=== PATIENT | female | born 1950 | race Caucasian/White ===

== ENCOUNTER 2022-02-12 10:11 | Emergency (ER) | payer MEDICARE, SELFPAY ==
--- NOTE | ~2022-02-12 | XR_ITS ---
EXAMINATION: XR chest 2V DATE: 02/12/2022 13:22 INDICATION: Shortness of breath. Fever. TECHNIQUE: Frontal and lateral views of the chest were obtained. COMPARISON: None. FINDINGS: There are airspace opacities in right lower lobe, consistent with pneumonia. No pleural eff usion or pneumothorax. The heart size is normal. There are breast implants. IMPRESSION: 1. Airspace opacities in right lower lobe, consistent with pneumonia. Reviewed, dictated and finalized at location A. ICAL ENGINEERING TEACHER
[2022-02-12 10:55] VITALS: BP 127/65; PULSE 100; RESP 20; TEMP 37.2; O2SAT 99
--- NOTE | 2022-02-12 12:54 | ED.GENADULT ---
HPI - General Adult General Chief complaint: Upper Respiratory Infection Stated complaint: cough/sob Time Seen by Provider: 02/12/22 12:54 Source: patient Mode of arrival: ambulatory Limitations: no limitations History of Present Illness HPI narrative: 71-year-old female patient presents to the [facility] with complaints of cough and shortness of breath with fevers for the last 2 days. Patient states she has been feeling very drained and tired. Patient states she does have history of asthma and is active smoker. Patient denies using her rescue inhaler states that she might have used it once the last 2 or 3 days. Patient states she does not have and nebulizer at home. Patient states she has been vaccinated against COVID and influenza. Patient states she has been running fevers last 2 days yesterday was 99 fever and the day before that was up to 103. Patient states she has had a little bit of nausea at that has been able to keep down some florentino karin. Denies any abdominal pain. Denies any chest pain. Related Data Home Medications Medication Instructions Recorded Confirmed albuterol sulfate 90 mcg/actuation inhalation 02/12/22 aerosol inhaler amlodipine 10 mg tablet mg 02/12/22 azelastine 0.05 % eye drops drp 02/12/22 bupropion HCl 300 mg 24 hr tablet, mg PO 02/12/22 extended release gabapentin 300 mg capsule mg 02/12/22 ibuprofen 800 mg tablet mg 02/12/22 irbesartan 300 mg tablet mg 02/12/22 montelukast 10 mg tablet mg 02/12/22 pravastatin 10 mg tablet mg 02/12/22 Allergies Allergy/AdvReac Type Severity Reaction Status Date / Time Tetracyclines Allergy Intermediate Rash Verified 02/12/22 11:55 Review of Systems Review of Systems: CONSTITUTIONAL: Positive fever, denies chills, or sweats. EYES: Denies visual changes, redness, or discharge. ENT: Denies rhinorrhea, positive congestion, sore throat, denies otalgia. CARDIOVASCULAR: Denies chest pain, palpitations, or edema. RESPIRATORY: Positive cough with dyspnea. GASTROINTESTINAL: Denies abdominal pain, positive nausea, vomiting, denies diarrhea. GENITOURINARY: Denies dysuria or hematuria. SKIN: Denies rash or itching. MUSCULOSKELETAL: Denies back pain, joint pain, or myalgia. NEUROLOGIC: Denies headache, numbness, or weakness. PSYCHIATRIC: Denies anxiety or depression. [facility] Past Medical History Medical History (Updated 02/12/22 @ 14:07 by CARMEL Corrales) Asthma Social History Social History (Updated 02/12/22 @ 13:05 by CARMEL Corrales) Smoking status: Current every day smoker Comments At the time of my signature I agree with nursing past medical history, surgical, social, and family history. There is no relevant family history pertinent to the presenting complaint. Exam Narrative: GENERAL: Well-appearing, well-nourished, and in no acute distress. HEAD: Normocephalic, atraumatic. EYES: PERRLA and EOMI. ENT: Nares with erythema and edema noted bilaterally, no rhinorrhea or epistaxis. Mucous membranes moist. Posterior pharynx with no erythema, tonsillar enlargement, exudates or lesions present. Bilateral TMs are clear with no erythema or foreign bodies the canal. NECK: Supple. No lymphadenopathy CHEST: Clear to auscultation. No respiratory distress. Patient able talk in clear complete sentences. No tripoding noted. HEART: Regular rate and rhythm. No murmur heard. Normal peripheral pulses. ABDOMEN: Soft, nontender, nondistended, normal active bowel sounds. EXTREMITIES: Normal range of motion. No edema. SKIN: Warm, dry, no rash. NEURO: No focal deficits. Alert and oriented x3. Course Course Level of Care: Express Care Visit Reevaluation(s) Reevaluation #1: Discussed with patient that her x-ray was consistent with pneumonia. Discussed with patient she is negative today for influenza. Discussed with patient that I highly encouraged her to quit smoking. Discussed with patient will discharge home with a course of steroids
[2022-02-12] MEDS: ONDANSETRON HCL ODT 4 MG TABLET PO (13:24)
[2022-02-12] MEDS: ALBUTEROL SULFATE NEB 2.5 MG/3 ML INH INHALATION (13:25)
[2022-02-12] MEDS: IPRATROPIUM BR 0.02% INH SOLN 0.5 MG/2.5 ML VIAL INHALATION (13:25)
--- NOTE | 2022-02-12 15:20 | ECG_ITS ---
Measurements Intervals [place] Rate: 95 P: 69 MN: 149 QRS: 23 QRSD: 92 T: 27 QT: 311 QTc: 392 Interpretive Statements SINUS RHYTHM BORDERLINE T WAVE ABNORMALITY- INFERIOR LEADS BASELINE ARTIFACT- I, II, III, AVR, AVL, AVF BORDERLINE ECG NO PREVIOUS ECG AVAILABLE FOR COMPARISON Electronically Signed On 02-13-2022 7:35:43 [employer]ER SORTER by Neville Mcknight D.O.
== END 2022-02-12 14:31 | disposition home or self-care (01) ==
PROVIDERS: Emergency Provider Nurse Practitioner Family; PCP Internal Medicine
DX: J18.9 Pneumonia, unspecified organism (principal); J45.901 Unspecified asthma with (acute) exacerbation; F17.200 Nicotine dependence, unspecified, uncomplicated
CPT/HCPCS: 71046; 87804; 93005; 94640; 99213; A9270; G0463

== ENCOUNTER 2022-02-20 09:01 | Inpatient (IN) | payer MEDICARE, SELFPAY ==
[2022-02-20] VITALS (16 sets, daily range): BP systolic 151–192; BP diastolic 74–98; PULSE 68–93; RESP 14–24; TEMP 36.2–36.9; O2SAT 95–100; BMI 20.9
--- NOTE | ~2022-02-20 | XR_ITS ---
EXAMINATION: XR chest 1V portable DATE: 02/22/2022 05:40 INDICATION: Right lower lobe pneumonia. TECHNIQUE: A single frontal view of the chest was obtained. COMPARISON: Chest 2 views 02/12/2022, CT abdomen and pelvis 02/20/2022 FINDINGS: There are airspace opacities in right mid and lower lung zones. There is a small right pleu ral effusion. No pneumothorax. The heart size is normal. IMPRESSION: 1. Airspace opacities in right mid and lower lung zones, consistent with atelectasis versus pneumonia . 2. Small right pleural effusion. Reviewed, dictated and finalized at location A. OF MAINTENANCE IMPRESSION: 1. Airspace opacities in right mid and lower lung zones, consistent with atelec tasis versus pneumonia. 2. Small right pleural effusion.
--- NOTE | ~2022-02-20 | XR_ITS ---
EXAMINATION: XR chest 1V portable DATE: 02/23/2022 06:01 INDICATION: Right lower lobe pneumonia. TECHNIQUE: A single frontal view of the chest was obtained. COMPARISON: Chest single view 02/22/2022 FINDINGS: There are airspace opacities in right mid and lower lung zones. There is a small right pleu ral effusion. No pneumothorax. The heart size is normal. IMPRESSION: 1. Stable airspace opacities in right mid and lower lung zones, consistent with atelectasis versus pn eumonia. 2. Stable small right pleural effusion. Reviewed, dictated and finalized at location A. STRAIGHTENER IMPRESSION: 1. Stable airspace opacities in right mid and lower lung zones, consistent with atelectasis versus pneumonia. 2. Stable small right pleural effusion.
--- NOTE | ~2022-02-20 | CT_ITS ---
EXAMINATION: CT abdomen pelvis w con DATE: 02/20/2022 10:12 INDICATION: Right lower quadrant pain. Nausea. TECHNIQUE: Computed tomography (CT) of the abdomen and pelvis was performed with 100 cc Omnipaque 350 intravenous contrast. The dose-length product was 339.92 mGy-cm. Automated exposure control and iter ative reconstruction technique were employed. COMPARISON: No prior studies for comparison. . FINDINGS: There is right lower lobe airspace disease, suspicious for pneumonia and/or atelectasis. Sm all right pleural effusion. There are partially calcified breast implants. Heart size normal. Small subcentimeter hypodensities of the liver, most likely benign. The spleen, pancreas, adrenal gla nds and left kidney are unremarkable. There is a 3 cm right renal cyst medially. Gallbladder is prese nt. There is mild atherosclerosis of the aorta without evidence for aneurysm. No significant lymphade nopathy. Moderate colonic fecal loading. No free air. Bladder is not well distended. There is a chron ic compression fracture of L5 with severe degenerative disc disease at L4-5 and L5-S1. There is grade 1 spondylolisthesis at L4-5. There is mild superior endplate compression fracture of L3, likely rn transport adiel. IMPRESSION: 1. Right lower lobe airspace disease, compatible with pneumonia. 2: Small right pleural effusion. 3: Chronic L5 compression fracture with severe degenerative disc disease at L4-5 and L5-S1. Reviewed, dictated and finalized at location A. R COORDINATOR IMPRESSION: 1. Right lower lobe airspace disease, compatible with pneumonia. 2: Small right pleural effusion. 3: Chronic L5 compression fracture with severe degenerative disc disease at L4- 5 and L5-S1.
--- NOTE | 2022-02-20 09:20 | ED.ABDPAIN ---
HPI - Abdominal Pain General Chief Complaint: Abdominal Pain Stated Complaint: abd pain Time Seen by Provider: 02/20/22 09:08 History of Present Illness HPI narrative: 71-year-old female here with a history of asthma here for evaluation of right-sided abdominal pain for the past 3 days. Patient states the pain is severe in nature, worse with certain positions and movement. Sharp and stabbing in nature. She also notes nausea, vomiting, low-grade fevers, and constipation for the past several days. She gave herself an enema yesterday to attempt to relieve the pain without success, had only small, pebble-like bowel movements. She has a history of an abdominal surgery when she was 18 to remove an ovarian tumor that was reportedly benign. Denies history of malignancy. Patient was also seen at an urgent care on 02/12 for cough and shortness of breath, was found to have a pneumonia and discharged with azithromycin and prednisone. Patient states that her cough has improved. Related Data Home Medications Medication Instructions Recorded Confirmed albuterol sulfate 90 mcg/actuation 90 mcg inhalation Q4H 02/12/22 02/20/22 aerosol inhaler amlodipine 10 mg tablet 10 mg PO DAILY 02/12/22 02/20/22 azelastine 0.05 % eye drops 0.05 drp EACH EYE PRN PRN Allergy 02/12/22 02/20/22 Symptoms bupropion HCl 300 mg 24 hr tablet, 300 mg PO DAILY 02/12/22 02/20/22 extended release gabapentin 300 mg capsule 300 mg PO QID 02/12/22 02/20/22 ibuprofen 800 mg tablet 800 mg PO TID 02/12/22 02/20/22 irbesartan 300 mg tablet 300 mg PO DAILY 02/12/22 02/20/22 montelukast 10 mg tablet 10 mg PO DAILY 02/12/22 02/20/22 pravastatin 10 mg tablet 10 mg PO DAILY 02/12/22 02/20/22 Allergies Allergy/AdvReac Type Severity Reaction Status Date / Time Tetracyclines Allergy Intermediate Rash Verified 02/20/22 09:50 Review of Systems Review of Systems: Gen.: Denies fevers or chills Eyes: Denies eye pain or visual change ENT: Denies congestion Respiratory: Denies shortness of breath or cough CV: Denies chest pain or palpitations GI: Denies abdominal pain nausea, emesis or diarrhea denies burning, urgency, frequency or hematuria Musculoskeletal: Denies back pain or muscle pain Neuro: Denies numbness, tingling, weakness or focal weakness Skin: Denies rash Except as documented, all other systems reviewed and negative [facility] Past Medical History Medical History (Updated 02/20/22 @ 16:42 by Evita Valles NP) Asthma Chronic back pain Depression Hyperlipidemia Hypertension Surgical History Surgical History (Updated 02/20/22 @ 16:23 by Evita Valles NP) H/O bilateral oophorectomy Family History Family History (Updated 02/20/22 @ 16:25 by Evita Valles NP) Father Emphysema lung Hypertension Mother Hypertension Breast cancer Sibling Lymphoma Social History Social History (Updated 02/20/22 @ 16:26 by Evita Valles NP) Social History: The patient tells me that she quit smoking this past January. She does not use any alcohol marijuana or illicit drugs. She stated that when her was alive they would have 2 cocktails a night but since he has passed she has not had any night caps. She is . She does not have any biological children but has 2 step children that she considers her children. 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 She does not have a durable power deputy commonwealth's attorney for healthcare. Code status Full code Years smoked: 16 Smoking status: Former smoker Tobacco type: cigarettes Smoking end date: 02/06/22 Alcohol intake: never Substance use: never Lack of Transportation: No Lack of Food: Never True Current Housing: I Have Housing Concerned About Future Housing: No Difficulty Paying Gas/Electric Bills: No Difficulty Paying for Meds: No Currently Unemployed: No Education: Master's Degree or Higher Difficulty w/ Childcare or Family Care: No Spiritual c
[2022-02-20 09:31] LABS: Basophils Absolute Auto 0.1 K/mm3 (0.0-0.1); Basophils Percent Auto 0.4 % (0.2-1.2); Eosinophils Absolute Auto 0.1 K/mm3 (0-0.3); Eosinophils Percent Auto 0.7 % (0-4.4); Hematocrit 41.4 % (37.0-47.0); Hemoglobin 13.7 g/dL (12.0-15.0); Immature Granulocyte Absolute 0.42 K/mm3 (0.00-0.031); Immature Granulocyte Percent A 2.7 % (0-0.5); Lymphocytes Absolute Auto 2.23 K/mm3 (0.9-3.2); Lymphocytes Percent Auto 14.2 % (18.3-44.2); Mean Corpuscular HGB Conc 33.1 g/dl (32-36); Mean Corpuscular Hemoglobin 29.4 pg (26-34); Mean Corpuscular Volume 88.8 fl (80-100); Mean Platelet Volume 8.4 fl (7.4-10.4); Monocytes Absolute Auto 0.7 K/mm3 (0.1-0.6); Monocytes Percent Auto 4.6 % (2.6-8.5); Neutrophils Absolute Auto 12.2 K/mm3 (1.3-6.7); Neutrophils Percent Auto 77.4 % (45.5-73.1); Platelet Count Result 772 k/mm3 (150-375); Red Blood Count 4.66 M/mm3 (4.2-5.4); Red Cell Distribution Width 13.6 % (11.5-14.5); White Blood Count 15.7 K/mm3 (4.5-10.0)
[2022-02-20 09:31] LABS: Add Urine Microscopic? YES; Appearance Urine Slightly Cloudy (Clear); Bilirubin Urine 1+ (Negative); Blood Urine 2+ (Negative); Color Urine Yellow (Yellow); Glucose Urine UA Negative (Negative); Ketones Urine Trace mg/dL (Negative); Leukocyte Esterase Ur Negative LEU/UL (Negative); Nitrate Urine Negative (Negative); Protein Urine Trace mg/dL (Negative); Urobilinogen Urine 0.2 mg/dL (<2.0)
[2022-02-20 09:36] LABS: Bacteria Urine Trace /hpf; Mucus Urine Heavy /lpf; Renal Epithelial Cells Urine Rare /hpf (None Seen); Squamous Epithelial Cell Urine Occasional /hpf (Few)
[2022-02-20 09:44] LABS: Lactic Acid Reflex 1.2 mmol/L (0.7-2.0)
[2022-02-20 09:46] LABS: Alanine Aminotransferase 26 U/L (6-35); Albumin Level 4.5 g/dL (3.5-5.1); Alkaline Phosphatase 82 U/L (38-126); Anion Gap 10 mmol/L (8-16); Aspartate Amino Transferase 22 U/L (14-36); Bilirubin,Total 0.8 mg/dL (0.2-1.3); Blood Urea Nitrogen 14 mg/dL (7-17); Calcium 9.3 mg/dL (8.4-10.2); Carbon Dioxide 32 mmol/L (22-30); Chloride 95 mmol/L (98-107); Estimated CRCL calculation 52 ml/min; Estimated Glomerular Filt Rate > 60; Glucose 139 mg/dL (65-110); Magnesium 2.1 mg/dL (1.6-2.3); Potassium 3.4 mmol/L (3.4-5.0); Sodium 137 mmol/L (137-145)
[2022-02-20] MEDS: SODIUM CHLORIDE 0.9% IV 1,000 ML 999 ML IV CONT ×2 (09:51→11:25)
[2022-02-20] MEDS: ONDANSETRON INJ 4 MG/2 ML VIAL IV PUSH (09:51)
[2022-02-20] MEDS: MORPHINE SULFATE (*CRX) 4 MG/ML INJ IV PUSH (09:51)
[2022-02-20 11:50] LABS: Influenza A QL RT-PCR Negative (Negative); Influenza B QL RT-PCR Negative (Negative); SARS-CoV-2 RNA PCR Negative
[2022-02-20] MEDS: KETOROLAC 15 MG/ML VIAL (*BKC) IV PUSH (13:13)
--- NOTE | 2022-02-20 13:26 | ADMGEN ---
This patient, Terri Briseno, was admitted to 3 Med Surg Room 331-01 @ 1320. Patient/family oriented to hospital policies and general routines including ID bracelet, bed and alarms, visiting hours, pain management, procedures, bathroom and other care routines, personal items, smoking policy, room service/diet, and visiting hours. Information on how to activate the Rapid Response Team has been discussed. Patient/Family are encouraged to report perceived risks to care and to ask questions if they do not understand what they are told or what they should do.
--- NOTE | 2022-02-20 16:03 | PM.IMHP ---
H&P: HPI History of Present Illness Date/Time: 02/20/22 16:03 Chief Complaint: Abdominal pain Narrative: This is a 71-year-old female patient who was complaining of right lower mid back pain. The patient stated that her pain was worse when she took deep breaths. She stated she is having difficulty taking deep breaths. The patient stated that she recently went to an urgent care on 02/12/2022 and was treated for pneumonia. The patient was taking z pack and prednisone at the time. The patient stated that she has completed all of the antibiotics as prescribed. The patient stated that she has not been eating very well because she thought maybe she had a small-bowel obstruction. The patient attempted to give herself an enema and only had a pebble like bowel movements. Her white count is 15.7 with neutrophils 77.4. The patient was negative for influenza A/B and COVID. Patient had abdominal pelvis CT which was read as right lower lobe airspace disease compatible with pneumonia. Small right pleural effusion. Chronic L5 compression fracture with severe degenerative disc disease at L4 through 5 and L5-S1. The patient was given morphine, Zofran, IV fluid, Levaquin and Toradol. The patient was admitted to observation status on the date of service of 02/20/2022. Review of Systems Review of Systems: see hpi All systems reviewed & are unremarkable except as noted in HPI and below Constitutional: Constitutional: Reports as per HPI and Reports no additional constitutional complaints Eyes: Eyes: Reports as per HPI and Reports no additional eye complaints ENT: Reports system reviewed and no additional complaints, except as documented and Reports Normal hearing present Cardiovascular: Cardiovascular: Reports no additional cardiovascular complaints Respiratory: Respiratory: Reports no additional respiratory complaints and Reports no additional respiratory complaints Gastrointestinal: Gastrointestinal: Reports as per HPI and Reports no additional gastrointestinal complaints Musculoskeletal: Musculoskeletal: Reports no additional musculoskeletal complaints Integumentary/Breasts: Skin/Breast: Reports system reviewed and no additional complaints, except as docu and Reports as per HPI Neurologic: Reports system reviewed and no additional complaints, except as documented, Reports as per HPI and Reports Normal hearing present Psychiatric: Psychiatric: Reports no additional psychiatric complaints and Reports as per HPI Endocrine: Endocrine: Reports no additional endocrine complaints Hematologic/Lymphatic: Hematologic/Lymphatic: Reports no additional hematologic/lymphatic complaints Allergic/Immunologic: Allergic/Immunologic: Reports no additional allergic/immunologic complaints [facility] [place] Past Medical History Medical History (Updated 02/20/22 @ 16:42 by Evita Valles NP) Asthma Chronic back pain Depression Hyperlipidemia Hypertension Surgical History Surgical History (Updated 02/20/22 @ 16:23 by Evita Valles NP) H/O bilateral oophorectomy Family History Family History (Updated 02/20/22 @ 16:25 by Evita Valles NP) Father Emphysema lung Hypertension Mother Hypertension Breast cancer Sibling Lymphoma Social History Social History (Updated 02/20/22 @ 16:26 by Evita Valles NP) Social History: The patient tells me that she quit smoking this past January. She does not use any alcohol marijuana or illicit drugs. She stated that when her was alive they would have 2 cocktails a night but since he has passed she has not had any night caps. She is . She does not have any biological children but has 2 step children that she considers her children. 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 She does not have a durable power health care attorney for healthcare. Code status Full code Years smoked: 16 Smoking status: Former smoker Tobacco type: cigarettes Smoking end date: 02/06/22 A
[2022-02-20] MEDS: DOCUSATE SODIUM 100 MG CAPSULE PO (17:56)
[2022-02-20] MEDS: GABAPENTIN 300 MG CAPSULE PO ×2 (17:56→22:20)
[2022-02-20] MEDS: ALBUTEROL SULFATE (*SP) AEROSOL 1 PUFF INHALATION (19:35)
--- NOTE | 2022-02-20 19:41 | PCRCNOTE ---
Pt will refuse midnight tx. RN informed.
[2022-02-21 06:00] VITALS: BP 137/77; PULSE 74; RESP 14; TEMP 36.3; O2SAT 93
[2022-02-21 06:38] LABS: Basophils Absolute Auto 0.1 K/mm3 (0.0-0.1); Basophils Percent Auto 0.5 % (0.2-1.2); Eosinophils Absolute Auto 0.2 K/mm3 (0-0.3); Eosinophils Percent Auto 1.7 % (0-4.4); Hematocrit 32.2 % (37.0-47.0); Hemoglobin 10.6 g/dL (12.0-15.0); Immature Granulocyte Absolute 0.21 K/mm3 (0.00-0.031); Lymphocytes Absolute Auto 2.05 K/mm3 (0.9-3.2); Lymphocytes Percent Auto 19.8 % (18.3-44.2); Mean Corpuscular HGB Conc 32.9 g/dl (32-36); Mean Corpuscular Hemoglobin 28.7 pg (26-34); Mean Corpuscular Volume 87.3 fl (80-100); Mean Platelet Volume 8.7 fl (7.4-10.4); Monocytes Absolute Auto 0.9 K/mm3 (0.1-0.6); Monocytes Percent Auto 9.1 % (2.6-8.5); Neutrophils Absolute Auto 6.9 K/mm3 (1.3-6.7); Neutrophils Percent Auto 66.9 % (45.5-73.1); Platelet Count Result 590 k/mm3 (150-375); Red Blood Count 3.69 M/mm3 (4.2-5.4); Red Cell Distribution Width 13.4 % (11.5-14.5); White Blood Count 10.3 K/mm3 (4.5-10.0)
[2022-02-21 06:42] LABS: Alanine Aminotransferase 17 U/L (6-35); Albumin Level 3.1 g/dL (3.5-5.1); Alkaline Phosphatase 53 U/L (38-126); Anion Gap 7 mmol/L (8-16); Aspartate Amino Transferase 17 U/L (14-36); Bilirubin,Total 0.5 mg/dL (0.2-1.3); Blood Urea Nitrogen 7 mg/dL (7-17); Calcium 7.8 mg/dL (8.4-10.2); Carbon Dioxide 29 mmol/L (22-30); Chloride 99 mmol/L (98-107); Estimated CRCL calculation 59 ml/min; Estimated Glomerular Filt Rate > 60; Glucose 101 mg/dL (65-110); Potassium 3.3 mmol/L (3.4-5.0); Sodium 135 mmol/L (137-145)
[2022-02-21 06:43] LABS: Lactic Acid Reflex 0.7 mmol/L (0.7-2.0)
[2022-02-21] MEDS: ALBUTEROL SULFATE (*SP) AEROSOL 1 PUFF INHALATION ×2 (08:40→12:49)
[2022-02-21 08:45] VITALS: PULSE 72; RESP 18
[2022-02-21] MEDS: ENOXAPARIN 40 MG/0.4 ML SYRINGE SUB-Q (08:53)
[2022-02-21] MEDS: POTASSIUM CHLORIDE 20 MEQ TABLET 40 MEQ PO (08:53)
[2022-02-21] MEDS: GABAPENTIN 300 MG CAPSULE PO ×4 (08:54→21:25)
[2022-02-21] MEDS: buPROPion HCL XL (24 HR) 150 MG TABCR 300 MG PO (08:54)
[2022-02-21] MEDS: MONTELUKAST SODIUM 10 MG TABLET PO (08:54)
[2022-02-21] MEDS: IRBESARTAN 150 MG TABLET 300 MG PO (08:54)
[2022-02-21] MEDS: amLODIPine BESYLATE 5 MG TABLET 10 MG PO (08:54)
[2022-02-21] MEDS: PRAVASTATIN SODIUM 10 MG TABLET PO (08:54)
--- NOTE | 2022-02-21 13:02 | PM.IMPN ---
Progress Note: A&P Assessment and Plan (1) Community acquired pneumonia of right lower lobe of lung: Code(s): J18.9 - Pneumonia, unspecified organism Status: Acute Assessment and Plan: Patient was diagnosed with right lower lobe pneumonia on 02/11/2022. She was treated with steroid pack and azithromycin. She had clinical improvement. Her condition worsened about 3 days prior to admission. She is having right-sided pleuritic pain. Imaging shows right lower lobe airspace disease with small right pleural effusion. She could have parapneumonic effusion causing her pain. Consider also early empyema. WBC better. Will check serial chest x-rays. She may need thoracentesis if her condition does not improve as expected. Add senna spirometry. Continue albuterol. Increase activity level as she tolerates. Continue broad-spectrum IV antibiotics. (2) Hypertension: Code(s): I10 - Essential (primary) hypertension Status: Acute Assessment and Plan: Patient's blood pressure was reviewed on 02/21 Blood pressure better controlled. Will continue current medications. (3) Asthma: Code(s): J45.909 - Unspecified asthma, uncomplicated Status: Acute Assessment and Plan: stable. No wheezing on exam. Continue scheduled albuterol. She is also on Singulair which has been continued. (4) Chronic back pain: Code(s): M54.9 - Dorsalgia, unspecified; G89.29 - Other chronic pain Status: Acute Assessment and Plan: Stable. Continue gabapentin. (5) Depression: Code(s): F32.A - Depression, unspecified Status: Acute Assessment and Plan: Mood stable. Continue current medications. Subjective Date/time seen: 02/21/22 13:02 Interval history: 71yo female with asthma and HTN here for abdominal pain and found to have a RLL PNA. patient feels better today. She still has the right sided pleuritic chest pain. She is able lie flat. Shortness of breath is better overall. She did finish 5 days of azithromycin about 5 days ago. Exam Narrative: AF 97.3 137/77 72 18 93% ra Gen - NARD Chest - right base inspiratory crackles CV - RRR S1/S2 Abd - Soft, NT/ND, Positive BS Ext - No pedal edema Neuro - Alert and oriented. Nonfocal exam. Psych - Nml mood and affect Skin - Warm and dry Objective Data Vital Signs Vital Signs: Vital Signs - 24 hr 02/20/22 13:07 02/20/22 14:00 02/20/22 13:25 Temperature 98.4 F Pulse Rate 73 75 Respiratory Rate 20 18 Blood Pressure 169/87 H 151/74 H Pulse Oximetry 98 96 Oxygen Delivery Room Air 02/20/22 19:38 02/20/22 20:00 02/20/22 22:00 Temperature 97.6 F Pulse Rate 70 78 Respiratory Rate 14 16 Blood Pressure 173/76 H Pulse Oximetry 98 Oxygen Delivery Room Air 02/21/22 06:00 02/21/22 08:45 Temperature 97.3 F L Pulse Rate 74 72 Respiratory Rate 14 18 Blood Pressure 137/77 Pulse Oximetry 93 Oxygen Delivery Intake/Output Intake/Output: Intake & Output 02/18/22 02/19/22 02/20/22 02/21/22 23:59 23:59 23:59 23:59 Intake Total 2580 1190 Output Total 1240 Balance 2580 -50 Meds/Results Medications: Active Medications Generic Name Dose Route Start Last Admin Trade Name Freq PRN Reason Stop Dose Admin Albuterol 1 puff 02/20/22 16:35 02/21/22 12:49 Albuterol Sulfate (*Sp) Aerosol 1 Puff INHALATION 1 puff Q4HRT BRIANNA Administration Amlodipine Besylate 10 mg 02/21/22 09:00 02/21/22 08:54 Amlodipine Besylate 5 Mg Tablet PO 10 mg DAILY BRIANNA Administration Bisacodyl 10 mg 02/20/22 16:05 Bisacodyl 10 Mg Suppository RECTAL QAM PRN Constipation Bupropion HCl 300 mg 02/21/22 09:00 02/21/22 08:54 Bupropion Hcl Xl (24 Hr) 150 Mg Tabcr PO 300 mg DAILY BRIANNA Administration Docusate Sodium 100 mg 02/20/22 16:04 02/20/22 17:56 Docusate Sodium 100 Mg Capsule PO 100 mg Q12H PRN Administr
[2022-02-21 13:10] VITALS: PULSE 68; RESP 18
[2022-02-21 14:00] VITALS: BP 128/73; PULSE 83; RESP 18; TEMP 36.9; O2SAT 96
[2022-02-21] MEDS: DOCUSATE SODIUM 100 MG CAPSULE PO (17:41)
[2022-02-21 22:00] VITALS: BP 144/80; PULSE 74; RESP 14; TEMP 36.4; O2SAT 97
--- NOTE | 2022-02-21 23:22 | PCRCNOTE ---
Window of time for administration has passed. See next scheduled administration.
[2022-02-22] VITALS (8 sets, daily range): BP systolic 109–151; BP diastolic 56–83; PULSE 64–82; RESP 15–16; TEMP 36–37; O2SAT 95–97
[2022-02-22 06:19] LABS: Basophils Absolute Auto 0.1 K/mm3 (0.0-0.1); Basophils Percent Auto 0.6 % (0.2-1.2); Eosinophils Absolute Auto 0.2 K/mm3 (0-0.3); Eosinophils Percent Auto 1.8 % (0-4.4); Hematocrit 30.1 % (37.0-47.0); Hemoglobin 9.9 g/dL (12.0-15.0); Immature Granulocyte Absolute 0.09 K/mm3 (0.00-0.031); Immature Granulocyte Percent A 1.1 % (0-0.5); Lymphocytes Absolute Auto 2.28 K/mm3 (0.9-3.2); Lymphocytes Percent Auto 27.8 % (18.3-44.2); Mean Corpuscular HGB Conc 32.9 g/dl (32-36); Mean Corpuscular Hemoglobin 29.5 pg (26-34); Mean Corpuscular Volume 89.6 fl (80-100); Mean Platelet Volume 8.6 fl (7.4-10.4); Monocytes Absolute Auto 0.9 K/mm3 (0.1-0.6); Monocytes Percent Auto 10.9 % (2.6-8.5); Neutrophils Absolute Auto 4.7 K/mm3 (1.3-6.7); Neutrophils Percent Auto 57.8 % (45.5-73.1); Platelet Count Result 580 k/mm3 (150-375); Red Blood Count 3.36 M/mm3 (4.2-5.4); Red Cell Distribution Width 13.4 % (11.5-14.5); White Blood Count 8.2 K/mm3 (4.5-10.0)
[2022-02-22 06:28] LABS: Albumin Level 3.1 g/dL (3.5-5.1); Anion Gap 5 mmol/L (8-16); Blood Urea Nitrogen 8 mg/dL (7-17); Calcium 7.9 mg/dL (8.4-10.2); Carbon Dioxide 27 mmol/L (22-30); Chloride 102 mmol/L (98-107); Estimated CRCL calculation 59 ml/min; Estimated Glomerular Filt Rate > 60; Glucose 131 mg/dL (65-110); Potassium 3.7 mmol/L (3.4-5.0); Sodium 134 mmol/L (137-145)
[2022-02-22] MEDS: ALBUTEROL SULFATE NEB 2.5 MG/3 ML INH INHALATION ×2 (08:25→15:02)
[2022-02-22] MEDS: amLODIPine BESYLATE 5 MG TABLET 10 MG PO (08:32)
[2022-02-22] MEDS: IRBESARTAN 150 MG TABLET 300 MG PO (08:32)
[2022-02-22] MEDS: GABAPENTIN 300 MG CAPSULE PO ×4 (08:32→20:17)
[2022-02-22] MEDS: MONTELUKAST SODIUM 10 MG TABLET PO (08:32)
[2022-02-22] MEDS: ENOXAPARIN 40 MG/0.4 ML SYRINGE SUB-Q (08:33)
[2022-02-22] MEDS: buPROPion HCL XL (24 HR) 150 MG TABCR 300 MG PO (08:33)
[2022-02-22] MEDS: PRAVASTATIN SODIUM 10 MG TABLET PO (08:33)
--- NOTE | 2022-02-22 18:05 | PM.IMPN ---
Progress Note: A&P Assessment and Plan (1) Community acquired pneumonia of right lower lobe of lung: Code(s): J18.9 - Pneumonia, unspecified organism Status: Acute Assessment and Plan: Patient was diagnosed with right lower lobe pneumonia on 02/11/2022. She was treated with steroid pack and azithromycin. She had clinical improvement. Her condition worsened about 3 days prior to admission. She is having right-sided pleuritic pain. Imaging shows right lower lobe airspace disease with small right pleural effusion. She could have parapneumonic effusion vs early empyema causing her pain. WBC normal now. Repeat chest x-ray showing no change in the size of the effusion. Continue albuterol. Continue broad-spectrum IV antibiotics. If pain improves and/or CXR does not change, plan for discharge in 1-2 days. (2) Hypertension: Code(s): I10 - Essential (primary) hypertension Status: Acute Assessment and Plan: Patient's blood pressure was reviewed on 02/22 Blood pressure better controlled. Will continue current medications. (3) Asthma: Code(s): J45.909 - Unspecified asthma, uncomplicated Status: Acute Assessment and Plan: Stable. No wheezing on exam. Continue scheduled albuterol. (4) Chronic back pain: Code(s): M54.9 - Dorsalgia, unspecified; G89.29 - Other chronic pain Status: Acute Assessment and Plan: Stable. Continue gabapentin. (5) Depression: Code(s): F32.A - Depression, unspecified Status: Acute Assessment and Plan: Mood stable. Continue current medications. Subjective Date/time seen: 02/22/22 18:05 Interval history: 71yo female with asthma and HTN here for abdominal pain and found to have a RLL PNA. No change in the right flank pleuritic pain. She has been up walking the halls. She has been using the incentive spirometer. Cough is mildly productive. No central chest pain or shortness of breath. Exam Narrative: AF 98.0 109/56 75 16 96% ra Gen - NARD Chest - Decreased breath sounds in the right base otherwise clear. normal respiratory rate CV - RRR S1/S2 Abd - Soft, NT/ND, Positive BS Ext - No pedal edema Neuro - Alert and oriented. Nonfocal exam. Psych - Nml mood and affect Skin - Warm and dry Objective Data Vital Signs Vital Signs: Vital Signs - 24 hr 02/21/22 22:00 02/21/22 20:00 02/22/22 06:00 Temperature 97.6 F 98.6 F Pulse Rate 74 64 Respiratory Rate 14 16 Blood Pressure 144/80 H 139/83 Pulse Oximetry 97 95 Oxygen Delivery Room Air 02/22/22 08:25 02/22/22 08:00 02/22/22 08:40 Temperature Pulse Rate 72 80 Respiratory Rate 15 16 Blood Pressure Pulse Oximetry 95 Oxygen Delivery Room Air 02/22/22 14:00 02/22/22 14:56 02/22/22 15:05 Temperature 98 F Pulse Rate 78 77 75 Respiratory Rate 16 16 16 Blood Pressure 109/56 L Pulse Oximetry 96 Oxygen Delivery Intake/Output Intake/Output: Intake & Output 02/19/22 02/20/22 02/21/22 02/22/22 23:59 23:59 23:59 23:59 Intake Total 2580 2330 1550 Output Total 2240 2150 Balance 2580 90 -600 Meds/Results Medications: Active Medications Generic Name Dose Route Start Last Admin Trade Name Freq PRN Reason Stop Dose Admin Acetaminophen 650 mg 02/21/22 13:14 Acetaminophen 325 Mg Tablet PO Q6H PRN Mild Pain (1-3) or Fever Albuterol 2.5 mg 02/21/22 14:00 02/22/22 15:02 Albuterol Sulfate Neb 2.5 Mg/3 Ml Inh INHALATION 2.5 mg [id number] BRIANNA Administration Albuterol 1 puff 02/21/22 13:07 Albuterol Sulfate (*Sp) Aerosol 1 Puff INHALATION Q4HRT PRN Shortness Of Breath Amlodipine Besylate 10 mg 02/21/22 09:00 02/22/22 08:32 Amlodipine Besylate 5 Mg Tablet PO 10 mg DAILY BRIANNA Administration Bisacodyl 10 mg 02/20/22 16:05 Bisacodyl 10 Mg Suppository RECTAL QAM PRN Constipation Bupropion HCl 300 mg
[2022-02-22] MEDS: DOCUSATE SODIUM 100 MG CAPSULE PO (20:16)
[2022-02-22 22:48] LABS: Vancomycin Trough 5.9 ug/mL (10.0-20.0)
[2022-02-23 06:00] VITALS: BP 146/73; PULSE 71; RESP 16; TEMP 36.9; O2SAT 97
[2022-02-23] MEDS: GABAPENTIN 300 MG CAPSULE PO ×3 (08:16→16:59)
[2022-02-23] MEDS: IRBESARTAN 150 MG TABLET 300 MG PO (08:16)
[2022-02-23] MEDS: amLODIPine BESYLATE 5 MG TABLET 10 MG PO (08:16)
[2022-02-23] MEDS: PRAVASTATIN SODIUM 10 MG TABLET PO (08:16)
[2022-02-23] MEDS: MONTELUKAST SODIUM 10 MG TABLET PO (08:17)
[2022-02-23] MEDS: buPROPion HCL XL (24 HR) 150 MG TABCR 300 MG PO (08:17)
[2022-02-23] MEDS: ALBUTEROL SULFATE NEB 2.5 MG/3 ML INH INHALATION ×2 (10:19→15:18)
[2022-02-23 10:20] VITALS: PULSE 70; RESP 16
[2022-02-23 10:21] VITALS: O2SAT 96
--- NOTE | 2022-02-23 10:21 | PM.DS ---
DS: Admitting Diagnosis Discharge Date 02/23/2022 DS: Summary Time Spent with Patient Time attestation: Total time spent providing and/or coordinating discharge services: DS: Data Data Completed and Pending Labs on day of discharge: Labs from last 24 hours 02/22/22 21:55 Vancomycin Trough 5.9 L Preliminary micro results at discharge 02/20/22 11:25 Blood Culture - Preliminary Blood 02/20/22 11:25 Blood Culture - Preliminary Blood Discharge Plan Discharge Consulting providers: Vashti Hoang Patient Instructions: How to Stop Smoking (DC) Discharge Medications: No Action azelastine 0.05 % drops 0.05 drp EACH EYE PRN PRN (Reason: Allergy Symptoms) ibuprofen 800 mg tablet 800 mg PO TID pravastatin 10 mg tablet 10 mg PO DAILY amlodipine 10 mg tablet 10 mg PO DAILY gabapentin 300 mg capsule 300 mg PO QID montelukast 10 mg tablet 10 mg PO DAILY albuterol sulfate 90 mcg/actuation HFA aerosol inhaler 90 mcg INHALATION Q4H irbesartan 300 mg tablet 300 mg PO DAILY bupropion HCl 300 mg tablet extended release 24 hr 300 mg PO DAILY Date of admission: 02/21/22 14:25 Primary Care Provider: Savanna,Jose Fox Admitting Provider: Jessica Santana Attending physician on admission: Jessica Santana Condition: Stable
--- NOTE | 2022-02-23 10:23 | PM.IMPN ---
Progress Note: A&P Assessment and Plan (1) Community acquired pneumonia of right lower lobe of lung: Code(s): J18.9 - Pneumonia, unspecified organism Status: Acute Assessment and Plan: Patient was diagnosed with right lower lobe pneumonia on 02/11/2022. She was treated with steroid pack and azithromycin. She had clinical improvement. Her condition worsened about 3 days prior to admission. She is having right-sided pleuritic pain. Imaging shows right lower lobe airspace disease with small right pleural effusion. She could have parapneumonic effusion vs early empyema causing her pain. WBC normal now. Repeat chest x-ray showing no change in the size of the effusion. Continue albuterol. Continue broad-spectrum IV antibiotics. If pain improves and/or CXR does not change, plan for discharge in 1-2 days. (2) Hypertension: Code(s): I10 - Essential (primary) hypertension Status: Acute Assessment and Plan: Patient's blood pressure was reviewed on 02/22 Blood pressure better controlled. Will continue current medications. (3) Asthma: Code(s): J45.909 - Unspecified asthma, uncomplicated Status: Acute Assessment and Plan: Stable. No wheezing on exam. Continue scheduled albuterol. (4) Chronic back pain: Code(s): M54.9 - Dorsalgia, unspecified; G89.29 - Other chronic pain Status: Acute Assessment and Plan: Stable. Continue gabapentin. (5) Depression: Code(s): F32.A - Depression, unspecified Status: Acute Assessment and Plan: Mood stable. Continue current medications. Plan DVT prophylaxis with Lovenox GI prophylaxis not indicated Code status full code Subjective Date/time seen: 02/23/22 10:23 Interval history: No overnight events noted. No chest pain or shortness of breath. No nausea, vomiting or diarrhea. No fevers or chills. Review of Systems Review of Systems: 12 point review of systems was assessed and was negative except as noted in the HPI Exam Narrative: General: No acute distress, alert and oriented per baseline HEENT: Atraumatic, normocephalic, mucous membranes moist CV: Regular rate and rhythm, S1, S2 Lungs: Clear to auscultation bilaterally, no rales or crackles noted, no wheezes, good air entry Abdomen: Soft, nontender, nondistended Extremities: Normal to inspection Skin: No rashes noted, no lesions or wounds seen Psych: Euthymic, normal affect Objective Data Vital Signs Vital Signs: Vital Signs - 24 hr 02/22/22 14:00 02/22/22 14:56 02/22/22 15:05 Temperature 98 F Pulse Rate 78 77 75 Respiratory Rate 16 16 16 Blood Pressure 109/56 L Pulse Oximetry 96 Oxygen Delivery 02/22/22 22:00 02/23/22 06:00 02/23/22 10:20 Temperature 96.8 F L 98.4 F Pulse Rate 82 71 70 Respiratory Rate 16 16 16 Blood Pressure 151/82 H 146/73 H Pulse Oximetry 97 97 Oxygen Delivery 02/23/22 10:21 Temperature Pulse Rate Respiratory Rate Blood Pressure Pulse Oximetry 96 Oxygen Delivery Room Air Intake/Output Intake/Output: Intake & Output 02/20/22 02/21/22 02/22/22 02/23/22 23:59 23:59 23:59 23:59 Intake Total 2580 2330 2050 1030 Output Total 2240 3950 2580 Balance 2580 90 -1900 -1550 Meds/Results Medications: Active Medications Generic Name Dose Route Start Last Admin Trade Name Freq PRN Reason Stop Dose Admin Acetaminophen 650 mg 02/21/22 13:14 Acetaminophen 325 Mg Tablet PO Q6H PRN Mild Pain (1-3) or Fever Albuterol 2.5 mg 02/21/22 14:00 02/23/22 10:19 Albuterol Sulfate Neb 2.5 Mg/3 Ml Inh INHALATION 2.5 mg [id number] BRIANNA Administration Albuterol 1 puff 02/21/22 13:07 Albuterol Sulfate (*Sp) Aerosol 1 Puff INHALATION Q4HRT PRN Shortness Of Breath Amlodipine Besylate 10 mg 02/21/22 09:00 02/23/22 08:16 Amlodipine Besylate 5 Mg Tablet PO 10 mg DAILY BRIANNA Administration Bisacodyl
[2022-02-23 10:28] VITALS: PULSE 78; RESP 16
[2022-02-23 11:59] LABS: Iron 44 ug/dL (37-170)
[2022-02-23 12:08] LABS: Percent Iron Saturation 15 % (20-50)
[2022-02-23 14:00] VITALS: BP 131/76; PULSE 84; RESP 16; TEMP 36.7; O2SAT 98
[2022-02-23 17:36] LABS: Basophils Percent Auto 0.4 % (0.2-1.2); Eosinophils Absolute Auto 0.1 K/mm3 (0-0.3); Eosinophils Percent Auto 1.3 % (0-4.4); Hematocrit 30.4 % (37.0-47.0); Hemoglobin 9.8 g/dL (12.0-15.0); Immature Granulocyte Absolute 0.06 K/mm3 (0.00-0.031); Immature Granulocyte Percent A 0.8 % (0-0.5); Lymphocytes Absolute Auto 1.79 K/mm3 (0.9-3.2); Lymphocytes Percent Auto 23.7 % (18.3-44.2); Mean Corpuscular HGB Conc 32.2 g/dl (32-36); Mean Corpuscular Hemoglobin 29.2 pg (26-34); Mean Corpuscular Volume 90.5 fl (80-100); Mean Platelet Volume 8.6 fl (7.4-10.4); Monocytes Absolute Auto 0.9 K/mm3 (0.1-0.6); Neutrophils Absolute Auto 4.7 K/mm3 (1.3-6.7); Neutrophils Percent Auto 61.8 % (45.5-73.1); Platelet Count Result 604 k/mm3 (150-375); Red Blood Count 3.36 M/mm3 (4.2-5.4); Red Cell Distribution Width 13.6 % (11.5-14.5); White Blood Count 7.6 K/mm3 (4.5-10.0)
--- NOTE | 2022-02-23 17:41 | PM.DS ---
DS: Admitting Diagnosis Discharge Date 02/23/22 Admitting Diagnosis sob DS: Discharge Diagnosis Discharge Diagnosis (1) Community acquired pneumonia of right lower lobe of lung: Code(s): J18.9 - Pneumonia, unspecified organism Status: Acute Assessment and Plan: Patient was diagnosed with right lower lobe pneumonia on 02/11/2022. She was treated with steroid pack and azithromycin. She had clinical improvement. Her condition worsened about 3 days prior to admission. She is having right-sided pleuritic pain. Imaging shows right lower lobe airspace disease with small right pleural effusion. She could have parapneumonic effusion vs early empyema causing her pain. WBC normal now. Repeat chest x-ray showing no change in the size of the effusion. Continue albuterol. Continue broad-spectrum IV antibiotics. If pain improves and/or CXR does not change, plan for discharge in 1-2 days. (2) Hypertension: Code(s): I10 - Essential (primary) hypertension Status: Acute Assessment and Plan: Patient's blood pressure was reviewed on 02/22 Blood pressure better controlled. Will continue current medications. (3) Asthma: Code(s): J45.909 - Unspecified asthma, uncomplicated Status: Acute Assessment and Plan: Stable. No wheezing on exam. Continue scheduled albuterol. (4) Chronic back pain: Code(s): M54.9 - Dorsalgia, unspecified; G89.29 - Other chronic pain Status: Acute Assessment and Plan: Stable. Continue gabapentin. (5) Depression: Code(s): F32.A - Depression, unspecified Status: Acute Assessment and Plan: Mood stable. Continue current medications. Plan DVT prophylaxis with Lovenox GI prophylaxis not indicated Code status full code DS: Summary Hospital Course Hospital Course: 71-year-old female patient who was complaining of right lower mid back pain.? The patient stated that her pain was worse when she took deep breaths.? She stated she is having difficulty taking deep breaths.? The patient stated that she recently went to an urgent care on 02/12/2022 and was treated for pneumonia.? The patient was taking z pack and prednisone at the time.? The patient stated that she has completed all of the antibiotics as prescribed.?The patient was negative for influenza A/B and COVID.? Patient had abdominal pelvis CT which was read as right lower lobe airspace disease compatible with pneumonia.? Small right pleural effusion.? Chronic L5 compression fracture with severe degenerative disc disease at L4 through 5 and L5-S1.? The patient was given morphine, Zofran, IV fluid, Levaquin and Toradol. Chest x-ray is abnormal but stable on repeat. Patient did have a slight drop in hemoglobin that stabilized. Fecal occult blood test was negative. She was discharged in good condition to complete a course of Levaquin, all symptoms resolved. Repeat CBC and chest x-ray in 1 week. Time Spent with Patient Time attestation: Total time spent providing and/or coordinating discharge services: Exam Narrative: General: No acute distress, alert and oriented per baseline HEENT: Atraumatic, normocephalic, mucous membranes moist CV: Regular rate and rhythm, S1, S2 Lungs: Clear to auscultation bilaterally, no rales or crackles noted, no wheezes, good air entry Abdomen: Soft, nontender, nondistended Extremities: Normal to inspection Skin: No rashes noted, no lesions or wounds seen Psych: Euthymic, normal affect DS: Data Data Completed and Pending Labs on day of discharge: Labs from last 24 hours 02/23/22 02/23/22 02/23/22 17:19 16:56 11:02 WBC 7.6 RBC 3.36 L Hgb 9.8 L Hct 30.4 L MCV 90.5 MCH 29.2 MCHC 32.2 RDW 13.6 Plt Count 604 H MPV 8.6 Immature Gran % (Auto) 0.8 H Neut % (Auto) 61.8 Lymph % (Auto) 23.7 [place] % (Auto) 12.0 H Eos % (Auto) 1.3 Baso % (Auto) 0.4 Lymph # (Aut
[2022-02-23 17:47] LABS: IFOB Positive Control Positive; Immunochemical Fecal Occult Bl Negative (N)
== END 2022-02-23 18:15 | disposition home or self-care (01) | DRG 195 ==
LOC: ANHED 10:55 → ANH3MEDSUR 12:56
PROVIDERS: Internal Medicine; Nurse Practitioner; Physician Assistant; Admitting Provider Family Medicine; Emergency Provider General Practice; PCP Internal Medicine; Visit Provider Student in an Organized Health Care Education/Training Program
DX: J18.9 Pneumonia, unspecified organism (principal); E78.5 Hyperlipidemia, unspecified; F32.A Depression, unspecified; G89.29 Other chronic pain; I10 Essential (primary) hypertension; J45.909 Unspecified asthma, uncomplicated; M51.37 Other intervertebral disc degeneration, lumbosacral region; Z87.891 Personal history of nicotine dependence; Z20.822 Contact with and (suspected) exposure to COVID-19
CPT/HCPCS: 36415; 71045; 74177; 80053; 80069; 80202; 81001; 82274; 82728; 83540; 83550; 83605; 83735; 85025; 87040; 87070; 87205; 87636; 94640; 96361; 96365; 96366; 96367; 96372; 96375; 99285; A9270; G0378; J1650; J1885; J1956; J2270; J2405; J3370; J7030; Q9967

== ENCOUNTER 2022-02-26 11:16 | Outpatient (CLI) | payer MEDICARE, SELFPAY ==
--- NOTE | ~2022-02-26 | XR_ITS ---
XR chest 2V DATE: 02/26/2022 11:42 INDICATION: Pneumonia TECHNIQUE: PA and lateral views COMPARISON: 02/23/2022 portable AP chest 02/22/2022 portable AP chest 02/12/2022 2 view chest FINDINGS: Stable or mildly improved right mid and lower lung infiltrate and/or atelectasis since 02/23. The remaining lung meza are clear. Mild blunting of the right costophrenic angle; cannot exclude small right pleural effusion. Normal heart size. No hilar or mediastinal enlargement. No pneumothorax is detected. IMPRESSION: Stable or mildly improved right mid and lower lung infiltrate and/or atelectasis since 12/2022 Reviewed, dictated and finalized at location A. ORT DRIVER IMPRESSION: Stable or mildly improved right mid and lower lung infiltrate and/o r atelectasis since 02/23/2022
[2022-02-26 11:37] LABS: Hematocrit 31.7 % (37.0-47.0); Hemoglobin 10.3 g/dL (12.0-15.0); Mean Corpuscular HGB Conc 32.5 g/dl (32-36); Mean Corpuscular Volume 89.3 fl (80-100); Mean Platelet Volume 8.6 fl (7.4-10.4); Platelet Count Result 604 k/mm3 (150-375); Red Blood Count 3.55 M/mm3 (4.2-5.4); Red Cell Distribution Width 13.7 % (11.5-14.5); White Blood Count 6.4 K/mm3 (4.5-10.0)
== END 2022-02-26 11:17 | disposition home or self-care (01) ==
PROVIDERS: PCP Internal Medicine; Visit Provider Student in an Organized Health Care Education/Training Program
DX: J18.9 Pneumonia, unspecified organism (principal); D64.9 Anemia, unspecified
CPT/HCPCS: 36415; 71046; 85027

== ENCOUNTER 2022-03-18 13:35 | Outpatient (CLI) | payer MEDICARE, SELFPAY ==
--- NOTE | ~2022-03-18 | XR_ITS ---
Clinical Indication: Pneumonia PA and lateral views of the chest: Comparison: 02/26/2022 Findings: There is been interval improvement in right basilar airspace disease. Left lung remains donna ar. Cardiomediastinal silhouette is within normal limits. Bones and soft tissues are unremarkable. Impression: Interval improvement in right basilar airspace disease since prior exam. Reviewed, dictated and finalized at location . [place] PROFESSOR Impression: Interval improvement in right basilar airspace disease since prior exam.
== END 2022-03-18 13:36 | disposition home or self-care (01) ==
PROVIDERS: PCP Internal Medicine; Visit Provider Internal Medicine
DX: J18.9 Pneumonia, unspecified organism (principal)
CPT/HCPCS: 71046

== ENCOUNTER 2022-05-19 08:41 | Outpatient (CLI) | payer MEDICARE, SELFPAY ==
--- NOTE | ~2022-05-19 | DEXA_ITS ---
Bone Density Report Name: AMAURY STRANGE Age: 72 Sex: Female Ethnicity: White Date of : 1950 Indication: postmenopausal; screening for osteoporosis; parental hip fracture; height loss; history of glucocorticoids; asthma or emphysema; Referring Provider: MARY, ANNALEE Study: Bone densitometry was performed. Exam Date: May 19, 2022 Accession number: [id number] Bone Density: Region BMD T-score Z-score Classification AP Spine(L1-L4) 1.030 -0.2 2.0 Normal Femoral Neck (Left) 0.590 -2.3 -0.5 Osteopenia Total Hip (Left) 0.766 -1.4 0.1 Osteopenia Femoral Neck (Right) 0.576 -2.5 -0.7 Osteoporosis Total Hip (Right) 0.764 -1.5 0.1 Osteopenia Total Hip Mean 0.765 -1.5 0.1 Osteopenia World Health Organization criteria for BMD impression classify patients as: Normal (T-score at or above -1.0), Osteopenia (T-score between -1.0 and -2.5), or Osteoporosis (T-score at or below -2.5). 10-year Fracture Risk: FRAX not reported because: Some T-score for Spine Total or Hip Total or Femoral Neck at or below -2.5 Clinical Information Provided by Patient: Parent has had a hip fracture Has taken Glucocorticoids Has used the following medications: Vitamin D Has the following medical conditions: Asthma or Emphysema Patient maximum height was 64 Menopause Age: 52 Onset of menses at age 15 Number of children 0 Impression: The patient has osteoporosis, based on the Right Femoral Neck T-score. The patient has risk factors, including: parental hip fracture, history of glucocorticoid therapy. Discussion: INCREASED RISK OF FRACTURE. BONE DENSITY IS UNDESIRABLY LOW AT ONE OR MORE SKELETAL SITES, CONSISTENT WITH POSTMENOPAUSAL OSTEOPOROSIS. This patient's lowest T-score meets the World Health Organization's (WHO) criteria for osteoporosis at one or more sites (T-score -2.5 or below). In untreated patients, the risk of osteoporotic fracture increases approximately two-fold for each 1.0 SD decrease in T-score. Low bone density is not the only risk factor for fracture; also consider factors such as patient's age, frailty or poor health, risk of falling, risk of injury, previous osteoporotic fracture, family history of osteoporosis, cigarette smoking, low body weight, etc. Not everyone with low bone mineral density has osteoporosis; osteomalacia and other metabolic bone disorders should also be considered. Patients who have osteoporosis should be evaluated for specific diseases and conditions (secondary causes) that may cause or contribute to bone loss. The [place] [employer]ocrinologists (AACE) and National Osteoporosis Foundation (NOF) recommend pharmacologic intervention for all postmenopausal women whose T-score is in this range. The patient should follow a healthful lifestyle (good nutrition with flory
--- NOTE | ~2022-05-19 | MM_ITS ---
EXAMINATION: MM scrn gale implant BI w krista HISTORY: Screening mammogram TECHNIQUE: Craniocaudal and mediolateral oblique 3-D tomosynthesis images with implant displacement a nd synthetic 2-D images were generated. Craniocaudal and mediolateral oblique views of the breasts wi thout implant displacement were obtained using full field digital mammography. CAD analysis was submi tted and interpreted. COMPARISON: No prior mammogram is available for comparison at this institution. BREAST PARENCHYMAL COMPOSITION: Breast composed of scattered areas of fibroglandular density FINDINGS: There are bilateral subpectoral silicone implants. There is no evidence of suspicious mass, calcification, or architectural distortion to suggest malignancy in either breast. There has been no suspicious interval change. IMPRESSION: 1. No mammographic evidence of malignancy. 2. Recommend routine screening mammography in one year. BI-RADS Category 1: Negative Reviewed, dictated and finalized at location A.
== END 2022-05-19 08:42 | disposition home or self-care (01) ==
PROVIDERS: PCP Internal Medicine; Visit Provider Nurse Practitioner Family
DX: Z12.31 Encounter for screening mammogram for malignant neoplasm of breast (principal); M81.0 Age-related osteoporosis without current pathological fracture; M85.852 Other specified disorders of bone density and structure, left thigh; M85.851 Other specified disorders of bone density and structure, right thigh
CPT/HCPCS: 77063; 77067; 77080

== ENCOUNTER 2022-07-29 10:19 | Emergency (ER) | payer MEDICARE, SELFPAY ==
[2022-07-29 10:34] VITALS: BP 184/94; PULSE 73; RESP 16; TEMP 37.2; O2SAT 98
--- NOTE | 2022-07-29 11:10 | ED.GENADULT ---
HPI - General Adult General Chief complaint: Eye Problems Stated complaint: Left Side Facial Injury Time Seen by Provider: 07/29/22 10:51 Source: patient and RN notes reviewed Mode of arrival: ambulatory Limitations: no limitations History of Present Illness HPI narrative: Patient presents today after being struck in the left forehead by a fell baseball at a grandchild baseball game last night around 6:30 p.m.. She did not lose consciousness. Denies any vision changes, nausea vomiting, dizziness, headache. She took some Tylenol last night, but has taken none today. She does not take blood thinners or aspirin Related Data Home Medications Medication Instructions Recorded Confirmed albuterol sulfate 90 mcg/actuation 90 mcg inhalation Q4H 02/12/22 07/29/22 aerosol inhaler amlodipine 10 mg tablet 10 mg PO DAILY 02/12/22 07/29/22 azelastine 0.05 % eye drops 0.05 drp EACH EYE PRN PRN Allergy 02/12/22 07/29/22 Symptoms bupropion HCl 300 mg 24 hr tablet, 300 mg PO DAILY 02/12/22 07/29/22 extended release gabapentin 300 mg capsule 300 mg PO QID 02/12/22 07/29/22 irbesartan 300 mg tablet 300 mg PO DAILY 02/12/22 07/29/22 montelukast 10 mg tablet 10 mg PO DAILY 02/12/22 07/29/22 pravastatin 10 mg tablet 10 mg PO DAILY 02/12/22 07/29/22 Allergies Allergy/AdvReac Type Severity Reaction Status Date / Time Tetracyclines Allergy Intermediate Rash Verified 07/29/22 10:33 Review of Systems Review of Systems: CONSTITUTIONAL: Denies body aches, fever, chills, or sweats. EYES: Denies visual changes, redness, or discharge. ENT: Denies rhinorrhea, congestion, sore throat, or otalgia. CARDIOVASCULAR: Denies chest pain, palpitations, or edema. RESPIRATORY: Denies cough or dyspnea. GASTROINTESTINAL: Denies abdominal pain, nausea, vomiting, or diarrhea. GENITOURINARY: Denies dysuria or hematuria. SKIN: + bruising to left forehead MUSCULOSKELETAL: Denies back pain, joint pain, or myalgia. NEUROLOGIC: Denies headache, numbness, tingling, or weakness. PSYCH: Denies depression or anxiety. [facility] Past Medical History Medical History Asthma Chronic back pain Depression Hyperlipidemia Hypertension Surgical History Surgical History H/O bilateral oophorectomy Family History Family History Father Emphysema lung Hypertension Mother Hypertension Breast cancer Sibling Lymphoma Social History Social History Social History: The patient tells me that she quit smoking this past January. She does not use any alcohol marijuana or illicit drugs. She stated that when her was alive they would have 2 cocktails a night but since he has passed she has not had any night caps. She is . She does not have any biological children but has 2 step children that she considers her children. 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 She does not have a durable power family law attorney for healthcare. Code status Full code Years smoked: 16 Smoking status: Former smoker Tobacco type: cigarettes Smoking end date: 02/06/22 Alcohol intake: never Substance use: never Lack of Transportation: No Lack of Food: Never True Current Housing: I Have Housing Concerned About Future Housing: No Difficulty Paying Gas/Electric Bills: No Difficulty Paying for Meds: No Currently Unemployed: No Education: Master's Degree or Higher Difficulty w/ Childcare or Family Care: No Spiritual care concerns: No Comments At time of signature, I have reviewed and agree with nursing past medical, surgical, social and family history unless otherwise noted. Please see nursing chart for further information. There is no relevant family history pertinent to the presenting co
== END 2022-07-29 11:27 | disposition home or self-care (01) ==
PROVIDERS: Emergency Provider Nurse Practitioner; PCP Nurse Practitioner Family
DX: S00.83XA Contusion of other part of head, initial encounter (principal); W21.03XA Struck by baseball, initial encounter; Z87.891 Personal history of nicotine dependence; J45.909 Unspecified asthma, uncomplicated; E78.5 Hyperlipidemia, unspecified; I10 Essential (primary) hypertension; F32.A Depression, unspecified
CPT/HCPCS: 99212; G0463

== ENCOUNTER 2022-08-25 11:22 | Outpatient (CLI) | payer MEDICARE, SELFPAY ==
[2022-08-25 12:18] LABS: Hematocrit 32.8 % (37.0-47.0); Hemoglobin 10.5 g/dL (12.0-15.0); Mean Corpuscular Hemoglobin 29.3 pg (26-34); Mean Corpuscular Volume 91.6 fl (80-100); Mean Platelet Volume 9.4 fl (7.4-10.4); Platelet Count Result 288 k/mm3 (150-375); Red Blood Count 3.58 M/mm3 (4.2-5.4); Red Cell Distribution Width 13.7 % (11.5-14.5); White Blood Count 5.4 K/mm3 (4.5-10.0)
[2022-08-25 12:31] LABS: Alanine Aminotransferase 19 U/L (6-35); Albumin Level 3.8 g/dL (3.5-5.1); Alkaline Phosphatase 44 U/L (38-126); Anion Gap 4 mmol/L (8-16); Aspartate Amino Transferase 25 U/L (14-36); Bilirubin,Total 0.2 mg/dL (0.2-1.3); Blood Urea Nitrogen 14 mg/dL (7-17); CRP < 0.5 mg/dL (<1.0); Calcium 8.1 mg/dL (8.4-10.2); Carbon Dioxide 28 mmol/L (22-30); Chloride 103 mmol/L (98-107); Estimated Glomerular Filt Rate > 60; Glucose 95 mg/dL (65-110); Sodium 135 mmol/L (137-145)
[2022-08-25 12:48] LABS: Iron 65 ug/dL (37-170)
[2022-08-25 12:52] LABS: Erythrocyte Sedimentation Rate 14 mm/hr (0-20)
[2022-08-25 13:01] LABS: Percent Iron Saturation 20 % (20-50)
[2022-08-25 13:36] LABS: Folic Acid 11.5 ng/mL (2.76->20); Vitamin B12 > 1000.0 pg/mL (239-931)
== END 2022-08-25 11:23 | disposition home or self-care (01) ==
PROVIDERS: PCP Nurse Practitioner Family; Visit Provider Nurse Practitioner
DX: D64.9 Anemia, unspecified (principal); R53.83 Other fatigue; R19.7 Diarrhea, unspecified
CPT/HCPCS: 36415; 80053; 82607; 82728; 82746; 83540; 83550; 84443; 85027; 85652; 86140

== ENCOUNTER 2022-09-19 08:00 | Outpatient (NON) | payer MEDICARE, SELFPAY | END 2022-09-19 08:01 | disposition home or self-care (01) | PROVIDERS: PCP Family Medicine; Visit Provider Internal Medicine Gastroenterology | DX: R19.4 Change in bowel habit (principal) | CPT/HCPCS: 88305 ==

== ENCOUNTER 2022-09-19 10:12 | Day surgery (SDC) | payer MEDICARE, SELFPAY ==
--- NOTE | 2022-09-17 11:14 | WPDANESEPPF ---
Anes - Initial Pre Proc Eval Procedure: Operation Date: 09/19/22 11:30 Proposed Procedures p Esophagogastroduodenoscopy - Bijan Baca MD s Diagnostic Colonoscopy - Bijan Baca MD Date/Time: 09/17/22 11:14 Surgeon: Bijan Baca MD Pre Op Diagnosis: Diarrhea,Change in Bowel,Gerd Anemia-Unspecified Patient Data Age: 72 Gender: F Height: 1.57 m Weight: 55.5 kg Allergies Allergy/AdvReac Type Severity Reaction Status Date / Time Tetracyclines Allergy Intermediate Rash Verified 09/19/22 10:26 fluoride Allergy Rash Verified 09/19/22 10:26 Home Medications Medication Instructions Recorded Confirmed Type albuterol sulfate 90 mcg/actuation 90 mcg inhalation Q4H 02/12/22 09/19/22 History aerosol inhaler amlodipine 10 mg tablet 10 mg PO DAILY 02/12/22 09/19/22 History azelastine 0.05 % eye drops 0.05 drp EACH EYE PRN PRN Allergy 02/12/22 09/19/22 History Symptoms bupropion HCl 300 mg 24 hr tablet, 300 mg PO DAILY 02/12/22 09/19/22 History extended release gabapentin 300 mg capsule 300 mg PO QID 02/12/22 09/19/22 History irbesartan 300 mg tablet 300 mg PO DAILY 02/12/22 09/19/22 History montelukast 10 mg tablet 10 mg PO DAILY 02/12/22 09/19/22 History pravastatin 10 mg tablet 10 mg PO DAILY 02/12/22 09/19/22 History sodium,potassium,mag sulfates 17.5 See Rx Instructions PO .COMPLEX 08/29/22 09/19/22 Rx gram-3.13 gram-1.6 gram oral soln #354 mL (Suprep Bowel Prep Kit) alendronate 70 mg tablet 70 mg PO WEEKLY 09/02/22 09/19/22 History fluticasone fur. 100 mcg-umeclid 1 inh inhalation DAILY 09/02/22 09/19/22 History 62.5 mcg-vilant 25 mcg inhalat.powder (Trelegy Ellipta) omeprazole 20 mg capsule,delayed 20 mg PO DAILY 09/02/22 09/19/22 History release Patient hx anesthesia problems: none Family hx anesthesia problems: none Results Review: All pre-operative results and documents have been reviewed as part of the pre-operative evaluation. [facility] Past Medical History Medical History (Updated 09/17/22 @ 11:15 by Hernandez Valdez DO) ADHD Asthma B12 deficiency Change in bowel habits Chronic back pain Depression Diarrhea Epigastric abdominal tenderness Fatigue GERD (gastroesophageal reflux disease) Hyperlipidemia Hypertension Surgical History Surgical History H/O bilateral oophorectomy Family History Family History Father Emphysema lung Hypertension Mother Hypertension Breast cancer Sibling Lymphoma Social History Social History Social History: The patient tells me that she quit smoking this past January. She does not use any alcohol marijuana or illicit drugs. She stated that when her was alive they would have 2 cocktails a night but since he has passed she has not had any night caps. She is . She does not have any biological children but has 2 step children that she considers her children. 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 She does not have a durable power civil rights attorney for healthcare. Code status Full code Years smoked: 16 Smoking status: Former smoker Tobacco type: cigarettes Smoking end date: 02/06/22 Additional smoking assessment comments: quit in 2021 Alcohol intake: never Substance use: never Substance use type: does not use Lack of Transportation: No Lack of Food: Never True Current Housing: I Have Housing Concerned About Future Housing: No Difficulty Paying Gas/Electric Bills: No Difficulty Paying for Meds: No Currently Unemployed: No Education: Master's Degree or Higher Difficulty w/ Childcare or Family Care: No Spiritual care concerns: No Anes - Eval Final PreProcedure Day of Procedure 09/17/22 11:14 Patient weight: normal Heart: regular rate and rhythm Lungs: clear to auscult
[2022-09-19 10:27] VITALS: BP 144/85; PULSE 74; RESP 16; TEMP 36.8; O2SAT 100
[2022-09-19] MEDS: LACTATED RINGERS 1,000 ML 150 ML IV CONT (10:34)
--- NOTE | 2022-09-19 11:04 | PM.HPGS ---
History of Present Illness History of Present Illness Consent: Risks, benefits, and alternatives have been discussed and questions answered. Patient agrees to proceed with procedure. Chief complaint: Diarrhea,Change in Bowel,Gerd Anemia-Unspecified Narrative: Terri Briseno is a 72 year old female Presents for both colonoscopy an EGD. Patient is heartburn that began in june never having been some prior to this. She states is currently well controlled on Prilosec. She takes this medication on a p.r.n. basis. It does seem to recur when she stops this medicine she denies any dysphagia or bleeding. She has had no weight loss. Additionally patient reports diarrhea that began after a diarrhea lasted for 1 month and has now gone away. She has felt good over the last 1 month. She denies any lingering diarrhea. She never had bleeding. This is not affected her weight. Family history is noncontributory. Patient presents today for colonoscopy and EGD. Review of Systems Review of Systems: Systems noncontributory. [facility] Past Medical History Medical History (Updated 09/17/22 @ 11:15 by Hernandez Valdez DO) ADHD Asthma B12 deficiency Change in bowel habits Chronic back pain Depression Diarrhea Epigastric abdominal tenderness Fatigue GERD (gastroesophageal reflux disease) Hyperlipidemia Hypertension Surgical History Surgical History H/O bilateral oophorectomy Family History Family History Father Emphysema lung Hypertension Mother Hypertension Breast cancer Sibling Lymphoma Social History Social History Social History: The patient tells me that she quit smoking this past January. She does not use any alcohol marijuana or illicit drugs. She stated that when her was alive they would have 2 cocktails a night but since he has passed she has not had any night caps. She is . She does not have any biological children but has 2 step children that she considers her children. 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 She does not have a durable power food safety officer for healthcare. Code status Full code Years smoked: 16 Smoking status: Former smoker Tobacco type: cigarettes Smoking end date: 02/06/22 Additional smoking assessment comments: quit in 2021 Alcohol intake: never Substance use: never Substance use type: does not use Lack of Transportation: No Lack of Food: Never True Current Housing: I Have Housing Concerned About Future Housing: No Difficulty Paying Gas/Electric Bills: No Difficulty Paying for Meds: No Currently Unemployed: No Education: Master's Degree or Higher Difficulty w/ Childcare or Family Care: No Spiritual care concerns: No Meds Home Medications and Allergies Home Medications Medication Instructions Recorded Confirmed Type albuterol sulfate 90 mcg/actuation 90 mcg inhalation Q4H 02/12/22 09/19/22 History aerosol inhaler amlodipine 10 mg tablet 10 mg PO DAILY 02/12/22 09/19/22 History azelastine 0.05 % eye drops 0.05 drp EACH EYE PRN PRN Allergy 02/12/22 09/19/22 History Symptoms bupropion HCl 300 mg 24 hr tablet, 300 mg PO DAILY 02/12/22 09/19/22 History extended release gabapentin 300 mg capsule 300 mg PO QID 02/12/22 09/19/22 History irbesartan 300 mg tablet 300 mg PO DAILY 02/12/22 09/19/22 History montelukast 10 mg tablet 10 mg PO DAILY 02/12/22 09/19/22 History pravastatin 10 mg tablet 10 mg PO DAILY 02/12/22 09/19/22 History sodium,potassium,mag sulfates 17.5 See Rx Instructions PO .COMPLEX 08/29/22 09/19/22 Rx gram-3.13 gram-1.6 gram oral soln #354 mL (Suprep Bowel Prep Kit) alendronate 70 mg tablet 70 mg PO WEEKLY 09/02/22 09/19/22 History fluticasone fur. 100 mcg-umeclid 1 inh inhalation DAILY 09/02/22 09/19/22 Hist
[2022-09-19 11:48] VITALS: BP 145/79; PULSE 69; RESP 18; O2SAT 99
[2022-09-19 11:58] VITALS: BP 123/98; PULSE 74; RESP 16; O2SAT 99
[2022-09-19 12:08] VITALS: BP 156/88; PULSE 60; RESP 16; O2SAT 100
--- NOTE | 2022-09-19 12:34 | WPDANESPN ---
Anes - Prog Note Post-Op Date/Time: 09/19/22 12:34 Cardiovascular status: normal Respiratory status: normal Airway patency: baseline Mental status: baseline Post-Op hydration status: normal Vital Signs: Last Vital Signs Temp 36.8 C 09/19/22 10:27 Pulse 60 09/19/22 12:08 Resp 16 09/19/22 12:08 BP 156/88 H 09/19/22 12:08 Pulse Ox 100 09/19/22 12:08 O2 Del Method Room Air 09/19/22 12:08 Pain Score (VAS): 0 I/O: Intake & Output 09/18/22 09/19/22 09/19/22 23:59 07:59 15:59 Intake Total 800 Balance 800 Post-procedural complaints: none Patient Feedback: Patient satisfied with anesthetic care. Other Findings: Patient vital signs back to baseline. Patient denies nausea and vomiting. Patient's pain under control. Patient OK for discharge.
== END 2022-09-19 12:35 | disposition home or self-care (01) ==
PROVIDERS: PCP Family Medicine; Visit Provider Internal Medicine Gastroenterology
PROC: 0DJ08ZZ Inspection of Upper Intestinal Tract, Via Natural or Artificial Opening Endoscopic (ICD-10-PCS; CPT 43235; principal; 2022-09-19 11:30)
PROC: 0DJD8ZZ Inspection of Lower Intestinal Tract, Via Natural or Artificial Opening Endoscopic (ICD-10-PCS; CPT 45378; 2022-09-19 11:30)
DX: R19.4 Change in bowel habit (principal); K64.8 Other hemorrhoids; R12 Heartburn
CPT/HCPCS: 45380; 43239

== ENCOUNTER 2024-01-26 17:31 | Emergency (ER) | payer OTHER, MEDICARE, SELFPAY ==
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
[2024-01-26 17:31] VITALS: BP 213/89; PULSE 67; RESP 16; TEMP 36.4; O2SAT 100
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
[2024-01-26 18:46] VITALS: BP 175/89; PULSE 67; RESP 20; TEMP 36.6; O2SAT 100
[2024-01-26] MEDS: KETOROLAC (*BKC) 60 MG/2 ML VIAL IM (18:58)
--- OUTSIDE RECORDS SUMMARY | 2024-01-30 10:40 | XMS_ITS | Encounter Summary ---
Author Organization [facility] Healthcare Address [address] [place] [address] Care Team Providers Care Tool Keeper Name Role Phone Claudia Haas NP Primary Care Provider [phone] Reason for Referral * Consultation (Routine) - Pending Review Specialty Diagnoses / Procedures Referred By Contac t Referred To Contact Otolaryngology Diagnoses Obstructive sleep apnea Gena Lee NP [address] [place] [address] [address] [place] [address] Phone: tel: fax: Larry Parrish MD [facility] [address] [address] Phone: tel: fax: Referral ID Status Reason Start Date Expiration Date Visits Requested Visits Authorized [id number] Pending Review Specialty Services Required 4 02/22/2025 1 1 Question Answer Please select the performing region: [facility] (All Locations) [[id number]] To provider: LARRY PARRISH [[id number]] # of visits: 1 KFAST MANAGER Reason for Visit * Reason Comments Follow-up Encounter Details Date Type Department Care Team (Late st Contact Info) Description 01/24/2024 10:30 AM BREAKFAST MANAGER Office Visit [facility] Pulmonology [address] [facility] [address] [place] [address] Gena Lee NP [address] [place] [address] [address] [place] [address] Centrilobular emphysema (HCC) (Primary Dx); Personal history of tobacco use; Obstructive sleep apnea Social History Tobacco Use Types Packs/Day Years Used Date Smoking Tobacco: Former Cigarettes Q uit: 01/2022 Smokeless Tobacco: Never AUDIT-C Answer Date Recorded Q1: How often do you have a drink containing alcohol? Never 03/25/2022 Q2: How many drinks containi ng alcohol do you have on a typical day when you are drinking? Patient does not drink Q3: How often do you have si x or more drinks on one occasion? 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, [employer]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 file Not on file documented as of this encounter Last Filed Vital Signs Vital Sign Reading Time Taken Comments Blood Pressure 154/88 01/24/2024 10:33 AM BREAKFAST MANAGER Pulse 68 01/24/2024 10:33 AM BREAKFAST MANAGER Temperature 36.9 ??C (98.4 ??F) 01/24/2024 10:[address] Respiratory Rate 18 01/24/2024 10:33 AM BREAKFAST MANAGER Oxygen Saturation 98% 01/24/2024 10:33 AM BREAKFAST MANAGER Inhaled Oxygen Concentration - - Weight 65.3 kg (144 lb) 01/24/2024 10:33 AM BREAKFAST MANAGER Height 154.9 cm (5' 0.98 ) 01/24/2024 10:[address] Body Mass Index 27.22 01/24/2024 10:33 AM BREAKFAST MANAGER documented in this encounter Progress Notes * Gena Lee NP - 01/24/2024 10:30 AM CST Images from the original note were not included. Patient ID: Terri Briseno is a 73 y.o. female. HPI. Patient is a 73 y.o. female returns for a follow-up of Chronic obstructive pulmonary disease, tobacco use, and BRITNEY. The patient did complete a nocturnal polysomnogram on October 30, 2023. The patient was found have an overall apnea-hypopnea index 17.9 times per hour sleep. The lowest oxygen saturation recorded was 87%. The patient spent 0.6 minutes with an overall oxygen saturation below 90%. These results shared with the patient. The patient was sent out an auto titrating CPAP set at a range of 5-20 cm water pressure. The patient states she did try wearing CPAP however she was unsuccessful. The patient states that after getting the CPAP she did develop an upper respiratory infectionand had difficulty wearing it the patient states she tried wearing it again however she was unable to keep it on. The patient continues to use Trelegy one inhalation once a day. The patient's tipple oiler did increase the Trelegy to 200 mcg from 100 mcg. The patient states she feels like she is needing to use her albuterol inhaler more. The patient states that prior to having an upper respiratory infection she was working out at the gym once a day. The patient states she has not been at the gym for approximately one month. The patient states she will feel short of breath with walking upstairs. She denies cough or wheezing. Chief Complaint Patient presents with Follow-up Current Medications: Outpatient Encounter Medications as of 01/24/2024 Medication Sig Dispense Refill amLODIPine (NORVASC) 10 mg tablet TAKE 1 TABLET(10 MG) BY MOUTH DAILY 90 tablet 1 azelastine (OPTIVAR) 0.05 % ophthalmic solution Administer 1 drop into both eyes 2 (two) times a day 6 mL 3 biotin 10,000 mcg capsule Take 1 tablet by mouth daily buPROPion XL (WELLBUTRIN XL) 300 mg 24 hr tablet Take 1 tablet (300 mg total) by mouth every morning 90 tablet 1 cetirizine (ZyrTEC) 10 mg tablet Take 1 tablet (10 mg total) by mouth daily as needed for tablet 0 EPINEPHrine 0.3 mg/0.3 mL auto-injection syringe INJECT 1 PEN IN THE MUSCLE ONE TIME DIRECTED gabapentin (NEURONTIN) 300 mg capsule Take 1 capsule (300 mg total) by mouth 4 (four) times a day 360 capsule 1 ibuprofen (ADVIL,MOTRIN) 800 mg tablet Take 1 tablet (800 mg total) by mouth 3 (three) times a day as needed for pain (pain) 90 tablet 1 irbesartan (AVAPRO) 300 mg tablet Take 1 tablet (300 mg total) by mouth daily 90 tablet 3 montelukast (SINGULAIR) 10 mg tablet Take 1 tablet (10 mg total) by mouth nightly 90 tablet 1 olopatadine (PATANOL) 0.1 % ophthalmic solution every 12 hours omeprazole (PriLOSEC) 40 mg capsule Take 1 capsule (40 mg total) by mouth daily 90 capsule 1 pravastatin (PRAVACHOL) 10 mg tablet Take 1 tablet (10 mg total) by mouth daily 90 tablet 0 sertraline (ZOLOFT) 25 mg tablet TAKE 1 TABLET(25 MG) BY MOUTH DAILY 90 tablet 0 Trelegy Ellipta 200-62.5-25 mcg inhaler 1 puff daily vit C,F-Ak-nwuwn-lutein-zeaxan (PreserVision AREDS-2) 250-90-40-1 mg capsule [DISCONTINUED] cobamisknog-zbmgsivhc-ieaskcfc (TRELEGY ELLIPTA) 100-62.5-25 mcg inhaler Inhale 1 puff daily 3 each 1 albuterol HFA (PROVENTIL HFA,VENTOLIN HFA,PROAIR HFA) 90 mcg/actuation inhaler Inhale 2 puffs every6 (six) hours as needed for wheezing 3 each 4 No facility-administered encounter medications on file as of 01/24/2024. Review of Systems Constitutional: Negative for fever. HENT: Negative for tinnitus. Eyes: Negative for visual disturbance. Respiratory: Negative for cough, shortness of breath and wheezing. Cardiovascular: Negative for chest pain. Gastrointestinal: Negative for diarrhea, nausea and vomiting. Skin: Negative for rash. Neurological: Negative for dizziness. BP 154/88 (BP Location: Right arm, Patient Position: Sitting) Pulse 68 Temp 36.9 ??C (98.4 ??F)(Tympanic) Resp 18 Ht 154.9 cm (5' 0.98 ) Wt 65.3 kg (144 lb) SpO2 98% BMI 27.22 kg/m?? Physical Exam Constitutional: General: She is not in acute distress. HENT: Mouth/Throat: Pharynx: No oropharyngeal exudate. Eyes: Pupils: Pupils are equal, round, and reactive to light. Cardiovascular: Rate and Rhythm: Normal rate and regular rhythm. Pulmonary: Effort: Pulmonary effort is normal. Breath sounds: Normal breath sounds. No wheezing. Abdominal: Palpations: Abdomen is soft. Musculoskeletal: Cervical back: Normal range of motion. Imaging: No results found. Assessment & Plan: Diagnoses and all orders for this visit: Centrilobular emphysema (HCC) (Primary) Assessment & Plan: The patient continues to use her Trelegy one inhalation once a day. The patient will continue with albuterol as needed up to 4 times a day for shortness of breath. The patient states she has receivedher RSV, COVID, and flu shot. Personal history of tobacco use Assessment & Plan: The patient continues not smoke. She does have a CT scan ordered for February of 2024. Obstructive sleep apnea Assessment & Plan: The patient was unable to tolerate CPAP. The patient is interested in the inspire device. I have referred the patient over to Dr. Parrish. Orders: - Ambulatory referral to ENT; Future Return in about 6 months (around 07/24/2024). Gena Lee NP Cosigned by Luis Hernandez MD at 01/24/2024 11:12 AM BREAKFAST MANAGER KFAST MANAGER KFAST MANAGER documented in this encounter Miscellaneous Notes * Assessment & Plan Note - Gena Lee NP - 01/24/2024 11:07 AM BREAKFAST MANAGER Associated Problem(s): Obstructive sleep apnea The patient was unable to tolerate CPAP. The patient is interested in the inspire device. I have referred the patient over to Dr. Parrish. KFAST MANAGER * Assessment & Plan Note - Gena Lee NP - 01/24/2024 11:01 AM BREAKFAST MANAGER Associated Problem(s): Personal history of tobacco use The patient continues not smoke. She does have a CT scan ordered for February of 2024. KFAST MANAGER * Assessment & Plan Note - Gena Lee NP - 01/24/2024 11:01 AM BREAKFAST MANAGER Associated Problem(s): Centrilobular emphysema (HCC) The patient continues to use her Trelegy one inhalation once a day. The patient will continue with albuterol as needed up to 4 times a day for shortness of breath. The patient states she has receivedher RSV, COVID, and flu shot. KFAST MANAGER documented in this encounter Plan of Treatment Scheduled Referrals Name Type Priority Associated Diagnoses Order Schedule Ambulatory referral to ENT Outpatient Referral Routine Obstructive sleep apnea Expected: 01/24/2024 (Approximate), Expires: 01/23/2025 documented as of this encounter Visit Diagnoses Diagnosis Centrilobular emphysema (HCC)- Primary Personal history of tobacco use Personal history of tobacco use, presenting hazards to health Obstructive sleep apnea Obstructive sleep apnea (adult) (pediatric) documented in this encounter Discontinued Medications Medication Sig Discontinue Reason Start Date End Da te fuejnxosjpv-tivibuhyl-lu lanter (TRELEGY ELLIPTA) 100-62.5-25 mcg inhaler Inhale 1 puff daily Therapy completed 10/10/2023 01/24/2024 documented as of this encounter Historical Medications * This list may reflect changes made after this encounter. Trelegy Ellipta 200-62.5-25 mcg inhaler 1 puff daily 12/22/2023 added in this encounter Care Teams Tool Keeper Relationship Specialty Start Date End Date Claudia Haas NP [address] [facility] [address] [place] [address] PCP - General Internal Medicine 07/27/22 documented as of this encounter
--- OUTSIDE RECORDS SUMMARY | 2024-01-30 10:40 | XMS_ITS | Clinical Summary ---
Author Organization [facility] [address] [facility] Address [address] [place] [address] Care Team Providers Care Supervisor Fish Processing Name Role Phone Claudia Haas NP Primary Care Provider [phone] Allergies Active Allergy Reactions Criticality Noted Date Comments Tetracycline Rash,Photosensitivity,Swelling Medium 10/2021 Medications biotin 10,000 mcg capsule Take 1 tablet by mouth daily Active vit C,G-Pl-xuocz-lutei n-zeaxan (PreserVision AREDS-2) 250-90-40-1 mg capsule 01/14/20 20 Active azelastine (OPTIVAR) 0.05 % ophthalmic solutionIndication s:Allergic Conjunctivitis Administer 1 drop into both eyes 2 (two) times a day 6 mL 3 12/28/19 22 Active albuterol HFA (PROVENTIL HFA,VENTOLIN HFA,PROAIR HFA) 90 mcg/actuation inhaler Inhale 2 puffs every 6 (six) hours as needed for wheezing 3 each 4 04/08/19 23 Active olopatadine (PATANOL) 0.1 % ophthalmic solution every 12 hours 05/27/19 23 Active EPINEPHrine 0.3 mg/0.3 mL auto-injection syringe INJECT 1 PEN IN THE MUSCLE ONE TIME DIRECTED 07/05/19 23 Active cetirizine (ZyrTEC) 10 mg tabletIndications: Seasonal allergies Take 1 tablet (10 mg total) by mouth daily as needed for allergies 90 tablet 05/08/19 24 025 Active buPROPion XL (WELLBUTRIN XL) 300 mg 24 hr tabletIndications: Episode of recurrent major depressive disorder, unspecified depression episode severity (HCC) Take 1 tablet (300 mg total) by mouth every morning 90 tablet 1 07/21/19 24 Active amLODIPine (NORVASC) 10 mg tablet TAKE 1 TABLET(10 MG) BY MOUTH DAILY 90 tablet 1 09/14/19 24 Active ibuprofen (ADVIL,MOTRIN) 800 mg tabletIndications: Chronic pain syndrome Take 1 tablet (800 mg total) by mouth 3 (three) times a day as needed for pain (pain) 90 tablet 1 09/29/19 24 Active omeprazole (PriLOSEC) 40 mg capsuleIndications :Gastroesophageal reflux disease, unspecified whether esophagitis present Take 1 capsule (40 mg total) by mouth daily 90 capsule 1 09/29/19 24 Active pravastatin (PRAVACHOL) 10 mg tabletIndications: Mixed hyperlipidemia Take 1 tablet (10 mg total) by mouth daily 90 tablet 11/13/19 24 Active sertraline (ZOLOFT) 25 mg tabletIndications: Mild episode of recurrent major depressive disorder (HCC) TAKE 1 TABLET(25 MG) BY MOUTH DAILY 90 tablet 11/14/19 24 Active montelukast (SINGULAIR) 10 mg tabletIndications: Seasonal allergies Take 1 tablet (10 mg total) by mouth nightly 90 tablet 1 11/23/19 24 025 Active irbesartan (AVAPRO) 300 mg tabletIndications: Essential hypertension Take 1 tablet (300 mg total) by mouth daily 90 tablet 3 12/06/19 24 Active gabapentin (NEURONTIN) 300 mg capsuleIndications :Chronic pain syndrome Take 1 capsule (300 mg total) by mouth 4 (four) times a day 360 capsule 1 12/18/19 24 025 Active Trelegy Ellipta 200-62.5-25 mcg inhaler 1 puff daily 12/22/19 24 Active fluticasone-umecli din-vilanter (TRELEGY ELLIPTA) 100-62.5-25 mcg inhaler Inhale 1 puff daily 3 each 1 10/10/19 24 024 Discontin ued(Thera py completed ) Active Problems Problem Noted Date Diagnosed Date Obstructive sleep apnea 01/24/2024 Assessment & Plan (01/24/2024 11:07 AM DIGITAL SOLUTION ARCHITECT): The patient was unable to tolerate CPAP. The patient is interested in the inspire device. I have referred the patient over to Dr. Parrish. Gastroesophageal reflux disease 09/29/2023 Assessment & Plan (09/29/2023 8:56 AM CDT): This is a significant, separately identifiable problem that was evaluated and managed on the same day as the wellness exam Lung nodules 09/27/2023 Pre-op examination 05/08/2023 Overview (05/08/2023): Preoperative clearance for right eye cataract removal completed today. Clearance form will be faxed BMI 25.0-25.9,adult 03/31/2023 Chronic pain syndrome 12/27/2022 Overview (12/27/2022): Continue ibuprofen as needed with food Centrilobular emphysema 08/03/2022 Assessment & Plan (01/24/2024 11:01 AM DIGITAL SOLUTION ARCHITECT): The patient continues to use her Trelegy one inhalation once a day. The patient will continue with albuterol as needed up to 4 times a day for shortness of breath. The patient states she has received her RSV, COVID, and flu shot. Assessment & Plan (09/27/2023 11:10 AM CDT): The patient has stage I COPD and her breathing has been doing fairly well with Trelegy 1 puff daily and albuterol 1 puff prior to exercise. She does exercise at the gym frequently. Assessment & Plan (12/21/2022 12:02 PM DIGITAL SOLUTION ARCHITECT): The patient has stage I COPD and will continue with Trelegy 1 puff daily. Assessment & Plan (08/03/2022 11:16 AM CDT): The patient has stage I COPD and is using Trelegy 1 puff daily and her breathing is doing well. Personal history of tobacco use 08/03/2022 Assessment & Plan (01/24/2024 11:01 AM DIGITAL SOLUTION ARCHITECT): The patient continues not smoke. She does have a CT scan ordered for February of 2024. Assessment & Plan (09/27/2023 11:10 AM CDT): The screening chest CT from late August as listed above. I will repeat another chest CT in 6 months to follow up a new cluster of nodules in the right upper lobe. Assessment & Plan (12/21/2022 12:02 PM DIGITAL SOLUTION ARCHITECT): I will order another screening chest CT to be performed in late August 2023 and she will follow-up with me after that has been performed. Assessment & Plan (08/03/2022 11:15 AM CDT): The patient has a 30 pack-year history and I will order a screening chest CT Fatigue 07/28/2022 Assessment & Plan (07/28/2022 9:54 AM CDT): This is a significant, separately identifiable problem that was evaluated and managed on the same day as the wellness exam Hypersomnia 05/18/2022 Assessment & Plan (09/27/2023 11:09 AM CDT): The patient is willing to proceed with a home sleep test at this time and will follow up here in 4 months. Assessment & Plan (12/21/2022 12:01 PM DIGITAL SOLUTION ARCHITECT): The patient states that the hypersomnia has improved with changing her antidepressant and she decided not to proceed with a sleep study. Assessment & Plan (08/03/2022 11:15 AM CDT): She will re-contact the sleep lab to reschedule the nocturnal polysomnogram. Assessment & Plan (06/29/2022 10:24 AM CDT): The patient is scheduled for sleeps study on July 14. Assessment & Plan (05/18/2022 10:42 AM CDT): The patient presents with hypersomnia. She sleeps alone and is unaware that she snores. I have recommended proceeding with a nocturnal polysomnogram with a split night protocol if necessary and no MSLT. SOB (shortness of breath) 05/18/2022 Assessment & Plan (06/29/2022 10:24 AM CDT): The patient is scheduled for pulmonary function test in July. Assessment & Plan (05/18/2022 10:43 AM CDT): The patient did have a pneumonia in February 2022 and was hospitalized. She has had persistent cough and wheezing since that time. I have recommended a chest x-ray in full PFTs and she will follow-up with me in 1 month. I did give her a sample of Anoro to use 1 puff daily. Seasonal allergies 03/25/2022 Assessment & Plan (03/25/2022 11:40 AM DIGITAL SOLUTION ARCHITECT): This is a significant, separately identifiable problem that was evaluated and managed on the same day as the wellness exam History of pneumonia 03/25/2022 Pneumonia of right lower lobe due to infectious organism 03/04/2022 Assessment & Plan (06/29/2022 10:23 AM CDT): The patient chest x-ray was clear. Yeast infection 03/04/2022 Age-related osteoporosis wit hout current pathological fracture 11/30/2021 Seasonal allergic rhinitis due to pollen 022 Assessment & Plan (06/23/2021 11:51 AM CDT): Add claritin every day. We discussed adding flonase pending response. Encounter for Medicare annual wellness exam 10/2021 Assessment & Plan (03/24/2021 12:15 PM DIGITAL SOLUTION ARCHITECT): Retrieve records from previous pcp Hyperlipidemia 03/24/2021 Assessment & Plan (03/24/2021 12:15 PM DIGITAL SOLUTION ARCHITECT): Retrieve records from previous pcp Continue with medication the same at this time Essential hypertension 03/24/2021 Assessment & Plan (09/22/2021 10:43 AM CDT): Patient advised to continue medications the same at this time. They will monitor home bp with goal 120-130/80s. Assessment & Plan (06/23/2021 11:50 AM CDT): Patient advised to continue medications the same at this time. They will monitor home bp with goal 120-130/80s. Assessment & Plan (03/24/2021 12:15 PM DIGITAL SOLUTION ARCHITECT): Retrieve records from previous pcp Continue with medication the same at this time Spinal stenosis 03/24/2021 Assessment & Plan (03/24/2021 12:13 PM DIGITAL SOLUTION ARCHITECT): Continue with neurontin same dosing at this time Encouraged continued attempts at smoking cessation Intermittent asthma without complication 022 Assessment & Plan (03/24/2021 12:14 PM DIGITAL SOLUTION ARCHITECT): Retrieve records from previous pcp Continue with medications the same at this time Mild episode of recurrent major depressive disor dheeraj 03/24/2021 Assessment & Plan (09/22/2021 10:43 AM CDT): Will increase wellbutrin to 300mg xl qd Assessment & Plan (07/22/2021 9:58 AM CDT): She will taper cymbalta 30mg every other day x 7 days then discontinue She will start wellbutrin xl 150mg daily We discussed adjusting/increasing dose at week 4 pending response Assessment & Plan (06/23/2021 11:51 AM CDT): Will taper trintellix over the coming weeks - 10mg every day x 7 days, then 5mg every day x 7 days, then 5mg every other day x 7 days, then discontinue. Will initiate cymbalta 30mg every day when taper is finished. Advised to let a family member know that she is adjusting/changing meds and to monitor for worsening depression. Encouraged her to continue with exercise. Assessment & Plan (03/24/2021 12:14 PM DIGITAL SOLUTION ARCHITECT): Retrieve records from previous pcp Continue with trintellix same dosing at this time. She was reminded to not stop it abruptly. We discussed weaning her off in the coming year if settling into new community is going well and she is ready. Osteopenia 03/24/2021 Assessment & Plan (03/24/2021 12:14 PM DIGITAL SOLUTION ARCHITECT): Retrieve records from previous pcp Continue with calcium/vit d combo three times/weekly Resolved Problems Problem Noted Date Diagnosed Date Resolved Date Obesity (BMI 30-39.9) 03/31/20232023 BMI 24.0-24.9, adult 03/25/2022 024 Assessment & Plan (12/27/2022 8:14 AM DIGITAL SOLUTION ARCHITECT): Weight/BMI is in healthy range. Continue healthy lifestyle to maintain. Assessment & Plan (03/25/2022 11:23 AM DIGITAL SOLUTION ARCHITECT): Weight/BMI is in healthy range. Continue healthy lifestyle. BMI 22.0-22.9, adult 03/04/2022 023 Assessment & Plan (03/04/2022 8:40 AM DIGITAL SOLUTION ARCHITECT): Weight/BMI is in healthy range. Continue healthy lifestyle to maintain. BMI 22.0-22.9, adult 11/30/2021 023 Assessment & Plan (11/30/2021 1:41 PM CDT): Obesity is unchanged. Discussed the patient's BMI. The BMI is above average. BMI management plan is completed. BMI Follow-up includes: nutrition counseling, exercise counseling and education provided. BMI 21.0-21.9, adult 03/24/2021 022 Encounters Date Type Department Care Team Description 01/24/2024 10:30 AM DIGITAL SOLUTION ARCHITECT Office Visit [facility] [address] [place] [phone] Gena Lee NP Centrilobular emphysema (HCC) (Primary Dx); Personal history of tobacco use; Obstructive sleep apnea 11/06/2023 Telephone [facility] [address] [place] [address] Geneva Quinonez, [facility] Sleep Study Results from Last 3 Months Immunizations Name Administration Dates Next Due COVID-19 mRNA (Fluidinova - Engenharia de Fluidos) 0.3 m L (30 mcg) vaccine (12 years and up) 11/30/2022 Influenza, Quadrivalent, Hig h Dose, Preservative Free, Intrr 11/22/2022 Influenza, Unspecified 11/23/2021,11/16/2020,05/2020 Pfizer SARS-CoV-2 Monovalent Vaccination (12+ Yrs) PURPLE 06/10/2021,06/10/2021,12/04/2020,2020,05/27/2020,05/27/2020,05/07/2020,0 05/07/2020 Pneumococcal Conjugate Pcv20 07/28/2022 RSV Vaccine, Pref, Recombina nt, Subunit, Adjuvanted, PF, IM (Arexvy) 04/13/2023 Sars-CoV-2, Unspecified 11/30/2022 Surgical History Surgery Date Site/Laterality Comments BILATERAL OOPHORECTOMY 02/13/1969 - 02/12/1970 COMBINED AUGMENTATION MAMMAPLASTY AND ABDOMINOPLASTY 02/13/1981 - 02/12/1982 AUGMENTATION MAMMAPLASTY 02/13/1981 - 02/12/1982 Bilateral subpectoral silicone Medical History Medical History Date Comments Hypertension Hyperlipidemia Depression Asthma Spondylosis Spinal stenosis Rotator cuff tear 12/24/2019 Osteopenia Osteoarthritis Spondylolisthesis GERD (gastroesophageal reflux disease) Atrophic vaginitis Pneumonia Family History Medical History Relation Name Comments Alcohol abuse Brother Emphysema Father Hypertension Father Breast cancer Mother Diabetes Mother Hypertension Mother Kidney cancer Mother Breast cancer Mother's Sister X3 maternal aunts Lymphoma Sister Relation Name Status Comments Brother Father Mother Mother's Sister Sister Social History Tobacco Use Types Packs/Day Years Used Date Smoking Tobacco: Former Cigarettes Q uit: 01/2022 Smokeless Tobacco: Never Tobacco Cessation:Counseling Given: Not Answered AUDIT-C Answer Date Recorded Q1: How often [...] on file Legal Sex Female 10:40 AM DIGITAL SOLUTION ARCHITECT Gender Identity Female 03/03/2021 12:47 PM DIGITAL SOLUTION ARCHITECT Sexual Orientation Not on file 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, 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, 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, 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 file Not on file Obstetrics History Para Term AB IAB SAB Ectopic Multiple Livin g Live Births 1 0 0 Date Outcome GA Total Labor Labor/2nd/3rd Weight Sex Type Anes PTL Celeste A1 A5 Name Clin Last Filed Vital Signs Vital Sign Reading Time Taken Comments Blood Pressure 154/88 01/24/2024 10:33 AM DIGITAL SOLUTION ARCHITECT Pulse 68 01/24/2024 10:33 AM DIGITAL SOLUTION ARCHITECT Temperature 36.9 ??C (98.4 ??F) 01/24/2024 10:[address] Respiratory Rate 18 01/24/2024 10:33 AM DIGITAL SOLUTION ARCHITECT Oxygen Saturation 98% 01/24/2024 10:33 AM DIGITAL SOLUTION ARCHITECT Inhaled Oxygen Concentration - - Weight 65.3 kg (144 lb) 01/24/2024 10:33 AM DIGITAL SOLUTION ARCHITECT Height 154.9 cm (5' 0.98 ) 01/24/2024 10:[address] Body Mass Index 27.22 01/24/2024 10:33 AM DIGITAL SOLUTION ARCHITECT Plan of Treatment Health Maintenance Due Date Last Done Comments Hepatitis C Screening 1950 DTaP/Tdap/Td Vaccine (1 - Tdap) 1963 Hepatitis B Screening 1970 Zoster Vaccine (1 of 2) 2002 Covid-19 Vaccine ( season) 2023 11/30/2022, 11/30/2022, 06/10/2021, Additional history exists Influenza Vaccine (#1) 2023 3, 11/23/2021, 11/16/2020, Additional history exists Colon Cancer Screening-DNA Stool 01/08/2024 01/07/2021, 01/07/2021, 01/07/2021 Breast Cancer Screening-Mammogram 05/17/2024 05/18/2023, 05/19/2022, 01/06/2021, Additional history exists Osteoporosis Screening-Bone Density Scan 05/19/2024 05/19/2022 Depression Screening 09/28/2024 09/29/2023, 05/08/2023, 03/31/2023, Additional history exists Fall Risk Assessment 09/28/2024 09/29/2023, 05/08/2023, 03/31/2023, Additional history exists Well Visit 65+ 09/28/2024 09/29/2023, 03/16, 07/28/2022, Additional history exists Pneumococcal vaccine 65+ Completed 07/28/2022 Procedures Procedure Name Priority Date/Time Associated Diagnosis Comments SCREENING MAMMOGRAM BILATERAL W LIBAN W IMPLANTS Schedule Routine, Read Routine (OP Routine) 05/18/2023 12:47 PM CDT Screening mammogram, encounter for DEXA AXIAL SKELETON BONE DENSITY 1 OR MORE SITES Schedule Routine, Read Routine (OP Routine) 05/19/2022 Age-related osteoporosis without current pathological fracture STOOL DNA ? COLOGUARD Routine 01/07/2021 from Last 3 Months or Most Recently Relevant to Health Maintenance Results * Screening Mammogram Bilateral W Liban W Implants (05/18/2023 12:47 PM CDT) Anatomical Region Laterality Modality Breast Bilateral Mammography Addenda Addendum by Homero Armstrong MD on 06/01/2023 12:39 PM CDT Addendum by Homero rAmstrong MD on 06/01/2023 12:38 PM CDT The addendum is to made to update the BI-RADS assessment. The correct BI-RADS categorization is BI-RADS 2 - Benign. Impressions 05/31/2023 1:00 PM CDT BI-RADS?? ATLAS category (overall): 0 - Incomplete: Needs Additional Imaging Evaluation There is no mammographic evidence of malignancy. Bilateral silicone breast implants with unchanged findings suggestive of bilateral implant rupture. A 1 year screening mammogram is recommended. Non-emergent breast MRI could be performed to better assess implant integrity. The patient has been or will be contacted. We recommend annual screening mammography for women at average risk of breast cancer beginning at age 40, based on guidelines of the [place] [employer] (ACR Practice Parameter for the Performance of Screening and Diagnostic Mammography) and [employer]. For women with and elevated risk of breast cancer, please refer to the ACR Practice Parameter for specific screening recommendations. The patient will be entered into a reminder system with a target due date of 1 year for her next screening exam. Narrative 05/31/2023 1:00 PM CDT Screening Mammogram Bilateral W Liban W Implants: 05/18/23 The study was acquired using full field digital technology and interpreted from soft copy. 2D digital mammographic views, as well as 3D digital tomosynthesis were performed in the CC and MLO projections. CLINICAL: ??Screening mammogram, encounter for. ??No relevant medical history has been documented for this patient. ??History of breast cancer in Mother, Mother's Sister. COMPARISONS: 05/19/2022 Breast Imaging Screening Outside Reference BREAST TISSUE: The breasts are heterogeneously dense, which may obscure small masses. FINDINGS: There are bilateral subpectoral silicone breast implants. The presence of implants limits the sensitivity of mammography. There is unchanged prominent undulating contour of the bilateral breast implants, suggesting implant rupture. There is no new suspicious finding in either breast on mammogram. Claudia Haas NP [facility] [place] MAMMO PROCEDURES Edited R esult - Final * Dexa Axial Skeleton Bone Density 1 or 2 Site (05/19/2022) SCRIBED DXA T-SCORE 2.5 1.0 - 2.5 Anatomical Region Laterality Modality Body N/A Radiographic Susanna ging 05/19/2022 Claudia Haas NP [facility] [place] DXA PROCEDURES Edited Res ult - Final * Stool DNA - Cologuard (01/07/2021) Stool us Historical Provider MD LAB BODY FLUIDS AND STOOL S ORDERABLES Final Result from Last 3 Months or Most Recently Relevant to Health Maintenance [place] [address] [place] [address] [facility] Address[address] [place] [id number] [place] [address] [facility] [facility] [facility] Address: [place] [id number] [employer]ARE [employer] Advance Directives For more information, please contact: [phone] Documents on File Type Date Recorded Patient Supervisor Of Way Expl anation ADVANCE DIRECTIVE 03/04/2022 3:17 PM Care Teams Supervisor Fish Processing Relationship Specialty Start Date End Date Claudia Haas NP [address] [facility] [address] [place] [address] PCP - General Internal Medicine 07/27/22
--- OUTSIDE RECORDS SUMMARY | 2024-01-30 10:40 | XMS_ITS | Encounter Summary ---
Author Organization [facility] Address [address] [place] [address] Care Team Providers Care Cmm Operator Name Role Phone Claudia Haas NP Primary Care Provider [phone] Reason for Visit * Reason Onset Date Comments Sleep Study Results 11/06/2023 Encounter Details Date Type Department Care Team (Late st Contact Info) Description 11/06/2023 Telephone [facility] Sleep Lab [address] [place] [address] Geneva Quinonez, [facility] Sleep Study Results Social History Tobacco Use Types Packs/Day Years [...] on file Legal Sex Female 10:40 AM BLOW DOWN OPERATOR Gender Identity Female 03/03/2021 12:47 PM BLOW DOWN OPERATOR Sexual Orientation Not on file 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 AHI- 17.9, Lowest O2 sat- 87%, .06 min overall with O2 sat less than 90%. Auto CPAP [id number] was sent to [facility]. documented in this encounter Plan of Treatment Not on file documented as of this encounter Visit Diagnoses Not on filedocumented in this encounter Care Teams Cmm Operator Relationship Specialty Start Date End Date Claudia Haas NP [address] [facility] [address] [place] [address] PCP - General Internal Medicine 07/27/22 documented as of this encounter
--- OUTSIDE RECORDS SUMMARY | 2024-01-30 10:40 | XMS_ITS ---
Author Organization [facility] Address [address] [place] [address] Care Team Providers Care Doctor Of Nurse Anesthesia Practice Name Role Phone Denny Lopez MD Primary Care Provider Unavailab Syndee Levy Unavailable [phone] Claudia Haas Unavailable Unavailable Yaniv Quintanilla Unavailable [phone] REASON FOR VISIT SCIT - Traditional Schedule Allergy immunotherapy Medications Medication SIG (Take, Route, Frequency, Duration) Notes Start Date End Date Status OLOPATADINE OPHTHALMIC 0.1% 1 gtt in each affected eye 2 times a day Active EpiPen 2-Mejia 0.3 mg as directed intramuscularly once for 30 days Active SIT (TRADITIONAL) variable per schedule SC per schedule for 1 days Active Cetirizine HCl 10 MG 1 tab(s) orally once a day for 30 days Active Montelukast Sodium 10 MG 1 tab(s) orally once a day Active BIOTIN 1000 mcg 1 tab(s) orally once a day Active AZELASTINE NASAL 137 mcg/inh 2 spray(s) intranasally 2 times a day Active GABAPENTIN 300 mg 1 cap(s) orally 3 times a day Active BUPROPION 150 mg/24 hours 1 tab(s) orally every 24 hours Active PRESERVISION AREDS 2 Antioxidant Multiple Vitamins and Minerals 1 tab(s) chewed 2 times a day Active ALBUTEROL (EQV-PROAIR HFA) 90 mcg/inh 2 puff(s) inhaled every 6 hours Active PRAVASTATIN 10 mg 1 tab(s) orally once a day Active AMLODIPINE 10 mg 1 tab(s) orally once a day Active IRBESARTAN 300 mg 1 tab(s) orally once a day Active FOSAMAX 70 mg 1 tab(s) orally once a week Active CETIRIZINE 10 mg 1 tab(s) orally once a day for 30 days Active NASAL WASHES N/A as directed intranasally as needed for 30 day(s) Active MONTELUKAST 10 mg 1 tab(s) orally once a day Active LAY OUT DRAFTER Thyroid 60 MG 0.5 tab x 1 week, th en 1 tablet daily thereafter, as tolerated orally once a day for 30 day(s) 07/27/2023 Active Trelegy Ellipta 200-62.5-25 MCG/ACT 1 puff Inhalation Once a day for 90 days 08/14/2023 Active Trelegy Ellipta 100/62.5/25 MCG 1 INHALATION PO QDAY for 30 DAY(S) *Please review and pick correct strength-formulat ion from Flowdock options. If intended option is not shown, discontinue and re-order from Quick Search* Active SIT (CLUSTER) VARIABLE PER SCHEDULE SC PER SCHEDULE for TO BE DETERMINED *Please review for potential replacement for e-prescription and drug interaction check* 10/03/2022 Active Olopatadine HCl 0.1 % 1 gtt in each affected eye 2 times a day Active Trelegy Ellipta 200 MCG-62.5 MCG-25 MCG/INH 1 PUFF(S) INHALED ONCE A DAY for 90 DAYS *Please review and pick correct strength-formulat ion from Flowdock options. If intended option is not shown, discontinue and re-order from Quick Search* Active predniSONE 5 MG/5ML 5 mL orally once a day Active Biotin 1000 MCG 1 tab(s) orally once a day Active buPROPion HCl ER (XL) 150 MG 1 tab(s) orally every 24 hours Active PreserVision AREDS 2 ANTIOXIDANT MULTIPLE VITAMINS AND MINERALS 1 TAB(S) CHEWED 2 TIMES A DAY *Please review and pick correct strength-formulat ion from Flowdock options. If intended option is not shown, discontinue and re-order from Quick Search* Active Gabapentin 300 MG 1 cap(s) orally 3 times a day Active Azelastine HCl 137 MCG/SPRAY 2 spray(s) intranasally 2 times a day Active amLODIPine Besylate 10 MG 1 tab(s) orally once a day Active Irbesartan 300 MG 1 tab(s) orally once a day Active Pravastatin Sodium 10 MG 1 tab(s) orally once a day Active Encounters Encounter Location Date Provider Diagnosis [facility] [address] [place] [address] 11/13/2023 Yaniv Quintanilla Allergic rhinitis du e to pollen J30.1 ; Allergic rhinitis due to animal (cat) (dog) hair and dander J30.81 ; Other allergic rhinitis J30.89 and Other chronic allergic conjunctivitis H10.45 Assessments Encounter Date Diagnosis (ICD Code) Assessment Notes Treatment Notes Treatment Clinical Notes Section Notes 11/13/2023 Allergic rhinitis due to pollen (ICD-10 - J30.1) 11/13/2023 Allergic rhinitis due to animal (cat) (dog) hair and dander (ICD-10 - J30.81) 11/13/2023 Other allergic rhinitis (ICD-10 - J30.89) 11/13/2023 Other chronic allergic conjunctivitis (ICD-10 - H10.45) Plan Of Treatment Next Appt Details Follow Up: 1 Week, Reason: Progress Notes * Terri STRANGEDOB: 3 (73 yo F)Acc No.[id number]:11/13/2023 SCIT-Aeroallergen Patient:?Terri STRANGE Provider:?Yaniv Quintanilla MD :1950???Age:73 Y???Sex:Female D ate:11/13/2023 Address:[address] [place], [place] [id number] Pcp:Denny Lopez MD Subjective: * Chief Complaints: * ???SCIT - Traditional [place] Allergy immunotherapy * HPI: ???*Introduction:? The patient is here for scheduled immunotherapy. Please see the attached specialty form regarding the specifics of the administration of these vaccines. As per our protocol, they must undergo a screening health questionnaire (medication changes, reaction(s) to last immunotherapy dose(s), current health status, ACT (if appropriate), self-injectable epinephrine on patient(?) and peak flow (if appropriate)). Also, the patient must wait in our office for 30 minutes after receiving the vaccine(s). Furthermore, every patient must have an epinephrine pen (self-injectable) with them at the time of administration--and carry if for the following 1.5 hours after they leave our office. The patient must also have taken their antihistamine the day of the injection, preferably 2 hours prior. The consent form for SCIT (subcutaneous immunotherapy) is on file. * Medical History:? * Surgical History:? * Hospitalization/Major Diagno stic Procedure:? * Medications:?TakingCETIRIZIN E 10 mg tablet 1 tab(s) orally once a day NASAL WASHES N/A 1 quart of sterilized tap water or distilled water, 1 tsp NaCl, 1 pinch of baking soda as directed intranasally as needed MONTELUKAST 10 mg tablet 1 tab(s) orally once a day ALBUTEROL (EQV-PROAIR HFA) 90 mcg/inh aerosol 2 puff(s) inhaled every 6 hours AMLODIPINE 10 mg tablet 1 tab(s) orally once a day IRBESARTAN 300 mg tablet 1 tab(s) orally once a day FOSAMAX 70 mg tablet 1 tab(s) orally once a week PRAVASTATIN 10 mg tablet 1 tab(s) orally once a day GABAPENTIN 300 mg capsule 1 cap(s) orally 3 times a day BUPROPION 150 mg/24 hours tablet, extended release 1 tab(s) orally every 24 hours PRESERVISION AREDS 2 Antioxidant Multiple Vitamins and Minerals tablet, chewable 1 tab(s) chewed 2 times a day BIOTIN 1000 mcg tablet 1 tab(s) orally once a day AZELASTINE NASAL 137 mcg/inh spray 2 spray(s) intranasally 2 times a day OLOPATADINE OPHTHALMIC 0.1% solution 1 gtt in each affected eye 2 times a day EpiPen 2-Mejia 0.3 mg kit as directed intramuscularly once SIT (TRADITIONAL) variable see record per schedule SC per schedule Cetirizine HCl 10 MG Tablet 1 tab(s) orally once a day Montelukast Sodium 10 MG Tablet 1 tab(s) orally once a day amLODIPine Besylate 10 MG Tablet 1 tab(s) orally once a day Irbesartan 300 MG Tablet 1 tab(s) orally once a day Pravastatin Sodium 10 MG Tablet 1 tab(s) orally once a day Gabapentin 300 MG Capsule 1 cap(s) orally 3 times a day buPROPion HCl ER (XL) 150 MG Tablet Extended Release 24 Hour 1 tab(s) orally every 24 hours PreserVision AREDS 2 ANTIOXIDANT MULTIPLE VITAMINS AND MINERALS TABLET, CHEWABLE 1 TAB(S) CHEWED 2 TIMES A DAY , Notes to Pharmacist: *Please review and pick correct strength-formulation from Flowdock options. If intended option is not shown, discontinue and re-order from Quick Search*Biotin 1000 MCG Tablet 1 tab(s) orally once a day Azelastine HCl 137 MCG/SPRAY Solution 2 spray(s) intranasally 2 times a day Olopatadine HCl 0.1 % Solution 1 gtt in each affected eye 2 times a day Trelegy Ellipta 200 MCG-62.5 MCG-25 MCG/INH POWDER 1 PUFF(S) INHALED ONCE A DAY , Notes to Pharmacist: *Please review and pick correct strength-formulation from [employer] options. If intended option is not shown, discontinue and re-order from Quick Search*predniSONE 5 MG/5ML Solution 5 mL orally once a day Trelegy Ellipta 100/62.5/25 MCG DPI 1 INHALATION PO QDAY , Notes to Pharmacist: *Please review and pick correct strength-formulation from Flowdock options. If intended option is not shown, discontinue and re-order from Quick Search*SIT (CLUSTER) VARIABLE SEE RECORD PER SCHEDULE SC PER SCHEDULE , Notes to Pharmacist: *Please review for potential replacement for e-prescription and drug interaction check*LAY OUT DRAFTER Thyroid 60 MG Tablet 0.5 tab x 1 week, then 1 tablet daily thereafter, as tolerated orally once a day Trelegy Ellipta 200-62.5-25 MCG/ACT Aerosol Powder Breath Activated 1 puff Inhalation Once a day Taking CETIRIZINE 10 mg tablet 1 tab(s) orally once a day Taking NASAL WASHES N/A 1 quart of sterilized tap water or distilled water, 1 tsp NaCl, 1 pinch of baking soda as directed intranasally as needed Taking MONTELUKAST 10 mg tablet 1 tab(s) orally once a day Taking ALBUTEROL (EQV-PROAIR HFA) 90 mcg/inh aerosol 2 puff(s) inhaled every 6 hours Taking AMLODIPINE 10 mg tablet 1 tab(s) orally once a day Taking IRBESARTAN 300 mg tablet 1 tab(s) orally once a day Taking FOSAMAX 70 mg tablet 1 tab(s) orally once a week Taking PRAVASTATIN 10 mg tablet 1 tab(s) orally once a day Taking GABAPENTIN 300 mg capsule 1 cap(s) orally 3 times a day Taking BUPROPION 150 mg/24 hours tablet, extended release 1 tab(s) orally every 24 hours Taking PRESERVISION AREDS 2 Antioxidant Multiple Vitamins and Minerals tablet, chewable 1 tab(s) chewed 2 times a day Taking BIOTIN 1000 mcg tablet 1 tab(s) orally once a day Taking AZELASTINE NASAL 137 mcg/inh spray 2 spray(s) intranasally 2 times a day Taking OLOPATADINE OPHTHALMIC 0.1% solution 1 gtt in each affected eye 2 times a day Taking EpiPen 2-Mejia 0.3 mg kit as directed intramuscularly once Taking SIT (TRADITIONAL) variable see record per schedule SC per schedule Taking Cetirizine HCl 10 MG Tablet 1 tab(s) orally once a day Taking Montelukast Sodium 10 MG Tablet 1 tab(s) orally once a day Taking amLODIPine Besylate 10 MG Tablet 1 tab(s) orally once a day Taking Irbesartan 300 MG Tablet 1 tab(s) orally once a day Taking Pravastatin Sodium 10 MG Tablet 1 tab(s) orally once a day Taking Gabapentin 300 MG Capsule 1 cap(s) orally 3 times a day Taking buPROPion HCl ER (XL) 150 MG Tablet Extended Release 24 Hour 1 tab(s) orally every 24 hours Taking PreserVision AREDS 2 ANTIOXIDANT MULTIPLE VITAMINS AND MINERALS TABLET, CHEWABLE 1 TAB(S) CHEWED 2 TIMES A DAY , Notes to Pharmacist: *Please review and pick correct strength-formulation from [employer] options. If intended option is not shown, discontinue and re-order from Quick Search*Taking Biotin 1000 MCG Tablet 1 tab(s) orally once a day Taking Azelastine HCl 137 MCG/SPRAY Solution 2 spray(s) intranasally 2 times a day Taking Olopatadine HCl 0.1 % Solution 1 gtt in each affected eye 2 times a day Taking Trelegy Ellipta 200 MCG-62.5 MCG-25 MCG/INH POWDER 1 PUFF(S) INHALED ONCE A DAY , Notes to Pharmacist: *Please review and pick correct strength-formulation from Medispan options. If intended option is not shown, discontinue and re-order from Quick Search*Taking predniSONE 5 MG/5ML Solution 5 mL orally once a day Taking Trelegy Ellipta 100/62.5/25 MCG DPI 1 INHALATION PO QDAY , Notes to Pharmacist: *Please review and pick correct strength-formulation from [employer]zan options. If intended option is not shown, discontinue and re-order from Quick Search*Taking SIT (CLUSTER) VARIABLE SEE RECORD PER SCHEDULE SC PER SCHEDULE , Notes to Pharmacist: *Please review for potential replacement for e-prescription and drug interaction check*Taking LAY OUT DRAFTER Thyroid 60 MG Tablet 0.5 tab x 1 week, then 1 tablet daily thereafter, as tolerated orally once a day Taking Trelegy Ellipta 200-62.5-25 MCG/ACT Aerosol Powder Breath Activated 1 puff Inhalation Once a day Objective: * Vitals:? Assessment: * Assessment: 1.?Allergic rhinitis due to pollen - J30.1 (Primary)???2.?Allergic rhinitis due to animal (cat) (dog) hair and dander - J30.81???3.?Other allergic rhinitis - J30.89???4.?Other chronic allergic conjunctivitis - H10.45??? Plan: * Treatment: * Procedure Codes:?71633 IMMUN OTHERAPY INJECTIONS * Preventive Medicine:? ??Counseling:?Exercise?Avoid heavy lifting on days of allergy immunotherapy.?Medication instruction:?Injectable epinephrine education and instruction w/ discussion of signs and symptoms of anaphylaxis and reasons to seek urgent or emergent care, Watch for side effects of prescribed medications.?Education:?Able to return demonstration of self-injectable epinephrine.? * Follow Up:?1 Week * Billing Information: * Visit Code:? * Procedure Codes:? 66406 IMMUNOTHERAPY INJECTIONS. * Sign off status: Completed true * Provider:?Yaniv Quintanilla MD Date:?11/12 Generated for Pedro teran/Marilyn/Josef on:?01/30/2024 10:39 AM PHARMACY OPERATIONS SPECIALIST History and Physical Notes * HPI (History of Present Illness) Category Sub-Category Detail Notes Category Not es *Introduction The patient is here for scheduled immunotherapy. Please see the attached specialty form regarding the specifics of the administration of these vaccines. As per our protocol, they must undergo a screening health questionnaire (medication changes, reaction(s) to last immunotherapy dose(s), current health status, ACT (if appropriate), self-injectable epinephrine on patient(?) and peak flow (if appropriate)). Also, the patient must wait in our office for 30 minutes after receiving the vaccine(s). Furthermore, every patient must have an epinephrine pen (self-injectable) with them at the time of administration--and carry if for the following 1.5 hours after they leave our office. The patient must also have taken their antihistamine the day of the injection, preferably 2 hours prior. The consent form for SCIT (subcutaneous immunotherapy) is on file.
--- OUTSIDE RECORDS SUMMARY | 2024-01-30 10:40 | XMS_ITS ---
Author Organization [facility] Address [address] [place] [address] Care Team Providers Care Public Relations Senior Associate Name Role Phone Denny Lopez MD Primary Care Provider Unavailab Sydnee Levy Unavailable [phone] Claudia Haas Unavailable Unavailable Yaniv Quintanilla Unavailable [phone] REASON FOR VISIT SCIT - Traditional Schedule Allergy immunotherapy Medications Medication SIG (Take, Route, Frequency, Duration) Notes Start Date End Date Status Trelegy Ellipta 200-62.5-25 MCG/ACT 1 puff Inhalation Once a day for 90 days 08/14/2023 Active ALTERATIONS SEWER Thyroid 60 MG 0.5 tab x 1 week, th en 1 tablet daily thereafter, as tolerated orally once a day for 30 day(s) 07/27/2023 Active SIT (CLUSTER) VARIABLE PER SCHEDULE SC PER SCHEDULE for TO BE DETERMINED *Please review for potential replacement for e-prescription and drug interaction check* 10/03/2022 Active Trelegy Ellipta 100/62.5/25 MCG 1 INHALATION PO QDAY for 30 DAY(S) *Please review and pick correct strength-formulat ion from [employer] options. If intended option is not shown, discontinue and re-order from Quick Search* Active predniSONE 5 MG/5ML 5 mL orally once a day Active Olopatadine HCl 0.1 % 1 gtt in each affected eye 2 times a day Active Azelastine HCl 137 MCG/SPRAY 2 spray(s) intranasally 2 times a day Active Biotin 1000 MCG 1 tab(s) orally once a day Active PreserVision AREDS 2 ANTIOXIDANT MULTIPLE VITAMINS AND MINERALS 1 TAB(S) CHEWED 2 TIMES A DAY *Please review and pick correct strength-formulat ion from [email or web address] options. If intended option is not shown, discontinue and re-order from Quick Search* Active Trelegy Ellipta 200 MCG-62.5 MCG-25 MCG/INH 1 PUFF(S) INHALED ONCE A DAY for 90 DAYS *Please review and pick correct strength-formulat ion from [email or web address] options. If intended option is not shown, discontinue and re-order from Quick Search* Active buPROPion HCl ER (XL) 150 MG 1 tab(s) orally every 24 hours Active Gabapentin 300 MG 1 cap(s) orally 3 times a day Active Pravastatin Sodium 10 MG 1 tab(s) orally once a day Active Irbesartan 300 MG 1 tab(s) orally once a day Active amLODIPine Besylate 10 MG 1 tab(s) orally once a day Active Cetirizine HCl 10 MG 1 tab(s) orally once a day for 30 days Active SIT (TRADITIONAL) variable per schedule SC per schedule for 1 days Active EpiPen 2-Mejia 0.3 mg as directed intramuscularly once for 30 days Active OLOPATADINE OPHTHALMIC 0.1% 1 gtt in each affected eye 2 times a day Active Montelukast Sodium 10 MG 1 tab(s) orally once a day Active AZELASTINE NASAL 137 mcg/inh 2 spray(s) intranasally 2 times a day Active BIOTIN 1000 mcg 1 tab(s) orally once a day Active PRESERVISION AREDS 2 Antioxidant Multiple Vitamins and Minerals 1 tab(s) chewed 2 times a day Active BUPROPION 150 mg/24 hours 1 tab(s) orally every 24 hours Active GABAPENTIN 300 mg 1 cap(s) orally 3 times a day Active IRBESARTAN 300 mg 1 tab(s) orally once a day Active AMLODIPINE 10 mg 1 tab(s) orally once a day Active ALBUTEROL (EQV-PROAIR HFA) 90 mcg/inh 2 puff(s) inhaled every 6 hours Active PRAVASTATIN 10 mg 1 tab(s) orally once a day Active FOSAMAX 70 mg 1 tab(s) orally once a week Active MONTELUKAST 10 mg 1 tab(s) orally once a day Active NASAL WASHES N/A as directed intranasally as needed for 30 day(s) Active CETIRIZINE 10 mg 1 tab(s) orally once a day for 30 days Active Encounters Encounter Location Date Provider Diagnosis [facility] [address] [place] [address] 10/09/2023 Yaniv Quintanilla Allergic rhinitis du e to pollen J30.1 ; Allergic rhinitis due to animal (cat) (dog) hair and dander J30.81 ; Other allergic rhinitis J30.89 and Other chronic allergic conjunctivitis H10.45 Assessments Encounter Date Diagnosis (ICD Code) Assessment Notes Treatment Notes Treatment Clinical Notes Section Notes 10/09/2023 Allergic rhinitis due to pollen (ICD-10 - J30.1) 10/09/2023 Allergic rhinitis due to animal (cat) (dog) hair and dander (ICD-10 - J30.81) 10/09/2023 Other allergic rhinitis (ICD-10 - J30.89) 10/09/2023 Other chronic allergic conjunctivitis (ICD-10 - H10.45) Plan Of Treatment Next Appt Details Follow Up: 1 Week, Reason: Progress Notes * Terri STRANGEDOB: 3 (73 yo F)Acc No.[id number]:10/09/2023 SCIT-Aeroallergen Patient:?Terri STRANGE Provider:?Yaniv Quintanilla MD :1950???Age:73 Y???Sex:Female D ate:10/09/2023 Address:[address] [place], [place] [id number] Pcp:Denny Lopez MD Subjective: * Chief Complaints: [...] *Please review and pick correct strength-formulation from [email or web address] options. If intended option is not shown, [...] *Please review and pick correct strength-formulation from [employer] options. If intended option is not shown, discontinue and re-order from Quick Search*predniSONE 5 MG/5ML Solution 5 mL orally once a day Trelegy Ellipta 100/62.5/25 MCG DPI 1 INHALATION PO QDAY , Notes to Pharmacist: *Please review and pick correct strength-formulation from [email or web address] options. If intended option is not shown, discontinue and re-order from Quick Search*SIT (CLUSTER) VARIABLE SEE RECORD PER SCHEDULE SC PER SCHEDULE , Notes to Pharmacist: *Please review for potential replacement for e-prescription and drug interaction check*ALTERATIONS SEWER Thyroid 60 MG Tablet 0.5 tab x [...] *Please review and pick correct strength-formulation from [employer] options. If intended option is not shown, [...] *Please review and pick correct strength-formulation from [employer] options. If intended option is not shown, discontinue and re-order from Quick Search*Taking SIT (CLUSTER) VARIABLE SEE RECORD PER SCHEDULE SC PER SCHEDULE , Notes to Pharmacist: *Please review for potential replacement for e-prescription and drug interaction check*Taking ALTERATIONS SEWER Thyroid 60 MG Tablet 0.5 tab x [...] - H10.45??? Plan: * Treatment: * Procedure Codes:?36312 IMMUN OTHERAPY INJECTIONS * Preventive Medicine:? ??Counseling:?Exercise?Avoid heavy lifting on days of allergy immunotherapy.?Medication instruction:?Injectable epinephrine education and instruction w/ discussion of signs and symptoms of anaphylaxis and reasons to seek urgent or emergent care, Watch for side effects of prescribed medications.?Education:?Able to return demonstration of self-injectable epinephrine.? * Follow Up:?1 Week * Billing Information: * Visit Code:? * Procedure Codes:? 42625 IMMUNOTHERAPY INJECTIONS. * Sign off status: Completed true * Provider:?Yaniv Quintanilla MD Date:?10/08 Generated for Pedro teran/Marilyn/Josef on:?01/30/2024 10:39 AM ADJUNCT PSYCHOLOGY PROFESSOR History and Physical Notes * HPI (History [...]
--- OUTSIDE RECORDS SUMMARY | 2024-01-30 10:40 | XMS_ITS | Patient Health Record ---
Author Organization [facility] Address [address] [place] [address] Care Team Providers Care Bell Tier Name Role Phone Denny Lopez MD Primary Care Provider Unavailab Sydnee Levy Unavailable [phone] Claudia Haas Unavailable Unavailable Yaniv Quintanilla Unavailable [phone] [employer], Provider Unavailable Unavailab le Allergies Allergen (clinical drug ingredient) Drug/Non Drug Allergy documented on EMR Reaction Allergy Type Onset Date Status tetracycline Tetracycline rash Drug Allergy A ctive Results Component Value Reference Range Notes HRT Female Pre Pellet Reviewed date:07/27/2023 10:30:30 AM Interpretation:Abnormal Performing Lab:[facility], [address] [place] [address] [id number], Phone - [phone], Director - PhDRicchizafari Notes/Report: Glucose 96 70-99 mg/dL BUN 17 8-27 mg/dL Creatinine 0.78 0.57-1.00 mg/dL eGFR 81 >59 mL/min/1.73 BUN/Creatinine Ratio 22 12-28 Sodium 131 134-144 mmol/L Potassium 5.1 3.5-5.2 mmol/L Chloride 96 96-106 mmol/L Carbon Dioxide, Total 21 20-29 mmol/L Calcium 9.5 8.7-10.3 mg/dL Protein, Total 6.4 6.0-8.5 g/dL Albumin 4.3 3.8-4.8 g/dL Globulin, Total 2.1 1.5-4.5 g/dL A/G Ratio 2.0 1.2-2.2 Bilirubin, Total 0.3 0.0-1.2 mg/dL Alkaline Phosphatase 41 44-121 IU/L AST (SGOT) 17 0-40 IU/L ALT (SGPT) 14 0-32 IU/L Vitamin B12 3599 973-2500 pg/mL Vitamin D, 25-Hydroxy 42.5 30.0-100.0 ng/mL Vitamin D deficiency has been defined by the [place] of Medicine and an Endocrine Society practice guideline as a level of serum 25-OH vitamin D less than 20 ng/mL (1,2). The Endocrine Society went on to further define vitamin D insufficiency as a level between 21 and 29 ng/mL (2). 1. IOM ([place] of Medicine). 2010. Dietary reference intakes for calcium and D. [place]: The National Academies Press. 2. John MF, Antony BROOKS, Abimael RICHARDS, et al. Evaluation, treatment, and prevention of vitamin D deficiency: an Endocrine Society clinical practice guideline. JCEM. 2010; 96(7):1911-30. TSH 0.727 0.450-4.500 uIU/mL Triiodothyronine (T3), Free 2.3 2.0-4.4 pg/mL T4,Free(Direct) 1.30 0.82-1.77 ng/dL Thyroid Peroxidase (TPO) Ab <9 0-34 IU/mL Testosterone <3 3-67 ng/dL FSH 71.7 25.8-134.8 mIU/mL Adult Female Range Follicular phase 3.5 - 12.5 Ovulation phase 4.7 - 21.5 Luteal phase 1.7 - 7.7 Postmenopausal 25.8 - 134.8 Estradiol <5.0 0.0-54.7 pg/mL Adult Female Range Follicular phase 12.5 - 166.0 Ovulation phase 85.8 - 498.0 Luteal phase 43.8 - 211.0 Postmenopausal <6.0 - 54.7 1st trimester 215.0 - >4300.0 Chase ECLIA methodology WBC 7.4 3.4-10.8 x10E3/uL RBC 4.22 3.77-5.28 x10E6/uL Hemoglobin 12.2 11.1-15.9 g/dL Hematocrit 37.1 34.0-46.6 % MCV 88 79-97 fL MCH 28.9 26.6-33.0 pg MCHC 32.9 31.5-35.7 g/dL RDW 13.5 11.7-15.4 % Platelets 349 150-450 x10E3/uL Neutrophils 57 Not Estab. % Lymphs 30 Not Estab. % Monocytes 10 Not Estab. % Eos 2 Not Estab. % Basos 1 Not Estab. % Neutrophils (Absolute) 4.2 1.4-7.0 x10E3/uL Lymphs (Absolute) 2.2 0.7-3.1 x10E3/uL Monocytes(Absolute) 0.7 0.1-0.9 x10E3/uL Eos (Absolute) 0.1 0.0-0.4 x10E3/uL Baso (Absolute) 0.1 0.0-0.2 x10E3/uL Immature Granulocytes 0 Not Estab. % Immature Grans (Abs) 0.0 0.0-0.1 x10E3/uL -IGF-1 Reviewed date:08/17/2023 02:49:57 PM Interpretation:Normal Performing Lab:[facility], [address] [place] [address] [id number], Phone - [phone], Director - Leilani Notes/Report: Insulin-Like Growth Factor I 123 48-191 ng/mL Spirometry Reviewed date:05/16/2023 05:14:06 PM Interpretation:Abnormal Performing Lab: Notes/Report: Abnormal SpiroPreBronchodilator_FVC 3.16 SpiroPostBronchodilator_FEF2 5 _75 0 SpiroPreBronchodilator_FEF25 _ 75 1.26 SpiroPreBronchodilator_FEV1 2.14 SpiroPrecentPredictionPost_F E F25_75 0 SpiroPrecentPredictionPost_F E V1 0 SpiroPrecentPredictionPost_F E V1_OVER_FVC 0 SpiroPrecentPredictionPost_F V C 0 SpiroPrecentPredictionPre_FE F 25_75 70 SpiroPrecentPredictionPre_FE V 1 112 SpiroPrecentPredictionPre_FE V 1_OVER_FVC 87.6 SpiroPrecentPredictionPre_FVC 127.4 SpiroPredicted_FEF25_75 1.8 SpiroPreBronchodilator_FEV1_ O VER_FVC 67.8 SpiroPreBronchodilator_PEF 5.41 SpiroPostBronchodilator_FVC 0 SpiroPostBronchodilator_FEV1 0 SpiroPostBronchodilator_FEV1 _ OVER_FVC 0 SpiroPostBronchodilator_PEF 0 SpiroPredicted_FVC 2.48 SpiroPredicted_FEV1 1.91 SpiroPredicted_FEV1_OVER_FVC 77.39 SpiroPredicted_PEF 5.08 URINALYSIS REFLEX Reviewed date:05/09/2023 05:52:24 PM Interpretation:Normal Performing Lab:[facility], [id number] [place], [address] [facility] Notes/Report: COLOR YELLOW YELLOW APPEARANCE CLEAR CLEAR SPECIFIC GRAVITY 1.012 1.001-1.035 PH 7.5 5.0-8.0 GLUCOSE NEGATIVE NEGATIVE BILIRUBIN NEGATIVE NEGATIVE KETONES NEGATIVE NEGATIVE OCCULT BLOOD NEGATIVE NEGATIVE PROTEIN NEGATIVE NEGATIVE NITRITE NEGATIVE NEGATIVE LEUKOCYTE ESTERASE NEGATIVE NEGATIVE CBC (INCLUDES DIFF/PLT) Reviewed date:05/09/2023 05:53:08 PM Interpretation:Normal Performing Lab:[facility] [employer] [facility], [address] [place], [address] [facility] Notes/Report: WHITE BLOOD CELL COUNT 6.9 3.8-10.8 Thousand/ uL RED BLOOD CELL COUNT 4.07 3.80-5.10 Million/uL HEMOGLOBIN 12.0 11.7-15.5 g/dL HEMATOCRIT 36.4 35.0-45.0 % MCV 89.4 80.0-100.0 fL MCH 29.5 27.0-33.0 pg MCHC 33.0 32.0-36.0 g/dL RDW 12.8 11.0-15.0 % PLATELET COUNT 294 140-400 Thousand/uL MPV 10.0 7.5-12.5 fL ABSOLUTE NEUTROPHILS 3905 1856-3740 cells/uL ABSOLUTE LYMPHOCYTES 2111 850-3900 cells/uL ABSOLUTE MONOCYTES 607 200-950 cells/uL ABSOLUTE EOSINOPHILS 193 15-500 cells/uL ABSOLUTE BASOPHILS 83 0-200 cells/uL NEUTROPHILS 56.6 LYMPHOCYTES 30.6 MONOCYTES 8.8 EOSINOPHILS 2.8 BASOPHILS 1.2 HEMOGLOBIN A1c Reviewed date:05/09/2023 05:52:34 PM Interpretation:Normal Performing Lab:[facility], [facility] [place], [address] [facility] Notes/Report: HEMOGLOBIN A1c 5.3 <5.7 % of total Hgb For the purpose of screening for the presence of diabetes: <5.7% Consistent with the absence of diabetes 5.7-6.4% Consistent with increased risk for diabetes (prediabetes) > or =6.5% Consistent with diabetes This assay result is consistent with a decreased risk of diabetes. Currently, no consensus exists regarding use of hemoglobin A1c for diagnosis of diabetes in children. According to [place] Diabetes Association (ADA) guidelines, hemoglobin A1c <7.0% represents optimal control in non- diabetic patients. Different metrics may apply to specific patient populations. Standards of Medical Care in Diabetes(ADA). This test was performed on the [employer] c8000 platform. Please be advised that [email or web address] will move hemoglobin A1c testing to the Chase platform soon. In general, direct comparison of the results from different platforms is not recommended. Spirometry Reviewed date:04/17/2023 12:26:30 PM Interpretation:Abnormal Performing Lab: Notes/Report: Abnormal SpiroPreBronchodilator_FVC 3.19 SpiroPostBronchodilator_FEF2 5 _75 0 SpiroPreBronchodilator_FEF25 _ 75 1 SpiroPreBronchodilator_FEV1 2.03 SpiroPrecentPredictionPost_F E F25_75 0 SpiroPrecentPredictionPost_F E V1 0 SpiroPrecentPredictionPost_F E V1_OVER_FVC 0 SpiroPrecentPredictionPost_F V C 0 SpiroPrecentPredictionPre_FE F 25_75 54.3 SpiroPrecentPredictionPre_FE V 1 101.5 SpiroPrecentPredictionPre_FE V 1_OVER_FVC 82.7 SpiroPrecentPredictionPre_FVC 122.2 SpiroPredicted_FEF25_75 1.84 SpiroPreBronchodilator_FEV1_ O VER_FVC 63.55 SpiroPreBronchodilator_PEF 5.5 SpiroPostBronchodilator_FVC 0 SpiroPostBronchodilator_FEV1 0 SpiroPostBronchodilator_FEV1 _ OVER_FVC 0 SpiroPostBronchodilator_PEF 0 SpiroPredicted_FVC 2.61 SpiroPredicted_FEV1 2 SpiroPredicted_FEV1_OVER_FVC 76.88 SpiroPredicted_PEF 5.21 Reason For Referral No Information Medications Medication SIG (Take, Route, Frequency, Duration) Notes Start Date End Date Status Biotin 1000 MCG 1 tab(s) orally once a day Active CETIRIZINE 10 mg 1 tab(s) orally once a day for 30 days Active buPROPion HCl ER (XL) 150 MG 1 tab(s) orally every 24 hours Active NASAL WASHES N/A as directed intranasally as needed for 30 day(s) Active PreserVision AREDS 2 ANTIOXIDANT MULTIPLE VITAMINS AND MINERALS 1 TAB(S) CHEWED 2 TIMES A DAY *Please review and pick correct strength-formulat ion from [employer] options. If intended option is not shown, discontinue and re-order from Quick Search* Active MONTELUKAST 10 mg 1 tab(s) orally once a day Active ALBUTEROL (EQV-PROAIR HFA) 90 mcg/inh 2 puff(s) inhaled every 6 hours Active amLODIPine Besylate 10 MG 1 tab(s) orally once a day Active Irbesartan 300 MG 1 tab(s) orally once a day Active Pravastatin Sodium 10 MG 1 tab(s) orally once a day Active Gabapentin 300 MG 1 cap(s) orally 3 times a day Active EpiPen 2-Mejia 0.3 mg as directed intramuscularly once for 30 days Active SIT (TRADITIONAL) variable per schedule SC per schedule for 1 days Active Cetirizine HCl 10 MG 1 tab(s) orally once a day for 30 days Active Montelukast Sodium 10 MG 1 tab(s) orally once a day Active Trelegy Ellipta 200-62.5-25 MCG/ACT 1 puff Inhalation Once a day for 90 days Active BIOTIN 1000 mcg 1 tab(s) orally once a day Active AZELASTINE NASAL 137 mcg/inh 2 spray(s) intranasally 2 times a day Active OLOPATADINE OPHTHALMIC 0.1% 1 gtt in each affected eye 2 times a day Active PRAVASTATIN 10 mg 1 tab(s) orally once a day Active Trelegy Ellipta 100/62.5/25 MCG 1 INHALATION PO QDAY for 30 DAY(S) *Please review and pick correct strength-formulat ion from [employer] options. If intended option is not shown, discontinue and re-order from Quick Search* Active GABAPENTIN 300 mg 1 cap(s) orally 3 times a day Active SIT (CLUSTER) VARIABLE PER SCHEDULE SC PER SCHEDULE for TO BE DETERMINED *Please review for potential replacement for e-prescription and drug interaction check* 10/03/2022 Active BUPROPION 150 mg/24 hours 1 tab(s) orally every 24 hours Active CARE TRANSITION MGR Thyroid 60 MG 0.5 tab x 1 week, th en 1 tablet daily thereafter, as tolerated orally once a day for 30 day(s) 07/27/2023 Active PRESERVISION AREDS 2 Antioxidant Multiple Vitamins and Minerals 1 tab(s) chewed 2 times a day Active Azelastine HCl 137 MCG/SPRAY 2 spray(s) intranasally 2 times a day Active AMLODIPINE 10 mg 1 tab(s) orally once a day Active Olopatadine HCl 0.1 % 1 gtt in each affected eye 2 times a day Active IRBESARTAN 300 mg 1 tab(s) orally once a day Active Trelegy Ellipta 200 MCG-62.5 MCG-25 MCG/INH 1 PUFF(S) INHALED ONCE A DAY for 90 DAYS *Please review and pick correct strength-formulat ion from [employer] options. If intended option is not shown, discontinue and re-order from Quick Search* Active FOSAMAX 70 mg 1 tab(s) orally once a week Active predniSONE 5 MG/5ML 5 mL orally once a day Active Social History Tobacco Use: Social History Observation Description Date Details (start date - stop date) Former Smoker NA - NA Smoking Smart Form: Question Answer Notes Are you a: former smoker How long it has been since you last smoked? 6-12 months Tobacco Control (Standard) Question Answer Notes Tobacco use: Former smoker How long has it been since you last smoked? 1-5 years Problems Problem Type SNOMED Code ICD Code Onset Dates Problem Status W/U Status Risk Notes Problem Eruption of skin (856548527) Rash and other nonspecific skin eruption (R21) Active confirmed Problem Hypothyroidism (93479033) Hypothyroidism, unspecified (E03.9) Active confirmed Problem Morbid obesity (disorder) (187260979) Morbid (severe) obesity due to excess calories (E66.01) Active confirmed Problem Hyperlipidemia (73110256) Hyperlipidemia, unspecified (E78.5) Active confirmed Problem Affective psychosis (789771680) Unspecified mood [affective] disorder (F39) Active confirmed Problem Adjustment disorder with anxiety (44854493) Adjustment disorder with anxiety (F43.22) Active confirmed Problem Chronic allergic conjunctivitis (30127846) Other chronic allergic conjunctivitis (H10.45) Active confirmed Problem Allergic rhinitis caused by pollen (disorder) (88269771) Allergic rhinitis due to pollen (J30.1) Active confirmed Problem Allergic rhinitis (46302432) Other allergic rhinitis (J30.89) Active confirmed Problem Chronic obstructive pulmonary disease (63993726) Chronic obstructive pulmonary disease, unspecified (J44.9) Active confirmed Problem Uncomplicated severe persistent asthma (548618325) Severe persistent asthma, uncomplicated (J45.50) Active confirmed Problem Joint pain (31908412) Pain in unspecified joint (M25.50) Active confirmed Problem Age-related osteoporosis (916491822) Age-related osteoporosis without current pathological fracture (M81.0) Active confirmed Problem Amnesia (92618174) Other amnesia (R41.3) Active confirmed Problem Malaise (946363123) Other malaise (R53.81) Active confirmed Problem Chronic fatigue syndrome (disorder) (84801735) Chronic fatigue, unspecified (R53.82) Active confirmed Problem Fatigue (21646056) Other fatigue (R53.83) Active confirmed Problem Abnormal weight gain (580883905) Abnormal weight gain (R63.5) Active confirmed Problem Reduced libido (8089457) Decreased libido (R68.82) Active confirmed Problem Allergic rhinitis caused by animal hair and dander (411798092509350) Allergic rhinitis due to animal (cat) (dog) hair and dander (J30.81) Active confirmed Problem Essential hypertension (67241412) Essential (primary) hypertension (I10) Active confirmed Problem Sarcopenia (409513456) Sarcopenia (M62.84) Active confirmed Problem Allergy status t o other antibiotic agents (Z88.1) Active confirmed Problem Irritability and anger (871032570) Irritability and anger (R45.4) Active confirmed Vital Signs Respiratory Rate 18 /min 05/15/2023 Oximetry 98 % 08/14/2023 Blood pressure diastolic 81 mm Hg 08/14/2023 Height 61 in 08/24/2023 Blood pressure systolic 136 mm Hg 08/14/2023 Weight 132.2 lbs 08/24/2023 BMI 24.98 kg/m2 08/24/2023 Encounters Encounter Location Date Provider Diagnosis [facility] ([address]) [address] [place] [address] 06/15/2023 Yaniv Quintanilla Morbid (severe) obesity due to excess calories E66.01 ; Chronic fatigue, unspecified R53.82 ; Other fatigue R53.83 and Other malaise R53.81 [facility] ([address]) [address] [place] [address] 06/22/2023 Yaniv Quintanilla Morbid (severe) obesity due to excess calories E66.01 ; Chronic fatigue, unspecified R53.82 ; Other fatigue R53.83 and Other malaise R53.81 [facility] ([address]) [address] [place] [address] 07/06/2023 Yaniv Quintanilla Chronic fatigue, unspecified R53.82 ; Abnormal weight gain R63.5 ; Other fatigue R53.83 and Other malaise R53.81 [facility] ([address]) [address] [place] [address] 07/20/2023 Yaniv Quintanilla Chronic fatigue, unspecified R53.82 ; Abnormal weight gain R63.5 ; Other fatigue R53.83 and Other malaise R53.81 [facility] ([address]) [address] [place] [address] 07/27/2023 Yaniv Quintanilla Chronic fatigue, unspecified R53.82 ; Abnormal weight gain R63.5 ; Other fatigue R53.83 and Other malaise R53.[address] [address] 07/29/2023 Provider [employer] Hypothyroidism, unspecified E03.9 [facility] ([address]) [address] [place] [address] 08/03/2023 Yaniv Quintanilla Abnormal weight gain R63.5 ; Sarcopenia M62.84 ; Chronic fatigue, unspecified R53.82 ; Other fatigue R53.83 and Other malaise R53.81 [facility] [address] [place] [address] 08/03/2023 Yaniv Quintanilla [facility] ([address]) [address] [place] [address] 08/16/2023 Yaniv Quintanilla Abnormal weight gain R63.5 ; Sarcopenia M62.84 ; Chronic fatigue, unspecified R53.82 ; Other fatigue R53.83 and Other malaise R53.81 [facility] ([address]) [address] [place] [address] 08/24/2023 Yaniv Quintanilla Abnormal weight gain R63.5 ; Sarcopenia M62.84 ; Chronic fatigue, unspecified R53.82 ; Other fatigue R53.83 and Other malaise R53.81 [facility] [address] [place] [address] 01/30/2023 Yaniv Quintanilla Allergic rhinitis du e to pollen J30.1 ; Allergic rhinitis due to animal (cat) (dog) hair and dander J30.81 ; Other allergic rhinitis J30.89 and Other chronic allergic conjunctivitis H10.45 [facility] [address] [place] [address] 03/08/2023 Yaniv Quintanilla Allergic rhinitis du e to pollen J30.1 ; Allergic rhinitis due to animal (cat) (dog) hair and dander J30.81 ; Other allergic rhinitis J30.89 and Other chronic allergic conjunctivitis H10.[address] [address] 03/13/2023 Yaniv Quintanilla Allergic rhinitis du e to pollen J30.1 ; Allergic rhinitis due to animal (cat) (dog) hair and dander J30.81 ; Other allergic rhinitis J30.89 and Other chronic allergic conjunctivitis H10.[address] [address] 04/10/2023 Yaniv Quintanilla Allergic rhinitis du e to pollen J30.1 ; Allergic rhinitis due to animal (cat) (dog) hair and dander J30.81 ; Other allergic rhinitis J30.89 and Other chronic allergic conjunctivitis H10.45 [facility] [address] [place] [address] [employer] [address] [place] [address] 04/17/2023 Sydnee Griggs Allergic rhinitis du e to pollen J30.1 ; Severe persistent asthma, uncomplicated J45.50 ; Allergic rhinitis due to animal (cat) (dog) hair and dander J30.81 ; Other allergic rhinitis J30.89 ; Other chronic allergic conjunctivitis H10.45 ; Chronic obstructive pulmonary disease, unspecified J44.9 ; Rash and other nonspecific skin eruption R21 ; Essential (primary) hypertension I10 and Allergy status to other antibiotic agents Z88.1 [facility] [address] [place] [address] [employer] [address] [place] [address] 04/24/2023 Yaniv Quintanilla Allergic rhinitis du e to pollen J30.1 ; Allergic rhinitis due to animal (cat) (dog) hair and dander J30.81 ; Other allergic rhinitis J30.89 and Other chronic allergic conjunctivitis H10.45 [facility] [address] [place], [place] [address] [address] [place] [address] 05/01/2023 Yaniv Quintanilla Allergic rhinitis du e to pollen J30.1 ; Allergic rhinitis due to animal (cat) (dog) hair and dander J30.81 ; Other allergic rhinitis J30.89 and Other chronic allergic conjunctivitis H10.45 [facility] ([address]) [address] [place] [address] 05/04/2023 Yaniv Quintanilla Morbid (severe) obesity due to excess calories E66.01 ; Chronic fatigue, unspecified R53.82 ; Other fatigue R53.83 and Other malaise R53.81 [facility] ([address]) [address] [place] [address] 05/11/2023 Yaniv Quintanilla Morbid (severe) obesity due to excess calories E66.01 ; Chronic fatigue, unspecified R53.82 ; Other fatigue R53.83 and Other malaise R53.81 [facility] [address] [place], [place] [address] [address] [place] [address] 05/15/2023 Sydnee Griggs Allergic rhinitis du e to pollen J30.1 ; Severe persistent asthma, uncomplicated J45.50 ; Allergic rhinitis due to animal (cat) (dog) hair and dander J30.81 ; Other allergic rhinitis J30.89 ; Other chronic allergic conjunctivitis H10.45 ; Chronic obstructive pulmonary disease, unspecified J44.9 ; Rash and other nonspecific skin eruption R21 ; Essential (primary) hypertension I10 and Allergy status to other antibiotic agents Z88.1 [facility] ([address]) [address] [place] [address] 05/17/2023 Yaniv Quintanilla Morbid (severe) obesity due to excess calories E66.01 ; Chronic fatigue, unspecified R53.82 ; Other fatigue R53.83 and Other malaise R53.81 [facility] ([facility] [address]) [address] [place] [address] 05/25/2023 Yaniv Quintanilla Morbid (severe) obesity due to excess calories E66.01 ; Chronic fatigue, unspecified R53.82 ; Other fatigue R53.83 and Other malaise R53.81 [facility] ([address]) [address] [place] [address] 06/01/2023 Yaniv Quintanilla Morbid (severe) obesity due to excess calories E66.01 ; Chronic fatigue, unspecified R53.82 ; Other fatigue R53.83 and Other malaise R53.81 [facility] ([facility] [address]) [address] [place] [address] 06/08/2023 Yaniv Quintanilla Morbid (severe) obesity due to excess calories E66.01 ; Chronic fatigue, unspecified R53.82 ; Other fatigue R53.83 and Other malaise R53.81 [facility] [address] [facility] [address] [place] [address] 06/14/2023 Yaniv Quintanilla Allergic rhinitis du e to pollen J30.1 ; Allergic rhinitis due to animal (cat) (dog) hair and dander J30.81 ; Other allergic rhinitis J30.89 and Other chronic allergic conjunctivitis H10.45 [facility] [address] [place] [address] 06/29/2023 Yaniv Quintanilla Morbid (severe) obesity due to excess calories E66.01 ; Chronic fatigue, unspecified R53.82 ; Other fatigue R53.83 and Other malaise R53.81 [facility] [address]) [address] [place] [address] 07/13/2023 Yaniv Quintanilla Chronic fatigue, unspecified R53.82 ; Abnormal weight gain R63.5 ; Other fatigue R53.83 and Other malaise R53.81 [facility] [address] [place], [place] [address] [employer] [address] [place] [address] 07/17/2023 Yaniv Quintanilla Allergic rhinitis du e to pollen J30.1 ; Allergic rhinitis due to animal (cat) (dog) hair and dander J30.81 ; Other allergic rhinitis J30.89 and Other chronic allergic conjunctivitis H10.45 [facility] ([place] [address]) [address] [place] [address] 07/27/2023 Yaniv Quintanilla Decreased libido R68.82 ; Hypothyroidism, unspecified E03.9 ; Irritability and anger R45.4 ; Unspecified mood [affective] disorder F39 ; Adjustment disorder with anxiety F43.22 ; Other fatigue R53.83 ; Other malaise R53.81 ; Abnormal weight gain R63.5 ; Other amnesia R41.3 and Pain in unspecified joint M25.50 [facility] [address] [place], [place] [address] [address] [place] [address] 07/31/2023 Yaniv Quintanilla Allergic rhinitis du e to pollen J30.1 ; Allergic rhinitis due to animal (cat) (dog) hair and dander J30.81 ; Other allergic rhinitis J30.89 and Other chronic allergic conjunctivitis H10.45 [facility] ([address]) [address] [place] [address] 08/10/2023 Yaniv Quintanilla Abnormal weight gain R63.5 ; Sarcopenia M62.84 ; Chronic fatigue, unspecified R53.82 ; Other fatigue R53.83 and Other malaise R53.81 [facility] [address] [place] [address] 08/14/2023 Sydneemanda Alfarokalpana Allergic rhinitis du e to pollen J30.1 ; Severe persistent asthma, uncomplicated J45.50 ; Allergic rhinitis due to animal (cat) (dog) hair and dander J30.81 ; Other allergic rhinitis J30.89 ; Other chronic allergic conjunctivitis H10.45 ; Chronic obstructive pulmonary disease, unspecified J44.9 ; Rash and other nonspecific skin eruption R21 ; Essential (primary) hypertension I10 and Allergy status to other antibiotic agents Z88.[address] [address] 10/02/2023 Yaniv Quintanilla Allergic rhinitis du e to pollen J30.1 ; Allergic rhinitis due to animal (cat) (dog) hair and dander J30.81 ; Other allergic rhinitis J30.89 and Other chronic allergic conjunctivitis H10.[address] [address] 10/09/2023 Yaniv Quintanilla Allergic rhinitis du e to pollen J30.1 ; Allergic rhinitis due to animal (cat) (dog) hair and dander J30.81 ; Other allergic rhinitis J30.89 and Other chronic allergic conjunctivitis H10.[address] [address] 11/13/2023 Yaniv Quintanilla Allergic rhinitis du e to pollen J30.1 ; Allergic rhinitis due to animal (cat) (dog) hair and dander J30.81 ; Other allergic rhinitis J30.89 and Other chronic allergic conjunctivitis H10.[address] [address] 04/25/2023 Yaniv Quintanilla Morbid (severe) obesity due to excess calories E66.01 ; Chronic fatigue, unspecified R53.82 and Other malaise R53.[address] [address] 04/22/2023 Yaniv Quintanilla Assessments Encounter Date Diagnosis (ICD Code) Assessment Notes Treatment Notes Treatment Clinical Notes Section Notes 01/30/2023 Allergic rhinitis due to pollen (ICD-10 - J30.1) 03/08/2023 Allergic rhinitis due to pollen (ICD-10 - J30.1) 03/13/2023 Allergic rhinitis due to pollen (ICD-10 - J30.1) 04/10/2023 Allergic rhinitis due to pollen (ICD-10 - J30.1) 04/17/2023 Allergic rhinitis due to pollen (ICD-10 - J30.1) Terri clearly suffers from atopic disease based upon our skin testing and clinical history. Continue aggressive medication regimen, nasal washes and allergy-specific avoidance measures. - Terri is now on SCIT, completed rapid desensitization without issue. She denies large local or systemic reactions. - Held SCIT dosing today due to low ACT, return next week for SCIT. - Continue medication regimen as above. - Continue to follow Terri's asthma closely, see plan above. - Follow-up in one week for SCIT dosing and 4 weeks for further evaluation and management 04/17/2023 Severe persistent asthma, uncomplicated (ICD-10 - J45.50) Terri returns today reporting improvement in her lower airway symptoms since starting Trelegy, however has noticed increased shortness of breath with activity. She denies chest tightness or pain. She is using her albuterol inhaler approximately once per week, typically after climbing stairs. ACT=17. Terri has a 18-zxss-xicr smoking history, quit February 2022, was also hospitalized with pneumonia in February and was admitted for 4 days, treated with IV antibiotics. She is followed by Dr. Hernandez with Pulmonology. - Spirometry was obtained last visit that showed normal FEV1, FVC and FEV1% with significant improvement compared to spirometry obtained last visit. Positive bronchodilator challenge at her initial visit significant for ATS-defined asthma. - Repeat spirometry today showed reduced FEV1%, normal FEV1 and FVC. - Plan to step-up to high-dose Trelegy. Samples provided today. Terri is aware to rinse her mouth after use. Continue Singulair as above. - Continue LUIS as needed with spacer. - Laboratory work ordered last visit with low H & H on CBC, IgE = 46, AAT phenotype MM. - Terri is to follow-up in 4 weeks for repeat spirometry and further evaluation and management 04/25/2023 Morbid (severe) obesity due to excess calories (ICD-10 - E66.01) 04/25/2023 Chronic fatigue, unspecified (ICD-10 - R53.82) 04/24/2023 Allergic rhinitis due to pollen (ICD-10 - J30.1) 05/01/2023 Allergic rhinitis due to pollen (ICD-10 - J30.1) 05/04/2023 Morbid (severe) obesity due to excess calories (ICD-10 - E66.01) 05/04/2023 Chronic fatigue, unspecified (ICD-10 - R53.82) 05/11/2023 Morbid (severe) obesity due to excess calories (ICD-10 - E66.01) 05/11/2023 Chronic fatigue, unspecified (ICD-10 - R53.82) 05/15/2023 Allergic rhinitis due to pollen (ICD-10 - J30.1) Terri clearly suffers from atopic disease based upon our skin testing and clinical history. Continue aggressive medication regimen, nasal washes and allergy-specific avoidance measures. - Terri is now on SCIT, completed rapid desensitization without issue. She denies large local or systemic reactions. - She tolerated dosing today without large local or systemic reaction. - Continue medication regimen as above. - Continue to follow Terri's asthma closely, see plan above. - Follow-up as scheduled for SCIT dosing and in 3-4 months for further evaluation and management 05/15/2023 Severe persistent asthma, uncomplicated (ICD-10 - J45.50) Terri presented last visit reporting improvement in her lower airway symptoms since starting Trelegy, however had noticed increased shortness of breath with activity. Due to this, stepped-up to high dose Trelegy, which Terri has noted benefit from. ACT is 20, up from 17. Has noticed increased chest tightness, which she denied last visit. Feels it is related to peak pollen season. Terri has a 63-fqwx-uokc smoking history, quit February 2022, was also hospitalized with pneumonia in February and was admitted for 4 days, treated with IV antibiotics. She is followed by Dr. Hernandez with Pulmonology. - Spirometry was obtained last visit that showed normal FEV1, FVC and FEV1% with significant improvement compared to spirometry obtained last visit. Positive bronchodilator challenge at her initial visit significant for ATS-defined asthma. - Repeat spirometry today again showed reduced FEV1%, normal FEV1 and FVC. 10% or 110 cc increase in FEV1 compared to last visit. - Continue high-dose Trelegy at this time. Refills sent. Terri is aware to rinse her mouth after use. Continue Singulair as above. - Continue LUIS as needed with spacer. - Laboratory work ordered last visit with low H & H on CBC, IgE 46, AAT phenotype MM. - Terri denies cardiac history, feels recent chest tightness is related to peak pollen season. She denies chest pain or pressure. Discussed evaluation by her PCP to rule out underlying cardiac cause as a precaution. Terri voiced understanding. - Terri is to follow-up in 3 months for further evaluation and management 05/17/2023 Morbid (severe) obesity due to excess calories (ICD-10 - E66.01) 05/17/2023 Chronic fatigue, unspecified (ICD-10 - R53.82) 05/25/2023 Morbid (severe) obesity due to excess calories (ICD-10 - E66.01) 05/25/2023 Chronic fatigue, unspecified (ICD-10 - R53.82) 06/01/2023 Morbid (severe) obesity due to excess calories (ICD-10 - E66.01) 06/01/2023 Chronic fatigue, unspecified (ICD-10 - R53.82) 06/08/2023 Morbid (severe) obesity due to excess calories (ICD-10 - E66.01) 06/08/2023 Chronic fatigue, unspecified (ICD-10 - R53.82) 06/14/2023 Allergic rhinitis due to pollen (ICD-10 - J30.1) 06/15/2023 Morbid (severe) obesity due to excess calories (ICD-10 - E66.01) 06/15/2023 Chronic fatigue, unspecified (ICD-10 - R53.82) 06/22/2023 Morbid (severe) obesity due to excess calories (ICD-10 - E66.01) 06/22/2023 Chronic fatigue, unspecified (ICD-10 - R53.82) 06/29/2023 Morbid (severe) obesity due to excess calories (ICD-10 - E66.01) 06/29/2023 Chronic fatigue, unspecified (ICD-10 - R53.82) 07/06/2023 Chronic fatigue, unspecified (ICD-10 - R53.82) 07/06/2023 Abnormal weight gain (ICD-10 - R63.5) 07/13/2023 Chronic fatigue, unspecified (ICD-10 - R53.82) 07/17/2023 Allergic rhinitis due to pollen (ICD-10 - J30.1) 07/13/2023 Abnormal weight gain (ICD-10 - R63.5) 07/20/2023 Chronic fatigue, unspecified (ICD-10 - R53.82) 07/20/2023 Abnormal weight gain (ICD-10 - R63.5) 07/27/2023 Hypothyroidism, unspecified (ICD-10 - E03.9) 07/27/2023 Decreased libido (ICD-10 - R68.82) Consider Thyroid and Hormone replacement. Add supplemenetation in billing summary. See scanned sheet. 07/27/2023 Chronic fatigue, unspecified (ICD-10 - R53.82) 07/31/2023 Allergic rhinitis due to pollen (ICD-10 - J30.1) 07/27/2023 Abnormal weight gain (ICD-10 - R63.5) 07/29/2023 Hypothyroidism, unspecified (ICD-10 - E03.9) 08/03/2023 Abnormal weight gain (ICD-10 - R63.5) 08/03/2023 Sarcopenia (ICD-10 - M62.84) [employer] today with low muscle mass. Start Sermorelin 100 mcg night 1, 200 mcg night 2 and 300 mcg night 3 as tolerated. 2 mg/mL - 15 mg provided. Needs to stay refrigerated. Check IGF-1 level now and in 2-3 months on sermorelin. 08/10/2023 Abnormal weight gain (ICD-10 - R63.5) 08/10/2023 Sarcopenia (ICD-10 - M62.84) [employer] today with low muscle mass. Start Sermorelin 100 mcg night 1, 200 mcg night 2 and 300 mcg night 3 as tolerated. 2 mg/mL - 15 mg provided. Needs to stay refrigerated. Check IGF-1 level now and in 2-3 months on sermorelin. 08/14/2023 Severe persistent asthma, uncomplicated (ICD-10 - J45.50) Terri presented to a prior visit reporting improvement in her lower airway symptoms since starting Trelegy, however had noticed increased shortness of breath with activity. Due to this, stepped-up to high dose Trelegy, which Terri has noted benefit from. ACT is 20. Terri has a 25-yctl-oyxc smoking history, quit February 2022, was also hospitalized with pneumonia in February and was admitted for 4 days, treated with IV antibiotics. She is followed by Dr. Hernandez with Pulmonology. - Spirometry was obtained previously that showed normal FEV1, FVC and FEV1% with significant improvement compared to spirometry obtained at a prior visit. Positive bronchodilator challenge at her initial visit significant for ATS-defined asthma. - Repeat spirometry last visit again showed reduced FEV1%, normal FEV1 and FVC. 10% or 110 cc increase in FEV1 compared to the visit prior. - Continue high-dose Trelegy at this time. Refills sent. Terri is aware to rinse her mouth after use. Continue Singulair as above. - Continue LUIS as needed with spacer. - Laboratory work ordered last visit with low H & H on CBC, IgE 46, AAT phenotype MM. - Terri denies cardiac history, previously reported chest tightness she felt was related to peak pollen season. She denies chest pain or pressure. Discussed evaluation by her PCP to rule out underlying cardiac cause as a precaution. Terri voiced understanding. - Terri is to follow-up in 3 months for further evaluation and management 08/14/2023 Allergic rhinitis due to pollen (ICD-10 - J30.1) Terri clearly suffers from atopic disease based upon our skin testing and clinical history. Continue aggressive medication regimen, nasal washes and allergy-specific avoidance measures. - Terri continues SCIT, now on MM. She denies large local or systemic reactions. - She tolerated dosing today without large local or systemic reaction. - Continue medication regimen as above. - Continue to follow Terri's asthma closely, see plan above. - Discussed increasing SCIT frequency in peak season. - Follow-up as scheduled for SCIT dosing and in 3-4 months for further evaluation and management 08/16/2023 Abnormal weight gain (ICD-10 - R63.5) 08/16/2023 Sarcopenia (ICD-10 - M62.84) [employer] today with low muscle mass. Start Sermorelin 100 mcg night 1, 200 mcg night 2 and 300 mcg night 3 as tolerated. 2 mg/mL - 15 mg provided. Needs to stay refrigerated. Check IGF-1 level now and in 2-3 months on sermorelin. 08/24/2023 Abnormal weight gain (ICD-10 - R63.5) 08/24/2023 Sarcopenia (ICD-10 - M62.84) [employer] today with low muscle mass. Start Sermorelin 100 mcg night 1, 200 mcg night 2 and 300 mcg night 3 as tolerated. 2 mg/mL - 15 mg provided. Needs to stay refrigerated. Check IGF-1 level now and in 2-3 months on sermorelin. 10/02/2023 Allergic rhinitis due to pollen (ICD-10 - J30.1) 10/09/2023 Allergic rhinitis due to pollen (ICD-10 - J30.1) 11/13/2023 Allergic rhinitis due to pollen (ICD-10 - J30.1) 11/13/2023 Allergic rhinitis due to animal (cat) (dog) hair and dander (ICD-10 - J30.81) 10/09/2023 Allergic rhinitis due to animal (cat) (dog) hair and dander (ICD-10 - J30.81) 10/02/2023 Allergic rhinitis due to animal (cat) (dog) hair and dander (ICD-10 - J30.81) 08/24/2023 Chronic fatigue, unspecified (ICD-10 - R53.82) 08/16/2023 Chronic fatigue, unspecified (ICD-10 - R53.82) 08/14/2023 Allergic rhinitis due to animal (cat) (dog) hair and dander (ICD-10 - J30.81) Follow allergen avoidance, meds and continue SCIT as an adjunctive treatment to current regimen 08/10/2023 Chronic fatigue, unspecified (ICD-10 - R53.82) 08/03/2023 Chronic fatigue, unspecified (ICD-10 - R53.82) 07/31/2023 Allergic rhinitis due to animal (cat) (dog) hair and dander (ICD-10 - J30.81) 07/27/2023 Other fatigue (ICD-10 - R53.83) 07/27/2023 Irritability and anger (ICD-10 - R45.4) 07/20/2023 Other fatigue (ICD-10 - R53.83) 07/17/2023 Allergic rhinitis due to animal (cat) (dog) hair and dander (ICD-10 - J30.81) 07/13/2023 Other fatigue (ICD-10 - R53.83) 07/06/2023 Other fatigue (ICD-10 - R53.83) 06/29/2023 Other fatigue (ICD-10 - R53.83) 06/22/2023 Other fatigue (ICD-10 - R53.83) 06/15/2023 Other fatigue (ICD-10 - R53.83) 06/14/2023 Allergic rhinitis due to animal (cat) (dog) hair and dander (ICD-10 - J30.81) 06/08/2023 Other fatigue (ICD-10 - R53.83) 06/01/2023 Other fatigue (ICD-10 - R53.83) 05/25/2023 Other fatigue (ICD-10 - R53.83) 05/17/2023 Other fatigue (ICD-10 - R53.83) 05/15/2023 Allergic rhinitis due to animal (cat) (dog) hair and dander (ICD-10 - J30.81) Follow allergen avoidance, meds and continue SCIT as an adjunctive treatment to current regimen 05/11/2023 Other fatigue (ICD-10 - R53.83) 05/04/2023 Other fatigue (ICD-10 - R53.83) 05/01/2023 Allergic rhinitis due to animal (cat) (dog) hair and dander (ICD-10 - J30.81) 04/24/2023 Allergic rhinitis due to animal (cat) (dog) hair and dander (ICD-10 - J30.81) 04/25/2023 Other malaise (ICD-10 - R53.81) 04/17/2023 Allergic rhinitis due to animal (cat) (dog) hair and dander (ICD-10 - J30.81) Follow allergen avoidance, meds and continue SCIT as an adjunctive treatment to current regimen 04/10/2023 Allergic rhinitis due to animal (cat) (dog) hair and dander (ICD-10 - J30.81) 03/13/2023 Allergic rhinitis due to animal (cat) (dog) hair and dander (ICD-10 - J30.81) 03/08/2023 Allergic rhinitis due to animal (cat) (dog) hair and dander (ICD-10 - J30.81) 01/30/2023 Allergic rhinitis due to animal (cat) (dog) hair and dander (ICD-10 - J30.81) 01/30/2023 Other allergic rhinitis (ICD-10 - J30.89) 03/08/2023 Other allergic rhinitis (ICD-10 - J30.89) 03/13/2023 Other allergic rhinitis (ICD-10 - J30.89) 04/10/2023 Other allergic rhinitis (ICD-10 - J30.89) 04/17/2023 Other allergic rhinitis (ICD-10 - J30.89) Follow allergen avoidance, meds and continue SCIT as an adjunctive treatment to current regimen 04/24/2023 Other allergic rhinitis (ICD-10 - J30.89) 05/01/2023 Other allergic rhinitis (ICD-10 - J30.89) 05/04/2023 Other malaise (ICD-10 - R53.81) 05/11/2023 Other malaise (ICD-10 - R53.81) 05/15/2023 Other allergic rhinitis (ICD-10 - J30.89) Follow allergen avoidance, meds and continue SCIT as an adjunctive treatment to current regimen 05/17/2023 Other malaise (ICD-10 - R53.81) 05/25/2023 Other malaise (ICD-10 - R53.81) 06/01/2023 Other malaise (ICD-10 - R53.81) 06/08/2023 Other malaise (ICD-10 - R53.81) 06/14/2023 Other allergic rhinitis (ICD-10 - J30.89) 06/15/2023 Other malaise (ICD-10 - R53.81) 06/22/2023 Other malaise (ICD-10 - R53.81) 06/29/2023 Other malaise (ICD-10 - R53.81) 07/06/2023 Other malaise (ICD-10 - R53.81) 07/13/2023 Other malaise (ICD-10 - R53.81) 07/17/2023 Other allergic rhinitis (ICD-10 - J30.89) 07/20/2023 Other malaise (ICD-10 - R53.81) 07/27/2023 Unspecified mood [affective] disorder (ICD-10 - F39) 07/27/2023 Other malaise (ICD-10 - R53.81) 07/31/2023 Other allergic rhinitis (ICD-10 - J30.89) 08/03/2023 Other fatigue (ICD-10 - R53.83) 08/10/2023 Other fatigue (ICD-10 - R53.83) 08/16/2023 Other fatigue (ICD-10 - R53.83) 08/14/2023 Other allergic rhinitis (ICD-10 - J30.89) Follow allergen avoidance, meds and continue SCIT as an adjunctive treatment to current regimen 08/24/2023 Other fatigue (ICD-10 - R53.83) 10/02/2023 Other allergic rhinitis (ICD-10 - J30.89) 10/09/2023 Other allergic rhinitis (ICD-10 - J30.89) 11/13/2023 Other allergic rhinitis (ICD-10 - J30.89) 10/02/2023 Other chronic allergic conjunctivitis (ICD-10 - H10.45) 08/16/2023 Other malaise (ICD-10 - R53.81) 11/13/2023 Other chronic allergic conjunctivitis (ICD-10 - H10.45) 10/09/2023 Other chronic allergic conjunctivitis (ICD-10 - H10.45) 08/24/2023 Other malaise (ICD-10 - R53.81) 08/14/2023 Other chronic allergic conjunctivitis (ICD-10 - H10.45) Given ocular signs and symptoms I encouraged allergy avoidance measures and meds as above. If symptoms persist, consider adding additional medications including intraocular antihistamine/mast cell stabilizer, PRN and continue SCIT as an adjunctive measure 08/10/2023 Other malaise (ICD-10 - R53.81) 07/31/2023 Other chronic allergic conjunctivitis (ICD-10 - H10.45) 08/03/2023 Other malaise (ICD-10 - R53.81) 07/27/2023 Adjustment disorder with anxiety (ICD-10 - F43.22) 07/17/2023 Other chronic allergic conjunctivitis (ICD-10 - H10.45) 06/14/2023 Other chronic allergic conjunctivitis (ICD-10 - H10.45) 04/24/2023 Other chronic allergic conjunctivitis (ICD-10 - H10.45) 05/15/2023 Other chronic allergic conjunctivitis (ICD-10 - H10.45) Given ocular signs and symptoms I encouraged allergy avoidance measures and meds as above. If symptoms persist, consider adding additional medications including intraocular antihistamine/mast cell stabilizer, PRN and continue SCIT as an adjunctive measure 05/01/2023 Other chronic allergic conjunctivitis (ICD-10 - H10.45) 04/17/2023 Other chronic allergic conjunctivitis (ICD-10 - H10.45) Given ocular signs and symptoms I encouraged allergy avoidance measures and meds as above. If symptoms persist, consider adding additional medications including intraocular antihistamine/mast cell stabilizer, PRN and continue SCIT as an adjunctive measure 04/10/2023 Other chronic allergic conjunctivitis (ICD-10 - H10.45) 03/13/2023 Other chronic allergic conjunctivitis (ICD-10 - H10.45) 03/08/2023 Other chronic allergic conjunctivitis (ICD-10 - H10.45) 01/30/2023 Other chronic allergic conjunctivitis (ICD-10 - H10.45) 04/17/2023 Chronic obstructive pulmonary disease, unspecified (ICD-10 - J44.9) Likely Terri has combined COPD and asthma based on history, presenting symptoms, and spirometry obtained last visit. Never received records from Pulmonology, Terri reports she was told she has stage 1 COPD. Continue plan as above 05/15/2023 Chronic obstructive pulmonary disease, unspecified (ICD-10 - J44.9) Likely Terri has combined COPD and asthma based on history, presenting symptoms, and spirometry obtained last visit. Never received records from Pulmonology, Terri reports she was told she has stage 1 COPD. Continue plan as above 07/27/2023 Other fatigue (ICD-10 - R53.83) 08/14/2023 Chronic obstructive pulmonary disease, unspecified (ICD-10 - J44.9) Likely Terri has combined COPD and asthma based on history, presenting symptoms, and spirometry obtained last visit. Never received records from Pulmonology, Terri reports she was told she has stage 1 COPD. Continue plan as above 08/14/2023 Rash and other nonspecific skin eruption (ICD-10 - R21) Terri previously presented with extremely pruritic eyes, she was started on Desonide ointment for 5 days, later reported significant symptom improvement. Continue Pataday opthalmic drops. Consider prednisolone acetate ophthalmic drops as previously prescribed by her lawn maintenance worker if symptoms return 07/27/2023 Other malaise (ICD-10 - R53.81) 05/15/2023 Rash and other nonspecific skin eruption (ICD-10 - R21) Terri previously presented with extremely pruritic eyes, she was started on Desonide ointment for 5 days, later reported significant symptom improvement. Continue Pataday opthalmic drops. Consider prednisolone acetate ophthalmic drops as previously prescribed by her lawn maintenance worker if symptoms return 04/17/2023 Rash and other nonspecific skin eruption (ICD-10 - R21) Terri previously presented with extremely pruritic eyes, she was started on Desonide ointment for 5 days, later reported significant symptom improvement. Continue Pataday opthalmic drops. Consider prednisolone acetate ophthalmic drops as previously prescribed by her lawn maintenance worker if symptoms return 05/15/2023 Essential (primary) hypertension (ICD-10 - I10) BP normal today. Continue serial checks and follow-up with PCP 04/17/2023 Essential (primary) hypertension (ICD-10 - I10) BP elevated today without symptoms of urgency or emergency. Continue serial checks and follow-up with PCP 07/27/2023 Abnormal weight gain (ICD-10 - R63.5) 08/14/2023 Essential (primary) hypertension (ICD-10 - I10) BP elevated today without symptoms of urgency or emergency. Continue serial checks and follow-up with PCP 08/14/2023 Allergy status to other antibiotic agents (ICD-10 - Z88.1) Terri reports developing a rash while taking tetracycline approximately 15 years ago, she has been avoidant since. Unfortunately, we do not have standardized skin testing for the above medication. Recommend continued avoidance 07/27/2023 Other amnesia (ICD-10 - R41.3) 04/17/2023 Allergy status to other antibiotic agents (ICD-10 - Z88.1) Terri reports developing a rash while taking tetracycline approximately 15 years ago, she has been avoidant since. Unfortunately, we do not have standardized skin testing for the above medication. Recommend continued avoidance 05/15/2023 Allergy status to other antibiotic agents (ICD-10 - Z88.1) Terri reports developing a rash while taking tetracycline approximately 15 years ago, she has been avoidant since. Unfortunately, we do not have standardized skin testing for the above medication. Recommend continued avoidance 07/27/2023 Pain in unspecified joint (ICD-10 - M25.50) 04/17/2023 Other 05/15/2023 Other 08/14/2023 Other Plan Of Treatment No Information Insurance Providers Payer Name Payer Address Payer Phone Subscriber Number Group Number Insured Name Patient Relationship to Insured Coverage Start Date Coverage End Date [facility] [employer] [address] [address] [place] [address] [phone] [id number] Nasatyler denaTerri Self - patient is the insured Medical (General) History Medical History History ICD Code Age-related osteoporosis without current pathological fracture M81.0 Essential (primary) hypertension I10 Hyperlipidemia, unspecified E78.5 Depression, unspecified F32.A Allergic rhinitis due to pollen J30.1 Allergic rhinitis due to animal (cat) (d og) hair and dander J30.81 Other allergic rhinitis J30.89 Other chronic allergic conjunctivitis H1 0.45 Surgical History Surgery Date(Month/Year) Tonsilectomy Ovarian tumor removal Breast reconstruction cataract removal Hospitalization History Reason Date(Month/Year) pneumonia 02/2022 pneumonia 01/2022
--- OUTSIDE RECORDS SUMMARY | 2024-01-30 10:40 | XMS_ITS ---
Author Organization [facility] Address [address] [place] [address] Care Team Providers Care Rail Car Loader Name Role Phone Jessica RODRIGUEZ, Denny Primary Care Provider UnavailSydnee Delatorre Unavailable [phone] Claudia Haas Unavailable Unavailable Yaniv Quintanilla Unavailable [phone] Encounters Encounter Location Date Provider Diagnosis [facility] [address] [place] [address] 10/23/2023 Yaniv Quintanilla Plan Of Treatment No Information Progress Notes * Catherine STRANGE: (73 yo F)Acc No.[id number]:10/23/2023 SCIT-Aeroallergen Patient:?Terri STRANGE Provider:?Yaniv Quintanilla MD :1950???Age:73 Y???Sex:Female D ate:10/23/2023 Address:[address] [place] [address] [address] [id number] Pcp:Denny Lopez MD Subjective: * Chief Complaints: * ??? * Medical History:? Objective: * Vitals:? Assessment: Plan: * Treatment: * Billing Information: * Visit Code:? * Procedure Codes:? * Electronic signature of Bryant Quintanilla MD, FAAAAI on 01/30/2024 at 10:39 AM PHLEBOTOMY LAB ASSISTANT Sign off status: Pending * Provider:?Yaniv Quintanilla MD Date:?10/22 Generated for Pedro teran/Marilyn/Josef on:?01/30/2024 10:39 AM PHLEBOTOMY LAB ASSISTANT
--- OUTSIDE RECORDS SUMMARY | 2024-01-30 10:40 | XMS_ITS | Referral Summary ---
Author Organization [facility] [address] Address [address] [place] [address] Care Team Providers Care Streetcar Repairer Name Role Phone Claudia Haas TELLER MANAGER Primary Care Provider [phone] Encounters Date Type Department Care Team Description 01/24/2024 10:30 AM SEX WORKER OR ESCORT Office Visit [facility] Pulmonology [address] [place] [address] [address] [place] [address] Gena Lee NP Centrilobular emphysema (HCC) (Primary Dx); Personal history of tobacco use; Obstructive sleep apnea 11/06/2023 Telephone [facility] Sleep [facility] [address] [place] [address] Geneva Quinonez, [facility] Sleep Study Results from Last 3 Months Allergies Active Allergy Reactions Criticality Noted Date Comments Tetracycline Rash,Photosensitivity,Swelling Medium 10/2021 Medications biotin 10,000 mcg capsule Take 1 tablet by mouth daily Active vit C,A-Xv-trrgq-lutei n-zeaxan (PreserVision AREDS-2) 250-90-40-1 mg capsule 01/14/20 [...] 01/24/2024 Assessment & Plan (01/24/2024 11:07 AM SEX WORKER OR ESCORT): The patient was unable to tolerate CPAP. [...] 08/03/2022 Assessment & Plan (01/24/2024 11:01 AM SEX WORKER OR ESCORT): The patient continues to use her Trelegy [...] frequently. Assessment & Plan (12/21/2022 12:02 PM SEX WORKER OR ESCORT): The patient has stage I COPD and will continue with Trelegy 1 puff daily. Assessment & Plan (08/03/2022 11:16 AM CDT): The patient has stage I COPD and is using Trelegy 1 puff daily and her breathing is doing well. Personal history of tobacco use 08/03/2022 Assessment & Plan (01/24/2024 11:01 AM SEX WORKER OR ESCORT): The patient continues not smoke. She does have a CT scan ordered for February of 2024. Assessment & Plan (09/27/2023 11:10 AM CDT): The screening chest CT from late August as listed above. I will repeat another chest CT in 6 months to follow up a new cluster of nodules in the right upper lobe. Assessment & Plan (12/21/2022 12:02 PM SEX WORKER OR ESCORT): I will order another screening chest CT [...] months. Assessment & Plan (12/21/2022 12:01 PM SEX WORKER OR ESCORT): The patient states that the hypersomnia has [...] 03/25/2022 Assessment & Plan (03/25/2022 11:40 AM SEX WORKER OR ESCORT): This is a significant, separately identifiable problem [...] 10/2021 Assessment & Plan (03/24/2021 12:15 PM SEX WORKER OR ESCORT): Retrieve records from previous pcp Hyperlipidemia 03/24/2021 Assessment & Plan (03/24/2021 12:15 PM SEX WORKER OR ESCORT): Retrieve records from previous pcp Continue with [...] 120-130/80s. Assessment & Plan (03/24/2021 12:15 PM SEX WORKER OR ESCORT): Retrieve records from previous pcp Continue with medication the same at this time Spinal stenosis 03/24/2021 Assessment & Plan (03/24/2021 12:13 PM SEX WORKER OR ESCORT): Continue with neurontin same dosing at this time Encouraged continued attempts at smoking cessation Intermittent asthma without complication 022 Assessment & Plan (03/24/2021 12:14 PM SEX WORKER OR ESCORT): Retrieve records from previous pcp Continue with [...] exercise. Assessment & Plan (03/24/2021 12:14 PM SEX WORKER OR ESCORT): Retrieve records from previous pcp Continue with trintellix same dosing at this time. She was reminded to not stop it abruptly. We discussed weaning her off in the coming year if settling into new community is going well and she is ready. Osteopenia 03/24/2021 Assessment & Plan (03/24/2021 12:14 PM SEX WORKER OR ESCORT): Retrieve records from previous pcp Continue with calcium/vit d combo three times/weekly Resolved Problems Problem Noted Date Diagnosed Date Resolved Date Obesity (BMI 30-39.9) 03/31/20232023 BMI 24.0-24.9, adult 03/25/2022 024 Assessment & Plan (12/27/2022 8:14 AM SEX WORKER OR ESCORT): Weight/BMI is in healthy range. Continue healthy lifestyle to maintain. Assessment & Plan (03/25/2022 11:23 AM SEX WORKER OR ESCORT): Weight/BMI is in healthy range. Continue healthy lifestyle. BMI 22.0-22.9, adult 03/04/2022 023 Assessment & Plan (03/04/2022 8:40 AM SEX WORKER OR ESCORT): Weight/BMI is in healthy range. Continue healthy lifestyle to maintain. BMI 22.0-22.9, adult 11/30/2021 023 Assessment & Plan (11/30/2021 1:41 PM CDT): Obesity is unchanged. Discussed the patient's BMI. The BMI is above average. BMI management plan is completed. BMI Follow-up includes: nutrition counseling, exercise counseling and education provided. BMI 21.0-21.9, adult 03/24/2021 022 Immunizations Name Administration Dates Next Due COVID-19 mRNA (PFIZER) 0.3 m L (30 mcg) vaccine (12 years and up) 11/30/2022 Influenza, Quadrivalent, Hig h Dose, Preservative Free, Intrr 11/22/2022 Influenza, Unspecified 11/23/2021,11/16/2020,05/2020 Pfizer SARS-CoV-2 Monovalent Vaccination (12+ Yrs) PURPLE 06/10/2021,06/10/2021,12/04/2020,2020,05/27/2020,05/27/2020,05/07/2020,0 05/07/2020 Pneumococcal Conjugate Pcv20 07/28/2022 RSV Vaccine, Pref, Recombina nt, Subunit, Adjuvanted, PF, IM (Arexvy) 04/13/2023 Sars-CoV-2, Unspecified 11/30/2022 Social History Tobacco Use Types Packs/Day Years [...] on file Legal Sex Female 10:40 AM SEX WORKER OR ESCORT Gender Identity Female 03/03/2021 12:47 PM SEX WORKER OR ESCORT Sexual Orientation Not on file 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, [employer], 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, 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 file Not on file Last Filed Vital Signs Vital Sign Reading Time Taken Comments Blood Pressure 154/88 01/24/2024 10:33 AM SEX WORKER OR ESCORT Pulse 68 01/24/2024 10:33 AM SEX WORKER OR ESCORT Temperature 36.9 ??C (98.4 ??F) 01/24/2024 10:[address] Respiratory Rate 18 01/24/2024 10:33 AM SEX WORKER OR ESCORT Oxygen Saturation 98% 01/24/2024 10:33 AM SEX WORKER OR ESCORT Inhaled Oxygen Concentration - - Weight 65.3 kg (144 lb) 01/24/2024 10:33 AM SEX WORKER OR ESCORT Height 154.9 cm (5' 0.98 ) 01/24/2024 10:[address] Body Mass Index 27.22 01/24/2024 10:33 AM SEX WORKER OR ESCORT Plan of Treatment Not on file Procedures Procedure Name Priority Date/Time Associated Diagnosis [...] 06/01/2023 12:39 PM CDT Addendum by Homero Armstrong MD on 06/01/2023 12:38 PM CDT The [...] age 40, based on guidelines of the [place] [employer] (ACR Practice Parameter for the Performance of Screening and Diagnostic Mammography) and [place] [employer]. For women [...] either breast on mammogram. Claudia Haas NP [facility] MAMMO PROCEDURES Edited R esult - Final * Dexa Axial Skeleton Bone Density 1 or 2 Site (05/19/2022) SCRIBED DXA T-SCORE 2.5 1.0 - 2.5 Anatomical Region Laterality Modality Body N/A Radiographic Susanna ging 05/19/2022 Claudia Haas TELLER MANAGER [facility] DXA PROCEDURES Edited Res ult - Final * Stool DNA - Cologuard (01/07/2021) Stool Historical Provider LAB BODY FLUIDS AND STOOL S ORDERABLES Final Result from Last 3 Months or Most Recently Relevant to Health Maintenance Insurance MEDICARE [facility] MED[facility] Address: [place] [id number] [facility] Address: [place] [phone] [place] [address] Advance Directives For more information, please contact: [phone] Documents on File Type Date Recorded Patient Car Repair Supervisor Expl anation ADVANCE DIRECTIVE 03/04/2022 3:17 PM Care Teams Streetcar Repairer Relationship Specialty Start Date End Date Claudia Haas NP [address] [address] PCP - General Internal Medicine 07/27/22
--- OUTSIDE RECORDS SUMMARY | 2024-01-30 10:41 | XMS_ITS | Encounter Summary ---
Author Organization [facility] Healthcare Address [address] [place] [address] Care Team Providers Care Hvac Mechanic Name Role Phone Claudia Haas CLOTH PRESSER Primary Care Provider [phone] Reason for Visit * Reason Onset Date Comments Additional Services Or Orders 06/05/2023 Encounter Details Date Type Department Care Team (Late st Contact Info) Description 06/05/[address] 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 * Telephone Encounter - Jade Good - 06/05/2023 2:29 PM CDT Medical Question/Miscellaneous Caller???s Concern: Pt called stating she contacted scheduling to get the appt scheduled for the MRI and was advised by scheduling that it was cancelled. Please call and advise Does message need to be routed? Yes-Action Needed documented in this encounter Plan of Treatment Not on file documented as of this encounter Visit Diagnoses Not on filedocumented in this encounter Care Teams Hvac Mechanic Relationship Specialty Start Date End Date Claudia Haas NP [address] [facility] [address] [place] [address] PCP - General Internal Medicine 07/27/22 documented as of this encounter
--- OUTSIDE RECORDS SUMMARY | 2024-01-30 10:41 | XMS_ITS | Encounter Summary ---
Author Organization [facility] Healthcare Address [address] [place] [address] Care Team Providers Care Help Desk Agent Name Role Phone Claudia Haas THERMOFORMING MACHINE OPERATOR Primary Care Provider [phone] Reason for Referral * Consultation (Routine) - Closed Specialty Diagnoses / Procedures Referred By Contac t Referred To Contact Physical Therapy Diagnoses Falls frequently Weakness Claudia Haas NP [address] [facility] [address] [place] [address] Phone: tel: fax: [facility] [address] [place] [address] Phone: tel: fax: Referral ID Status Reason Start Date Expiration Date V isits Requested Visits Authorized [id number] Closed Specialty Services Required 10/20/2023 11/18/2024 24 24 Question Answer PTRFR PT Evaluate and Treat Therapy options discussed with patient? Yes Location provided for therapy services is: Patient requested/Patient preferred Please select the performing region: External Order [[id number]] To loc/pos [facility] [place] [[id number]] # of visits: 24 Comments PT Eval and Treat 2-3 times/week for 4-6 weeks Dx: Falls, weakness Encounter Details Date Type Department Care Team (Late st Contact Info) Description 10/20/2023 Orders Only [facility] Family Medicine [address] [facility] [address] [place] [address] Claudia Haas NP [address] [place], [place] [id number] Falls frequently (Primary Dx); Weakness Social History Tobacco Use Types Packs/Day Years [...] on file Legal Sex Female 10:40 AM LABEL OPERATOR Gender Identity Female 03/03/2021 12:47 PM LABEL OPERATOR Sexual Orientation Not on file 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, 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, 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, 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 [employer]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 file Not on file documented as of this encounter Progress Notes * Carolyn Hernandez LPN - 10/20/2023 8:24 AM CDT Referral placed per PCP documented in this encounter Plan of Treatment Scheduled Referrals Name Type Priority Associated Diagnoses Order Schedule Ambulatory referral order to Physical Therapy - Outpatient Referral Routine Falls frequently Weakness Expected: 11/03/2023 (Approximate), Expires: 10/19/2024 documented as of this encounter Visit Diagnoses Diagnosis Falls frequently- Primary Personal history of fall Weakness Other malaise and fatigue documented in this encounter Care Teams Help Desk Agent Relationship Specialty Start Date End Date Claudia Haas NP [address] [facility] [address] [place], [place] [phone] PCP - General Internal Medicine 07/27/22 documented as of this encounter
--- OUTSIDE RECORDS SUMMARY | 2024-01-30 10:41 | XMS_ITS | Encounter Summary ---
Author Organization [facility] Healthcare Address [address] [place] [address] Care Team Providers Care Linoleum Layer Apprentice Name Role Phone Claudia Haas PROJECT ASST Primary Care Provider [phone] Encounter Details Date Type Department Care Team (Late st Contact Info) Description 06/26/2023 Telephone [facility] Family Medicine [address] [place] [address] Claudia Haas NP [address] [place] [address] Social History Tobacco Use Types Packs/Day Years [...] on file Legal Sex Female 10:40 AM SENIOR CONTROLS ENGINEER Gender Identity Female 03/03/2021 12:47 PM SENIOR CONTROLS ENGINEER Sexual Orientation Not on file 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 Please transfer to Lorie documented in this encounter Plan of Treatment Not on file documented as of this encounter Visit Diagnoses Not on filedocumented in this encounter Care Teams Linoleum Layer Apprentice Relationship Specialty Start Date End Date Claudia Haas NP [address] [address] PCP - General Internal Medicine 07/27/22 documented as of this encounter
--- OUTSIDE RECORDS SUMMARY | 2024-01-30 10:41 | XMS_ITS | Encounter Summary ---
Author Organization [facility] Healthcare Address [address] [place] [address] Care Team Providers Care Auto Radiator Mechanic Name Role Phone Claudia Haas CONTRACTOR BUYER Primary Care Provider Encounter Details Date Type Department Care Team (Late st Contact Info) Description 09/29/2023 8:30 AM CDT Office Visit [facility] Internal [facility] at [place] [address] [place] [address] Claudia Haas NP [address] [place] [address] Encounter for Medicare annual wellness exam (Primary Dx); BMI 25.0-25.9,adult; Chronic pain syndrome; Gastroesophageal reflux disease, unspecified whether esophagitis present; Mixed hyperlipidemia; Mild episode of recurrent major depressive disorder (HCC); Chronic pain syndrome; Essential hypertension; Screening for thyroid disorder Social History Tobacco Use Types Packs/Day Years [...] on file 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 Gender Identity Female 03/03/2021 12:47 PM 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 Sexual Orientation Not on file 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 End Date 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 - [employer], [employer]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, 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, 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 file Not on file documented as of this encounter Last Filed Vital Signs Vital Sign Reading Time Taken Comments Blood Pressure 130/80 09/29/2023 8:33 AM CDT Pulse 69 09/29/2023 8:33 AM CDT Temperature 36.6 ??C (97.9 ??F) 09/29/2023 8:33 AM CD T Respiratory Rate - - Oxygen Saturation 96% 09/29/2023 8:33 AM CDT Inhaled Oxygen Concentration - - Weight 60.8 kg (134 lb) 09/29/2023 8:33 AM CDT Height 154.9 cm (5' 1 ) 09/29/2023 8:33 AM CDT Body Mass Index 25.32 09/29/2023 8:33 AM CDT documented in this encounter Patient Instructions * Patient Instructions* Claudia Haas NP - 09/29/2023 8:30 AM CDT Medicare wellness examination completed today. Complete lab work prior to next visit. Follow-up in 6 months or sooner as needed. Contact the office with any questions or concerns documented in this encounter Ordered Prescriptions Prescription Sig Dispense Quantity Refills Last Filled Start Date End Date omeprazole (PriLOSEC) 40 mg capsuleIndications :Gastroesophageal reflux disease, unspecified whether esophagitis present Take 1 capsule (40 mg total) by mouth daily 90 capsule 1 09/29/2023 ibuprofen (ADVIL,MOTRIN) 800 mg tabletIndications: Chronic pain syndrome Take 1 tablet (800 mg total) by mouth 3 (three) times a day as needed for pain (pain) 90 tablet 1 09/29/2023 documented in this encounter Progress Notes * Claudia Haas NP - 09/29/2023 8:30 AM CDT Images from the original note were not included. Annual Medicare Wellness Visit Terri Briseno is a 73 y.o.female Chief Complaint: No chief complaint on file. HPI: Patient presents for MWE and followup chronic concerns. 73-year-old female presents for Medicare wellness examination. Does need some med refills. Does complain of GERD worsening. Currently on omeprazole 20. Will increase to 40. She will be due for lab work at her next visit. She does take ibuprofen and gabapentin for pain. She is pleasant as usual Patient drives independently Patient is socially active with family and friends Patient is happy with quality of life and denies SI or HI Review of Systems Constitutional: Negative for activity change, chills and fatigue. HENT: Negative for congestion, ear pain, nosebleeds, rhinorrhea and sinus pressure. Respiratory: Negative for cough and shortness of breath. Cardiovascular: Negative for chest pain and palpitations. Gastrointestinal: Negative for abdominal pain. Endocrine: Negative for cold intolerance. Genitourinary: Negative for difficulty urinating and hematuria. Musculoskeletal: Positive for arthralgias. Negative for back pain and myalgias. Neurological: Negative for dizziness, weakness and headaches. Psychiatric/Behavioral: Negative for agitation, confusion and sleep disturbance. See HPI No results found for this or any previous visit (from the past 1008 hour(s)). Vitals: Vitals BP 130/80 (BP Location: Left arm, Patient Position: Sitting) Pulse 69 Temp 36.6 ??C (97.9 ??F) (Oral) Ht 154.9 cm (5' 1 ) Wt 60.8 kg (134 lb) SpO2 96% BMI 25.32 kg/m?? Body mass index is 25.32 kg/m??. Exam: Physical Exam Constitutional: Appearance: Normal appearance. She is well-developed and normal weight. HENT: Head: Normocephalic and atraumatic. Right Ear: Tympanic membrane normal. Left Ear: Tympanic membrane normal. Nose: Nose normal. Mouth/Throat: Mouth: Mucous membranes are moist. Eyes: Pupils: Pupils are equal, round, and reactive to light. Cardiovascular: Rate and Rhythm: Normal rate and regular rhythm. Heart sounds: Normal heart sounds. Pulmonary: Effort: Pulmonary effort is normal. Breath sounds: Normal breath sounds. Abdominal: General: Bowel sounds are normal. There is no distension. Palpations: Abdomen is soft. Musculoskeletal: General: No tenderness. Normal range of motion. Cervical back: Normal range of motion and neck supple. Skin: General: Skin is warm and dry. Capillary Refill: Capillary refill takes less than 2 seconds. Findings: No rash. Neurological: Mental Status: She is alert and oriented to person, place, and time. Psychiatric: Behavior: Behavior normal. Thought Content: Thought content normal. Physical Exam Vitals and nursing note reviewed. Constitutional: Appearance: She is well-developed. HENT: Head: Normocephalic and atraumatic. Eyes: Comments: Pupils are equal Cardiovascular: Rate and Rhythm: Normal rate and regular rhythm. Heart sounds: No murmur heard. Pulmonary: Effort: Pulmonary effort is normal. Breath sounds: Normal breath sounds. Abdominal: Palpations: Abdomen is soft. Tenderness: There is no abdominal tenderness. Skin: General: Skin is warm and dry. Findings: No rash. Neurological: Mental Status: She is alert and oriented to person, place, and time. Care Team Providers: Patient Care Team: Claudia Haas NP as PCP - General (Internal Medicine) Primary Pharmacy/DME suppliers: [id number] [place], [place] - [address] [facility] [phone] [facility] [id number] Problem List, Past Medical and Surgical History: Patient Active Problem List Diagnosis Encounter for Medicare annual wellness exam Hyperlipidemia Essential hypertension Spinal stenosis Intermittent asthma without complication Mild episode of recurrent major depressive disorder (HCC) Osteopenia Seasonal allergic rhinitis due to pollen Age-related osteoporosis without current pathological fracture Pneumonia of right lower lobe due to infectious organism Yeast infection Seasonal allergies History of pneumonia Hypersomnia SOB (shortness of breath) Fatigue Centrilobular emphysema (HCC) Personal history of tobacco use Chronic pain syndrome BMI 25.0-25.9,adult Pre-op examination Lung nodules Gastroesophageal reflux disease Past Medical History: Diagnosis Date Asthma Atrophic vaginitis Depression GERD (gastroesophageal reflux disease) Hyperlipidemia Hypertension Osteoarthritis Osteopenia Pneumonia Rotator cuff tear 12/24/2019 Spinal stenosis Spondylolisthesis Spondylosis Past Surgical History: Procedure Laterality Date AUGMENTATION MAMMAPLASTY Bilateral 1981 subpectoral silicone BILATERAL OOPHORECTOMY 1970 COMBINED AUGMENTATION MAMMAPLASTY AND ABDOMINOPLASTY 1982 Family History: Family History Problem Relation Age of Onset Breast cancer Mother Kidney cancer Mother Diabetes Mother Hypertension Mother Lymphoma Sister Breast cancer Mother's Sister X3 maternal aunts Emphysema Father Hypertension Father Alcohol abuse Brother Social History: Social History Tobacco Use Smoking status: Former Current packs/day: 0.00 Types: Cigarettes Quit date: 01/2022 Years since quittin.7 Smokeless tobacco: Never Substance and Sexual Activity Drug use: Never Sexual activity: Not Currently Alcohol Use: Not At Risk (03/25/2022) AUDIT-C Frequency of Alcohol Consumption: Never Average Number of Drinks: Patient does not drink Frequency of Binge Drinking: Never Allergies: Allergies Allergen Reactions Tetracycline Rash, Photosensitivity and Swelling Medications: Current Outpatient Medications: amLODIPine (NORVASC) 10 mg tablet, TAKE 1 TABLET(10 MG) BY MOUTH DAILY, Disp: 90 tablet, Rfl: 1 azelastine (OPTIVAR) 0.05 % ophthalmic solution, Administer 1 drop into both eyes 2 (two) times a day, Disp: 6 mL, Rfl: 3 biotin 10,000 mcg capsule, Take 1 tablet by mouth daily, Disp: , Rfl: buPROPion XL (WELLBUTRIN XL) 300 mg 24 hr tablet, Take 1 tablet (300 mg total) by mouth every morning, Disp: 90 tablet, Rfl: 1 cetirizine (ZyrTEC) 10 mg tablet, Take 1 tablet (10 mg total) by mouth daily as needed for allergies, Disp: 90 tablet, Rfl: 0 EPINEPHrine 0.3 mg/0.3 mL auto-injection syringe, INJECT 1 PEN IN THE MUSCLE ONE TIME DIRECTED, Disp: , Rfl: tuygmmlxfac-fjzlfkgeg-agrpwpmg (TRELEGY ELLIPTA) 100-62.5-25 mcg inhaler, Inhale 1 puff daily, Disp: , Rfl: gabapentin (NEURONTIN) 300 mg capsule, Take 1 capsule (300 mg total) by mouth 4 (four) times a day,Disp: 360 capsule, Rfl: 1 irbesartan (AVAPRO) 300 mg tablet, Take 1 tablet (300 mg total) by mouth daily, Disp: 90 tablet, Rfl: 0 montelukast (SINGULAIR) 10 mg tablet, Take 1 tablet (10 mg total) by mouth nightly, Disp: 90 tablet, Rfl: 1 olopatadine (PATANOL) 0.1 % ophthalmic solution, every 12 hours, Disp: , Rfl: pravastatin (PRAVACHOL) 10 mg tablet, Take 1 tablet (10 mg total) by mouth daily, Disp: 90 tablet, Rfl: 0 sertraline (ZOLOFT) 25 mg tablet, Take 1 tablet (25 mg total) by mouth daily, Disp: 90 tablet, Rfl:0 vit C,T-Wi-lbzha-lutein-zeaxan (PreserVision AREDS-2) 250-90-40-1 mg capsule, , Disp: , Rfl: albuterol HFA (PROVENTIL HFA,VENTOLIN HFA,PROAIR HFA) 90 mcg/actuation inhaler, Inhale 2 puffs every 6 (six) hours as needed for wheezing, Disp: 3 each, Rfl: 4 ibuprofen (ADVIL,MOTRIN) 800 mg tablet, Take 1 tablet (800 mg total) by mouth 3 (three) times a dayas needed for pain (pain), Disp: 90 tablet, Rfl: 1 omeprazole (PriLOSEC) 40 mg capsule, Take 1 capsule (40 mg total) by mouth daily, Disp: 90 capsule,Rfl: 1 Detection of Cognitive Impairment: The patient does not have cognitive impairment based on direct observation, discussion with patientor family, or review of medical records. Health Maintenance: Health Maintenance Topics with due status: Overdue Topic Date Due Hepatitis C Screening Never done Hepatitis B Screening Never done Zoster Vaccine Never done Covid-19 Vaccine 04/02/2023 Health Maintenance Topics with due status: Postponed Topic Postponed Until DTaP/Tdap/Td Vaccine 12/04/2023 (Originally 1961) Health Maintenance Topics with due status: Not Due Topic Last Completion Date Colon Cancer Screening-DNA Stool 01/07/2021 Osteoporosis Screening-Bone Density Scan 05/19/2022 Influenza Vaccine 11/22/2022 Breast Cancer Screening-Mammogram 05/18/2023 Fall Risk Assessment 09/29/2023 Depression Screening 09/29/2023 Well Visit 65+ 09/29/2023 Health Maintenance Topics with due status: Completed Topic Last Completion Date Pneumococcal vaccine 65+ 07/28/2022 Counseling and Referral of Preventative Services: Lifestyle Recommendations Increase Physical Activity, Reduce Weight, and Improve Diet Advanced Directive Durable Power of Magento Developer: Discussed Today Living Will: Discussed Today Medicare Health Risk Assessment Over the last 2 weeks, how often have you been bothered by any of the following problems? Little Interest or Pleasure in Doing Things: Not at all Feeling Down, Depressed, or Hopeless: Several days PHQ-2 Total Score (If total score is 3 or more points, staff should administer the PHQ-9): 1 In the past year, patient experienced: One or more falls in the last year: No Depression Screen: PHQ Screening Over the last 2 weeks, how often have you been bothered by any of the following problems? Little Interest or Pleasure in Doing Things: Not at all Feeling Down, Depressed, or Hopeless: Several days PHQ-2 Total Score (If total score is 3 or more points, staff should administer the PHQ-9): 1 Over the past 2 weeks, how often have you been bothered by any of the following problems? Little Interest or Pleasure in Doing Things: Not at all Feeling Down, Depressed, or Hopeless: Several days PHQ-2 Total Score (If total score is 3 or more points, staff should administer the PHQ-9): 1 Assessment and Plan: Diagnoses and all orders for this visit: Encounter for Medicare annual wellness exam (Z00.00) (Primary) Comments: Medicare wellness examination completed today. Follow-up in 6 months with lab work completed BMI 25.0-25.9,adult (Z68.25) Comments: Maintain healthy and balanced diet Chronic pain syndrome (G89.4) Comments: Continue ibuprofen as needed with food Orders: - ibuprofen (ADVIL,MOTRIN) 800 mg tablet; Take 1 tablet (800 mg total) by mouth 3 (three) times a day as needed for pain (pain) Gastroesophageal reflux disease, unspecified whether esophagitis present (K21.9) Comments: Increase omeprazole from 20-40 mg daily. Monitor dietary intake. May take Tums Assessment & Plan: This is a significant, separately identifiable problem that was evaluated and managed on the same day as the wellness exam Orders: - omeprazole (PriLOSEC) 40 mg capsule; Take 1 capsule (40 mg total) by mouth daily Mixed hyperlipidemia (E78.2) Comments: Continue pravastatin daily as directed. Have lab work completed prior to next visit Orders: - Lipid panel; Future Mild episode of recurrent major depressive disorder (HCC) (F33.0) Comments: Continue Zoloft 25 mg daily as directed. Chronic pain syndrome (G89.4) Comments: Gabapentin as directed up to 4 times daily Orders: - ibuprofen (ADVIL,MOTRIN) 800 mg tablet; Take 1 tablet (800 mg total) by mouth 3 (three) times a day as needed for pain (pain) Essential hypertension (I10) Comments: Continue amlodipine. Blood pressure well controlled at 130/80. Have lab work completed prior to next visit Orders: - Comprehensive metabolic panel; Future Screening for thyroid disorder (Z13.29) Comments: Have lab work completed prior to next visit Orders: - TSH; Future Patient here for annual Medicare wellness visit and for review of complete medical problem list. All the elements of the plan were completed as outlined by CMS. A copy of the prevention plan was given to the patient. I reviewed Medicare Wellness Questionnaire (other physicians involved in care, depression screen, advanced directives), cognitive/memory, and functional assessment. I reviewed and updated the complete problem list, medication list, family history, and immunization records with the patient. I provided preventive counseling and early detection interventions to the patient through health maintenance update and summary of today's office visit. *This note is dictated using [employer] medical voice recognition software, variances in spelling and vocabulary are possible and unintentional.* Elena Cherry PA-C Cosigned by Jose Corrales MD at 12/09/2023 8:33 PM CDT documented in this encounter Miscellaneous Notes * Assessment & Plan Note - Claudia Haas NP - 09/29/2023 8:56 AM CDT Associated Problem(s): Gastroesophageal reflux disease This is a significant, separately identifiable problem that was evaluated and managed on the same day as the wellness exam documented in this encounter Plan of Treatment Scheduled Orders Name Type Priority Associated Diagnoses Orde r Schedule Comprehensive metabolic panel Lab Routine Essential hypertension Expected: 10/02/2023, Expires: 09/28/2024 Lipid panel Lab Routine Mixed hyperlipidemia Expected: 10/02/2023, Expires: 09/28/2024 TSH Lab Routine Screening for thyroid disorder Expected: 10/02/2023, Expires: 09/28/2024 documented as of this encounter Visit Diagnoses Diagnosis Encounter for Medicare annual wellness exam- Primary BMI 25.0-25.9,adult Chronic pain syndrome Gastroesophageal reflux disease, unspecified whether esophagitis present Mixed hyperlipidemia Mild episode of recurrent major depressive disorder (HCC) Essential hypertension Unspecified essential hypertension Screening for thyroid disorder documented in this encounter Discontinued Medications Medication Sig Discontinue Reason Start Date End Da te cetirizine (ZyrTEC) 10 mg tablet Take 1 tablet (10 mg total) by mouth daily Duplicate order 09/19/2023 09/29/2023 czcmgnghnuq-ylduznhhh-ti lanter (Trelegy Ellipta) 100-62.5-25 mcg inhaler INHALE 1 PUFF BY MOUTH DAILY Duplicate order 02/07/2023 09/29/2023 dicyclomine (BENTYL) 20 mg tabletIndications:Diarrh ea, unspecified type Take 1 tablet (20 mg total) by mouth 4 (four) times a day as needed (loose stools) Therapy completed 08/09/2022 09/29/2023 ibuprofen (ADVIL,MOTRIN) 800 mg tabletIndications:Chroni c pain syndrome Take 1 tablet (800 mg total) by mouth 3 (three) times a day as needed for pain (pain) Reorder 12/27/2022 09/29/2023 omeprazole (PriLOSEC) 20 mg capsuleIndications:Gastr oesophageal reflux disease, unspecified whether esophagitis present Take 1 capsule (20 mg total) by mouth daily 03/13/2023 09/29/2023 documented as of this encounter Care Teams Auto Radiator Mechanic Relationship Specialty Start Date End Date Claudia Haas NP [facility] [place] [address] PCP - General Internal Medicine 07/27/22 documented as of this encounter
--- OUTSIDE RECORDS SUMMARY | 2024-01-30 10:41 | XMS_ITS | Encounter Summary ---
Author Organization [facility] Healthcare Address [address] [place] [address] Care Team Providers Care Apparel Patternmaker Name Role Phone Claudia Haas NP Primary Care Provider [phone] Reason for Referral * Sleep Medicine (Routine) - Closed Specialty Diagnoses / Procedures Referred By Jakob lau Referred To Contact Diagnoses Hypersomnia Procedures Portable/Home Sleep Study Luis Hernandez MD [address] [place] [address] [address] [place] [address] Phone: tel: fax: [facility] [address] [place] [address] Phone: tel: fax: Referral ID Status Reason Start Date Expiration Date Visits Re quested Visits Authorized [id number] Closed 09/27/2023 10/26/2024 1 1 * MRI/CAT/PET Scan (Routine) - Pending Review Specialty Diagnoses / Procedures Referred By Jakob lau Referred To Contact Radiology Diagnoses Lung nodules Procedures CT Chest WO Contrast Luis Hernandez MD [address] [place] [address] [address] [place] [address] Phone: tel: fax: [facility] [address] [place] [phone] Referral ID Status Reason Start Date Expiration Date V isits Requested Visits Authorized [id number] Pending Review 09/27/2023 10/26/2024 1 1 Reason for Visit * Reason Comments Follow-up 9 months Encounter Details Date Type Department Care Team (Late st Contact Info) Description 09/27/2023 10:45 AM CDT Office Visit [facility] Medical Group Pulmonology [address] [facility] [address] [place] [phone] Luis Hernandez MD [address] [facility] [address] [place] [address] Centrilobular emphysema (HCC) (Primary Dx); Personal history of tobacco use; Hypersomnia; Lung nodules Social History Tobacco Use Types Packs/Day Years [...] on file Legal Sex Female 10:40 AM SOFTWARE REQUIREMENTS ENGINEER Gender Identity Female 03/03/2021 12:47 PM SOFTWARE REQUIREMENTS ENGINEER Sexual Orientation Not on file 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, 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, 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, 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 file Not on file documented as of this encounter Last Filed Vital Signs Vital Sign Reading Time Taken Comments Blood Pressure 118/78 09/27/2023 10:41 AM CDT Pulse 73 09/27/2023 10:41 AM CDT Temperature 37.1 ??C (98.8 ??F) 09/27/2023 10:41 AM C DT Respiratory Rate 18 09/27/2023 10:41 AM CDT Oxygen Saturation 96% 09/27/2023 10:41 AM CDT Inhaled Oxygen Concentration - - Weight 61.2 kg (135 lb) 09/27/2023 10:41 AM CDT Height 154.9 cm (5' 1 ) 09/27/2023 10:41 AM CDT Body Mass Index 25.51 09/27/2023 10:41 AM CDT documented in this encounter Progress Notes * Luis Hernandez MD - 09/27/2023 10:45 AM CDT Images from the original note were not included. Progress Note Patient: Terri Briseno ( - 1950) is a 73 y.o. female. Visit Date: 09/27/2023 History of Present Illness: The patient is a pleasant 73 year old female with stage I COPD and hypersomnia that returns for follow-up. The patient continues to have daytime fatigue and sleepiness and is willing to have a home sleep test at this time. She continues to use Trelegy 1 puff daily and albuterol MDI 1 puff prior to exercise and she still gets some dyspnea on exertion after going up 1 flight of stairs. Overall her breathing is doing well. I did discuss the results of her chest CT that she had several weeks ago and the results are listed below. She did have resolution of previous pulmonary nodules and had new 4 mm nodules in a cluster. Past Medical History: Past Medical History: Diagnosis Date Asthma Atrophic vaginitis Depression GERD (gastroesophageal reflux disease) Hyperlipidemia Hypertension Osteoarthritis Osteopenia Pneumonia Rotator cuff tear 12/24/2019 Spinal stenosis Spondylolisthesis Spondylosis Surgical History: Past Surgical History: Procedure Laterality Date AUGMENTATION MAMMAPLASTY Bilateral 1981 subpectoral silicone BILATERAL OOPHORECTOMY 1970 COMBINED AUGMENTATION MAMMAPLASTY AND ABDOMINOPLASTY 1981 Current Medications: Current Outpatient Medications Medication Sig Dispense Refill albuterol HFA (PROVENTIL HFA,VENTOLIN HFA,PROAIR HFA) 90 mcg/actuation inhaler Inhale 2 puffs every6 (six) hours as needed for wheezing 3 each 4 amLODIPine (NORVASC) 10 mg tablet TAKE 1 [...] total) by mouth daily as needed for [id number] tablet 0 cetirizine (ZyrTEC) 10 mg tablet Take 1 tablet (10 mg total) by mouth daily 90 tablet 1 EPINEPHrine 0.3 mg/0.3 mL auto-injection syringe INJECT 1 PEN IN THE MUSCLE ONE TIME DIRECTED kzbqpwawxrv-enqdxzkaz-nakriqga (TRELEGY ELLIPTA) 100-62.5-25 mcg inhaler Inhale 1 puff daily siitqoufltm-pxfxyyled-zqpyqdam (Trelegy Ellipta) 100-62.5-25 mcg inhaler INHALE 1 PUFF BY MOUTH DAILY 60 each 3 gabapentin (NEURONTIN) 300 mg capsule Take 1 [...] total) by mouth daily 90 tablet 0 montelukast (SINGULAIR) 10 mg tablet Take 1 tablet (10 mg total) by mouth nightly 90 tablet 1 olopatadine (PATANOL) 0.1 % ophthalmic solution every 12 hours omeprazole (PriLOSEC) 20 mg capsule Take 1 capsule (20 mg total) by mouth daily 90 capsule 1 pravastatin (PRAVACHOL) 10 mg tablet Take 1 tablet (10 mg total) by mouth daily 90 tablet 0 sertraline (ZOLOFT) 25 mg tablet Take 1 tablet (25 mg total) by mouth daily 90 tablet 0 vit C,H-Ss-ywect-lutein-zeaxan (PreserVision AREDS-2) 250-90-40-1 mg capsule dicyclomine (BENTYL) 20 mg tablet Take 1 tablet (20 mg total) by mouth 4 (four) times a day as needed (loose stools) 120 tablet 0 No current facility-administered medications for this visit. Allergies: Allergies Allergen Reactions Tetracycline Rash, Photosensitivity and Swelling Family History: Family History Problem Relation Age [...] not drink Frequency of Binge Drinking: Never Review of Systems: Review of Systems Constitutional: Negative for appetite change, fever and unexpected weight change. HENT: Negative for rhinorrhea, sinus pressure, sinus pain, sore throat and tinnitus. Respiratory: Positive for shortness of breath. Negative for cough and wheezing. Cardiovascular: Negative for chest pain, palpitations and leg swelling. Gastrointestinal: Negative for abdominal pain, diarrhea and nausea. Genitourinary: Negative for hematuria. Musculoskeletal: Positive for arthralgias. Negative for back pain and myalgias. Skin: Negative for color change. Allergic/Immunologic: Negative for environmental allergies and food allergies. Neurological: Positive for light-headedness. Negative for dizziness. Physical Exam: Vitals: 09/27/23 1041 BP: 118/78 BP Location: Right arm Patient Position: Sitting Pulse: 73 Resp: 18 Temp: 37.1 ??C (98.8 ??F) TempSrc: Tympanic SpO2: 96% Weight: 61.2 kg (135 lb) Height: 154.9 cm (5' 1 ) Physical Exam Constitutional: Appearance: She is well-developed. HENT: Head: Normocephalic and atraumatic. Eyes: Pupils: Pupils are equal, round, and reactive to light. Cardiovascular: Rate and Rhythm: Normal rate and regular rhythm. Pulmonary: Effort: Pulmonary effort is normal. Breath sounds: Normal breath sounds. Abdominal: General: Bowel sounds are normal. Palpations: Abdomen is soft. Musculoskeletal: General: Normal range of motion. Cervical back: Normal range of motion and neck supple. Skin: General: Skin is warm and dry. Neurological: Mental Status: She is alert and oriented to person, place, and time. Data Reviewed Images: Screening Chest CT 04 September 2023 IMPRESSION: New cluster of nodules in the posterior right upper lobe measuring up to 4 mm. Lung-RADS category 3: Probably benign. Recommendation: Low dose CT of chest in 6 months. Assessment and Plan: Diagnoses and all orders for this visit: Centrilobular emphysema (HCC) (Primary) Assessment & Plan: The patient has stage I COPD and her breathing has been doing fairly well with Trelegy 1 puff dailyand albuterol 1 puff prior to exercise. She does exercise at the gym frequently. Personal history of tobacco use Assessment & Plan: The screening chest CT from late August as listed above. I will repeat another chest CT in 6 months to follow up a new cluster of nodules in the right upper lobe. Hypersomnia Assessment & Plan: The patient is willing to proceed with a home sleep test at this time and will follow up here in 4 months. Orders: - Portable/Home Sleep Study; Future Lung nodules - CT Chest WO Contrast; Future Rendering Provider & Department: Luis Hernandez MD documented in this encounter Miscellaneous Notes * Assessment & Plan Note - Luis Hernandez MD - 09/27/2023 11:10 AM CDT Associated Problem(s): Personal history of tobacco use The screening chest CT from late August as listed above. I will repeat another chest CT in 6 months to follow up a new cluster of nodules in the right upper lobe. * Assessment & Plan Note - Luis Hernandez MD - 09/27/2023 11:10 AM CDT Associated Problem(s): Centrilobular emphysema (HCC) The patient has stage I COPD and her breathing has been doing fairly well with Trelegy 1 puff dailyand albuterol 1 puff prior to exercise. She does exercise at the gym frequently. * Assessment & Plan Note - Luis Hernandez MD - 09/27/2023 11:09 AM CDT Associated Problem(s): Hypersomnia The patient is willing to proceed with a home sleep test at this time and will follow up here in 4 months. documented in this encounter Plan of Treatment Scheduled Orders Name Type Priority Associated Diagnoses Orde r Schedule CT Chest WO Contrast Imaging Schedule Routine, Read Routine (OP Routine) Lung nodules Expected: 03/11/2024, Expires: 03/29/2024 documented as of this encounter Results * Portable/Home Sleep Study (10/30/2023 9:57 AM CDT) us Lius Hernandez MD SLEEP CENTER ORDERABLES F inal Result [facility] SLEEP [facility]ICINE [address] [place] [address] documented in this encounter Visit Diagnoses Diagnosis Centrilobular emphysema (HCC)- Primary Personal history of tobacco use Personal history of tobacco use, presenting hazards to health Hypersomnia Hypersomnia, unspecified Lung nodules Other diseases of lung, not elsewhere classified documented in this encounter Care Teams Apparel Patternmaker Relationship Specialty Start Date End Date Claudia Haas NP [address] [facility] [address] [place] [address] PCP - General Internal Medicine 07/27/22 documented as of this encounter
--- OUTSIDE RECORDS SUMMARY | 2024-01-30 10:41 | XMS_ITS | Encounter Summary ---
Author Organization [facility] Healthcare Address [address] [place] [address] Care Team Providers Care Analytical Tech Name Role Phone Claudia Haas NP Primary Care Provider [phone] Reason for Referral * Consultation (Routine) - Closed Specialty Diagnoses / Procedures Referred By Contac t Referred To Contact Surgery / Breast Surgery Diagnoses Ruptured silicone breast implant, initial encounter Claudia Haas NP [address] [facility] [address] [place] [address] Phone: tel: fax: [facility] [address] [address] Phone: tel: fax: Referral ID Status Reason Start Date Expiration Date V isits Requested Visits Authorized [id number] Closed Specialty Services Required 08/16/2023 09/14/2024 1 1 Question Answer Is this referral for [facility]? No Does the patient have a diagnosis of a Head and Neck cancer? No Please select the performing region: [facility] Medical Group [[id number]] Please select the performing department: [facility] [[id number]] # of visits: 1 Comments [facility] ruptured breast implants. Reason for Visit * Reason Onset Date Comments Referral Request 08/16/2023 Encounter Details Date Type Department Care Team (Late st Contact Info) Description 08/16/2023 Telephone [facility] Medical Group Family Medicine [address] [place] [phone] Claudia Haas NP [address] [facility] [address] [address] [address] [place] [address] Referral Request Social History Tobacco Use Types Packs/Day Years [...] on file Legal Sex Female 10:40 AM MINK RANCHER Gender Identity Female 03/03/2021 12:47 PM MINK RANCHER Sexual Orientation Not on file 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 I spoke with Elena GARCIA and she recommends a consult with a plastic surgeon. I explained the importance for visit but she still refuses. * Telephone Encounter - Karina Shukla MA - 08/18/2023 11:06 AM CDT Left message with plastic surg. Waiting on return phone call. * Telephone Encounter - Sheree Guillory - 08/18/2023 9:18 AM CDT Medical Question/Miscellaneous Caller???s Concern: [facility] called and stated referral needs to be sent to a plastic surgeon. Does message need to be routed? Yes-Action Needed * Telephone Encounter - Karina Shukla MA - 08/16/2023 3:02 PM CDT Patient notified referral placed. documented in this encounter Plan of Treatment Scheduled Referrals Name Type Priority Associated Diagnoses Order Schedule Ambulatory referral to Breast Surgery Outpatient Referral Routine Ruptured silicone breast implant, initial encounter Ordered: 08/16/2023 documented as of this encounter Visit Diagnoses Diagnosis Ruptured silicone breast implant, initial encounter- Primary documented in this encounter Care Teams Analytical Tech Relationship Specialty Start Date End Date Claudia Haas NP [address] [facility] [address] [place] [address] PCP - General Internal Medicine 07/27/22 documented as of this encounter
--- OUTSIDE RECORDS SUMMARY | 2024-01-30 10:41 | XMS_ITS | Encounter Summary ---
Author Organization [facility] Healthcare Address [address] [place] [address] Care Team Providers Care Golf Club Repairer Name Role Phone Claudia Haas NP Primary Care Provider [phone] Reason for Referral * Sleep Medicine (Routine) - Closed Specialty Diagnoses / Procedures Referred By Christyac t Referred To Contact Diagnoses Hypersomnia Procedures Portable/Home Sleep Study Luis Hernandez MD [address] [place] [address] [address] [place] [address] Phone: tel: fax: [facility] [address] [place] [address] Phone: tel: fax: Referral ID Status Reason Start Date Expiration Date Visits Re quested Visits Authorized [id number] Closed 09/27/2023 10/26/2024 1 1 Reason for Visit * Sleep Medicine (Routine) - Closed Specialty Diagnoses / Procedures Referred By Contac t Referred To Contact Diagnoses Hypersomnia Procedures Portable/Home Sleep Study Luis Hernandez MD [address] [facility] [address] [place] [address] Phone: tel: fax: [facility] [address] [place] [address] Phone: tel: fax: Referral ID Status Reason Start Date Expiration Date Visits Re quested Visits Authorized [id number] Closed 09/27/2023 10/26/2024 1 1 Encounter Details Date Type Department Care Team (Latest Contact Info) Description 10/30/2023 9:57 AM CDT - 10/30/2023 11:59 PM CDT Hospital Encounter [facility] [address] [place] [address] Hypersomnia Discharge Disposition: Discharge to home or self care Social History Tobacco Use Types Packs/Day Years [...] on file Legal Sex Female 10:40 AM MISSILE CONTROL PILOT Gender Identity Female 03/03/2021 12:47 PM MISSILE CONTROL PILOT Sexual Orientation Not on file 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, 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, 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, 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 Not on file documented as of this encounter Medications at Time of Discharge amLODIPine (NORVASC) 10 mg tablet TAKE 1 TABLET(10 MG) BY MOUTH DAILY 90 tablet 1 09/14/2023 azelastine (OPTIVAR) 0.05 % ophthalmic solutionIndications :Allergic Conjunctivitis Administer 1 drop into both eyes 2 (two) times a day 6 mL 3 12/27/2021 biotin 10,000 mcg capsule Take 1 tablet by mouth daily buPROPion XL (WELLBUTRIN XL) 300 mg 24 hr tabletIndications:E pisode of recurrent major depressive disorder, unspecified depression episode severity (HCC) Take 1 tablet (300 mg total) by mouth every morning 90 tablet 1 07/21/2023 cetirizine (ZyrTEC) 10 mg tabletIndications:S easonal allergies Take 1 tablet (10 mg total) by mouth daily as needed for allergies 90 tablet 05/08/2023 5 EPINEPHrine 0.3 mg/0.3 mL auto-injection syringe INJECT 1 PEN IN THE MUSCLE ONE TIME DIRECTED 07/04/2022 ibuprofen (ADVIL,MOTRIN) 800 mg tabletIndications:C hronic pain syndrome Take 1 tablet (800 mg total) by mouth 3 (three) times a day as needed for pain (pain) 90 tablet 1 09/29/2023 olopatadine (PATANOL) 0.1 % ophthalmic solution every 12 hours 05/26/2022 omeprazole (PriLOSEC) 40 mg capsuleIndications: Gastroesophageal reflux disease, unspecified whether esophagitis present Take 1 capsule (40 mg total) by mouth daily 90 capsule 1 09/29/2023 vit C,O-Fo-yjbwv-lutein -zeaxan (PreserVision AREDS-2) 250-90-40-1 mg capsule 01/14/2020 fluticasone-umeclid in-vilanter (TRELEGY ELLIPTA) 100-62.5-25 mcg inhaler Inhale 1 puff daily 3 each 1 10/10/2023 4 gabapentin (NEURONTIN) 300 mg capsuleIndications: Chronic pain syndrome Take 1 capsule (300 mg total) by mouth 4 (four) times a day 360 capsule 1 07/28/2023 4 irbesartan (AVAPRO) 300 mg tabletIndications:E ssential hypertension Take 1 tablet (300 mg total) by mouth daily 90 tablet 09/07/2023 4 montelukast (SINGULAIR) 10 mg tabletIndications:S easonal allergies Take 1 tablet (10 mg total) by mouth nightly 90 tablet 1 08/15/2023 4 pravastatin (PRAVACHOL) 10 mg tabletIndications:M ixed hyperlipidemia Take 1 tablet (10 mg total) by mouth daily 90 tablet 08/14/2023 4 sertraline (ZOLOFT) 25 mg tabletIndications:d epression Take 1 tablet (25 mg total) by mouth daily 90 tablet 07/26/2023 4 documented as of this encounter Discharge Disposition Disposition Code Departure Means Destination Discharge to home or self care documented in this encounter Miscellaneous Notes * Addendum Note - Luis Hernandez MD - 10/30/2023 10:00 AM CDTEncounter addended by: Luis Hernandez MD on: 11/04/2023 2:14 PM Actions taken: Charge Capture section accepted documented in this encounter Plan of Treatment Not on file documented as of this encounter Procedures Procedure Name Priority Date/Time Associated Diagnosis Comments PORTABLE/HOME SLEEP STUDY Routine 10/30/2023 9:57 AM CDT Hypersomnia documented in this encounter Results * Portable/Home Sleep Study (10/30/2023 9:57 AM CDT) us Luis Hernandez MD SLEEP CENTER ORDERABLES F inal Result [facility] SLEEP MEDICINE [address] [place] [address] documented in this encounter Visit Diagnoses Diagnosis Hypersomnia Hypersomnia, unspecified documented in this encounter Care Teams Golf Club Repairer Relationship Specialty Start Date End Date Claudia Haas NP [address] [facility] [address] [place] [address] PCP - General Internal Medicine 07/27/22 documented as of this encounter
--- OUTSIDE RECORDS SUMMARY | 2024-01-30 10:41 | XMS_ITS | Encounter Summary ---
Author Organization [facility] Healthcare Address [address] [place] [address] Care Team Providers Care Credit Front Office Developer Name Role Phone Claudia Haas NP Primary Care Provider [phone] Reason for Referral * MRI/CAT/PET Scan (Routine) - Closed Specialty Diagnoses / Procedures Referred By Contac t Referred To Contact Radiology Diagnoses Personal history of tobacco use Procedures CT Lung Cancer Screening Luis Hernandez MD [address] [place] [address] DR TEJADA [address] [place] [address] Phone: tel: fax: [address] [phone] Referral ID Status Reason Start Date Expiration Date Visits Re quested Visits Authorized [id number] Closed 12/21/2022 01/20/2024 1 1 Reason for Visit * MRI/CAT/PET Scan (Routine) - Closed Specialty Diagnoses / Procedures Referred By Contkecia t Referred To Contact Radiology Diagnoses Personal history of tobacco use Procedures CT Lung Cancer Screening Luis Hernandez MD [address] [place] [address] DR TEJADA [address] [place] [address] Phone: tel: fax: [address] [phone] Referral ID Status Reason Start Date Expiration Date Visits Re quested Visits Authorized [id number] Closed 12/21/2022 01/20/2024 1 1 Encounter Details Date Type Department Care Team (Latest Contact Info) Description 09/04/2023 7:53 AM CDT - 09/04/2023 11:59 PM CDT Hospital Encounter [facility] [address] [place] [address] Personal history of tobacco use Discharge Disposition: Discharge to home or self [...] on file 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 Gender Identity Female 03/03/2021 12:47 PM GUN STOCK CHECKER Sexual Orientation Not on file 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 End Date retired - [employer], [employer], [employer], [employer]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 file Not on file documented as of this encounter Medications at Time of Discharge albuterol HFA (PROVENTIL HFA,VENTOLIN HFA,PROAIR HFA) 90 mcg/actuation inhaler Inhale 2 puffs every 6 (six) hours as needed for wheezing 3 each 4 04/08/2022 azelastine (OPTIVAR) 0.05 % ophthalmic solutionIndications :Allergic [...] IN THE MUSCLE ONE TIME DIRECTED 07/04/2022 olopatadine (PATANOL) 0.1 % ophthalmic solution every 12 hours 05/26/2022 vit C,K-Tu-rhldu-lutein -zeaxan (PreserVision AREDS-2) 250-90-40-1 mg capsule 01/14/2020 amLODIPine (NORVASC) 10 mg tablet TAKE 1 TABLET(10 MG) BY MOUTH DAILY 90 tablet 1 11/17/2022 4 dicyclomine (BENTYL) 20 mg tabletIndications:D iarrhea, unspecified type Take 1 tablet (20 mg total) by mouth 4 (four) times a day as needed (loose stools) 120 tablet 08/09/2022 4 fluticasone-umeclid in-vilanter (TRELEGY ELLIPTA) 100-62.5-25 mcg inhaler Inhale 1 puff daily 4 fluticasone-umeclid in-vilanter (Trelegy Ellipta) 100-62.5-25 mcg inhaler INHALE 1 PUFF BY MOUTH DAILY 60 each 3 02/07/2023 4 gabapentin (NEURONTIN) 300 mg capsuleIndications: Chronic pain syndrome Take 1 capsule (300 mg total) by mouth 4 (four) times a day 360 capsule 1 07/28/2023 4 ibuprofen (ADVIL,MOTRIN) 800 mg tabletIndications:C hronic pain syndrome Take 1 tablet (800 mg total) by mouth 3 (three) times a day as needed for pain (pain) 90 tablet 1 12/27/2022 4 irbesartan (AVAPRO) 300 mg tabletIndications:E ssential hypertension TAKE 1 TABLET(300 MG) BY MOUTH DAILY 90 tablet 05/18/2023 4 montelukast (SINGULAIR) 10 mg tabletIndications:S easonal allergies Take 1 tablet (10 mg total) by mouth nightly 90 tablet 1 08/15/2023 4 omeprazole (PriLOSEC) 20 mg capsuleIndications: Gastroesophageal reflux disease, unspecified whether esophagitis present Take 1 capsule (20 mg total) by mouth daily 90 capsule 1 03/13/2023 4 pravastatin (PRAVACHOL) 10 mg tabletIndications:M ixed hyperlipidemia Take 1 tablet (10 mg total) by mouth daily 90 tablet 08/14/2023 4 sertraline (ZOLOFT) 25 mg tabletIndications:d epression Take 1 tablet (25 mg total) by mouth daily 90 tablet 07/26/2023 4 documented as of this encounter Discharge Disposition Disposition Code Departure Means Destination Discharge to home or self care documented in this encounter Plan of Treatment Not on file documented as of this encounter Procedures Procedure Name Priority Date/Time Associated Diagnosis Comments CT LUNG CANCER SCREENING Schedule Routine, Read Routine (OP Routine) 09/04/2023 8:07 AM CDT Personal history of tobacco use documented in this encounter Results * CT Lung Cancer Screening (09/04/2023 8:07 AM CDT) Anatomical Region Laterality Modality Chest N/A Computed Tomogra phy 09/05/2023 8:16 AM CDT Narrative 09/05/2023 8:28 AM CDT EXAM DESCRIPTION: ?? CT LUNG CANCER SCREENING REASON FOR STUDY: Screening CT of the chest in a ?? former ??smoker with a ??30 ?? pack year smoking history. Additional history: The patient stopped smoking 2 years ago. TECHNIQUE: Low dose CT scan of the chest was performed without intravenous contrast using helical scanning technique. The exam extends from the lung apices through the lung bases. Automatic exposure control was used as a dose optimization technique. NOTE: This study was performed for the specific purposes of lung cancer screening and is not an alternative to diagnostic chest CT. RADIATION DOSE: CT dose index volume (CTDIvol) = ?? 1.07 ??mGy COMPARISON: ?? 09/01/2022 FINDINGS: SMOKING RELATED LUNG DISEASE: ?? Mild pulmonary emphysema. LUNG NODULES: ?? New cluster of nodules in the posterior right upper lobe measuring up to 4 mm (series 2, images 106-118). ?? The prior 3 mm linear nodule in the posterior right upper lobe has resolved. ??Resolution of the prior 2 mm left upper lobe nodule. CORONARY ARTERY CALCIFICATION: ??No significant coronary artery calcifications. OTHER: ?? No focal consolidation, pneumothorax, or pleural effusion. ??The central airways are clear. ??No mediastinal mass. ??No thoracic lymphadenopathy. The heart is normal in size. ??No pericardial effusion. ??Mitral annular calcifications are present. ??Mild atherosclerotic calcifications of the thoracic aorta. ??No thoracic aortic aneurysm. ??No acute fractures or suspicious osseous lesions. ??Bilateral breast implants are redemonstrated. ?? The visualized upper abdomen is normal. ?? IMPRESSION: ?? New cluster of nodules in the posterior right upper lobe measuring up to 4 mm. Lung-RADS category ??3: Probably benign. Recommendation: ??Low dose CT of chest in 6 months. THIS IS AN ELECTRONICALLY VERIFIED FINAL REPORT 09/05/2023 8:28 AM - Electronically signed by ??Ramon Machado M.D. KR D: ??09/05/2023 8:28 AM T: Report ID: [id number] Reading Location: ??[id number] Procedure Note Ramon Machado MD - 09/05/2023 EXAM DESCRIPTION: CT LUNG CANCER SCREENING REASON FOR STUDY: Screening CT of the chest in a former smoker with a30 pack year smoking history. Additional history: The patient stopped smoking2 years ago. TECHNIQUE: Low dose CT scan of the chest was performed without intravenous contrast using helical scanning technique. The exam extends from the lung apices through the lung bases. Automatic exposure control was used as adose optimization technique. NOTE: This study was performed for the specific purposes of lung cancer screening and is not an alternative to diagnostic chest CT. RADIATION DOSE: CT dose index volume (CTDIvol) = 1.07 mGy COMPARISON: 09/01/2022 FINDINGS: SMOKING RELATED LUNG DISEASE: Mild pulmonary emphysema. LUNG NODULES: New cluster of nodules in the posterior right upper lobe measuring up to 4 mm (series 2, images 106-118). The prior 3 mm linear nodule in the posterior right upper lobe has resolved. Resolution of the prior 2 mm left upper lobe nodule. CORONARY ARTERY CALCIFICATION: No significant coronary arterycalcifications. OTHER: No focal consolidation, pneumothorax, or pleural effusion. The central airways are clear. No mediastinal mass. No thoraciclymphadenopathy. The heart is normal in size. No pericardial effusion. Mitral annular calcifications are present. Mild atherosclerotic calcifications of the thoracic aorta. No thoracic aortic aneurysm. No acute fractures or suspicious osseous lesions. Bilateral breast implants are redemonstrated. The visualized upper abdomen is normal. IMPRESSION: New cluster of nodules in the posterior right upper lobe measuring up to 4 mm. Lung-RADS category 3: Probably benign. Recommendation: Low dose CT of chest in 6 months. THIS IS AN ELECTRONICALLY VERIFIED FINAL REPORT 09/05/2023 8:28 AM - Electronically signed by Ramon Machado M.D. KR T: Report ID: [id number] Reading Location: [place] [address] Luis Hernandez MD IMG CT PROCEDURES Final R esult documented in this encounter Visit Diagnoses Diagnosis Personal history of tobacco use Personal history of tobacco use, presenting hazards to health documented in this encounter Care Teams Credit Front Office Developer Relationship Specialty Start Date End Date Claudia Haas NP [address] [place] [address] [address] [place] [address] PCP - General Internal Medicine 07/27/22 documented as of this encounter
--- OUTSIDE RECORDS SUMMARY | 2024-01-30 10:41 | XMS_ITS | Encounter Summary ---
Author Organization [facility] Healthcare Address [address] [place] [address] Care Team Providers Care Muck Miner Name Role Phone Claudia Haas NP Primary Care Provider [phone] Encounter Details Date Type Department Care Team (Late st Contact Info) Description 08/18/2023 Telephone [facility] [address] [address] Sobia Quiles Social History Tobacco Use Types Packs/Day Years [...] on file Legal Sex Female 10:40 AM CELLULAR EQUIPMENT REPAIRER Gender Identity Female 03/03/2021 12:47 PM CELLULAR EQUIPMENT REPAIRER Sexual Orientation Not on file 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 Referral should be deferred to plastic surgeon. Referral closed. documented in this encounter Plan of Treatment Not on file documented as of this encounter Visit Diagnoses Not on filedocumented in this encounter Care Teams Muck Miner Relationship Specialty Start Date End Date Claudia Haas NP [address] [facility] [address] [place] [address] PCP - General Internal Medicine 07/27/22 documented as of this encounter
--- OUTSIDE RECORDS SUMMARY | 2024-01-30 10:41 | XMS_ITS | Encounter Summary ---
Author Organization [facility] Healthcare Address [address] [place] [address] Care Team Providers Care Powder Hand Name Role Phone Claudia Haas NP Primary Care Provider [phone] Reason for Referral * MRI/CAT/PET Scan (Routine) - Pending Review Specialty Diagnoses / Procedures Referred By Contac t Referred To Contact Radiology Diagnoses Nicotine dependence, cigarettes, in remission Procedures CT Lung Cancer Screening Claudia Haas NP [address] [facility] [address] [place] [address] Phone: tel: fax: [address] [phone] Referral ID Status Reason Start Date Expiration Date V isits Requested Visits Authorized [id number] Pending Review 09/05/2023 10/04/2024 1 1 Encounter Details Date Type Department Care Team (Late st Contact Info) Description 09/05/2023 Telephone [facility] Family Medicine [address] [place] [address] Claudia Haas NP [address] [facility] [address] [place] [address] Social History Tobacco Use Types [...] on file Legal Sex Female 10:40 AM 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 * Telephone Encounter - Karina Shukla MA - 09/05/2023 11:20 AM CDT ----- Message from Claudia Haas NP sent at 09/05/2023 9:55 AM CDT ----- Findings of new cluster of nodules in the right upper lobe measuring up to 4 mm. Read as probably benign however want to repeat a low-dose chest CT in 6 months for evaluation. Please pend order documented in this encounter Plan of Treatment Scheduled Orders Name Type Priority Associated Diagnoses Orde r Schedule CT Lung Cancer Screening Imaging Schedule Routine, Read Routine (OP Routine) Nicotine dependence, cigarettes, in remission Expected: 09/05/2023, Expires: 03/07/2024 documented as of this encounter Visit Diagnoses Diagnosis Nicotine dependence, cigarettes, in remission documented in this encounter Care Teams Powder Hand Relationship Specialty Start Date End Date Claudia Haas NP [address] [facility] [address] [place] [address] PCP - General Internal Medicine 07/27/22 documented as of this encounter
--- OUTSIDE RECORDS SUMMARY | 2024-01-30 10:41 | XMS_ITS | Encounter Summary ---
Author Organization [facility] Healthcare Address [address] [place] [address] Care Team Providers Care Service Line Bus Cleaner Name Role Phone Claudia Haas PHARMACY TECHNOLOGY INSTRUCTOR Primary Care Provider [phone] Reason for Referral * MRI/CAT/PET Scan (Routine) - Closed Specialty Diagnoses / Procedures Referred By Jakob lau Referred To Contact Radiology Diagnoses Abnormal mammogram of both breasts Procedures MRI Breast Bilateral WO Contrast Claudia Haas NP [address] [facility] [address] [address] Phone: tel: fax: [address] [phone] Referral ID Status Reason Start Date Expiration Date Visits Re quested Visits Authorized [id number] Closed 06/01/2023 06/30/2024 1 1 Reason for Visit * MRI/CAT/PET Scan (Routine) - Closed Specialty Diagnoses / Procedures Referred By Jakob lau Referred To Contact Radiology Diagnoses Abnormal mammogram of both breasts Procedures MRI Breast Bilateral WO Contrast Claudia Haas NP [address] [place] [address] Phone: tel: fax: [address] [phone] Referral ID Status Reason Start Date Expiration Date Visits Re quested Visits Authorized [id number] Closed 06/01/2023 06/30/2024 1 1 Encounter Details Date Type Department Care Team (Latest Contact Info) Description 08/14/2023 4:10 PM CDT - 08/14/2023 11:59 PM CDT Hospital Encounter [address] [address] Abnormal mammogram of both breasts Discharge Disposition: Discharge to home or self [...] on file Legal Sex Female 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 Gender Identity Female 03/03/2021 12:47 PM SPLINE ROLLING MACHINE JOB SETTER Sexual Orientation Not on file 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 End Date 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[employer], [employer], 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, [employer]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 file [...] ophthalmic solution every 12 hours 05/26/2022 vit C,Q-Sk-usdax-lutein -zeaxan (PreserVision AREDS-2) 250-90-40-1 mg capsule 01/14/2020 [...] Procedure Name Priority Date/Time Associated Diagnosis Comments MRI BREAST BILATERAL WO CONTRAST Schedule Routine, Read Routine (OP Routine) 08/14/2023 5:00 PM CDT Abnormal mammogram of both breasts documented in this encounter Results * MRI Breast Bilateral WO Contrast (08/14/2023 5:00 PM CDT) Anatomical Region Laterality Modality Breast Bilateral Magnetic Resonan ce 08/15/2023 9:53 AM CDT Narrative 08/15/2023 10:05 AM CDT EXAM DESCRIPTION: ?? MRI BREAST BILATERAL WO CONTRAST REASON FOR STUDY: ?? 73-year-old female with findings of bilateral silicone implant rupture on prior mammogram. ??Bilateral silicone breast implant augmentation in 1981. COMPARISON: Mammography dated ??05/18/2023 and 05/19/2022. TECHNIQUE: Multiplanar, multisequence MR images of the bilateral breasts were obtained without IV contrast for the purposes of evaluation of implant integrity only. ??The absence of intravenous contrast precludes evaluation for malignancy. FINDINGS: The absence of intravenous contrast precludes evaluation for malignancy. Right breast: There is a subpectoral silicone implant in the right breast. ?? There is evidence of intracapsular implant rupture. ??Small amount of extracapsular silicone is questioned along the medial margin of the implant (series 6, image 37). Left breast: There is a subpectoral silicone implant in the left breast. ?? There is evidence of both intracapsular and extracapsular implant rupture, with extracapsular silicone noted along the lateral margin of the implant. No prominent axillary or internal mammary lymph nodes are identified. ??The visualized portions of the mediastinum are unremarkable. There is an 8 mm T2 hyperintense lesion in the right hepatic lobe (series 4, image 55). ??This is indeterminate but favored to represent a benign etiology such as a cyst or hemangioma. IMPRESSION: 1. ?? Bilateral subpectoral silicone breast implants are ruptured as detailed above. 2. ?? Absence of intravenous contrast precludes evaluation for malignancy. THIS IS AN ELECTRONICALLY VERIFIED FINAL REPORT 08/15/2023 10:05 AM - Electronically signed by ??Homero Armstrong M.D. MD: D: ??08/15/2023 10:05 AM T: ??08/15/2023 10:05 AM Report ID: [id number] Reading Location: ??[facility] Procedure Note Homero Armstrong MD - 08/15/2023 EXAM DESCRIPTION: MRI BREAST BILATERAL WO CONTRAST REASON FOR STUDY: 73-year-old female with findings of bilateral silicone implant rupture on prior mammogram. Bilateral silicone breast implant augmentation in 1981. COMPARISON: Mammography dated 05/18/2023 and 05/19/2022. TECHNIQUE: Multiplanar, multisequence MR images of the bilateral breastswere obtained without IV contrast for the purposes of evaluation of implant integrity only. The absence of intravenous contrast precludes evaluationfor malignancy. FINDINGS: The absence of intravenous contrast precludes evaluation for malignancy. Right breast: There is a subpectoral silicone implant in the right breast. There is evidence of intracapsular implant rupture. Small amount of extracapsular silicone is questioned along the medial margin of theimplant (series 6, image 37). Left breast: There is a subpectoral silicone implant in the left breast. There is evidence of both intracapsular and extracapsular implant rupture, with extracapsular silicone noted along the lateral margin of the implant. No prominent axillary or internal mammary lymph nodes are identified. The visualized portions of the mediastinum are unremarkable. There is an 8 mm T2 hyperintense lesion in the right hepatic lobe (series4, image 55). This is indeterminate but favored to represent a benignetiology such as a cyst or hemangioma. IMPRESSION: 1. Bilateral subpectoral silicone breast implants are ruptured asdetailed above. 2. Absence of intravenous contrast precludes evaluation for malignancy. THIS IS AN ELECTRONICALLY VERIFIED FINAL REPORT 08/15/2023 10:05 AM - Electronically signed by Homero Armstrong M.D. MD: Report ID: [id number] Reading Location: [facility] Claudia Haas PHARMACY TECHNOLOGY INSTRUCTOR IMG MRI PROCEDURES Final Resu lt documented in this encounter Visit Diagnoses Diagnosis Abnormal mammogram of both breasts documented in this encounter Care Teams Service Line Bus Cleaner Relationship Specialty Start Date End Date Claudia Haas NP [address] [facility] [address] [place] [address] PCP - General Internal Medicine 07/27/22 documented as of this encounter
--- OUTSIDE RECORDS SUMMARY | 2024-01-30 10:42 | XMS_ITS | Encounter Summary ---
Author Organization [facility] Address [address] [address] [place] [address] Care Team Providers Care Laborer Yard Name Role Phone Claudia Haas HEAD MILLER Primary Care Provider [phone] Encounter Details Date Type Department Care Team (Late st Contact Info) Description 07/08/2022 Orders Only [facility] Family Medicine [address] [place] [address] Claudia Haas, HEAD MILLER [address] [place] [address] Social History Tobacco Use Types [...] points, staff should administer the PHQ-9) 0 03/25/2022 Comments Unknown Sex and Gender Information Value Date Recorded Sex Assigned at Not on file 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 documented in this encounter Plan of Treatment Not on file documented as of this encounter Visit Diagnoses Not on filedocumented in this encounter Discontinued Medications Medication Sig Discontinue Reason Start Date End Da te buPROPion XL (WELLBUTRIN XL) 300 mg 24 hr tablet Take 1 tablet (300 mg total) by mouth every morning Reorder 12/27/2021 07/08/2022 documented as of this encounter Care Teams Laborer Yard Relationship Specialty Start Date End Date Claudia Haas NP PCP - General Internal Medicine 11/30/21 07/26/22 documented as of this encounter
--- OUTSIDE RECORDS SUMMARY | 2024-01-30 10:42 | XMS_ITS | Encounter Summary ---
Author Organization [facility] Healthcare Address [address] [place] [address] Care Team Providers Care Station Agent Name Role Phone Claudia Haas MECHANICAL SYSTEMS DESIGN ENGINEER Primary Care Provider Reason for Visit * Reason Onset Date Comments Forms Request 04/27/2023 Encounter Details Date Type Department Care Team (Late st Contact Info) Description 04/27/2023 Telephone [facility] Internal Medicine at [place] [address] [place] [address] Claudia Haas NP [address] [place] [address] Forms Request Social History Tobacco Use Types Packs/Day [...] should administer the PHQ-9) 0 05/08/2023 Comments Unknown Sex and Gender Information Value Date Recorded Sex Assigned at Not on file Legal Sex Female 10:40 AM UPTWIST SPINNER Gender Identity Female 03/03/2021 12:47 PM UPTWIST SPINNER Sexual Orientation Not on file 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 Yes-Action Needed * Telephone Encounter - Karina Shukla MA - 05/03/2023 4:06 PM CDT Claudia has form will fax when completed. * Telephone Encounter - Chava, May - 05/03/2023 10:06 AM CDT Call Back Caller???s Concern: elliott called back looking for the clearance form /.please resend Does message need to be routed? Yes-Action Needed * Telephone Encounter - Chava, May - 05/02/2023 10:51 AM CDT Call Back Caller???s Concern: please refax the form to [phone] Does message need to be routed? Yes-Action Needed * Telephone Encounter - Lorie Espana MA - 04/28/2023 3:56 PM CDT Requested paperwork faxed. * Telephone Encounter - Cindy Martinez - 04/27/2023 3:39 PM CDT Forms Request Form requested: Other Form Form Name: Surgical Clearance forms Date needed: as soon as possible How is patient delivering to office: Fax Who is form being returned to? [employer] Name of [facility]: [facility] How to return form to third libertarian? Fax Fax Number to use for return of forms: [phone] Additional Comments: Ton advised patient has upcoming eye surgery on 05/10/23 and will need to faxmost recent office visit note with surgical clearance forms. Ton states she will be faxing surgical clearance forms to office today. Does message need to be routed? Yes-Action Needed documented in this encounter Plan of Treatment Not on file documented as of this encounter Visit Diagnoses Not on filedocumented in this encounter Care Teams Station Agent Relationship Specialty Start Date End Date Claudia Haas NP [address] [place] [address] PCP - General Internal Medicine 07/27/22 documented as of this encounter
--- OUTSIDE RECORDS SUMMARY | 2024-01-30 10:42 | XMS_ITS | Encounter Summary ---
Author Organization [facility] Healthcare Address [address] [place] [address] Care Team Providers Care Hearing Therapy Director Name Role Phone Claudia Haas NP Primary Care Provider [phone] Encounter Details Date Type Department Care Team (Late st Contact Info) Description 08/04/2022 Patient Self-Triage [facility] [address] [place] [address] Mychart, Generic Provider [address] [place], [place] [id number] Social History Tobacco Use Types Packs/Day Years [...] PHQ-2 Answer Date Recorded PHQ-2 Total Score 3 07/28/2022 Comments Unknown Sex and Gender Information Value Date Recorded Sex Assigned at Not on file Legal Sex Female 10:40 AM MANAGER TRANSPORTATION Gender Identity Female 03/03/2021 12:47 PM MANAGER TRANSPORTATION Sexual Orientation Not on file 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
--- OUTSIDE RECORDS SUMMARY | 2024-01-30 10:42 | XMS_ITS | Encounter Summary ---
Author Organization [facility] Medical Group Address [address] [place] [address] Care Team Providers Care Supervisor Mapping Name Role Phone Claudia Haas NP Primary Care Provider [phone] Encounter Details Date Type Department Care Team (Late st Contact Info) Description 08/25/2022 Orders Only [facility] Health Information Management [address] [place] [address] Cluadia Haas NP [address] [place], [place] [id number] Social History Tobacco Use Types Packs/Day Years [...] on file Legal Sex Female 10:40 AM SERVICE MECHANIC Gender Identity Female 03/03/2021 12:47 PM SERVICE MECHANIC Sexual Orientation Not on file 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, 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, 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, 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 file Not on file documented as of this encounter Plan of Treatment Not on file documented as of this encounter Procedures Procedure Name Priority Date/Time Associated Diagnosis Comments SCAN - LABS 08/25/2022 documented in this encounter Results * SCAN - LABS (08/25/2022) Claudia Haas NP Final Result documented in this encounter Visit Diagnoses Not on filedocumented in this encounter Care Teams Supervisor Mapping Relationship Specialty Start Date End Date Claudia Haas, GLOVE OPERATOR [address] [place] [address] PCP - General Internal Medicine 07/27/22 documented as of this encounter
--- OUTSIDE RECORDS SUMMARY | 2024-01-30 10:42 | XMS_ITS | Encounter Summary ---
Author Organization [facility] Medical Group Address [address] [place] [address] Care Team Providers Care Fur Mixer Name Role Phone Claudia Haas BUTTON AND BUCKLE MAKER Primary Care Provider [phone] Reason for Visit * Reason Comments Wellness Visit Here for wellness vi sitGo over blood work Encounter Details Date Type Department Care Team (Late st Contact Info) Description 07/28/2022 9:15 AM CDT Office Visit [facility] Medical [facility] Internal Medicine at [place] [address] [place] [address] Claudia Haas, BUTTON AND BUCKLE MAKER [address] [place] [address] Physical exam, annual (Primary Dx); BMI 23.0-23.9, adult; Encounter for immunization; Fatigue, unspecified type Social History Tobacco Use Types Packs/Day Years [...] on file Legal Sex Female 10:40 AM STEEL HANGER Gender Identity Female 03/03/2021 12:47 PM STEEL HANGER Sexual Orientation Not on file 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, [employer], 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, 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 file Not on file documented as of this encounter Last Filed Vital Signs Vital Sign Reading Time Taken Comments Blood Pressure 138/70 07/28/2022 9:17 AM CDT Pulse 67 07/28/2022 9:17 AM CDT Temperature 36.7 ??C (98.1 ??F) 07/28/2022 9:17 AM CD T Respiratory Rate - - Oxygen Saturation 99% 07/28/2022 9:17 AM CDT Inhaled Oxygen Concentration - - Weight 56.2 kg (124 lb) 07/28/2022 9:17 AM CDT Height 154.9 cm (5' 1 ) 07/28/2022 9:17 AM CDT Body Mass Index 23.43 07/28/2022 9:17 AM CDT documented in this encounter Patient Instructions * Patient Instructions* Claudia Haas NP - 07/28/2022 9:15 AM CDT routine annual [facility] physical completed today. Follow-up in 6 months or sooner as needed. Contact the office with any questions or concerns documented in this encounter Progress Notes * Claudia Haas NP - 07/28/2022 9:15 AM CDT Subjective/Objective Patient ID: Terri Briseno is a 72 y.o. female. Visit Date: 07/28/2022 Chief Complaint Wellness Visit (Here for wellness visit/Go over blood work) HPI 72-year-old female in for [facility] wellness exam. Lab work discussed in the room. CBC relatively normal. She does complain of fatigue. We will check a B12 level. She is to start taking B12 orally daily. She voices understanding. She does work out routinely. She states that she does not feel depressed. She does take Wellbutrin daily. She is sleeping 7-8 hours nightly. She would like her pneumonia vaccination today Review of Systems Constitutional: Positive for fatigue. Negative for activity change and chills. HENT: Negative for congestion, ear pain, nosebleeds, rhinorrhea and sinus pressure. Respiratory: Negative for cough and shortness of breath. Cardiovascular: Negative for chest pain and palpitations. Gastrointestinal: Negative for abdominal pain. Endocrine: Negative for cold intolerance. Genitourinary: Negative for difficulty urinating and hematuria. Musculoskeletal: Negative for back pain and myalgias. Neurological: Negative for dizziness, weakness and headaches. Psychiatric/Behavioral: Negative for agitation, confusion and sleep disturbance. Physical Exam Constitutional: Appearance: Normal appearance. She [...] Behavior normal. Thought Content: Thought content normal. Assessment/Plan Diagnoses and all orders for this visit: Physical exam, annual (Z00.00) (Primary) Comments: routine annual [facility] physical completed today. Follow-up in 6 months or sooner as needed. Contact the office with any questions or concerns BMI 23.0-23.9, adult (Z68.23) Comments: continue to exercise on a regular basis Encounter for immunization (Z23) Comments: pneumonia vaccination given today Orders: - Pneumococcal conjugate vaccine 20-valent IM (Prevnar-20) Fatigue, unspecified type (R53.83) Comments: B12 level drawn. Start taking oral B12 daily Assessment & Plan: This is a significant, separately identifiable problem that was evaluated and managed on the same day as the wellness exam Orders: - Vitamin B12; Future Cosigned by Jose Corrales MD at 08/07/2022 11:18 AM CDT documented in this encounter Miscellaneous Notes * Assessment & Plan Note - Claudia Hasa NP - 07/28/2022 9:54 AM CDT Associated Problem(s): Fatigue This is a significant, separately identifiable problem that was evaluated and managed on the same day as the wellness exam documented in this encounter Plan of Treatment Not on file documented as of this encounter Procedures Procedure Name Priority Date/Time Associated Diagnosis Comments VITAMIN B12 Routine 07/29/2022 10:08 AM CDT Fatigue, unspecified type documented in this encounter Results * Vitamin B12 (07/29/2022 10:08 AM CDT) Vitamin B12 299 200 - 1,100 pg/mL [facility] Comment: Please Note: Although the reference range for vitamin B12 is 200-1100 pg/mL, it has been reported that between 5 and 10% of patients with values between 200 and 400 pg/mL may experience neuropsychiatric and hematologic abnormalities due to occult B12 deficiency; less than 1% of patients with values above 400 pg/mL will have symptoms. Blood 07/29/2022 10:0 8 AM CDT 07/29/2022 10:08 AM CDT Narrative [facility] - 07/30/2022 7:01 AM CDT FASTING:NO FASTING: NO us Claudia Haas BUTTON AND BUCKLE MAKER LAB BLOOD ORDERABLES Final Re sult [facility] [address] [id number] documented in this encounter Visit Diagnoses Diagnosis Physical exam, annual- Primary BMI 23.0-23.9, adult Encounter for immunization Fatigue, unspecified type documented in this encounter Discontinued Medications Medication Sig Discontinue Reason Start Date End Da te umeclidinium-vilanteroL (Anoro Ellipta) 62.5-25 mcg/actuation blister with device daily 07/28/2022 fluconazole (DIFLUCAN) 150 mg tabletIndications:Yeast infection Take 1 tablet (150 mg total) by mouth as directed Take one tab now. Repeat in 7 days if symptoms persist. 03/04/2022 07/28/2022 documented as of this encounter Historical Medications * This list may reflect changes made after this encounter. EPINEPHrine 0.3 mg/0.3 mL auto-injection syringe INJECT 1 PEN IN THE MUSCLE ONE TIME DIRECTED 07/04/2022 fluticasone-umec lidin-vilanter (TRELEGY ELLIPTA) 100-62.5-25 mcg inhaler Inhale 1 puff daily 10/10/2023 amoxicillin 500 mg capsule TAKE ONE CAPSULE BY MOUTH THREE TIMES DAILY UNTIL ALL TAKEN 07/21/2022 11/29/2022 added in this encounter Orders Immunization/Injection Count Last Ordered Date First Ordered Date PNEUMOCOCCAL CONJUGATE VACCI NE 20 VALENT IM 1 07/28/2022 documented in this encounter Care Teams Fur Mixer Relationship Specialty Start Date End Date Claudia Haas NP [address] [place] [address] PCP - General Internal Medicine 07/27/22 documented as of this encounter
--- OUTSIDE RECORDS SUMMARY | 2024-01-30 10:42 | XMS_ITS | Encounter Summary ---
Author Organization [facility] Healthcare Address [address] [place] [address] Care Team Providers Care Multi Operation Machine Operator Name Role Phone Claudia Haas NP Primary Care Provider [phone] Reason for Visit * Reason Onset Date Comments Unsuccessful Phone Call 1 12/15/2022 Med ad herence (past due) Encounter Details Date Type Department Care Team (Late st Contact Info) Description 12/15/2022 Telephone [facility] Accountable Care Organization [address] [place] [address] Lalita Dumont MA [address] [place] [address] [address] Unsuccessful Phone Call 1 (Med adherence (past due)) Social History Tobacco Use Types Packs/Day Years [...] more points, staff should administer the PHQ-9) 2 11/29/2022 Comments Unknown Sex and Gender Information Value Date Recorded Sex Assigned at Not on file Legal Sex Female 10:40 AM EXPEDITER CLERK Gender Identity Female 03/03/2021 12:47 PM EXPEDITER CLERK Sexual Orientation Not on file 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 DITER CLERK * Telephone Encounter - Lalita Dumont MA - 12/20/2022 4:29 PM CST Pt is concerned about the Pravastatin. She has read that pravastatin has been linked to Ahlzeimers/dementia . Is this tue? DITER CLERK * Telephone Encounter - Lalita Dumont MA - 12/15/2022 2:56 PM CDT ACO Medication Refill Note Terri Briseno was identified on [facility] refill report for a past due/due soon refill of Pravastatin. According to this report, Pravastatin was last refilled on 08-17-22 for a 90 day supply. Goal is to have enough medicine so that 80% or more of the days are covered each year. Outreach: Unable to reach patient by phone. Education provided during this encounter: N/A - unable to reach patient by phone Recommendation(s): N/A - unable to reach patient by phone. and Sent [employer] message documented in this encounter Plan of Treatment Not on file documented as of this encounter Visit Diagnoses Not on filedocumented in this encounter Care Teams Multi Operation Machine Operator Relationship Specialty Start Date End Date Claudia Haas, SHOE RECONDITIONER [address] [address] PCP - General Internal Medicine 07/27/22 documented as of this encounter
--- OUTSIDE RECORDS SUMMARY | 2024-01-30 10:42 | XMS_ITS | Encounter Summary ---
Author Organization [facility] Healthcare Address [address] [place] [address] Care Team Providers Care Aerotriangulation Specialist Name Role Phone Claudia Haas NP Primary Care Provider [phone] Reason for Visit * Reason Onset Date Comments Chart Review 12/23/2022 Med adherence Encounter Details Date Type Department Care Team (Late st Contact Info) Description 12/23/2022 Telephone [facility] Accountable Care Organization [address] [place] [address] Lalita Dumont MA [address] [facility] [address] [place], [place] [id number] Chart Review (Med adherence) Social History Tobacco Use Types Packs/Day Years [...] on file Legal Sex Female 10:40 AM FITTINGS FINISHER Gender Identity Female 03/03/2021 12:47 PM FITTINGS FINISHER Sexual Orientation Not on file 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 INGS FINISHER documented in this encounter Plan of Treatment Not on file documented as of this encounter Visit Diagnoses Not on filedocumented in this encounter Care Teams Aerotriangulation Specialist Relationship Specialty Start Date End Date Claudia Haas NP [address] [place] [address] PCP - General Internal Medicine 07/27/22 documented as of this encounter
--- OUTSIDE RECORDS SUMMARY | 2024-01-30 10:42 | XMS_ITS | Encounter Summary ---
Author Organization [facility] Medical Group Address [address] [place] [address] Care Team Providers Care Old Coin Dealer Name Role Phone Annalee Haas NP Primary Care Provider [phone] Reason for Visit * Reason Comments stool specimen Encounter Details Date Type Department Care Team (Latest Contact Info) Description 08/09/2022 2:30 PM CDT Clinical Support [facility] Family Medicine [address] [place] [address] Loose stools (Primary Dx) Social History Tobacco Use Types Packs/Day Years [...] on file Legal Sex Female 10:40 AM PROCESS SAFETY MANAGER Gender Identity Female 03/03/2021 12:47 PM PROCESS SAFETY MANAGER Sexual Orientation Not on file 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, 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, 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, 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 file Not on file documented as of this encounter Ordered Prescriptions Prescription Sig Dispense Quantity Refills Last Filled Start Date End Date metroNIDAZOLE (FLAGYL) 500 mg tablet Take 1 tablet (500 mg total) by mouth 2 (two) times a day 20 tablet 08/17/2022 11/29/2022 documented in this encounter Miscellaneous Notes * Addendum Note - Annalee Haas NP - 08/09/2022 2:30 PM CDTAddended by: ANNALEE HAAS on: 08/17/2022 08:30 AM Modules accepted: Orders documented in this encounter Plan of Treatment Not on file documented as of this encounter Procedures Procedure Name Priority Date/Time Associated Diagnosis Comments C. DIFFICILE TESTING Routine 08/09/2022 2:24 PM CDT Loose stools STOOL CULTURE Routine 08/09/2022 2:24 PM CDT Loose stools documented in this encounter Results * C. difficile testing Stool (08/09/2022 2:24 PM CDT) C difficile Toxins/GDH w/refl to PCR [facility] Comment: ??CLOSTRIDIUM DIFFICILE TOXIN/GDH W/REFL TO PCR ?Micro Number: ?[id number] ??Test Status: ? Final ??Specimen Source: ?? Stool ??Specimen Quality: ??Adequate ??GDH Antigen: ? Not Detected ??Toxin A and B: ? Not Detected ??COMMENT: ? No toxigenic C. difficile detected ? For additional information, please refer to ? http://[email or web address].[email or web address] Map/faq/[email or web address] ? (This link is being provided for ? informational/educational purposes only.) Stool 08/09/2022 2:24 PM CDT 08/09/2022 11:38 PM CDT us Annalee Haas NP LAB MICROBIOLOGY - GENERAL OR DERABLES Final Result Performing Organization Address [facility] Co de Phone Number [facility] [address] [place] [address] * Stool culture Stool Rectum (08/09/2022 2:24 PM CDT) CAMPYLOBACTER [employer]. AG EIA [facility] Comment: ??CAMPYLOBACTER SPP. AG,EIA ?Micro Number: ?[id number] ??Test Status: ? Final ??Specimen Source: ?? Stool ??Specimen Quality: ??Adequate ??Campy Ag Result: ?? Not Detected ??Reference Range: ?? Not Detected ?? Ryder/Shig/Campy, culture and ShIg A toxin, eia w/rfl toE.coli, culture [facility] Comment: ??SHIGA TOXINS, EIA W/RFL TO E.COLI O157 CULTURE ?Micro Number: ?[id number] ??Test Status: ? Final ??Specimen Source: ?? Stool ??Specimen Quality: ??Adequate ??Shiga Toxin: ? Not Detected ??Reference Range: ?? Not Detected ?? CULTURE, SALMONELLA AND SHIGELLA [facility] Comment: ??SALMONELLA AND SHIGELLA, CULTURE ?Micro Number: ?[id number] ??Test Status: ? Final ??Specimen Source: ?? Stool ??Specimen Quality: ??Adequate ??Result: ?No Salmonella or Shigella isolated Stool (Rectum) 08/09/2022 2: 24 PM CDT 08/09/2022 11:38 PM CDT Annalee Haas OPERATIONS PROCESSOR LAB MICROBIOLOGY - GENERAL OR DERABLES Final Result Performing Organization Address [facility] Co de Phone Number [facility] [address] [place] [address] documented in this encounter Visit Diagnoses Diagnosis Loose stools- Primary Abnormal feces documented in this encounter Care Teams Old Coin Dealer Relationship Specialty Start Date End Date Annalee Haas, BERT [address] [address] [place] [address] PCP - General Internal Medicine 07/27/22 documented as of this encounter
--- OUTSIDE RECORDS SUMMARY | 2024-01-30 10:42 | XMS_ITS | Encounter Summary ---
Author Organization [facility] Healthcare Address [address] [place] [address] Care Team Providers Care Nurse Office Name Role Phone Claudia Haas STAGE RIGGER Primary Care Provider [phone] Encounter Details Date Type Department Care Team (Late st Contact Info) Description 06/01/2023 Telephone [facility] Medical Group Family Medicine [address] [place] [address] Claudia Haas NP [address] [place] [address] Social History Tobacco Use Types [...] on file Legal Sex Female 10:40 AM OVERHEAD CLEANER MAINTAINER Gender Identity Female 03/03/2021 12:47 PM OVERHEAD CLEANER MAINTAINER Sexual Orientation Not on file 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
--- OUTSIDE RECORDS SUMMARY | 2024-01-30 10:42 | XMS_ITS | Encounter Summary ---
Author Organization [facility] Healthcare Address [address] [place] [address] Care Team Providers Care Addiction Psychiatrist Name Role Phone Claudia Haas CORNCOB PIPE MANUFACTURING SUPERVISOR Primary Care Provider [phone] Reason for Visit * Reason Onset Date Comments Test Results 05/31/2023 Encounter Details Date Type Department Care Team (Late st Contact Info) Description 05/31/2023 Telephone [facility] Internal Medicine at [place] [address] [place] [address] Claudia Haas NP [address] [place] [address] Test Results Social History Tobacco Use Types Packs/Day [...] on file Legal Sex Female 10:40 AM BRICK KILN WORKER Gender Identity Female 03/03/2021 12:47 PM BRICK KILN WORKER Sexual Orientation Not on file 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 * Telephone Encounter - Samantha Zhang - 05/31/2023 4:08 PM CDT Call Back Caller???s Concern: Patient is calling stating that she is returning a call regarding results. CS relayed results and she is aware. She said she has not been contacted to schedule MRI and CS did not see order placed for MRI. Please follow up with patient for assistance Does message need to be routed? Yes-Action Needed documented in this encounter Plan of Treatment Not on file documented as of this encounter Visit Diagnoses Not on filedocumented in this encounter Care Teams Addiction Psychiatrist Relationship Specialty Start Date End Date Claudia Haas NP [address] [place] [address] PCP - General Internal Medicine 07/27/22 documented as of this encounter
--- OUTSIDE RECORDS SUMMARY | 2024-01-30 10:42 | XMS_ITS | Encounter Summary ---
Author Organization [facility] Healthcare Address [address] [place] [address] Care Team Providers Care Leadership Program Internship Name Role Phone Claudia Haas SHAKER WASHER Primary Care Provider [phone] Reason for Visit * Reason Comments Follow-up Here for follow up o n medications Encounter Details Date Type Department Care Team (Late st Contact Info) Description 12/27/2022 8:00 AM PHYSICIAN ASSISTANT PRIMARY CARE Office Visit [facility] Internal Medicine at [place] [address] [place] [phone] Claudia Haas NP [address] [place] [address] Mild episode of recurrent major depressive disorder (HCC) (Primary Dx); BMI 24.0-24.9, adult; Mixed hyperlipidemia; Chronic pain syndrome Social History Tobacco Use Types Packs/Day Years [...] points, staff should administer the PHQ-9) 1 12/27/2022 Comments Unknown Sex and Gender Information Value Date Recorded Sex Assigned at Not on file Legal Sex Female 10:40 AM PHYSICIAN ASSISTANT PRIMARY CARE Gender Identity Female 03/03/2021 12:47 PM PHYSICIAN ASSISTANT PRIMARY CARE Sexual Orientation Not on file 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 End Date 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[employer], 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, [employer]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 file Not on file documented as of this encounter Last Filed Vital Signs Vital Sign Reading Time Taken Comments Blood Pressure 122/80 12/27/2022 8:06 AM PHYSICIAN ASSISTANT PRIMARY CARE Pulse 78 12/27/2022 8:06 AM PHYSICIAN ASSISTANT PRIMARY CARE Temperature 36.7 ??C (98.1 ??F) 12/27/2022 8:06 AM CS T Respiratory Rate - - Oxygen Saturation 97% 12/27/2022 8:06 AM PHYSICIAN ASSISTANT PRIMARY CARE Inhaled Oxygen Concentration - - Weight 58.1 kg (128 lb) 12/27/2022 8:06 AM PHYSICIAN ASSISTANT PRIMARY CARE Height 154.9 cm (5' 1 ) 12/27/2022 8:06 AM PHYSICIAN ASSISTANT PRIMARY CARE Body Mass Index 24.19 12/27/2022 8:06 AM PHYSICIAN ASSISTANT PRIMARY CARE documented in this encounter Patient Instructions * Patient Instructions* Claudia Haas NP - 12/27/2022 8:00 AM PHYSICIAN ASSISTANT PRIMARY CARE Medications as directed. Follow-up in 3 months or sooner as needed. Contact the office with any questions or concerns ICIAN ASSISTANT PRIMARY CARE documented in this encounter Ordered Prescriptions Prescription Sig Dispense Quantity Refills Last Filled Start Date End Date ibuprofen (ADVIL,MOTRIN) 800 mg tabletIndications:Ch ronic pain syndrome Take 1 tablet (800 mg total) by mouth 3 (three) times a day as needed for pain (pain) 90 tablet 1 12/27/2022 4 pravastatin (PRAVACHOL) 10 mg tabletIndications:Mi xed hyperlipidemia Take 1 tablet (10 mg total) by mouth daily 90 tablet 12/27/2022 4 sertraline (ZOLOFT) 25 mg tabletIndications:de pression Take 1 tablet (25 mg total) by mouth daily 90 tablet 12/27/2022 4 documented in this encounter Progress Notes * Claudia Haas NP - 12/27/2022 8:00 AM CST Images from the original note were not included. Subjective/Objective Patient ID: Terri Briseno is a 72 y.o. female. Visit Date: 12/27/2022 Chief Complaint Follow-up (Here for follow up on medications) HPI 72-year-old female in for follow-up after starting Zoloft. She states her crying spells have decreased. She states that she is feeling much better. She would like to stay on her current dosage. She does need medication refills. She is pleasant as usual Review of Systems Constitutional: Negative for activity [...] normal weight. HENT: Head: Normocephalic and atraumatic. Eyes: Pupils: [...] Diagnoses and all orders for this visit: Mild episode of recurrent major depressive disorder (HCC) (F33.0) (Primary) Comments: Continue Zoloft 25 mg daily as directed. Follow-up in 3 months or sooner as needed Orders: - sertraline (ZOLOFT) 25 mg tablet; Take 1 tablet (25 mg total) by mouth daily BMI 24.0-24.9, adult (Z68.24) Comments: Maintain healthy and balanced diet Assessment & Plan: Weight/BMI is in healthy range. Continue healthy lifestyle to maintain. Mixed hyperlipidemia (E78.2) Comments: Continue pravastatin daily as directed Orders: - pravastatin (PRAVACHOL) 10 mg tablet; Take 1 tablet (10 mg total) by mouth daily Chronic pain syndrome (G89.4) Comments: Continue ibuprofen as needed with food Orders: - ibuprofen (ADVIL,MOTRIN) 800 mg tablet; Take 1 tablet (800 mg total) by mouth 3 (three) times a day as needed for pain (pain) Cosigned by Jose Corrales MD at 01/15/2023 4:56 PM PHYSICIAN ASSISTANT PRIMARY CARE ICIAN ASSISTANT PRIMARY CARE ICIAN ASSISTANT PRIMARY CARE documented in this encounter Miscellaneous Notes * Assessment & Plan Note - Karina Shukla MA - 12/27/2022 8:14 AM PHYSICIAN ASSISTANT PRIMARY CARE Associated Problem(s): BMI 24.0-24.9, adult (Resolved 03/31/2023) Weight/BMI is in healthy range. Continue healthy lifestyle to maintain. ICIAN ASSISTANT PRIMARY CARE documented in this encounter Plan of Treatment Not on file documented as of this encounter Visit Diagnoses Diagnosis Mild episode of recurrent major depressive disorder (HCC)- Primary BMI 24.0-24.9, adult Mixed hyperlipidemia Chronic pain syndrome documented in this encounter Discontinued Medications Medication Sig Discontinue Reason Start Date End Da te sertraline (ZOLOFT) 25 mg tabletIndications:depres sadaf Take 1 tablet (25 mg total) by mouth daily Reorder 11/29/2022 12/27/2022 ibuprofen (ADVIL,MOTRIN) 800 mg tabletIndications:Chroni c pain syndrome Take 1 tablet (800 mg total) by mouth 3 (three) times a day as needed for pain (pain) Reorder 07/22/2022 12/27/2022 pravastatin (PRAVACHOL) 10 mg tablet TAKE 1 TABLET(10 MG) BY MOUTH DAILY Reorder 08/17/2022 12/27/2022 documented as of this encounter Care Teams Leadership Program Internship Relationship Specialty Start Date End Date Claudia Haas NP [address] [place] [address] PCP - General Internal Medicine 07/27/22 documented as of this encounter
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
--- OUTSIDE RECORDS SUMMARY | 2024-01-30 10:42 | XMS_ITS | Encounter Summary ---
Author Organization [facility] Address [address] [place] [address] Care Team Providers Care Burring Machine Operator Name Role Phone Claudia Haas EMAIL SPECIALIST Primary Care Provider [phone] Encounter Details Date Type Department Care Team (Late st Contact Info) Description 08/17/2022 Orders Only [facility] Family Medicine [address] [place] [address] Claudia Haas, EMAIL SPECIALIST [address] [place] [address] Diarrhea, unspecified type (Primary Dx) Social History Tobacco Use Types [...] on file Legal Sex Female 10:40 AM WHITEWASHER Gender Identity Female 03/03/2021 12:47 PM WHITEWASHER Sexual Orientation Not on file 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, 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, 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, [employer]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
--- OUTSIDE RECORDS SUMMARY | 2024-01-30 10:42 | XMS_ITS | Encounter Summary ---
Author Organization [facility] Healthcare Address [address] [place] [address] Care Team Providers Care Community Service Specialist Name Role Phone Claudia Haas NP Primary Care Provider [phone] Reason for Referral * MRI/CAT/PET Scan (Routine) - Closed Specialty Diagnoses / Procedures Referred By Contac t Referred To Contact Radiology Diagnoses Abnormal mammogram of both breasts Procedures MRI Breast Bilateral WO Contrast Claudia Haas NP [address] [address] Phone: tel: fax: [address] [address] Referral ID Status Reason Start Date Expiration Date Visits Re quested Visits Authorized [id number] Closed 06/01/2023 06/30/2024 1 1 Encounter Details Date Type Department Care Team (Late st Contact Info) Description 06/01/2023 Orders Only [facility] Family Medicine [address] [place] [address] Claudia Haas NP [address] [facility] [address] [place] [address] Abnormal mammogram of both breasts (Primary Dx) Social History Tobacco Use Types [...] on file Legal Sex Female 10:40 AM METAL FORGER'S ASSISTANT Gender Identity Female 03/03/2021 12:47 PM METAL FORGER'S ASSISTANT Sexual Orientation Not on file 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 End Date retired - [employer], [employer], [employer], [employer]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 file Not on file documented as of this encounter Plan of Treatment Not on file documented as of this encounter Results * MRI Breast Bilateral [...] AM T: ??08/15/2023 10:05 AM Report ID: [id number] Reading Location: ??MAMMMHE Procedure Note Homero Armstrong [...] by Homero Armstrong M.D. MD: Report ID: [id number] Reading Location: [facility] Claudia Haas TAX COMPLIANCE OFFICER IMG MRI PROCEDURES Final Resu lt documented in this encounter Visit Diagnoses Diagnosis Abnormal mammogram of both breasts- Primary Abnormal mammogram of both breasts documented in this encounter Care Teams Community Service Specialist Relationship Specialty Start Date End Date Claudia Haas, TAX COMPLIANCE OFFICER [address] [facility] [address] [place] [address] PCP - General Internal Medicine 07/27/22 documented as of this encounter
--- OUTSIDE RECORDS SUMMARY | 2024-01-30 10:42 | XMS_ITS | Encounter Summary ---
Author Organization [facility] Healthcare Address [address] [place] [address] Care Team Providers Care Dryland Farmer Name Role Phone Claudia Haas NP Primary Care Provider [phone] Reason for Visit * Diagnostic Imaging (Routine) - Pending Review Specialty Diagnoses / Procedures Referred By Jakob lau Referred To Contact Diagnoses Screening mammogram, encounter for Procedures Screening Mammogram Bilateral W Liban W Implants Screening Mammogram Bilateral W Liban W Implants Claudia Haas AUTOMATION OPERATOR [address] [place] [address] Phone: tel: fax: [address] [address] Referral ID Status Reason Start Date Expiration Date V isits Requested Visits Authorized [id number] Pending Review 05/03/2023 06/01/2024 1 1 Encounter Details Date Type Department Care Team (Latest Contact Info) Description 05/18/2023 12:22 PM CDT - 05/18/2023 11:59 PM CDT Hospital Encounter [facility] Breast Imaging [address] [place] [id number] Screening mammogram, encounter for Discharge Disposition: Discharge to home or self [...] you are drinking? Patient does not drink 3 Q3: How often do you have si x or more drinks on one occasion? 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 file [...] capsule Take 1 tablet by mouth daily cetirizine (ZyrTEC) 10 mg tabletIndications:S easonal allergies Take 1 tablet (10 mg total) by mouth daily as needed for allergies 90 tablet 05/08/2023 5 EPINEPHrine 0.3 mg/0.3 mL auto-injection syringe INJECT 1 PEN IN THE MUSCLE ONE TIME DIRECTED 07/04/2022 olopatadine (PATANOL) 0.1 % ophthalmic solution every 12 hours 05/26/2022 vit C,P-Yi-yesaj-lutein -zeaxan (PreserVision AREDS-2) 250-90-40-1 mg capsule 01/14/2020 amLODIPine (NORVASC) 10 mg tablet TAKE 1 TABLET(10 MG) BY MOUTH DAILY 90 tablet 1 11/17/2022 4 buPROPion XL (WELLBUTRIN XL) 300 mg 24 hr tablet TAKE 1 TABLET(300 MG) BY MOUTH EVERY MORNING 90 tablet 1 01/13/2023 4 dicyclomine (BENTYL) 20 mg tabletIndications:D iarrhea, [...] (four) times a day 120 capsule 3 08/20/2022 4 gabapentin (NEURONTIN) 300 mg capsuleIndications: Chronic pain syndrome Take 1 capsule (300 mg total) by mouth 4 (four) times a day 360 capsule 1 04/24/2023 4 ibuprofen (ADVIL,MOTRIN) 800 mg tabletIndications:C hronic [...] total) by mouth nightly 90 tablet 1 01/23/2023 4 montelukast (SINGULAIR) 10 mg tablet Take 1 tablet (10 mg total) by mouth nightly 90 tablet 4 05/12/2023 4 omeprazole (PriLOSEC) 20 mg capsuleIndications: Gastroesophageal reflux disease, unspecified whether esophagitis present Take 1 capsule (20 mg total) by mouth daily 90 capsule 1 03/13/2023 4 pravastatin (PRAVACHOL) 10 mg tabletIndications:M ixed hyperlipidemia Take 1 tablet (10 mg total) by mouth daily 90 tablet 04/24/2023 4 sertraline (ZOLOFT) 25 mg tabletIndications:d epression Take 1 tablet (25 mg total) by mouth daily 90 tablet 04/28/2023 4 documented as of this encounter Discharge Disposition Disposition Code Departure Means Destination Discharge to home or self care documented in this encounter Plan of Treatment Not on file documented as of this encounter Procedures Procedure Name Priority Date/Time Associated Diagnosis Comments SCREENING MAMMOGRAM BILATERAL W LIBAN W IMPLANTS Schedule Routine, Read Routine (OP Routine) 05/18/2023 12:47 PM CDT Screening mammogram, encounter for documented in this encounter Results * Screening Mammogram Bilateral W Liban [...] age 42, based on guidelines of the [place] [employer] (ACR Practice Parameter for the Performance of Screening and Diagnostic Mammography) and [place] [employer] of Obstetricians and Gynecologists. For women [...] either breast on mammogram. Claudia Haas NP IMG MAMMO PROCEDURES Edited R esult - Final documented in this encounter Visit Diagnoses Diagnosis Screening mammogram, encounter for documented in this encounter Care Teams Dryland Farmer Relationship Specialty Start Date End Date Claudia Haas, BERT [address] [facility] [address] [place] [address] PCP - General Internal Medicine 07/27/22 documented as of this encounter
--- OUTSIDE RECORDS SUMMARY | 2024-01-30 10:42 | XMS_ITS | Encounter Summary ---
Author Organization [facility] Healthcare Address [address] [place] [address] Care Team Providers Care Digital Designer Name Role Phone Claudia Haas NP Primary Care Provider [phone] Reason for Visit * Procedure (Routine) - Closed Specialty Diagnoses / Procedures Referred By Contac t Referred To Contact Diagnoses SOB (shortness of breath) Procedures Pulmonary Function Test -[facility]; Full PFT in PFT Lab w/Stress Ox/6 Min Walk Test Luis Hernandez MD [address] [facility] [address] [address] Phone: tel: fax: Referral ID Status Reason Start Date Expiration Date Visits Re quested Visits Authorized [id number] Closed 05/18/2022 06/17/2023 1 1 Encounter Details Date Type Department Care Team (Latest Contact Info) Description 07/25/2022 12:46 PM CDT - 07/25/2022 11:59 PM CDT Hospital Encounter [facility] Respiratory [address] [place] [address] Discharge Disposition: Discharge to home or self [...] on file Legal Sex Female 10:40 AM CRITICAL CARE TRANSPORT NURSE Gender Identity Female 03/03/2021 12:47 PM CRITICAL CARE TRANSPORT NURSE Sexual Orientation Not on file 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 End Date retired - [employer], [employer], [employer]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 file [...] capsule Take 1 tablet by mouth daily EPINEPHrine 0.3 mg/0.3 mL auto-injection syringe INJECT 1 PEN IN THE MUSCLE ONE TIME DIRECTED 07/04/2022 olopatadine (PATANOL) 0.1 % ophthalmic solution every 12 hours 05/26/2022 vit C,A-Bt-zrspf-lutein -zeaxan (PreserVision AREDS-2) 250-90-40-1 mg capsule 01/14/2020 alendronate (FOSAMAX) 70 mg tabletIndications:O steoporosis, unspecified osteoporosis type, unspecified pathological fracture presence Take 1 tablet (70 mg total) by mouth every 7 days Take in the morning with a full glass of water, on an empty stomach, and do not take anything else by mouth or lie down for the next 30 min. 12 tablet 1 05/25/2022 3 amLODIPine (NORVASC) 10 mg tablet Take 1 tablet (10 mg total) by mouth daily 90 tablet 1 01/04/2022 3 amoxicillin 500 mg capsule TAKE ONE CAPSULE BY MOUTH THREE TIMES DAILY UNTIL ALL TAKEN 07/21/2022 3 buPROPion XL (WELLBUTRIN XL) 300 mg 24 hr tablet Take 1 tablet (300 mg total) by mouth every morning 90 tablet 1 07/08/2022 3 cetirizine (ZyrTEC) 10 mg tabletIndications:S easonal allergies Take 1 tablet (10 mg total) by mouth daily as needed for allergies 90 tablet 06/27/2022 3 fluconazole (DIFLUCAN) 150 mg tabletIndications:Y east infection Take 1 tablet (150 mg total) by mouth as directed Take one tab now. Repeat in 7 days if symptoms persist. 2 tablet 03/04/2022 3 fluticasone-umeclid in-vilanter (Trelegy Ellipta) 100-62.5-25 mcg inhaler 05/26/2022 3 gabapentin (NEURONTIN) 300 mg capsuleIndications: Chronic pain syndrome Take 1 capsule (300 mg total) by mouth 4 (four) times a day 120 capsule 3 06/27/2022 3 ibuprofen (ADVIL,MOTRIN) 800 mg tabletIndications:C hronic pain syndrome Take 1 tablet (800 mg total) by mouth 3 (three) times a day as needed for pain (pain) 90 tablet 07/22/2022 3 irbesartan (AVAPRO) 300 mg tabletIndications:E ssential hypertension Take 1 tablet (300 mg total) by mouth daily 90 tablet 07/08/2022 3 montelukast (SINGULAIR) 10 mg tabletIndications:S easonal allergies Take 1 tablet (10 mg total) by mouth nightly 90 tablet 1 06/28/2022 3 omeprazole (PriLOSEC) 20 mg capsule TAKE 1 CAPSULE(20 MG) BY MOUTH DAILY 90 capsule 1 07/08/2022 3 pravastatin (PRAVACHOL) 10 mg tablet Take 1 tablet (10 mg total) by mouth daily 30 tablet 3 04/08/2022 3 umeclidinium-vilant Evangelist (Anoro Ellipta) 62.5-25 mcg/actuation blister with device daily 07/28 3 documented as of this encounter Discharge Disposition Disposition Code Departure Means Destination Discharge to home or self care documented in this encounter Progress Notes * Hetal Holden RRT - 07/25/2022 2:28 PM CDT Six minute walk test SPO2 = 97-99%. Not a fall risk. No O2 required. Walked 1040 feet and c/o very mild sob. 07/25/22 1315 Resting Information Resting HR. 71 bpm Resting SPO2 99 % Oxygen Setting room air Ambulation Trials to Assess Desaturation to 88% Activity 1: Ambulated (feet) 1040 feet Oxygen Setting #1 room air SPO2 (%) #1 97 % Post Ambulation Assessment HR Post Assessment 89 bpm RR Post Assessment 14 breaths/m Post Assessment Recommendation No O2 required $ Home O2 Assessment Yes documented in this encounter Plan of Treatment Not on file documented as of this encounter Procedures Procedure Name Priority Date/Time Associated Diagnosis Comments PULMONARY FUNCTION TEST (PFT) Routine 07/25/2022 2:30 PM CDT SOB (shortness of breath) documented in this encounter Results * (ABNORMAL) Pulmonary Function Test -[facility]; Full PFT in PFT Lab w/Stress Ox/6Min Walk Test (07/25/2022 2:30 PM CDT) FVC POST 3.33 2.08 - 3.63 L 07/25/2022 2:25 PM CDT [facility] FVC PRE 3.38 2.08 - 3.63 L 07/25/2022 2:25 PM CDT [facility] FEV1 POST 1.85 1.61 - 2.82 L 07/25/2022 2:25 PM CDT [facility] FEV1 PRE 1.84 1.61 - 2.82 L 07/25/2022 2:25 PM CDT [facility] [id number] 55.63(L) 64.77 - 91.38 % 07/25/2022 2:25 PM CDT [facility] [id number] 54.35(L) 64.77 - 91.38 % 07/25/2022 2:25 PM CDT [facility] KXE50-96% POST 0.57(L) 0.86 - 2.87 L/s 07/25/2022 2:25 PM CDT [facility] YII26-66% PRE 0.56(L) 0.86 - 2.87 L/s 07/25/2022 2:25 PM CDT [facility] PEF POST 5.97 4.27 - 7.24 L/s 07/25/2022 2:25 PM CDT [facility] PEF PRE 6.50 4.27 - 7.24 L/s 07/25/2022 2:25 PM CDT [facility] FET 100% POST 12.70 sec 07/25/2022 2:25 PM CDT [facility] FET 100% PRE 10.37 sec 07/25/2022 2:25 PM CDT [facility] FIVC POST 2.95 1.94 - 3.33 L 07/25/2022 2:25 PM CDT [facility] FIVC PRE 3.08 1.94 - 3.33 L 07/25/2022 2:25 PM CDT [facility] FIF50% POST 5.05 L/s 07/25/2022 2:25 PM CDT [facility] FIF50% PRE 5.16 L/s 07/25/2022 2:25 PM CDT [facility] VC PRE 3.38(H) 1.94 - 3.33 L 07/25/2022 2:25 PM CDT [facility] TLC PRE 6.88(H) 3.98 - 5.96 L 07/25/2022 2:25 PM CDT [facility] RV PRE 3.49(H) 1.49 - 2.65 L 07/25/2022 2:25 PM CDT [facility] FRC PL PRE 4.38 L 07/25/2022 2:25 PM CDT [facility] ERV PRE 0.89(H) 0.65 - 0.65 L 07/25/2022 2:25 PM CDT [facility] IC PRE 2.21(H) 1.98 - 1.98 L 07/25/2022 2:25 PM CDT [facility] RAW PRE 3.33(H) 3.06 - 3.06 cmH2O*s/L 07/25/2022 2:25 PM CDT [facility] BF RES 25.06 BPM 07/25/2022 2:25 PM CDT [facility] VTG RAW 4.67 L 07/25/2022 2:25 PM CDT [facility] VTG 4.67 L 07/25/2022 2:25 PM CDT [facility] DLCOc SB 14.04(L) 15.66 - 27.12 ml/(min*mm Hg) 07/25/2022 2:25 PM CDT [facility] DLCOc SB 14.04(L) 15.66 - 27.12 ml/(min*mm Hg) 07/25/2022 2:25 PM CDT [facility] VA 4.66(L) 4.82 - 4.82 L 07/25/2022 2:25 PM CDT [facility] DLCO/VA PRE 3.02 2.87 - 5.74 ml/(min*mm Hg*L) 07/25/2022 2:25 PM CDT [facility] DLCOc SB 3.02 2.87 - 5.74 ml/(min*mm Hg*L) 07/25/2022 2:25 PM CDT [facility] Anatomical Region Laterality Modality PFT 07/25/2022 12:5 8 PM CDT us Luis Hernandez MD PFT ORDERABLES Edited Re sult - Final documented in this encounter Visit Diagnoses Not on filedocumented in this encounter Care Teams Digital Designer Relationship Specialty Start Date End Date Claudia Haas NP PCP - General Internal Medicine 11/30/21 07/26/22 documented as of this encounter
--- OUTSIDE RECORDS SUMMARY | 2024-01-30 10:42 | XMS_ITS | Encounter Summary ---
Author Organization [facility] Medical Group Address [address] [place] [address] [address] [place] [address] Care Team Providers Care Automotive Design Layout Drafter Name Role Phone Claudia Haas NP Primary Care Provider [phone] Reason for Visit * Reason Onset Date Comments Chart Review 08/18/2022 Med adherence Encounter Details Date Type Department Care Team (Late st Contact Info) Description 08/18/2022 Telephone [facility] Accountable Care Organization [address] [place] [address] Lalita Dumont MA [address] [place] [address] Chart Review (Med adherence) Social History Tobacco [...] on file Legal Sex Female 10:40 AM POSTING CLERK Gender Identity Female 03/03/2021 12:47 PM POSTING CLERK Sexual Orientation Not on file 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 According to this report, Pravastatin was last refilled on 07-19-22 for a 30 day supply. Current prescription fill rate: Pravastatin: 90% Filled 08-17 documented in this encounter Plan of Treatment Not on file documented as of this encounter Visit Diagnoses Not on filedocumented in this encounter Care Teams Automotive Design Layout Drafter Relationship Specialty Start Date End Date Claudia Haas NP [address] [address] PCP - General Internal Medicine 07/27/22 documented as of this encounter
--- OUTSIDE RECORDS SUMMARY | 2024-01-30 10:42 | XMS_ITS | Encounter Summary ---
Author Organization [facility] Address [address] [facility] [address] [place] [address] Care Team Providers Care Cupola Charger Insulation Name Role Phone Claudia Haas NP Primary Care Provider [phone] Reason for Visit * Reason Comments Follow-up Encounter Details Date Type Department Care Team (Late st Contact Info) Description 06/29/2022 10:30 AM CDT Office [address] [facility] Pulmonology [address] 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 file Not on file documented as of this encounter Last Filed Vital Signs Vital Sign Reading Time Taken Comments Blood Pressure 152/89 06/29/2022 10:01 AM CDT Pulse 63 06/29/2022 10:01 AM CDT Temperature - - Respiratory Rate 18 06/29/2022 10:01 AM CDT Oxygen Saturation 97% 06/29/2022 10:01 AM CDT Inhaled Oxygen Concentration - - Weight 56.2 kg (124 lb) 06/29/2022 10:01 AM CDT Height 154.9 cm (5' 1 ) 06/29/2022 10:01 AM CDT Body Mass Index 23.43 06/29/2022 10:01 AM CDT documented in this encounter Progress Notes * Gena Lee NP - 06/29/2022 10:30 AM CDT Images from the original note were not included. Patient ID: Terri Briseno is a 72 y.o. female. HPI. Patient is a 72 y.o. female returns for a follow-up of hypersomnia and history of pneumonia. The patient did complete her chest x-ray. The results are below and were shared with the patient. Thepatient states that her high speed operator to give her Trelegy two. The patient states that her breathing isbetter with the Trelegy and she is not needing the albuterol. The patient denies cough or wheezing.The patient states occasionally she will feel short of breath. Chief Complaint Patient presents with Follow-up Current Medications: Outpatient Encounter Medications as of 06/29/2022 Medication Sig Dispense Refill albuterol HFA (PROVENTIL [...] tablet 1 amLODIPine (NORVASC) 10 mg tablet Take 1 tablet (10 mg total) by mouth daily 90 tablet 1 azelastine (OPTIVAR) 0.05 % ophthalmic solution Administer 1 drop into both eyes 2 (two) times a day 6 mL 3 biotin 10,000 mcg capsule Take 1 tablet by mouth daily buPROPion XL (WELLBUTRIN XL) 300 mg 24 hr tablet Take 1 tablet (300 mg total) by mouth every morning 90 tablet 4 cetirizine (ZyrTEC) 10 mg tablet Take 1 tablet (10 mg total) by mouth daily as needed for sropkyjrm55 tablet 0 fluconazole (DIFLUCAN) 150 mg tablet Take 1 tablet (150 mg total) by mouth as directed Take one tabnow. Repeat in 7 days if symptoms persist. 2 tablet 0 xppwiapznfe-gyfhobwwk-rfnpzdhp (Trelegy Ellipta) 100-62.5-25 mcg inhaler gabapentin (NEURONTIN) 300 mg capsule Take 1 capsule (300 mg total) by mouth 4 (four) times a day 120 capsule 3 ibuprofen (ADVIL,MOTRIN) 800 mg tablet Take 1 tablet (800 mg total) by mouth 3 (three) times a day as needed for pain (pain) 90 tablet 1 irbesartan (AVAPRO) 300 mg tablet TAKE 1 TABLET(300 MG) BY MOUTH DAILY 90 tablet 0 montelukast (SINGULAIR) 10 mg tablet Take 1 tablet (10 mg total) by mouth nightly 90 tablet 1 olopatadine (PATANOL) 0.1 % ophthalmic solution every 12 hours vit C,B-Iy-hjcqq-lutein-zeaxan (PreserVision AREDS-2) 250-90-40-1 mg capsule pravastatin (PRAVACHOL) 10 mg tablet Take 1 tablet (10 mg total) by mouth daily 30 tablet 3 umeclidinium-vilanteroL (Anoro Ellipta) 62.5-25 mcg/actuation blister with device daily No facility-administered encounter medications on file as of 06/29/2022. Review of Systems Constitutional: Negative for fever. HENT: Negative for tinnitus. Eyes: Negative for visual disturbance. Respiratory: Negative for cough, shortness of breath and wheezing. Cardiovascular: Negative for chest pain. Gastrointestinal: Negative for diarrhea, nausea and vomiting. Skin: Negative for rash. Neurological: Negative for dizziness. BP 152/89 (BP Location: Left arm, Patient Position: Sitting) Pulse 63 Resp 18 Ht 154.9 cm (5'1 ) Wt 56.2 kg (124 lb) SpO2 97% BMI 23.43 kg/m?? Physical Exam Constitutional: General: She is not in acute distress. HENT: Mouth/Throat: Pharynx: No oropharyngeal exudate. Eyes: Pupils: Pupils are equal, round, and reactive to light. Cardiovascular: Rate and Rhythm: Normal rate and regular rhythm. Pulmonary: Effort: Pulmonary effort is normal. Breath sounds: Normal breath sounds. No wheezing. Abdominal: Palpations: Abdomen is soft. Musculoskeletal: Cervical back: Normal range of motion. Imagin05/30/22 CXR IMPRESSION: No active cardiopulmonary disease. Assessment & Plan: Diagnoses and all orders for this visit: Pneumonia of right lower lobe due to infectious organism (Primary) Assessment & Plan: The patient chest x-ray was clear. Hypersomnia Assessment & Plan: The patient is scheduled for sleeps study on July 14. SOB (shortness of breath) Assessment & Plan: The patient is scheduled for pulmonary function test in July. Return in about 4 weeks (around 07/27/2022). Gena Lee NP Cosigned by Luis Hernandez MD at 06/29/2022 11:25 AM CDT documented in this encounter Miscellaneous Notes * Assessment & Plan Note - Gena Lee NP - 06/29/2022 10:24 AM CDT Associated Problem(s): Hypersomnia The patient is scheduled for sleeps study on July 14. * Assessment & Plan Note - Gena Lee NP - 06/29/2022 10:24 AM CDT Associated Problem(s): SOB (shortness of breath) The patient is scheduled for pulmonary function test in July. * Assessment & Plan Note - Gena Lee NP - 06/29/2022 10:23 AM CDT Associated Problem(s): Pneumonia of right lower lobe due to infectious organism The patient chest x-ray was clear. documented in this encounter Plan of Treatment Not on file documented as of this encounter Visit Diagnoses Diagnosis Pneumonia of right lower lobe due to infectious organism- Primary Hypersomnia Hypersomnia, unspecified SOB (shortness of breath) Shortness of breath documented in this encounter Historical Medications * This list may reflect changes made after this encounter. olopatadine (PATANOL) 0.1 % ophthalmic solution every 12 hours 05/26/2022 umeclidinium-ash nteroL (Anoro Ellipta) 62.5-25 mcg/actuation blister with device daily 07/28/2022 fluticasone-umecl idin-vilanter (Trelegy Ellipta) 100-62.5-25 mcg inhaler 05/26/2022 09/19/2022 added in this encounter Care Teams Cupola Charger Insulation Relationship Specialty Start Date End Date Claudia Haas NP PCP - General Internal Medicine 11/30/21 07/26/22 documented as of this encounter
--- OUTSIDE RECORDS SUMMARY | 2024-01-30 10:42 | XMS_ITS | Encounter Summary ---
Author Organization [facility] Medical Group Address [address] [place] [address] Care Team Providers Care Filing Writer Name Role Phone Claudia Haas NP Primary Care Provider Encounter Details Date Type Department Care Team (Late st Contact Info) Description 08/15/2022 Telephone [facility] Internal Medicine at [place] [address] [place] [address] Karina Shukla MA Social History Tobacco Use Types Packs/Day Years [...] on file Legal Sex Female 10:40 AM HYDROSTATIC TESTER Gender Identity Female 03/03/2021 12:47 PM HYDROSTATIC TESTER Sexual Orientation Not on file 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
--- OUTSIDE RECORDS SUMMARY | 2024-01-30 10:42 | XMS_ITS | Encounter Summary ---
Author Organization [facility] Healthcare Address [address] [place] [address] Care Team Providers Care Machinist Instructor Name Role Phone Claudia Haas SURVEY RESEARCHER Primary Care Provider [phone] Reason for Visit * Reason Comments Follow-up 3mo follow up on med ication Encounter Details Date Type Department Care Team (Late st Contact Info) Description 03/31/2023 8:30 AM ICU SPECIALIST Office Visit [facility] Internal Medicine at [place] [address] [place] [address] Claudia Haas NP [address] [place] [address] Annual physical exam (Primary Dx); Mild episode of recurrent major depressive disorder (HCC); BMI 25.0-25.9,adult; Mixed hyperlipidemia; Essential hypertension; Screening for thyroid disorder Social [...] points, staff should administer the PHQ-9) 0 03/31/2023 Comments Unknown Sex and Gender Information Value Date Recorded Sex Assigned at Not on file Legal Sex Female 10:40 AM ICU SPECIALIST Gender Identity Female 03/03/2021 12:47 PM ICU SPECIALIST Sexual Orientation Not on file 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 End Date 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[employer], [employer], 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, 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 file Not on file documented as of this encounter Last Filed Vital Signs Vital Sign Reading Time Taken Comments Blood Pressure 122/80 03/31/2023 8:40 AM ICU SPECIALIST Pulse 70 03/31/2023 8:40 AM ICU SPECIALIST Temperature 36.4 ??C (97.6 ??F) 03/31/2023 8:40 AM CS T Respiratory Rate - - Oxygen Saturation 97% 03/31/2023 8:40 AM ICU SPECIALIST Inhaled Oxygen Concentration - - Weight 61.2 kg (135 lb) 03/31/2023 8:40 AM ICU SPECIALIST Height 154.9 cm (5' 1 ) 03/31/2023 8:40 AM ICU SPECIALIST Body Mass Index 25.51 03/31/2023 8:40 AM ICU SPECIALIST documented in this encounter Patient Instructions * Patient Instructions* Claudia Haas NP - 03/31/2023 8:30 AM ICU SPECIALIST [employer] annual Medicare physical completed today. Have lab work completed prior to next visit. Follow-up in 6 months or sooner as needed. Contact the office with any questions or concerns SPECIALIST documented in this encounter Progress Notes * Claudia Haas NP - 03/31/2023 8:30 AM CST Images from the original note were not included. Subjective/Objective Patient ID: Terri Briseno is a 73 y.o. female. Visit Date: 03/31/2023 Chief Complaint Follow-up (3mo follow up on medication) HPI 73-year-old female in for [employer] annual physical. She states she is feeling well. She continues to work out at the gym 6-7 days per week. Blood pressure well controlled at 122/80. She is due for lab work at her next visit. She is pleasant as usual Review of [...] Diagnoses and all orders for this visit: Annual physical exam (Z00.00) (Primary) Comments: [facility] annual physical completed today. Follow-up in 6 months or sooner as needed with lab work completed Mild episode of recurrent major depressive disorder (HCC) (F33.0) Comments: Continue medications as directed. Your depression is well controlled BMI 25.0-25.9,adult (Z68.25) Comments: Maintain healthy and balanced diet Mixed hyperlipidemia (E78.2) Comments: Have lab work completed prior to next visit Orders: - Lipid panel; Future Essential hypertension (I10) Comments: Blood pressure well controlled at 122/80. Have lab work completed prior to next visit Orders: - Comprehensive metabolic panel; Future Screening for thyroid disorder (Z13.29) Comments: Have lab work completed prior to next visit Orders: - TSH; Future SPECIALIST documented in this encounter Plan of Treatment Not on file documented as of this encounter Procedures Procedure Name Priority Date/Time Associated Diagnosis Comments TSH Routine 04/28/2023 9:37 AM CDT Screening for thyroid disorder LIPID PANEL Routine 04/28/2023 9:37 AM CDT Mixed hyperlipidemia COMPREHENSIVE METABOLIC PANEL Routine 04/28/2023 9:37 AM CDT Essential hypertension documented in this encounter Results * TSH (04/28/2023 9:37 AM CDT) Pathologist [facility] TSH 1.65 0.40 - 4.50 mIU/L [facility] Blood 04/28/2023 9:37 AM CDT 04/28/2023 9:37 AM CDT Narrative [facility] - 04/28/2023 8:43 PM CDT FASTING:YES FASTING: YES us Claudia Haas NP LAB BLOOD ORDERABLES Final Re sult [facility] [address] [place] [address] * (ABNORMAL) Lipid panel (04/28/2023 9:37 AM CDT) Pathologist [facility] Cholesterol 231(H) <200 mg/dL [facility] HDL 107 > OR = 50 mg/dL [facility] Triglycerides 42 <150 mg/dL [facility] LDL 112(H) mg/dL (calc) [facility] Comment: Reference range: <100 Desirable range <100 mg/dL for primary prevention; ?? <70 mg/dL for patients with CHD or diabetic patients with > or = 2 CHD risk factors. LDL-C is now calculated using the Dario calculation, which is a validated novel method providing better accuracy than the Friedewald equation in the estimation of LDL-C. Leonel SS et al. JUSTIN. 2013;310(19): 7977-4983 (http://education.[employer]/faq/SND748) Chol/HDL ratio 2.2 <5.0 (calc) [facility] Non-HDL, (LDL+VLDL) 124 <130 mg/dL (calc) [facility] Comment: For patients with diabetes plus 1 major ASCVD risk factor, treating to a non-HDL-C goal of <100 mg/dL (LDL-C of <70 mg/dL) is considered a therapeutic option. Blood 04/28/2023 9:37 AM CDT 04/28/2023 9:37 AM CDT Narrative [facility] - 04/28/2023 8:43 PM CDT FASTING:YES FASTING: YES us Claudia Haas SURVEY RESEARCHER LAB BLOOD ORDERABLES Final Re sult [facility] [address] [place] [address] * (ABNORMAL) Comprehensive metabolic panel (04/28/2023 9:37 AM CDT) Pathologist [facility] Glucose 97 65 - 99 mg/dL [facility] Comment: ? Fasting reference interval BUN 19 7 - 25 mg/dL [facility] Creatinine 0.96 0.60 - 1.00 mg/dL [facility] eGFR 63 > OR = 60 mL/min/1.7 3m2 [facility] BUN/creat ratio SEE NOTE: 6 - 22 (calc) [facility] Comment: ?? Not Reported: BUN and Creatinine are within ?? reference range. ? Sodium 136 135 - 146 mmol/L [facility] Potassium, pl 4.1 3.5 - 5.3 mmol/L [facility] Chloride 102 98 - 110 mmol/L [facility] CO2 27 20 - 32 mmol/L [facility] Calcium 8.9 8.6 - 10.4 mg/dL [facility] Protein, sr 6.5 6.1 - 8.1 g/dL [facility] Albumin 4.3 3.6 - 5.1 g/dL [facility] GLOBULIN 2.2 1.9 - 3.7 g/dL (calc) [facility] Alb/glob ratio 2.0 1.0 - 2.5 (calc) [facility] Bilirubin, total 0.5 0.2 - 1.2 mg/dL [facility] Alk phos 31(L) 37 - 153 U/L [facility] AST 17 10 - 35 U/L [facility] ALT (SGPT) 12 6 - 29 U/L [facility] Blood 04/28/2023 9:37 AM CDT 04/28/2023 9:37 AM CDT Narrative [facility] - 04/28/2023 8:43 PM CDT FASTING:YES FASTING: YES Claudia Haas NP LAB BLOOD ORDERABLES Final Re sult [facility] [address] [place] [address] documented in this encounter Visit Diagnoses Diagnosis Annual physical exam- Primary Routine general medical examination at a health care facility Mild episode of recurrent major depressive disorder (HCC) BMI 25.0-25.9,adult Mixed hyperlipidemia Essential hypertension Unspecified essential hypertension Screening for thyroid disorder documented in this encounter Discontinued Medications Medication Sig Discontinue Reason Start Date End Da te alendronate (FOSAMAX) 70 mg tabletIndications:Osteop orosis, unspecified osteoporosis type, unspecified pathological fracture presence Take 1 tablet (70 mg total) by mouth every 7 days Take in the morning with a full glass of water, on an empty stomach, and do not take anything else by mouth or lie down for the next 30 min. Other 08/17/2022 03/31/2023 documented as of this encounter Care Teams Machinist Instructor Relationship Specialty Start Date End Date Claudia Haas NP [address] [facility] [address] [place] [address] PCP - General Internal Medicine 07/27/22 documented as of this encounter
--- OUTSIDE RECORDS SUMMARY | 2024-01-30 10:42 | XMS_ITS | Encounter Summary ---
Author Organization [facility] Medical Group Address [address] [place] [address] Care Team Providers Care Coagulation Operator Name Role Phone Claudia Haas NP Primary Care Provider [phone] Encounter Details Date Type Department Care Team (Late st Contact Info) Description 09/19/2022 Orders Only [facility] Health Information Management [address] [place] [address] Denny Lopez MD [address] [facility] [address] [address] Social History Tobacco Use Types Packs/Day Years [...] on file Legal Sex Female 10:40 AM CONCRETE MIXER Gender Identity Female 03/03/2021 12:47 PM CONCRETE MIXER Sexual Orientation Not on file 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, 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, 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, [employer]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 file Not on file documented as of this encounter Plan of Treatment Not on file documented as of this encounter Procedures Procedure Name Priority Date/Time Associated Diagnosis Comments GI - RESULT 09/19/2022 documented in this encounter Results * GI - RESULT (09/19/2022) Anatomical Region Laterality Modality Other us Denny Lopez MD Final Result documented in this encounter Visit Diagnoses Not on filedocumented in this encounter Care Teams Coagulation Operator Relationship Specialty Start Date End Date Claudia Haas NP [address] [facility] [place] [address] PCP - General Internal Medicine 07/27/22 documented as of this encounter
--- OUTSIDE RECORDS SUMMARY | 2024-01-30 10:42 | XMS_ITS | Encounter Summary ---
Author Organization [facility] Medical Group Address [address] [place] [address] Care Team Providers Care Decision Analyst Name Role Phone Claudia Haas NP Primary Care Provider [phone] Encounter Details Date Type Department Care Team (Late st Contact Info) Description 08/31/2022 Orders Only [facility] Medical [facility] Internal Medicine at [place] [address] [place] [address] Provider, MD Shivam [address] [place], [place] [id number] Social History Tobacco Use Types Packs/Day Years [...] on file Legal Sex Female 10:40 AM CUTTER TENDER Gender Identity Female 03/03/2021 12:47 PM CUTTER TENDER Sexual Orientation Not on file 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, 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, 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, 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 file Not on file documented as of this encounter Plan of Treatment Not on file documented as of this encounter Procedures Procedure Name Priority Date/Time Associated Diagnosis Comments COMPREHENSIVE METABOLIC PANEL Routine 08/25/2022 10:47 AM CDT documented in this encounter Results * Comprehensive metabolic panel (08/25/2022 10:47 AM CDT) Blood us Historical Provider LAB BLOOD ORDERABLES Ileana l Result documented in this encounter Visit Diagnoses Not on filedocumented in this encounter Care Teams Decision Analyst Relationship Specialty Start Date End Date Claudia Haas NP [address] [facility] [address] [place] [address] PCP - General Internal Medicine 07/27/22 documented as of this encounter
--- OUTSIDE RECORDS SUMMARY | 2024-01-30 10:42 | XMS_ITS | Encounter Summary ---
Author Organization [facility] Healthcare Address [address] [place] [address] Care Team Providers Care Diesel Service Technician Name Role Phone Claudia Haas ACCOUNTING DIRECTOR Primary Care Provider [phone] Reason for Visit * Reason Comments Surgical Clearance Encounter Details Date Type Department Care Team (Late st Contact Info) Description 05/08/2023 8:00 AM CDT Office Visit [facility] Medical [facility] Internal Medicine at [place] [address] [place] [address] Claudia Haas ACCOUNTING DIRECTOR [address] [place] [address] Pre-op examination (Primary Dx); BMI 26.0-26.9,adult Social History Tobacco Use Types Packs/Day Years [...] on file Legal Sex Female 10:40 AM PARATRANSIT DRIVER Gender Identity Female 03/03/2021 12:47 PM PARATRANSIT DRIVER Sexual Orientation Not on file 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, 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, 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, 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 file Not on file documented as of this encounter Last Filed Vital Signs Vital Sign Reading Time Taken Comments Blood Pressure 134/78 05/08/2023 7:35 AM CDT Pulse 72 05/08/2023 7:35 AM CDT Temperature 36.6 ??C (97.9 ??F) 05/08/2023 7:35 AM CD T Respiratory Rate - - Oxygen Saturation 97% 05/08/2023 7:35 AM CDT Inhaled Oxygen Concentration - - Weight 63.5 kg (140 lb) 05/08/2023 7:35 AM CDT Height 154.9 cm (5' 1 ) 05/08/2023 7:35 AM CDT Body Mass Index 26.45 05/08/2023 7:35 AM CDT documented in this encounter Patient Instructions * Patient Instructions* Claudia Haas NP - 05/08/2023 8:00 AM CDT Pre-surgical clearance completed today. Keep scheduled appointment for 05/10/2023. Surgical clearance will be faxed documented in this encounter Progress Notes * Claudia Haas NP - 05/08/2023 8:00 AM CDT Images from the original note were not included. Subjective/Objective Patient ID: Terri Briseno is a 73 y.o. female. Visit Date: 05/08/2023 Chief Complaint Surgical Clearance HPI 73-year-old female in for preop clearance for right cataract removal scheduled for 05/10/2023. Surgical clearance will be faxed Review of Systems Constitutional: Negative for activity [...] Exam Constitutional: Appearance: Normal appearance. She is well-developed. HENT: Head: Normocephalic and atraumatic. Right Ear: [...] Diagnoses and all orders for this visit: Pre-op examination (Z01.818) (Primary) Comments: Preoperative clearance for right eye cataract removal completed today. Clearance form will be faxed BMI 26.0-26.9,adult (Z68.26) Comments: Maintain healthy and balanced diet Cosigned by Jose Corrales MD at 05/21/2023 2:48 PM CDT documented in this encounter Plan of Treatment Not on file documented as of this encounter Visit Diagnoses Diagnosis Pre-op examination- Primary BMI 26.0-26.9,adult documented in this encounter Care Teams Diesel Service Technician Relationship Specialty Start Date End Date Claudia Haas NP [address] [facility] [address] [place] [address] PCP - General Internal Medicine 07/27/22 documented as of this encounter
--- OUTSIDE RECORDS SUMMARY | 2024-01-30 10:42 | XMS_ITS | Encounter Summary ---
Author Organization [facility] Healthcare Address [address] [place] [address] Care Team Providers Care Radio Communications Mechanician Name Role Phone Claudia Haas BUILDING TRADES INSTRUCTOR Primary Care Provider [phone] Encounter Details Date Type Department Care Team (Late st Contact Info) Description 05/08/2023 Orders Only [facility] Medical Group Family Medicine [address] [place] [address] Claudia Haas, BUILDING TRADES INSTRUCTOR 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 file Not on file documented as of this encounter Ordered Prescriptions Prescription Sig Dispense Quantity Refills Last Filled Start Date End Date cetirizine (ZyrTEC) 10 mg tabletIndications: Seasonal allergies Take 1 tablet (10 mg total) by mouth daily as needed for allergies 90 tablet 05/08/2023 documented in this encounter Plan of Treatment Not on file documented as of this encounter Visit Diagnoses Diagnosis Seasonal allergies Allergic rhinitis, cause unspecified documented in this encounter Discontinued Medications Medication Sig Discontinue Reason Start Date End Da te cetirizine (ZyrTEC) 10 mg tabletIndications:Seaso nal allergies Take 1 tablet (10 mg total) by mouth daily as needed for allergies Reorder 04/12/2023 05/08/2023 documented as of this encounter Care Teams Radio Communications Mechanician Relationship Specialty Start Date End Date Claudia Haas NP [address] [address] PCP - General Internal Medicine 07/27/22 documented as of this encounter
--- OUTSIDE RECORDS SUMMARY | 2024-01-30 10:42 | XMS_ITS | Encounter Summary ---
Author Organization [facility] Medical Group Address [address] [place] [address] Care Team Providers Care Middleware Systems Architect Name Role Phone Claudia Haas NP Primary Care Provider [phone] Encounter Details Date Type Department Care Team (Late st Contact Info) Description 08/04/2022 E-Visit [facility] Medical [facility] Virtual Care [address] [place] [address] Emy Tyler MD [address] [place] [address] [address] [place], [place] [id number] E-Visit for Diarrhea Social History Tobacco Use Types Packs/Day Years [...] on file Legal Sex Female 10:40 AM CREDIT RISK ANALYTICS MANAGER Gender Identity Female 03/03/2021 12:47 PM CREDIT RISK ANALYTICS MANAGER Sexual Orientation Not on file 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 C/o diarrhea x 5 days. States she's had 1-4 stools in the last 24 hours. Denies fevers or vomiting.States her stool does not contain pus or mucus. States she has little or no abdominal pain with this. States her urine is normal. Diarrhea is not clearly related to a meal. States she took some abx- Amoxil 500mg TID from 07/21/22-07/27/22. Diarrhea started 3 days after she finished abx. There are people with similar symptoms around her. States Imodium D and Pepto Bismo. They do help reduce the diarrhea but there's still gurgling in my stomach and I'm not sure how long I should keep taking the Pepto Bismo. I only took the Imodium D once, it seemed so strong. The patient-submitted questionnaire was assessed for pertinent information and the patient's problem list, medication list, and allergies were reviewed as part of the e-visit. The chart was updated to identify any changes in these areas. Assessment: Diagnosis Plan 1. Viral gastroenteritis Plan: Likely viral gastroenteritis vs abx associated diarrhea. Less likely to be C diff as she's had 1-4 stools in the last 24 hours. Continue Pepto and can try Children's Imodium if she feels regular strength was too strong. If any problems or questions or no improvement of symptoms in the next few days, please f/u w/ PCP. If symptoms worsen, go to the ED. The patient was given information regarding any new medication(s) prescribed, if applicable, as well as any ihbf-mno-snmomdy remedies. She was given instructions regarding follow up and timeframe if symptoms worsen or don???t improve. These instructions were included in the [employer] message reply tothe patient. Patient Instructions were included in the message reply to patient. My total encounter time on 08/04/2022 was 5 minutes which was spent in the activities documented inthe note. Emy Tyler MD documented in this encounter Plan of Treatment Not on file documented as of this encounter Visit Diagnoses Diagnosis Viral gastroenteritis- Primary Intestinal infection due to other organism, NEC documented in this encounter Care Teams Middleware Systems Architect Relationship Specialty Start Date End Date Claudia Haas NP [address] [facility] [address] [place] [address] PCP - General Internal Medicine 07/27/22 documented as of this encounter
--- OUTSIDE RECORDS SUMMARY | 2024-01-30 10:42 | XMS_ITS | Encounter Summary ---
Author Organization [facility] Healthcare Address [address] [place] [address] Care Team Providers Care Sleep Technician Name Role Phone Claudia Haas ANIMAL THERAPIST Primary Care Provider [phone] Reason for Visit * Reason Comments Fatigue Having problems with fatigue and cries Encounter Details Date Type Department Care Team (Late st Contact Info) Description 11/29/2022 8:00 AM CDT Office Visit [facility] Internal Medicine at [place] [address] [place] [phone] Claudia Haas, ANIMAL THERAPIST [address] [place] [address] Mild episode of recurrent major depressive disorder (HCC) (Primary Dx); BMI 24.0-24.9, adult Social History Tobacco Use Types Packs/Day Years [...] on file Legal Sex Female 10:40 AM REGULATORY AFFAIRS SPEC Gender Identity Female 03/03/2021 12:47 PM REGULATORY AFFAIRS SPEC Sexual Orientation Not on file 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 End Date 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[employer], [employer], 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, 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 file Not on file documented as of this encounter Last Filed Vital Signs Vital Sign Reading Time Taken Comments Blood Pressure 142/80 11/29/2022 8:10 AM CDT Pulse 62 11/29/2022 8:10 AM CDT Temperature 36.9 ??C (98.4 ??F) 11/29/2022 8:10 AM CD T Respiratory Rate - - Oxygen Saturation 98% 11/29/2022 8:10 AM CDT Inhaled Oxygen Concentration - - Weight 58.1 kg (128 lb) 11/29/2022 8:10 AM CDT Height 154.9 cm (5' 1 ) 11/29/2022 8:10 AM CDT Body Mass Index 24.19 11/29/2022 8:10 AM CDT documented in this encounter Patient Instructions * Patient Instructions* Claudia Haas NP - 11/29/2022 8:00 AM CDT Start Zoloft 25 mg nightly as directed. Follow-up in 1 month for further evaluation. Contact the office with any questions or concerns documented in this encounter Ordered Prescriptions Prescription Sig Dispense Quantity Refills Last Filled Start Date End Date sertraline (ZOLOFT) 25 mg tabletIndications: depression Take 1 tablet (25 mg total) by mouth daily 30 tablet 1 11/29/2022 12/27/2022 documented in this encounter Progress Notes * Claudia Haas NP - 11/29/2022 8:00 AM CDT Images from the original note were not included. Subjective/Objective Patient ID: Terri Briseno is a 72 y.o. female. Visit Date: 11/29/2022 Chief Complaint Fatigue (Having problems with fatigue and cries ) HPI 72-year-old female in with complaints of fatigue and feeling tired and having crying spells. She iscurrently on Wellbutrin 300 mg daily. She states that she does not feel depressed. She states that she is heavily involved in latter day and social activities. She states that she is crying daily. She issleeping frequently. We did discuss depression symptoms. We will add Zoloft 25 mg nightly to her Wellbutrin. She is to follow-up in 1 month for further evaluation. She voices understanding Review of Systems Constitutional: Positive for fatigue. [...] Negative for agitation, confusion and sleep disturbance. Depression without SI or HI. Crying spells Physical Exam Constitutional: Appearance: Normal appearance. She [...] major depressive disorder (HCC) (F33.0) (Primary) Comments: Start Zoloft 25 mg nightly as directed. Follow-up in 1 month for further evaluation. Contact the office with any questions or concerns Orders: - sertraline (ZOLOFT) 25 mg tablet; Take 1 tablet (25 mg total) by mouth daily BMI 24.0-24.9, adult (Z68.24) Comments: Maintain healthy and balanced diet Cosigned by Jose Corrales MD at 12/11/2022 5:40 PM CDT documented in this encounter Plan of Treatment Not on file documented as of this encounter Visit Diagnoses Diagnosis Mild episode of recurrent major depressive disorder (HCC)- Primary BMI 24.0-24.9, adult documented in this encounter Discontinued Medications Medication Sig Discontinue Reason Start Date End Da te amoxicillin 500 mg capsule TAKE ONE CAPSULE BY MOUTH THREE TIMES DAILY UNTIL ALL TAKEN Therapy completed 07/21/2022 11/29/2022 metroNIDAZOLE (FLAGYL) 500 mg tablet Take 1 tablet (500 mg total) by mouth 2 (two) times a day Other 08/17/2022 11/29/2022 documented as of this encounter Care Teams Sleep Technician Relationship Specialty Start Date End Date Caludia Haas NP [address] [place] [address] PCP - General Internal Medicine 07/27/22 documented as of this encounter
--- OUTSIDE RECORDS SUMMARY | 2024-01-30 10:42 | XMS_ITS | Encounter Summary ---
Author Organization [facility] Medical Group Address [address] [place] [address] Care Team Providers Care Union Steward Name Role Phone Claudia Haas NP Primary Care Provider [phone] Reason for Visit * Reason Onset Date Comments Test Results 09/06/2022 Encounter Details Date Type Department Care Team (Late st Contact Info) Description 09/06/2022 Telephone [facility] Internal Medicine at [place] [address] [place] [address] Claudia Haas NP [address] [place] [address] Test Results Social History Tobacco [...] on file Legal Sex Female 10:40 AM VIDEO PRODUCTION COORDINATOR Gender Identity Female 03/03/2021 12:47 PM VIDEO PRODUCTION COORDINATOR Sexual Orientation Not on file 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 Yes Where were results relayed from in the chart? Imaging Tab Caller's Callback #: [phone] Additional Questions/Comments: Patient has additional questions Does message need to be routed?Yes-Action Needed documented in this encounter Plan of Treatment Not on file documented as of this encounter Visit Diagnoses Not on filedocumented in this encounter Care Teams Union Steward Relationship Specialty Start Date End Date Claudia Haas NP [address] [place] [address] PCP - General Internal Medicine 07/27/22 documented as of this encounter
--- OUTSIDE RECORDS SUMMARY | 2024-01-30 10:42 | XMS_ITS | Encounter Summary ---
Author Organization [facility] Healthcare Address [address] [place] [address] Care Team Providers Care Director Weights And Measures Name Role Phone Claudia Haas NP Primary Care Provider [phone] Reason for Referral * Diagnostic Imaging (Routine) - Closed Specialty Diagnoses / Procedures Referred By Jakob t Referred To Contact Diagnoses History of recent pneumonia Procedures XR Chest Pa Lateral 2 Views Luis Hernandez MD [address] [place] [address] [address] TE[address] [place] [address] Phone: tel: fax: [address] [phone] Referral ID Status Reason Start Date Expiration Date Visits Re quested Visits Authorized [id number] Closed 05/18/2022 06/17/2023 1 1 Reason for Visit * Diagnostic Imaging (Routine) - Closed Specialty Diagnoses / Procedures Referred By Contkecia lau Referred To Contact Diagnoses History of recent pneumonia Procedures XR Chest Pa Lateral 2 Views Luis Hernandez MD [address] [place] [address] DR TEJADA [address] [place] [address] Phone: tel: fax: [address] [phone] Referral ID Status Reason Start Date Expiration Date Visits Re quested Visits Authorized [id number] Closed 05/18/2022 06/17/2023 1 1 Encounter Details Date Type Department Care Team (Latest Contact Info) Description 05/30/2022 10:38 AM CDT - 05/30/2022 11:59 PM CDT Hospital Encounter [facility] [address] [place] [address] History of recent pneumonia Discharge Disposition: Discharge to home or self [...] on file Legal Sex Female 10:40 AM BOX PACKER Gender Identity Female 03/03/2021 12:47 PM BOX PACKER Sexual Orientation Not on file 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 End Date 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[employer], [employer], 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, [employer]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 file [...] capsule Take 1 tablet by mouth daily olopatadine (PATANOL) 0.1 % ophthalmic solution every 12 hours 05/26/2022 vit C,S-Zq-orsml-lutein -zeaxan (PreserVision AREDS-2) 250-90-40-1 mg capsule 01/14/2020 [...] mouth daily 90 tablet 1 01/04/2022 3 buPROPion XL (WELLBUTRIN XL) 300 mg 24 hr tablet Take 1 tablet (300 mg total) by mouth every morning 90 tablet 4 12/27/2021 3 cetirizine (ZyrTEC) 10 mg tabletIndications:S easonal allergies Take 1 tablet (10 mg total) by mouth daily as needed for allergies 90 tablet 4 03/25/2022 3 fluconazole (DIFLUCAN) 150 mg tabletIndications:Y east infection Take 1 tablet (150 mg total) by mouth as directed Take one tab now. Repeat in 7 days if symptoms persist. 2 tablet 03/04/2022 3 fluticasone-umeclid in-vilanter (Trelegy Ellipta) 100-62.5-25 mcg inhaler 05/26/2022 3 gabapentin (NEURONTIN) 300 mg capsule Take 1 capsule (300 mg total) by mouth 4 (four) times a day 120 capsule 3 01/25/2022 3 irbesartan (AVAPRO) 300 mg tabletIndications:E ssential hypertension TAKE 1 TABLET(300 MG) BY MOUTH DAILY 90 tablet 03/28/2022 3 pravastatin (PRAVACHOL) 10 mg tablet Take 1 tablet (10 mg total) by mouth daily 30 tablet 3 04/08/2022 3 documented as of this encounter Discharge Disposition Disposition Code Departure Means Destination Discharge to home or self care documented in this encounter Plan of Treatment Not on file documented as of this encounter Procedures Procedure Name Priority Date/Time Associated Diagnosis Comments XR CHEST PA LATERAL 2 VIEWS Schedule Routine, Read Routine (OP Routine) 05/30/2022 10:43 AM CDT History of recent pneumonia documented in this encounter Results * XR Chest Pa Lateral 2 Views (05/30/2022 10:43 AM CDT) Anatomical Region Laterality Modality Body, Chest N/A Computed Radiogr aphy 05/30/2022 11:4 6 PM CDT Narrative 05/30/2022 11:46 PM CDT EXAM DESCRIPTION: XR CHEST PA LATERAL 2 VIEWS REASON FOR STUDY: Dyspnea ?? Coughing and sob x 2-3 mths, Hx COPD ?? TECHNIQUE: Frontal ??and lateral radiographic views of the chest were acquired. COMPARISON: None Available FINDINGS: LUNGS/PLEURA: ??There is no focal infiltrate or evidence of pneumothorax. No significant pleural effusion. HEART/MEDIASTINUM: ??The heart size is normal. Normal mediastinal and hilar contours. HARDWARE/LINES/TUBES: ?? None. BONES: ?? No acute findings. OTHER: ?? No other significant finding. IMPRESSION: No active cardiopulmonary disease. THIS IS AN ELECTRONICALLY VERIFIED FINAL REPORT 05/30/2022 11:46 PM - Electronically signed by ??Danyel CARDONA D: ??05/30/2022 11:46 PM T: Report ID: [id number] Reading Location: ??[id number] Procedure Note Danyel Grace MD - 05/30/2022 EXAM DESCRIPTION: XR CHEST PA LATERAL 2 VIEWS REASON FOR STUDY: Dyspnea Coughing and sob x 2-3 mths, Hx COPD TECHNIQUE: Frontal and lateral radiographic views of the chest wereacquired. COMPARISON: None Available FINDINGS: LUNGS/PLEURA: There is no focal infiltrate or evidence of pneumothorax. No significant pleural effusion. HEART/MEDIASTINUM: The heart size is normal. Normal mediastinal and hilar contours. HARDWARE/LINES/TUBES: None. BONES: No acute findings. OTHER: No other significant finding. IMPRESSION: No active cardiopulmonary disease. THIS IS AN ELECTRONICALLY VERIFIED FINAL REPORT 05/30/2022 11:46 PM - Electronically signed by Danyel Grace M.D. RW T: Report ID: [id number] Reading Location: [id number] Luis Hernandez MD IMG XR PROCEDURES Final R esult documented in this encounter Visit Diagnoses Diagnosis History of recent pneumonia documented in this encounter Care Teams Director Weights And Measures Relationship Specialty Start Date End Date Claudia Haas NP PCP - General Internal Medicine 11/30/21 07/26/22 documented as of this encounter
--- OUTSIDE RECORDS SUMMARY | 2024-01-30 10:42 | XMS_ITS | Encounter Summary ---
Author Organization [facility] Healthcare Address [address] [place] [address] Care Team Providers Care Tandem Mill Operator Name Role Phone Claudia Haas NP Primary Care Provider [phone] Reason for Referral * MRI/CAT/PET Scan (Routine) - Closed Specialty Diagnoses / Procedures Referred By Contac t Referred To Contact Radiology Diagnoses Personal history of tobacco use Procedures CT Lung Cancer Screening Luis Hernandez MD [address] [place] [address] DR [address] [place] [address] Phone: tel: fax: [address] [phone] Referral ID Status Reason Start Date Expiration Date Visits Re quested Visits Authorized [id number] Closed 08/03/2022 09/02/2023 1 1 Reason for Visit * MRI/CAT/PET Scan (Routine) - Closed Specialty Diagnoses / Procedures Referred By Contkecia t Referred To Contact Radiology Diagnoses Personal history of tobacco use Procedures CT Lung Cancer Screening Luis Hernandez MD [address] [place] [address] DR TEJ[address] [place] [address] Phone: tel: fax: [address] [phone] Referral ID Status Reason Start Date Expiration Date Visits Re quested Visits Authorized [id number] Closed 08/03/2022 09/02/2023 1 1 Encounter Details Date Type Department Care Team (Latest Contact Info) Description 09/01/2022 1:31 PM CDT - 09/01/2022 11:59 PM CDT Hospital Encounter [facility] [address] [place] [address] Personal history of tobacco use Discharge Disposition: [...] on file Legal Sex Female 10:40 AM COUNTER HOP Gender Identity Female 03/03/2021 12:47 PM COUNTER HOP Sexual Orientation Not on file 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, [employer], 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, [employer]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 file Not on file documented as of this encounter Last Filed Vital Signs Vital Sign Reading Time Taken Comments Blood Pressure - - Pulse - - Temperature - - Respiratory Rate - - Oxygen Saturation - - Inhaled Oxygen Concentration - - Weight 54.9 kg (121 lb) 09/01/2022 1:52 PM CDT Height 154.9 cm (5' 1 ) 09/01/2022 1:52 PM CDT Body Mass Index 22.86 09/01/2022 1:52 PM CDT documented in this encounter Medications at Time of Discharge [...] ophthalmic solution every 12 hours 05/26/2022 vit C,Q-Lf-lcjcv-lutein -zeaxan (PreserVision AREDS-2) 250-90-40-1 mg capsule 01/14/2020 [...] the next 30 min. 12 tablet 1 08/17/2022 4 amLODIPine (NORVASC) 10 mg tablet TAKE 1 TABLET(10 MG) BY MOUTH DAILY 90 tablet 1 07/28/2022 3 amoxicillin 500 mg capsule TAKE ONE [...] needed for allergies 90 tablet 06/27/2022 3 dicyclomine (BENTYL) 20 mg tabletIndications:D iarrhea, unspecified type Take 1 tablet (20 mg total) by mouth 4 (four) times a day as needed (loose stools) 120 tablet 08/09/2022 4 fluticasone-umeclid in-vilanter (Trelegy Ellipta) 100-62.5-25 mcg inhaler 05/26/2022 3 fluticasone-umeclid in-vilanter (TRELEGY ELLIPTA) 100-62.5-25 mcg inhaler Inhale 1 puff daily 4 gabapentin (NEURONTIN) 300 mg capsuleIndications: Chronic pain syndrome Take 1 capsule (300 mg total) by mouth 4 (four) times a day 120 capsule 3 08/20/2022 4 ibuprofen (ADVIL,MOTRIN) 800 mg tabletIndications:C hronic pain syndrome Take 1 tablet (800 mg total) by mouth 3 (three) times a day as needed for pain (pain) 90 tablet 07/22/2022 3 irbesartan (AVAPRO) 300 mg tabletIndications:E ssential hypertension Take 1 tablet (300 mg total) by mouth daily 90 tablet 07/08/2022 3 metroNIDAZOLE (FLAGYL) 500 mg tablet Take 1 tablet (500 mg total) by mouth 2 (two) times a day 20 tablet 08/17/2022 3 montelukast (SINGULAIR) 10 mg tabletIndications:S easonal allergies Take 1 tablet (10 mg total) by mouth nightly 90 tablet 1 06/28/2022 3 omeprazole (PriLOSEC) 20 mg capsule TAKE 1 CAPSULE(20 MG) BY MOUTH DAILY 90 capsule 1 07/08/2022 3 pravastatin (PRAVACHOL) 10 mg tablet TAKE 1 TABLET(10 MG) BY MOUTH DAILY 30 tablet 3 08/17/2022 3 documented as of this encounter Discharge Disposition Disposition Code Departure Means Destination Discharge to home or self care documented in this encounter Plan of Treatment Not on file documented as of this encounter Procedures Procedure Name Priority Date/Time Associated Diagnosis Comments CT LUNG CANCER SCREENING Schedule Routine, Read Routine (OP Routine) 09/01/2022 1:51 PM CDT Personal history of tobacco use documented [...] D: ??09/05/2022 7:52 AM T: Report ID: [id number] Reading Location: ??[id number] Procedure Note Declan Fuentes MD - 09/05/2022 [...] - Electronically signed by Declan Mckeon M.D. RL T: Report ID: [id number] Reading Location: [id number] Luis Hernandez MD IMG CT PROCEDURES Final R esult documented in this encounter Visit Diagnoses Diagnosis Personal history of tobacco use Personal history of tobacco use, presenting hazards to health documented in this encounter Care Teams Tandem Mill Operator Relationship Specialty Start Date End Date Claudia Haas NP [address] [address] PCP - General Internal Medicine 07/27/22 documented as of this encounter
--- OUTSIDE RECORDS SUMMARY | 2024-01-30 10:42 | XMS_ITS | Encounter Summary ---
Author Organization [facility] Healthcare Address [address] [place] [address] Care Team Providers Care Executive Director Name Role Phone Claudia Haas NP Primary Care Provider [phone] Reason for Referral * MRI/CAT/PET Scan (Routine) - Closed Specialty Diagnoses / Procedures Referred By Contac t Referred To Contact Radiology Diagnoses Personal history of tobacco use Procedures CT Lung Cancer Screening Luis Hernandez MD [address] [place] [address] DR TEJADA [address] [place] [phone] Phone: tel: fax: [address] [phone] Referral ID Status Reason Start Date Expiration Date Visits Re quested Visits Authorized [id number] Closed 12/21/2022 01/20/2024 1 1 OR AT LARGE Reason for Visit * Reason Comments Follow-up Encounter Details Date Type Department Care Team (Late st Contact Info) Description 12/21/2022 11:30 AM EDITOR AT LARGE Office Visit [facility] Pulmonology [address] [place] [phone] Luis Hernandez MD [address] [place] [address] DR TEJADA [address] [place] [phone] Centrilobular emphysema (HCC) (Primary Dx); Personal history of tobacco use; Hypersomnia Social History Tobacco Use Types Packs/Day Years [...] on file Legal Sex Female 10:40 AM EDITOR AT LARGE Gender Identity Female 03/03/2021 12:47 PM EDITOR AT LARGE Sexual Orientation Not on file 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 End Date 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[employer], 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, 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 file Not on file documented as of this encounter Last Filed Vital Signs Vital Sign Reading Time Taken Comments Blood Pressure 142/82 12/21/2022 11:36 AM EDITOR AT LARGE Pulse 69 12/21/2022 11:36 AM EDITOR AT LARGE Temperature 36.6 ??C (97.8 ??F) 12/21/2022 11:[address] Respiratory Rate 18 12/21/2022 11:36 AM EDITOR AT LARGE Oxygen Saturation 99% 12/21/2022 11:36 AM EDITOR AT LARGE Inhaled Oxygen Concentration - - Weight 59.9 kg (132 lb) 12/21/2022 11:36 AM EDITOR AT LARGE Height 154.9 cm (5' 1 ) 12/21/2022 11:36 AM EDITOR AT LARGE Body Mass Index 24.94 12/21/2022 11:36 AM EDITOR AT LARGE documented in this encounter Progress Notes * Luis Hernandez MD - 12/21/2022 11:30 AM CST Images from the original note were not included. Progress Note Patient: Terri Briseno ( - 1950) is a 72 y.o. female. Visit Date: 12/21/2022 History of Present Illness: The patient is a pleasant 72-year-old female with history of stage I COPD who returns for follow-up. She decided not to get her sleep study performed. She states that the energy level is better sinceshe started on a different antidepressant. She continues to use Trelegy 1 puff daily and her breathing is doing well. She did have her screening chest CT performed in late August 2022 and the results are listed below. Past Medical History: Past Medical History: Diagnosis [...] total) by mouth daily as needed for [id number] tablet 0 dicyclomine (BENTYL) 20 mg tablet Take 1 tablet (20 mg total) by mouth 4 (four) times a day as needed (loose stools) 120 tablet 0 EPINEPHrine 0.3 mg/0.3 mL auto-injection syringe INJECT 1 PEN IN THE MUSCLE ONE TIME DIRECTED tzabfvqidyc-ryewgipoe-qpgqavqz (TRELEGY ELLIPTA) 100-62.5-25 mcg inhaler Inhale 1 puff daily tihkjreluqj-aefzbjrnc-lplggwvf (Trelegy Ellipta) 100-62.5-25 mcg inhaler Inhale 1 puff daily 1 each3 gabapentin (NEURONTIN) 300 mg capsule Take 1 capsule (300 mg total) by mouth 4 (four) times a day 120 capsule 3 ibuprofen (ADVIL,MOTRIN) 800 mg tablet Take 1 tablet (800 mg total) by mouth 3 (three) times a day as needed for pain (pain) 90 tablet 0 irbesartan (AVAPRO) 300 mg tablet TAKE 1 TABLET(300 MG) BY MOUTH DAILY 90 tablet 0 montelukast (SINGULAIR) 10 mg tablet Take 1 tablet (10 mg total) by mouth nightly 90 tablet 1 olopatadine (PATANOL) 0.1 % ophthalmic solution every 12 hours omeprazole (PriLOSEC) 20 mg capsule TAKE 1 CAPSULE(20 MG) BY MOUTH DAILY 90 capsule 1 pravastatin (PRAVACHOL) 10 mg tablet TAKE 1 TABLET(10 MG) BY MOUTH DAILY 30 tablet 3 sertraline (ZOLOFT) 25 mg tablet Take 1 tablet (25 mg total) by mouth daily 30 tablet 1 vit C,S-Ba-korhp-lutein-zeaxan (PreserVision AREDS-2) 250-90-40-1 mg capsule No current facility-administered medications for this visit. Allergies: Allergies Allergen Reactions Tetracycline Rash, Photosensitivity and Swelling Family History: Family History Problem Relation Age of Onset Breast cancer Mother Kidney cancer Mother Diabetes Mother Hypertension Mother Emphysema Father Hypertension Father Lymphoma Sister Alcohol abuse Brother Breast cancer Mother's Sister Social History: Social History Tobacco Use Smoking status: Former Packs/day: .5 Types: Cigarettes Quit date: 01/2022 Years since quittin.9 Smokeless tobacco: Never Substance and Sexual Activity [...] chest pain, palpitations and leg swelling. Gastrointestinal: Positive for diarrhea. Negative for abdominal pain and nausea. Genitourinary: Negative for hematuria. Musculoskeletal: Positive for arthralgias. Negative for back pain and myalgias. Skin: Negative for color change. Allergic/Immunologic: Positive for environmental allergies. Negative for food allergies. Neurological: Negative for dizziness and light-headedness. Physical Exam: Vitals: 12/21/22 1136 BP: 142/82 BP Location: Right arm Patient Position: Sitting Pulse: 69 Resp: 18 Temp: 36.6 ??C (97.8 ??F) TempSrc: Tympanic SpO2: 99% Weight: 59.9 kg (132 lb) Height: 154.9 cm (5' 1 ) [...] will continue with Trelegy 1 puff daily. Personal history of tobacco use Assessment & Plan: I will order another screening chest CT to be performed in late August 2023 and she will follow-up with me after that has been performed. Orders: - CT Lung Cancer Screening; Future Hypersomnia Assessment & Plan: The patient states that the hypersomnia has improved with changing her antidepressant and she decided not to proceed with a sleep study. Rendering Provider & Department: Luis Hernandez MD OR AT LARGE documented in this encounter Miscellaneous Notes * Assessment & Plan Note - Luis Hernandez MD - 12/21/2022 12:02 PM EDITOR AT LARGE Associated Problem(s): Personal history of tobacco use I will order another screening chest CT to be performed in late August 2023 and she will follow-up with me after that has been performed. OR AT LARGE * Assessment & Plan Note - Luis Hernandez MD - 12/21/2022 12:02 PM EDITOR AT LARGE Associated Problem(s): Centrilobular emphysema (HCC) The patient has stage I COPD and will continue with Trelegy 1 puff daily. OR AT LARGE * Assessment & Plan Note - Luis Hernandez MD - 12/21/2022 12:01 PM EDITOR AT LARGE Associated Problem(s): Hypersomnia The patient states that the hypersomnia has improved with changing her antidepressant and she decided not to proceed with a sleep study. OR AT LARGE documented in this encounter Plan of Treatment [...] D: ??09/05/2023 8:28 AM T: Report ID: [id number] Reading Location: ??[id number] Procedure Note Ramon Machado MD - 09/05/2023 [...] Ramon Machado M.D. KR T: Report ID: [id number] Reading Location: [place] [address] Luis Hernandez MD IMG CT PROCEDURES Final R esult documented in this encounter Visit Diagnoses Diagnosis Centrilobular emphysema (HCC)- Primary Personal history of tobacco use Personal history of tobacco use, presenting hazards to health Hypersomnia Hypersomnia, unspecified Personal history of tobacco use Personal history of tobacco use, presenting hazards to health documented in this encounter Care Teams Executive Director Relationship Specialty Start Date End Date Claudia Haas NP [address] [facility] [address] [place] [address] PCP - General Internal Medicine 07/27/22 documented as of this encounter
--- OUTSIDE RECORDS SUMMARY | 2024-01-30 10:42 | XMS_ITS | Encounter Summary ---
Author Organization [facility] Healthcare Address [address] [place] [address] Care Team Providers Care Cryogenics Engineer Name Role Phone Claudia Haas NP Primary Care Provider [phone] Reason for Visit * Reason Onset Date Comments Cancelled sleep study 07/08/2022 Encounter Details Date Type Department Care Team (Late st Contact Info) Description 07/08/2022 Telephone [facility] [address] [place] [address] Luis Hernandez MD [address] [facility] [address] [phone] Cancelled sleep study Social History Tobacco Use Types Packs/Day Years [...] on file Legal Sex Female 10:40 AM TOOLMAKER GRADE THREE Gender Identity Female 03/03/2021 12:47 PM TOOLMAKER GRADE THREE Sexual Orientation Not on file 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 She will call back to reschedule. documented in this encounter Plan of Treatment Not on file documented as of this encounter Visit Diagnoses Not on filedocumented in this encounter Care Teams Cryogenics Engineer Relationship Specialty Start Date End Date Claudia Haas NP PCP - General Internal Medicine 11/30/21 07/26/22 documented as of this encounter
--- OUTSIDE RECORDS SUMMARY | 2024-01-30 10:43 | XMS_ITS | Encounter Summary ---
Author Organization [facility] Address [address] [facility] [address] [place] [address] Care Team Providers Care Sales Promotion Manager Name Role Phone Claudia Haas NP Primary Care Provider [phone] Reason for Referral * Diagnostic Imaging (Routine) - Closed Specialty Diagnoses / Procedures Referred By Contac t Referred To Contact Diagnoses Pneumonia of right lower lobe due to infectious organism Procedures XR Chest Pa Lateral 2 Vw Claudia Haas NP Phone: tel: fax: External Order Referral ID Status Reason Start Date Expiration Date Visits Re quested Visits Authorized [id number] Closed 03/04/2022 04/03/2023 1 1 HERS AIDE Reason for Visit * Reason Comments Hospital Follow Up Pneumonia Encounter Details Date Type Department Care Team (Late st Contact Info) Description 03/04/2022 8:45 AM TEACHERS AIDE Office Visit [facility] Internal Medicine at [place] [address] [place] [phone] Claudia Haas NP [address] [place] [address] Pneumonia of right lower lobe due to infectious organism (Primary Dx); BMI 22.0-22.9, adult; Yeast infection Social History Tobacco Use Types Packs/Day Years Used Date Smoking Tobacco: Every Day Cigarettes Smokeless Tobacco: Never AUDIT-C Answer Date Recorded Q1: How often do you have a drink containing alcohol? 4 or more times a week 09/22/2021 Q2: How many drinks containi ng alcohol do you have on a typical day when you are drinking? 1 or 2 Q3: How often do you have si x or more drinks on one occasion? 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, [employer]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 file Not on file documented as of this encounter Last Filed Vital Signs Vital Sign Reading Time Taken Comments Blood Pressure 140/80 03/04/2022 8:39 AM TEACHERS AIDE Pulse 65 03/04/2022 8:39 AM TEACHERS AIDE Temperature 36.7 ??C (98 ??F) 03/04/2022 8:39 AM TEACHERS AIDE Respiratory Rate - - Oxygen Saturation 99% 03/04/2022 8:39 AM TEACHERS AIDE Inhaled Oxygen Concentration - - Weight 54.3 kg (119 lb 12.8 oz) 03/04/2022 8:39 AM TEACHERS AIDE Height 154.9 cm (5' 1 ) 03/04/2022 8:39 AM TEACHERS AIDE Body Mass Index 22.64 03/04/2022 8:39 AM TEACHERS AIDE documented in this encounter Patient Instructions * Patient Instructions* Claudia Haas NP - 03/04/2022 8:45 AM TEACHERS AIDE Take antibiotics as directed. Have chest x-ray repeated in 2 weeks. Follow-up in 3 weeks. Continue incentive spirometer HERS AIDE documented in this encounter Ordered Prescriptions Prescription Sig Dispense Quantity Refills Last Filled Start Date End Date fluconazole (DIFLUCAN) 150 mg tabletIndications: Yeast infection Take 1 tablet (150 mg total) by mouth as directed Take one tab now. Repeat in 7 days if symptoms persist. 2 tablet 03/04/2022 3 azithromycin (ZITHROMAX) 250 mg tabletIndications: Pneumonia of right lower lobe due to infectious organism Take 2 tabs (500 mg) by mouth today, than 1 tab (250 mg) daily for 4 days. 6 tablet 03/04/2022 3 documented in this encounter Progress Notes * Claudia Haas, LOAN OPERATIONS MANAGER - 03/04/2022 8:45 AM CST Subjective/Objective Patient ID: Terri Briseno is a 71 y.o. female. Visit Date: 03/04/2022 Chief Complaint Hospital Follow Up (Pneumonia/) HPI 71-year-old female in for hospital follow-up from 02/20 through at [facility]. Patient was admitted for right lower lobe pneumonia. She still complains of fatigue right chest wall discomfort. She denies fever. She does admit to mild shortness of breath. She stop smoking in January. Her recent lab work reveals a white count of 6.4 which is normal. She did have a repeat chest x-ray completed on 02/26 which showed mildly improved right and lower lobe lung infiltrates. Will prescribe a Z-Mejia and have her repeat chest x-ray in 2 weeks. Medication reconciliation completed with patient. She does complain of a yeast infection after taking recent antibiotics Review of Systems Constitutional: Positive for fatigue. Negative for activity change and chills. HENT: Negative for congestion, ear pain, nosebleeds, rhinorrhea and sinus pressure. Respiratory: Positive for shortness of breath. Negative for cough. Right chest wall discomfort Cardiovascular: Negative for chest pain and palpitations. [...] is normal. Breath sounds: Normal breath sounds. Chest: Chest wall: Tenderness (Right chest wall discomfort with palpation) present. Abdominal: General: Bowel sounds are normal. There [...] right lower lobe due to infectious organism (J18.9) (Primary) Comments: Take antibiotics as directed. Have chest x-ray repeated in 2 weeks. Follow-up in 3 weeks. Continue incentive spirometer Orders: - azithromycin (ZITHROMAX) 250 mg tablet; Take 2 tabs (500 mg) by mouth today, than 1 tab (250 mg) daily for 4 days. - XR Chest Pa Lateral 2 Vw; Future BMI 22.0-22.9, adult (Z68.22) Comments: Maintain healthy and balanced diet Assessment & Plan: Weight/BMI is in healthy range. Continue healthy lifestyle to maintain. Yeast infection (B37.9) Comments: Diflucan 1 tablet today and 1 tablet in 1 week Orders: - fluconazole (DIFLUCAN) 150 mg tablet; Take 1 tablet (150 mg total) by mouth as directed Take one tab now. Repeat in 7 days if symptoms persist. HERS AIDE documented in this encounter Miscellaneous Notes * Assessment & Plan Note - De Cardona MA - 03/04/2022 8:40 AM TEACHERS AIDE Associated Problem(s): BMI 22.0-22.9, adult (Resolved 03/25/2022) Weight/BMI is in healthy range. Continue healthy lifestyle to maintain. HERS AIDE documented in this encounter Plan of Treatment Not on file documented as of this encounter Results * XR Chest Pa Lateral 2 Vw (03/19/2022) Anatomical Region Laterality Modality Body, Chest N/A Radiographic Susanna ging us Claudia Haas LOAN OPERATIONS MANAGER IMG XR PROCEDURES Final Resul t documented in this encounter Visit Diagnoses Diagnosis Pneumonia of right lower lobe due to infectious organism- Primary BMI 22.0-22.9, adult Yeast infection documented in this encounter Discontinued Medications Medication Sig Discontinue Reason Start Date End Da te nicotine (NICODERM CQ) 7 mgIndications:Encounter for smoking cessation counseling Place 1 patch on the skin daily Therapy completed 11/30/2021 03/04/2022 benzonatate (TESSALON) 200 mg capsule Take 1 capsule (200 mg total) by mouth 3 (three) times a day as needed for cough Therapy completed 12/20/2021 03/04/2022 ibuprofen (ADVIL,MOTRIN) 800 mg tabletIndications:Spinal stenosis, unspecified spinal region Take 1 tablet (800 mg total) by mouth 4 (four) times a day 02/09/2022 03/04/2022 documented as of this encounter Care Teams Sales Promotion Manager Relationship Specialty Start Date End Date Claudia Haas, BERT PCP - General Internal Medicine 11/30/21 07/26/22 documented as of this encounter
--- OUTSIDE RECORDS SUMMARY | 2024-01-30 10:43 | XMS_ITS | Encounter Summary ---
Author Organization [facility] Address [address] [facility] [address] [place] [address] Care Team Providers Care Accelerator Systems Director Name Role Phone Claudia Haas NP Primary Care Provider [phone] Reason for Referral * Procedure (Routine) - Closed Specialty Diagnoses / Procedures Referred By Contac t Referred To Contact Diagnoses SOB (shortness of breath) Procedures Pulmonary Function Test -[facility]; Full PFT in PFT Lab w/Stress Ox/6 Min Walk Test Luis Hernandez MD [facility] [address] [place] [address] Phone: tel: fax: Referral ID Status Reason Start Date Expiration Date Visits Re quested Visits Authorized [id number] Closed 05/18/2022 06/17/2023 1 1 * Diagnostic Imaging (Routine) - Closed Specialty Diagnoses / Procedures Referred By Contac t Referred To Contact Diagnoses History of recent pneumonia Procedures XR Chest Pa Lateral 2 Views Luis Hernandez MD [address] [facility] [address] [place] [address] Phone: tel: fax: [facility] [address] [place] [address] Referral ID Status Reason Start Date Expiration Date Visits Re quested Visits Authorized [id number] Closed 05/18/2022 06/17/2023 1 1 Reason for Visit * Reason Comments New Patient Recent PNA * Consultation (Routine) - Closed Specialty Diagnoses / Procedures Referred By Contkecia t Referred To Contact Sleep Medicine Diagnoses History of recent pneumonia SOB (shortness of breath) Claudia Haas, COFFEE BREAK ATTENDANT [address] [place] [address] Phone: tel: fax: Luis Hernandez MD [facility] [address] [place] [address] Phone: tel: fax: Referral ID Status Reason Start Date Expiration Date V isits Requested Visits Authorized [id number] Closed Specialty Services Required 03/28/2022 04/27/2023 1 1 Encounter Details Date Type Department Care Team (Late st Contact Info) Description 05/18/2022 10:15 AM CDT Office Visit [facility] Pulmonology [address] [facility] [address] [place] [address] Luis Hernandez MD [address] [place] [address] [address] [place] [address] Hypersomnia (Primary Dx); History of recent pneumonia; SOB (shortness of breath) Social History Tobacco [...] on file Legal Sex Female 10:40 AM EDUCATION ASSISTANT Gender Identity Female 03/03/2021 12:47 PM EDUCATION ASSISTANT Sexual Orientation Not on file 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, 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, 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, 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 file Not on file documented as of this encounter Last Filed Vital Signs Vital Sign Reading Time Taken Comments Blood Pressure 168/101 05/18/2022 10:08 AM CDT Pulse 64 05/18/2022 10:08 AM CDT Temperature 36.7 ??C (98.1 ??F) 05/18/2022 10:08 AM C DT Respiratory Rate 18 05/18/2022 10:08 AM CDT Oxygen Saturation 96% 05/18/2022 10:08 AM CDT Inhaled Oxygen Concentration - - Weight 54.4 kg (120 lb) 05/18/2022 10:08 AM CDT Height 154.9 cm (5' 1 ) 05/18/2022 10:08 AM CDT Body Mass Index 22.67 05/18/2022 10:08 AM CDT documented in this encounter Progress Notes * Luis Hernandez MD - 05/18/2022 10:15 AM CDT Images from the original note were not included. Consultation Note Patient: Terri Briseno ( - 1950) is a 72 y.o. female. Visit Date: 05/18/2022 I am seeing this patient in consultation, requested by Dr. Claudia Haas, BERT for evaluation of her daytime hypersomnia, dyspnea and productive cough. Chief Complaint Patient presents with New Patient Recent PNA History of Present Illness: The patient is a pleasant 72-year-old female that quit smoking in January 2022 and shortly thereafter developed a right lower lobe pneumonia and was hospitalized in February 2022 at [facility]. She did have another chest x- ray performed in early March 2022 and there was improvement in theright lower lobe infiltrate. However, the patient has had a persistent cough and is still bringing up yellow phlegm and has some wheezing. She denies hemoptysis. While she was caring for her who had Alzheimer's disease, she did smoke up to 2 packs of cigarettes per day for 15 years. She recently moved here from [place]. Her did smoke. She has been using an albuterol inhaler 2 puffs 4 times a day. She also has an allergy referral pending and she has been on allergy shots inthe past. She normally goes to bed around 9:30 p.m. and will wake up around 3:30 p.m. because her cats wake her up. She is not aware that she snores but does have 1-2 episodes of nocturia at night. She is tired during the day and falls asleep readily in quiet situations. She denies morning dry mouth or headaches. Past Medical History: Past Medical History: [...] each 4 amLODIPine (NORVASC) 10 mg tablet Take 1 [...] total) by mouth daily as needed for beszgfflv87 tablet 4 fluconazole (DIFLUCAN) 150 mg tablet Take 1 tablet (150 mg total) by mouth as directed Take one tabnow. Repeat in 7 days if symptoms persist. 2 tablet 0 gabapentin (NEURONTIN) 300 mg capsule Take 1 capsule (300 mg total) by mouth 4 (four) times a day 120 capsule 3 irbesartan (AVAPRO) 300 mg tablet TAKE 1 TABLET(300 MG) BY MOUTH DAILY 90 tablet 0 pravastatin (PRAVACHOL) 10 mg tablet Take 1 tablet (10 mg total) by mouth daily 30 tablet 3 vit C,D-Mk-zouqr-lutein-zeaxan (PreserVision AREDS-2) 250-90-40-1 mg capsule No current [...] Types: Cigarettes Quit date: 01/2022 Years since quittin.3 Smokeless tobacco: Never Substance and Sexual Activity Drug use: Never Sexual activity: Not Currently Alcohol Use: Not At Risk Frequency of Alcohol Consumption: Never Average Number of Drinks: Patient does not drink Frequency of Binge Drinking: Never Review of Systems: Review of Systems Constitutional: Negative for appetite change, fever and unexpected weight change. HENT: Negative for rhinorrhea, sinus pressure, sinus pain, sore throat and tinnitus. Respiratory: Positive for cough, shortness of breath and wheezing. Cardiovascular: Negative for chest pain, palpitations and leg swelling. Gastrointestinal: Negative for abdominal pain, diarrhea and nausea. Genitourinary: Negative for hematuria. Musculoskeletal: Positive for arthralgias. Negative for back pain and myalgias. Skin: Negative for color change. Allergic/Immunologic: Positive for environmental allergies. Negative for food allergies. Neurological: Negative for dizziness and light-headedness. Physical Exam: Vitals: 05/18/22 1008 BP: (!) 168/101 BP Location: Left arm Patient Position: Sitting Pulse: 64 Resp: 18 Temp: 36.7 ??C (98.1 ??F) SpO2: 96% Weight: 54.4 kg (120 lb) Height: 154.9 cm (5' 1 ) Physical Exam Constitutional: Appearance: She is well-developed. HENT: Head: Normocephalic and atraumatic. Eyes: Pupils: Pupils are equal, round, and reactive to light. Cardiovascular: Rate and Rhythm: Normal rate and regular rhythm. Pulmonary: Effort: Pulmonary effort is normal. Breath sounds: Wheezing present. No rhonchi or rales. Comments: Few faint wheezes Abdominal: General: Bowel sounds are normal. Palpations: [...] this visit: Hypersomnia (Primary) Assessment & Plan: The patient presents with hypersomnia. She sleeps alone and is unaware that she snores. I have recommended proceeding with a nocturnal polysomnogram with a split night protocol if necessary and no MSLT. Orders: - PSG-Sleep Provider Use Only; Future History of recent pneumonia - Ambulatory referral to Sleep Medicine - XR Chest Pa Lateral 2 Views; Future SOB (shortness of breath) Assessment & Plan: The patient did have a pneumonia in February 2022 and was hospitalized. She has had persistent coughand wheezing since that time. I have recommended a chest x- ray in full PFTs and she will follow-up with me in 1 month. I did give her a sample of Anoro to use 1 puff daily. Orders: - Ambulatory referral to Sleep Medicine - Pulmonary Function Test -[facility]; Full PFT in PFT Lab w/Stress Ox/6 Min WalkTest; Future Rendering Provider & Department: Luis Hernandez MD documented in this encounter Miscellaneous Notes * Assessment & Plan Note - Luis Hernandez MD - 05/18/2022 10:42 AM CDT Associated Problem(s): SOB (shortness of breath) The patient did have a pneumonia in February 2022 and was hospitalized. She has had persistent coughand wheezing since that time. I have recommended a chest x- ray in full PFTs and she will follow-up with me in 1 month. I did give her a sample of Anoro to use 1 puff daily. * Assessment & Plan Note - Luis Hernandez MD - 05/18/2022 10:42 AM CDT Associated Problem(s): Hypersomnia The patient presents with hypersomnia. She sleeps alone and is unaware that she snores. I have recommended proceeding with a nocturnal polysomnogram with a split night protocol if necessary and no MSLT. documented in this encounter Plan of Treatment Not on file documented as of this encounter Results * (ABNORMAL) Pulmonary Function Test -[facility]; Full PFT in PFT Lab w/Stress Ox/6Min Walk Test (07/25/2022 2:30 PM CDT) FVC POST 3.33 2.08 - 3.63 L 07/25/2022 2:25 PM CDT [facility] FVC PRE 3.38 2.08 - 3.63 L 07/25/2022 2:25 PM CDT [facility] FEV1 POST 1.85 1.61 - 2.82 L 07/25/2022 2:25 PM CDT [facility] FEV1 PRE 1.84 1.61 - 2.82 L 07/25/2022 2:25 PM CDT [facility] [id number] 55.63(L) 64.77 - 91.38 % 07/25/2022 2:25 PM CDT [facility] [id number] 54.35(L) 64.77 - 91.38 % 07/25/2022 2:25 PM CDT [facility] HJJ99-81% POST 0.57(L) 0.86 - 2.87 L/s 07/25/2022 2:25 PM CDT [facility] KKD62-27% PRE 0.56(L) 0.86 - 2.87 L/s 07/25/2022 2:25 PM CDT [facility] PEF POST 5.97 4.27 - 7.24 L/s 07/25/2022 2:25 PM CDT [facility] PEF PRE 6.50 4.27 - 7.24 L/s 07/25/2022 2:25 PM CDT [facility] FET 100% POST 12.70 sec 07/25/2022 2:25 PM CDT [facility] FET 100% PRE 10.37 sec 07/25/2022 2:25 PM CDT [facility] FIVC POST 2.95 1.94 - 3.33 L 07/25/2022 2:25 PM CDT [facility] FIVC PRE 3.08 1.94 - 3.33 L 07/25/2022 2:25 PM CDT [facility] FIF50% POST 5.05 L/s 07/25/2022 2:25 PM CDT [facility] FIF50% PRE 5.16 L/s 07/25/2022 2:25 PM CDT [facility] VC PRE 3.38(H) 1.94 - 3.33 L 07/25/2022 2:25 PM CDT [facility] TLC PRE 6.88(H) 3.98 - 5.96 L 07/25/2022 2:25 PM CDT [facility] RV PRE 3.49(H) 1.49 - 2.65 L 07/25/2022 2:25 PM CDT [facility] FRC PL PRE 4.38 L 07/25/2022 2:25 PM CDT [facility] ERV PRE 0.89(H) 0.65 - 0.65 L 07/25/2022 2:25 PM CDT [facility] IC PRE 2.21(H) 1.98 - 1.98 L 07/25/2022 2:25 PM CDT [facility] RAW PRE 3.33(H) 3.06 - 3.06 cmH2O*s/L 07/25/2022 2:25 PM CDT [facility] BF RES 25.06 BPM 07/25/2022 2:25 PM CDT [facility] VTG RAW 4.67 L 07/25/2022 2:25 PM CDT [facility] VTG 4.67 L 07/25/2022 2:25 PM CDT [facility] DLCOc SB 14.04(L) 15.66 - 27.12 ml/(min*mm Hg) 07/25/2022 2:25 PM CDT [facility] DLCOc SB 14.04(L) 15.66 - 27.12 ml/(min*mm Hg) 07/25/2022 2:25 PM CDT [facility] VA 4.66(L) 4.82 - 4.82 L 07/25/2022 2:25 PM CDT [facility] DLCO/VA PRE 3.02 2.87 - 5.74 ml/(min*mm Hg*L) 07/25/2022 2:25 PM CDT [facility] DLCOc SB 3.02 2.87 - 5.74 ml/(min*mm Hg*L) 07/25/2022 2:25 PM CDT [facility] Anatomical Region Laterality Modality PFT 07/25/2022 12:5 8 PM CDT us Luis Hernandez MD PFT ORDERABLES Edited Re sult - Final * XR Chest Pa Lateral 2 Views [...] 11:46 PM - Electronically signed by ??Danyel Grace M.D. RW D: ??05/30/2022 11:46 PM T: Report ID: [id number] Reading Location: ??[id number] Procedure Note Danyel Grace MD - 05/30/2022 [...] Danyel Grace M.D. RW T: Report ID: [id number] Reading Location: [id number] Luis Hernandez MD IMG XR PROCEDURES Final R esult documented in this encounter Visit Diagnoses Diagnosis Hypersomnia- Primary Hypersomnia, unspecified History of recent pneumonia SOB (shortness of breath) Shortness of breath History of recent pneumonia documented in this encounter Orders Outpatient Referral Count Last Ordered Date Fir st Ordered Date AMB REFERRAL TO SLEEP MEDICINE 1 05/18/2022 documented in this encounter Care Teams Accelerator Systems Director Relationship Specialty Start Date End Date Claudia Haas NP PCP - General Internal Medicine 11/30/21 07/26/22 documented as of this encounter
--- OUTSIDE RECORDS SUMMARY | 2024-01-30 10:43 | XMS_ITS | Encounter Summary ---
Author Organization [facility] Address [address] [place] [address] Care Team Providers Care Box Machine Operator Name Role Phone Guerda Iqbal Primary Care Provider [phone] Reason for Visit * Reason Onset Date Comments Med Refill 09/20/2021 Encounter Details Date Type Department Care Team (Late st Contact Info) Description 09/20/2021 Telephone [facility] Family Medicine [address] [place] [address] Guerda Iqbal PA [address] [place] [address] Med Refill Social History Tobacco Use Types Packs/Day Years Used Date Smoking Tobacco: Every Day Cigarettes Smokeless Tobacco: Never AUDIT-C Answer Date Recorded Q1: How often do you have a drink containing alc ohol? Monthly or less 07/22/2021 Q2: How many drinks containi ng alcohol do you have on a typical day when you are drinking? 1 or 2 07/22/2021 Q3: How often do you have si x or more drinks on one occasion? 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 * Telephone Encounter - Flores Benjamin MA - 09/20/2021 3:13 PM CDT Patient called in requesting Refill on gabapentin would like it sent to [facility] [address] documented in this encounter Plan of Treatment Not on file documented as of this encounter Visit Diagnoses Not on filedocumented in this encounter Discontinued Medications Medication Sig Discontinue Reason Start Date End Da te gabapentin (NEURONTIN) 300 mg capsule Take 1 capsule (300 mg total) by mouth 4 (four) times a day Reorder 08/03/2021 09/20/2021 documented as of this encounter Care Teams Box Machine Operator Relationship Specialty Start Date End Date Guerda Iqbal PA PCP - General County Manager 03/12/21 11/29/21 documented as of this encounter
--- OUTSIDE RECORDS SUMMARY | 2024-01-30 10:43 | XMS_ITS | Encounter Summary ---
Author Organization [facility] Address [address] [place] [address] Care Team Providers Care Director Business Management Name Role Phone Guerda Iqbal Primary Care Provider [phone] Reason for Visit * Reason Onset Date Comments med refill 08/13/2021 Encounter Details Date Type Department Care Team (Late st Contact Info) Description 08/13/2021 Telephone [facility] Family Medicine [address] [place] [address] Guerda Iqbal PA [address] [place] [address] med refill Social History Tobacco Use Types Packs/Day Years [...] on file Legal Sex Female 10:40 AM FRONT DESK RECEPTIONIST Gender Identity Female 03/03/2021 12:47 PM FRONT DESK RECEPTIONIST Sexual Orientation Not on file 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 documented in this encounter Plan of Treatment Not on file documented as of this encounter Visit Diagnoses Not on filedocumented in this encounter Discontinued Medications Medication Sig Discontinue Reason Start Date End Da te pravastatin (PRAVACHOL) 10 mg tablet Take 10 mg by mouth daily Reorder 08/13/2021 ibuprofen (ADVIL,MOTRIN) 800 mg tablet Take 1 tablet (800 mg total) by mouth 3 (three) times a day Reorder 07/14/2021 08/13/2021 documented as of this encounter Care Teams Director Business Management Relationship Specialty Start Date End Date Guerda Iqbal PA PCP - General Minute Clerk 03/12/21 11/29/21 documented as of this encounter
--- OUTSIDE RECORDS SUMMARY | 2024-01-30 10:43 | XMS_ITS | Encounter Summary ---
Author Organization [facility] Address [address] [facility] [facility] [address] [place] [address] Care Team Providers Care Crown Blocker Name Role Phone Claudia Haas NP Primary Care Provider [phone] Reason for Visit * Reason Onset Date Comments Call Back 05/04/2022 Encounter Details Date Type Department Care Team (Late st Contact Info) Description 05/04/2022 Telephone [facility] Internal Medicine 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 Proof faxed to Dr. Hernández office. Pt made aware * Telephone Encounter - Lu Cannon - 05/04/2022 10:56 AM CDT Call Back Caller???s Concern: Patient called back and relayed that practice has sent referral for patient to be seen, she relayed that the office of Dr. Hernández called and they are needing and insurance [facility]. Patient called to relay. Cynthia Hernández Phone #: [phone] Fax #: [phone] Address: [address] [place] [address] Caller???s Call back #: [phone] Does message need to be routed? Yes-Action Needed documented in this encounter Plan of Treatment Not on file documented as of this encounter Visit Diagnoses Not on filedocumented in this encounter Care Teams Crown Blocker Relationship Specialty Start Date End Date Claudia Haas NP PCP - General Internal Medicine 11/30/21 07/26/22 documented as of this encounter
--- OUTSIDE RECORDS SUMMARY | 2024-01-30 10:43 | XMS_ITS | Encounter Summary ---
Author Organization [facility] Address [address] [place] [address] Care Team Providers Care Patient Clerical Assistant Name Role Phone Guerda Iqbal Primary Care Provider [phone] Reason for Visit * Reason Onset Date Comments Med Refill 03/26/2021 Encounter Details Date Type Department Care Team (Late st Contact Info) Description 03/26/2021 Telephone [facility] Family Medicine [address] [place] [address] Guerda Iqbal PA [address] [place] [address] Med Refill Social History Tobacco Use Types Packs/Day Years Used Date Smoking Tobacco: Every Day Cigarettes Smokeless Tobacco: Never AUDIT-C Answer Date Recorded Q1: How often do you have a drink containing alc ohol? 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 file Not on file documented as of this encounter Ordered Prescriptions Prescription Sig Dispense Quantity Refills Last Filled Start Date End Date calcium carbonate-vit D3-min 600 mg calcium- 400 unit tablet Take 1 tablet by mouth 3 (three) times a week 90 tablet 3 03/26/2021 2 gabapentin (NEURONTIN) 300 mg capsule Take 1 capsule (300 mg total) by mouth 4 (four) times a day 120 capsule 3 03/26/2021 2 azelastine (OPTIVAR) 0.05 % ophthalmic solutionIndications :Allergic Conjunctivitis Administer 1 drop into both eyes 2 (two) times a day 6 mL 3 03/26/2021 2 documented in this encounter Miscellaneous Notes * Telephone Encounter - Guerda Iqbal PA - 03/26/2021 11:44 AM PLATE COLORER [facility]. E COLORER * Telephone Encounter - Lyric Jauregui - 03/26/2021 9:56 AM CST azelastine (OPTIVAR) 0.05 % ophthalmic solution calcium carbonate-vit D3-min 600 mg calcium- 400 unit tablet gabapentin (NEURONTIN) 300 mg capsule E COLORER documented in this encounter Plan of Treatment Not on file documented as of this encounter Visit Diagnoses Not on filedocumented in this encounter Discontinued Medications Medication Sig Discontinue Reason Start Date End Da te gabapentin (NEURONTIN) 300 mg capsule Take 1 capsule (300 mg total) by mouth 4 (four) times a day Reorder 03/24/2021 03/26/2021 calcium carbonate-vit D3-min 600 mg calcium- 400 unit tablet Take 1 tablet by mouth 3 (three) times a week Reorder 03/24/2021 03/26/2021 azelastine (OPTIVAR) 0.05 % ophthalmic solutionIndications:Octavio rgic Conjunctivitis Administer 1 drop into both eyes 2 (two) times a day Reorder 03/24/2021 03/26/2021 documented as of this encounter Care Teams Patient Clerical Assistant Relationship Specialty Start Date End Date Guerda Iqbal PA PCP - General Linen Room Supervisor 03/12/21 11/29/21 documented as of this encounter
--- OUTSIDE RECORDS SUMMARY | 2024-01-30 10:43 | XMS_ITS | Encounter Summary ---
Author Organization [facility] Address [address] [place] [address] Care Team Providers Care Pharmaceutical Laboratory Technician Name Role Phone Claudia Haas SKI TOP TRIMMER Primary Care Provider [phone] Encounter Details Date Type Department Care Team (Late st Contact Info) Description 05/03/2022 Orders Only [facility] Family Medicine [address] [place] [address] Claudia Haas, SKI TOP TRIMMER [address] [place] [address] Seasonal allergic rhinitis due to pollen (Primary Dx) Social History Tobacco Use Types [...] on file Legal Sex Female 10:40 AM MEDIA CONSULTANT OUTSIDE SALES Gender Identity Female 03/03/2021 12:47 PM MEDIA CONSULTANT OUTSIDE SALES Sexual Orientation Not on file 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
--- OUTSIDE RECORDS SUMMARY | 2024-01-30 10:43 | XMS_ITS | Encounter Summary ---
Author Organization [facility] Address [address] [place] [address] Care Team Providers Care Finance Officer Name Role Phone Guerda Iqbal Primary Care Provider [phone] Encounter Details Date Type Department Care Team (Late st Contact Info) Description 11/19/2021 Telephone [facility] Internal Medicine at [place] [address] [place] [address] Guerda Iqbal PA [facility] [place] [address] Social History Tobacco Use Types Packs/Day Years [...] file Legal Sex Female 10:40 AM STEEL POST 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 documented in this encounter Plan of Treatment Not on file documented as of this encounter Visit Diagnoses Not on filedocumented in this encounter Care Teams Finance Officer Relationship Specialty Start Date End Date Guerda Iqbal PA PCP - General Butcher 03/12/21 11/29/21 documented as of this encounter
--- OUTSIDE RECORDS SUMMARY | 2024-01-30 10:43 | XMS_ITS | Encounter Summary ---
Author Organization [facility] Address [address] [place] [address] Care Team Providers Care Loft Worker Head Name Role Phone Guerda Iqbal Primary Care Provider [phone] Encounter Details Date Type Department Care Team (Late st Contact Info) Description 04/05/2021 Orders Only [facility] Family Medicine [address] [place] [address] ProviderShivam MD [address] [place], [place] [id number] Social History Tobacco Use Types Packs/Day Years [...] file Legal Sex Female 10:40 AM CLINICAL CASE MANAGER Gender Identity Female 03/03/2021 12:47 PM CLINICAL CASE MANAGER Sexual Orientation Not on file 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, [employer], 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, 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 file Not on file documented as of this encounter Plan of Treatment Not on file documented as of this encounter Procedures Procedure Name Priority Date/Time Associated Diagnosis Comments HM MAMMOGRAPHY Routine 01/06/2021 documented in this encounter Results * HM MAMMOGRAPHY (01/06/2021) us Historical Provider HEALTH MAINTENANCE Edited Result - Final documented in this encounter Visit Diagnoses Not on filedocumented in this encounter Care Teams Loft Worker Head Relationship Specialty Start Date End Date Guerda Iqbal PA PCP - General Manager Erp 03/12/21 11/29/21 documented as of this encounter
--- OUTSIDE RECORDS SUMMARY | 2024-01-30 10:43 | XMS_ITS | Encounter Summary ---
Author Organization [facility] Address [address] [place] [address] Care Team Providers Care Dramatic Agent Name Role Phone Guerda Iqbal Primary Care Provider [phone] Reason for Visit * Reason Comments Follow-up Encounter Details Date Type Department Care Team (Late st Contact Info) Description 07/22/2021 9:30 AM CDT Office Visit [facility] Family Medicine [address] [place] [address] Guerda Iqbal PA [address] [place] [address] Mild episode of recurrent major depressive disorder (HCC) (Primary Dx); BMI 21.0-21.9, adult Social History Tobacco Use Types Packs/Day [...] on file Legal Sex Female 10:40 AM MANTEL CRAFTSMAN Gender Identity Female 03/03/2021 12:47 PM MANTEL CRAFTSMAN Sexual Orientation Not on file 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, 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, 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, [employer]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 file Not on file documented as of this encounter Last Filed Vital Signs Vital Sign Reading Time Taken Comments Blood Pressure 138/92 07/22/2021 9:19 AM CDT Pulse 67 07/22/2021 9:19 AM CDT Temperature 36.6 ??C (97.8 ??F) 07/22/2021 9:19 AM CD T Respiratory Rate 18 07/22/2021 9:19 AM CDT Oxygen Saturation 99% 07/22/2021 9:19 AM CDT Inhaled Oxygen Concentration - - Weight 53.5 kg (118 lb) 07/22/2021 9:19 AM CDT Height 156.2 cm (5' 1.5 ) 07/22/2021 9:19 AM CDT Body Mass Index 21.93 07/22/2021 9:19 AM CDT documented in this encounter Ordered Prescriptions Prescription Sig Dispense Quantity Refills Last Filled Start Date End Date buPROPion XL (WELLBUTRIN XL) 150 mg 24 hr tablet Take 1 tablet (150 mg total) by mouth every morning 90 tablet 4 07/22/2021 2 loratadine (CLARITIN) 10 mg tablet Take 1 tablet (10 mg total) by mouth daily 30 tablet 2 07/22/2021 2 montelukast (SINGULAIR) 10 mg tablet Take 1 tablet (10 mg total) by mouth nightly 30 tablet 3 07/22/2021 2 documented in this encounter Progress Notes * Guerda Iqbal PA - 07/22/2021 9:30 AM CDT Images from the original note were not included. Chief Complaint Follow-up HPI Here for f/u on depression. Has been started on cymbalta since last appt. She notes that she can't tell much difference emotionally. She is having difficulty with sleep pattern, and she wonders if this is contributing. She also is concerned as she has had an increased appetite and has gained weightsince starting it. She does continue to go to the gym at least 4d/week. She notes that since our last visit her daughter has started treatment for lung cancer. cary is thankful that she is able to help her daughter during this time, and her son is additionally coming home this month to visit. Allergies as of 07/22/2021 - Reviewed 07/22/2021 Allergen Reaction Noted ??? Tetracycline Rash 03/24/2021 Outpatient Encounter Medications as of 07/22/2021 Medication Sig Dispense Refill ??? amLODIPine (NORVASC) 10 mg tablet Take 1 tablet (10 mg total) by mouth daily 90 tablet 1 ??? azelastine (OPTIVAR) 0.05 % ophthalmic solution Administer 1 drop into both eyes 2 (two) times a day 6 mL 3 ??? biotin 10,000 mcg capsule Take 1 tablet by mouth daily ??? gabapentin (NEURONTIN) 300 mg capsule Take 1 capsule (300 mg total) by mouth 4 (four) times a day 120 capsule 3 ??? ibuprofen (ADVIL,MOTRIN) 800 mg tablet Take 1 tablet (800 mg total) by mouth 3 (three) times a day 90 tablet 2 ??? irbesartan (AVAPRO) 300 mg tablet Take 1 tablet (300 mg total) by mouth daily 30 tablet 3 ??? potassium chloride ER (KLOR-CON) 10 mEq CR tablet Take 1 tablet/capsule (10 mEq total) by mouthdaily 30 tablet/capsule 3 ??? pravastatin (PRAVACHOL) 10 mg tablet Take 10 mg by mouth daily ??? vortioxetine (TRINTELLIX) 10 mg tablet 10mg daily x 7 days, then 5mg daily x 7 days, then 5mg every other day x 7 days, then discontinue. 30 tablet 0 ??? [DISCONTINUED] DULoxetine DR (CYMBALTA) 30 mg capsule Take 1 capsule (30 mg total) by mouth daily 30 capsule 11 ??? [DISCONTINUED] loratadine (CLARITIN) 10 mg tablet Take 1 tablet (10 mg total) by mouth daily 30tablet 2 ??? [DISCONTINUED] montelukast (SINGULAIR) 10 mg tablet Take 1 tablet (10 mg total) by mouth nightly 30 tablet 3 ??? buPROPion XL (WELLBUTRIN XL) 150 mg 24 hr tablet Take 1 tablet (150 mg total) by mouth every morning 90 tablet 4 ??? loratadine (CLARITIN) 10 mg tablet Take 1 tablet (10 mg total) by mouth daily 30 tablet 2 ??? montelukast (SINGULAIR) 10 mg tablet Take 1 tablet (10 mg total) by mouth nightly 30 tablet 3 No facility-administered encounter medications on file as of 07/22/2021. Review of Systems Constitutional: Positive for unexpected weight change. Negative for fatigue and fever. HENT: Negative for congestion. Respiratory: Negative for cough, chest tightness and shortness of breath. Cardiovascular: Negative for chest pain and palpitations. Gastrointestinal: Negative for abdominal pain. Genitourinary: Negative for difficulty urinating and dysuria. Musculoskeletal: Negative for arthralgias and back pain. Skin: Negative for color change. Neurological: Negative for dizziness. Hematological: Does not bruise/bleed easily. Psychiatric/Behavioral: Positive for dysphoric mood. Negative for confusion. The patient is not nervous/anxious. Vitals: 07/22/21 0919 BP: 138/92 BP Location: Right arm Patient Position: Sitting Pulse: 67 Resp: 18 Temp: 36.6 ??C (97.8 ??F) TempSrc: Oral SpO2: 99% Weight: 53.5 kg (118 lb) Height: 156.2 cm (5' 1.5 ) Physical Exam Vitals and nursing note reviewed. Constitutional: General: She is not in acute distress. Appearance: Normal appearance. She is not ill-appearing, toxic-appearing or diaphoretic. HENT: Head: Normocephalic and atraumatic. Pulmonary: Effort: Pulmonary effort is normal. Breath sounds: Normal breath sounds. Musculoskeletal: General: Normal range of motion. Skin: General: Skin is warm. Neurological: General: No focal deficit present. Mental Status: She is alert and oriented to person, place, and time. Mental status is at baseline. Psychiatric: Mood and Affect: Mood normal. Behavior: Behavior normal. Thought Content: Thought content normal. Judgment: Judgment normal. Assessment/Plan Diagnoses and all orders for this visit: Mild episode of recurrent major depressive disorder (HCC) (F33.0) (Primary) Assessment & Plan: She will taper cymbalta 30mg every other day x 7 days then discontinue She will start wellbutrin xl 150mg daily We discussed adjusting/increasing dose at week 4 pending response BMI 21.0-21.9, adult (Z68.21) Other orders - montelukast (SINGULAIR) 10 mg tablet; Take 1 tablet (10 mg total) by mouth nightly - loratadine (CLARITIN) 10 mg tablet; Take 1 tablet (10 mg total) by mouth daily - buPROPion XL (WELLBUTRIN XL) 150 mg 24 hr tablet; Take 1 tablet (150 mg total) by mouth every morning Orders Placed This Encounter ??? montelukast (SINGULAIR) 10 mg tablet Sig: Take 1 tablet (10 mg total) by mouth nightly Dispense: 30 tablet Refill: 3 ??? loratadine (CLARITIN) 10 mg tablet Sig: Take 1 tablet (10 mg total) by mouth daily Dispense: 30 tablet Refill: 2 ??? buPROPion XL (WELLBUTRIN XL) 150 mg 24 hr tablet Sig: Take 1 tablet (150 mg total) by mouth every morning Dispense: 90 tablet Refill: 4 RADHA Dahl documented in this encounter Miscellaneous Notes * Assessment & Plan Note - Guerda Iqbal PA - 07/22/2021 9:57 AM CDT Associated Problem(s): Mild episode of recurrent major depressive disorder (HCC) She will taper cymbalta 30mg every other day x 7 days then discontinue She will start wellbutrin xl 150mg daily We discussed adjusting/increasing dose at week 4 pending response documented in this encounter Plan of Treatment Not on file documented as of this encounter Visit Diagnoses Diagnosis Mild episode of recurrent major depressive disorder (HCC)- Primary BMI 21.0-21.9, adult documented in this encounter Discontinued Medications Medication Sig Discontinue Reason Start Date End Da te DULoxetine DR (CYMBALTA) 30 mg capsule Take 1 capsule (30 mg total) by mouth daily 06/23/2021 07/22/2021 montelukast (SINGULAIR) 10 mg tablet Take 1 tablet (10 mg total) by mouth nightly Reorder 03/24/2021 07/22/2021 loratadine (CLARITIN) 10 mg tablet Take 1 tablet (10 mg total) by mouth daily Reorder 06/23/2021 07/22/2021 documented as of this encounter Historical Medications * This list may reflect changes made after this encounter. biotin 10,000 mcg capsule Take 1 tablet by mouth daily added in this encounter Care Teams Dramatic Agent Relationship Specialty Start Date End Date Guerda Iqbal PA PCP - General Hedis Nurse 03/12/21 11/29/21 documented as of this encounter
--- OUTSIDE RECORDS SUMMARY | 2024-01-30 10:43 | XMS_ITS | Encounter Summary ---
Author Organization [facility] Address [address] [place] [address] Care Team Providers Care Baggage Inspector Name Role Phone Claudia Haas NP Primary Care Provider [phone] Encounter Details Date Type Department Care Team (Late st Contact Info) Description 05/23/2022 Orders Only [facility] Family Medicine [address] [place] [address] Luis Hernandez MD [address] [address] SOB (shortness of breath) Social History Tobacco [...] on file Legal Sex Female 10:40 AM CARDIAC MONITOR Gender Identity Female 03/03/2021 12:47 PM CARDIAC MONITOR Sexual Orientation Not on file 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, [employer], 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, 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 file Not on file documented as of this encounter Plan of Treatment Not on file documented as of this encounter Procedures Procedure Name Priority Date/Time Associated Diagnosis Comments PULMONARY FUNCTION TEST (PFT) Routine 07/25/2022 2:30 PM CDT SOB (shortness of breath) documented in this encounter Results * (ABNORMAL) Pulmonary Function Test -[facility]; Full PFT in PFT Lab w/Stress Ox/6Min Walk Test (07/25/2022 2:30 PM CDT) FVC POST 3.33 2.08 - 3.63 L 07/25/2022 2:25 PM CDT [facility] FVC PRE 3.38 2.08 - 3.63 L 07/25/2022 2:25 PM CDT [facility] FEV1 POST 1.85 1.61 - 2.82 L 07/25/2022 2:25 PM CDT [facility] FEV1 PRE 1.84 1.61 - 2.82 L 07/25/2022 2:25 PM CDT [facility] [id number] 55.63(L) 64.77 - 91.38 % 07/25/2022 2:25 PM CDT [facility] [id number] 54.35(L) 64.77 - 91.38 % 07/25/2022 2:25 PM CDT [facility] KNU27-92% POST 0.57(L) 0.86 - 2.87 L/s 07/25/2022 2:25 PM CDT [facility] ZUD20-10% PRE 0.56(L) 0.86 - 2.87 L/s 07/25/2022 2:25 PM CDT [facility] PEF POST 5.97 4.27 - 7.24 L/s 07/25/2022 2:25 PM CDT [facility] PEF PRE 6.50 4.27 - 7.24 L/s 07/25/2022 2:25 PM CDT [facility] FET 100% POST 12.70 sec 07/25/2022 2:25 PM CDT [facility] FET 100% PRE 10.37 sec 07/25/2022 2:25 PM CDT [facility] FIVC POST 2.95 1.94 - 3.33 L 07/25/2022 2:25 PM CDT [facility] FIVC PRE 3.08 1.94 - 3.33 L 07/25/2022 2:25 PM CDT [facility] FIF50% POST 5.05 L/s 07/25/2022 2:25 PM CDT [facility] FIF50% PRE 5.16 L/s 07/25/2022 2:25 PM CDT [facility] VC PRE 3.38(H) 1.94 - 3.33 L 07/25/2022 2:25 PM CDT [facility] TLC PRE 6.88(H) 3.98 - 5.96 L 07/25/2022 2:25 PM CDT [facility] RV PRE 3.49(H) 1.49 - 2.65 L 07/25/2022 2:25 PM CDT [facility] FRC PL PRE 4.38 L 07/25/2022 2:25 PM CDT [facility] ERV PRE 0.89(H) 0.65 - 0.65 L 07/25/2022 2:25 PM CDT [facility] IC PRE 2.21(H) 1.98 - 1.98 L 07/25/2022 2:25 PM CDT [facility] RAW PRE 3.33(H) 3.06 - 3.06 cmH2O*s/L 07/25/2022 2:25 PM CDT [facility] BF RES 25.06 BPM 07/25/2022 2:25 PM CDT [facility] VTG RAW 4.67 L 07/25/2022 2:25 PM CDT [facility] VTG 4.67 L 07/25/2022 2:25 PM CDT [facility] DLCOc SB 14.04(L) 15.66 - 27.12 ml/(min*mm Hg) 07/25/2022 2:25 PM CDT [facility] DLCOc SB 14.04(L) 15.66 - 27.12 ml/(min*mm Hg) 07/25/2022 2:25 PM CDT [facility] VA 4.66(L) 4.82 - 4.82 L 07/25/2022 2:25 PM CDT [facility] DLCO/VA PRE 3.02 2.87 - 5.74 ml/(min*mm Hg*L) 07/25/2022 2:25 PM CDT [facility] DLCOc SB 3.02 2.87 - 5.74 ml/(min*mm Hg*L) 07/25/2022 2:25 PM CDT [facility] Anatomical Region Laterality Modality PFT 07/25/2022 12:5 8 PM CDT us Luis Hernandez MD PFT ORDERABLES Edited Re sult - Final documented in this encounter Visit Diagnoses Diagnosis SOB (shortness of breath) Shortness of breath documented in this encounter Care Teams Baggage Inspector Relationship Specialty Start Date End Date Claudia Haas NP PCP - General Internal Medicine 11/30/21 07/26/22 documented as of this encounter
--- OUTSIDE RECORDS SUMMARY | 2024-01-30 10:43 | XMS_ITS | Encounter Summary ---
Author Organization [facility] Address [address] [place] [address] Care Team Providers Care Teacher Kindergarten Name Role Phone Claudia Haas TRAINING SPECIALIST Primary Care Provider [phone] Encounter Details Date Type Department Care Team (Late st Contact Info) Description 03/23/2022 Orders Only [facility] Family Medicine [address] [place] [address] Claudia Haas, TRAINING SPECIALIST [address] [place] [address] Pneumonia of right lower lobe due to infectious organism Social History Tobacco Use Types Packs/Day Years [...] on file Legal Sex Female 10:40 AM BAD CLOTH CHECKER Gender Identity Female 03/03/2021 12:47 PM BAD CLOTH CHECKER Sexual Orientation Not on file 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, 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, 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, [employer]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 file Not on file documented as of this encounter Plan of Treatment Not on file documented as of this encounter Procedures Procedure Name Priority Date/Time Associated Diagnosis Comments XR CHEST PA LATERAL 2 VIEWS Schedule Routine, Read Routine (OP Routine) 03/19/2022 Pneumonia of right lower lobe due to infectious organism documented in this encounter Results * XR Chest Pa Lateral 2 Vw (03/19/2022) Anatomical Region Laterality Modality Body, Chest N/A Radiographic Susanna ging Claudia Haas TRAINING SPECIALIST IMG XR PROCEDURES Final Resul t documented in this encounter Visit Diagnoses Diagnosis Pneumonia of right lower lobe due to infectious organism documented in this encounter Care Teams Teacher Kindergarten Relationship Specialty Start Date End Date Claudia Haas, TRAINING SPECIALIST PCP - General Internal Medicine 11/30/21 07/26/22 documented as of this encounter
--- OUTSIDE RECORDS SUMMARY | 2024-01-30 10:43 | XMS_ITS | Encounter Summary ---
Author Organization [facility] Address [address] [place] [address] Care Team Providers Care Direct Chill Caster Name Role Phone Claudia Haas NP Primary Care Provider [phone] Reason for Visit * Diagnostic Imaging (Routine) - Pending Review Specialty Diagnoses / Procedures Referred By Contac t Referred To Contact Procedures Breast Imaging Screening Outside Reference Transcribed Order, Provider Referral ID Status Reason Start Date Expiration Date V isits Requested Visits Authorized [id number] Pending Review 05/31/2023 06/29/2024 1 1 Encounter Details Date Type Department Care Team (Latest Contact Info) Description 05/19/2022 - 05/19/2022 11:59 PM CDT Hospital Encounter [facility] Outside Images [address] [place] [id number] Discharge Disposition: Discharge to home or self [...] on file Legal Sex Female 10:40 AM 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 2 tablet 03/04/2022 3 gabapentin (NEURONTIN) 300 mg capsule Take [...] Procedure Name Priority Date/Time Associated Diagnosis Comments BREAST IMAGING MG SCREENING OUTSIDE REFERENCE Routine 05/19/2022 12:00 AM CDT documented in this encounter Results * Breast Imaging Screening Outside Reference (05/19/2022 12:00 AM CDT) Narrative [id number] - 05/31/2023 12:40 PM CDT This order has been auto-finalized and does not contain a result. us Provider Transcribed Order IMG MAMMO PROCEDURES Final Result [id number] documented in this encounter Visit Diagnoses Not on filedocumented in this encounter Care Teams Direct Chill Caster Relationship Specialty Start Date End Date Claudia Haas NP PCP - General Internal Medicine 11/30/21 07/26/22 documented as of this encounter
--- OUTSIDE RECORDS SUMMARY | 2024-01-30 10:43 | XMS_ITS | Encounter Summary ---
Author Organization [facility] Address [address] [place] [address] Care Team Providers Care Grease Cup Filler Name Role Phone Guerda Iqbal Primary Care Provider [phone] Reason for Visit * Reason Comments Follow-up Thinks she needs to increase allergy meds. Depression isn't getting better. Encounter Details Date Type Department Care Team (Late st Contact Info) Description 06/23/2021 9:30 AM CDT Office Visit [facility] Family Medicine [address] [place] [address] Guerda Iqbal PA [facility] [place] [address] Essential hypertension (Primary Dx); Mild episode of recurrent major depressive disorder (HCC); Seasonal allergic rhinitis due to pollen; BMI 21.0-21.9, adult Social History Tobacco Use [...] points, staff should administer the PHQ-9) 1 06/23/2021 Comments Unknown Sex and Gender Information Value Date Recorded Sex Assigned at Not on file Legal Sex Female 10:40 AM EMT DISPATCHER Gender Identity Female 03/03/2021 12:47 PM EMT DISPATCHER Sexual Orientation Not on file 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, 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, 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, 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 file Not on file documented as of this encounter Last Filed Vital Signs Vital Sign Reading Time Taken Comments Blood Pressure 160/90 06/23/2021 9:18 AM CDT Pulse 70 06/23/2021 9:18 AM CDT Temperature 36.6 ??C (97.9 ??F) 06/23/2021 9:18 AM CD T Respiratory Rate - - Oxygen Saturation 97% 06/23/2021 9:18 AM CDT Inhaled Oxygen Concentration - - Weight 52.9 kg (116 lb 11.2 oz) 06/23/2021 9:18 AM CDT Height - - Body Mass Index 21.69 03/24/2021 9:18 AM EMT DISPATCHER documented in this encounter Ordered Prescriptions Prescription Sig Dispense Quantity Refills Last Filled Start Date End Date vortioxetine (TRINTELLIX) 10 mg tabletIndications: major depressive disorder 10mg daily x 7 days, then 5mg daily x 7 days, then 5mg every other day x 7 days, then discontinue. 30 tablet 06/23/[address] (CYMBALTA) 30 mg capsule Take 1 capsule (30 mg total) by mouth daily 30 capsule 11 06/23/2021 2 loratadine (CLARITIN) 10 mg tablet Take 1 tablet (10 mg total) by mouth daily 30 tablet 2 06/23/2021 2 documented in this encounter Progress Notes * Guerda Iqbal PA - 06/23/2021 9:30 AM CDT Images from the original note were not included. Chief Complaint Follow-up (Thinks she needs to increase allergy meds. /Depression isn't getting better. ) HPI Here for f/u of htn, depression, allergic rhinitis. Having more difficulty with depression in the last few weeks. Has been going to the gym several times/week, spending time with family. Daughter diagnosed with lung cancer recently. On trintellix for the last two years. Previously tried and failed several medications - thinks zoloft and wellbutrin. One of them created a decreased libido, so it was changed. She denies s/h ideations. Having difficulty with allergies, worse with seasonal change. Sitting outside with the cat on the screened in porch and has been having nasal congestion and sneezing. No otc meds attempted. Has lost home bp cuff in the move, not monitoring pressure or pulse. cologuard last fall, neg Last cscope [facility] around 5y ago, normal Allergies as of 06/23/2021 - Reviewed 06/23/2021 Allergen Reaction Noted ??? Tetracycline Rash 03/24/2021 Outpatient Encounter Medications as of 06/23/2021 Medication Sig Dispense Refill ??? amLODIPine (NORVASC) 10 mg tablet Take 1 tablet (10 mg total) by mouth daily 90 tablet 1 ??? azelastine (OPTIVAR) 0.05 % ophthalmic solution Administer 1 drop into both eyes 2 (two) times a day 6 mL 3 ??? gabapentin (NEURONTIN) 300 mg capsule Take 1 capsule (300 mg total) by mouth 4 (four) times a day 120 capsule 3 ??? ibuprofen (ADVIL,MOTRIN) 800 mg tablet Take 1 tablet (800 mg total) by mouth 3 (three) times a day 90 tablet 2 ??? irbesartan (AVAPRO) 300 mg tablet Take 300 mg by mouth daily ??? potassium chloride ER (KLOR-CON) 10 mEq CR tablet Take 10 mEq by mouth daily ??? pravastatin (PRAVACHOL) 10 mg tablet Take 10 mg by mouth daily ??? [DISCONTINUED] vortioxetine (TRINTELLIX) 20 mg tablet Take 1 tablet (20 mg total) by mouth daily 30 tablet 3 ??? DULoxetine DR (CYMBALTA) 30 mg capsule Take 1 capsule (30 mg total) by mouth daily 30 capsule 11 ??? loratadine (CLARITIN) 10 mg tablet Take 1 tablet (10 mg total) by mouth daily 30 tablet 2 ??? montelukast (SINGULAIR) 10 mg tablet Take 1 tablet (10 mg total) by mouth nightly 30 tablet 3 ??? vortioxetine (TRINTELLIX) 10 mg tablet 10mg daily x 7 days, then 5mg daily x 7 days, then 5mg every other day x 7 days, then discontinue. 30 tablet 0 ??? [DISCONTINUED] biotin 10,000 mcg capsule Take by mouth daily (Patient not taking: Reported on 06/23/2021) ??? [DISCONTINUED] calcium carbonate-vit D3-min 600 mg calcium- 400 unit tablet Take 1 tablet by mouth 3 (three) times a week (Patient not taking: Reported on 06/23/2021) 90 tablet 3 ??? [DISCONTINUED] cholecalciferol (VITAMIN D-3) 2000 unit capsule 2,000 Units daily (Patient not taking: Reported on 06/23/2021) No facility-administered encounter medications on file as of 06/23/2021. Review of Systems Constitutional: Negative for fatigue, fever and unexpected weight change. HENT: Negative for congestion. Respiratory: Negative for cough, chest tightness and shortness of breath. Cardiovascular: Negative for chest pain and palpitations. Gastrointestinal: Negative for abdominal pain. Genitourinary: Negative for difficulty urinating and dysuria. Musculoskeletal: Negative for arthralgias and back pain. Skin: Negative for color change. Neurological: Negative for dizziness. Hematological: Does not bruise/bleed easily. Psychiatric/Behavioral: Positive for dysphoric mood. Negative for confusion, self-injury, sleep disturbance and suicidal ideas. The patient is not nervous/anxious. Vitals: 06/23/21 0918 BP: 160/90 Pulse: 70 Temp: 36.6 ??C (97.9 ??F) SpO2: 97% Weight: 52.9 kg (116 lb 11.2 oz) Physical Exam Vitals and nursing note reviewed. Constitutional: General: She is not in acute distress. Appearance: Normal appearance. She is not ill-appearing, toxic-appearing or diaphoretic. HENT: Head: Normocephalic and atraumatic. Cardiovascular: Rate and Rhythm: Normal rate and regular rhythm. Heart sounds: Normal heart sounds. No murmur heard. No friction rub. No gallop. Pulmonary: Effort: Pulmonary effort is normal. No respiratory distress. Breath sounds: Normal breath sounds. No stridor. No wheezing or rhonchi. Chest: Chest wall: No tenderness. Musculoskeletal: General: Normal range of motion. Skin: General: Skin is warm. Neurological: General: No focal deficit present. Mental Status: She is alert and oriented to person, place, and time. Mental status is at baseline. Psychiatric: Mood and Affect: Mood normal. Behavior: Behavior normal. Thought Content: Thought content normal. Judgment: Judgment normal. Assessment/Plan Diagnoses and all orders for this visit: Essential hypertension (I10) (Primary) Assessment & Plan: Patient advised to continue medications the same at this time. They will monitor home bp with goal 120-130/80s. Mild episode of recurrent major depressive disorder (HCC) (F33.0) Assessment & Plan: Will taper trintellix over the coming weeks - 10mg every day x 7 days, then 5mg every day x 7 days,then 5mg every other day x 7 days, then discontinue. Will initiate cymbalta 30mg every day when taper is finished. Advised to let a family member know that she is adjusting/changing meds and to monitor for worsening depression. Encouraged her to continue with exercise. Seasonal allergic rhinitis due to pollen (J30.1) Assessment & Plan: Add claritin every day. We discussed adding flonase pending response. BMI 21.0-21.9, adult (Z68.21) Other orders - loratadine (CLARITIN) 10 mg tablet; Take 1 tablet (10 mg total) by mouth daily - DULoxetine DR (CYMBALTA) 30 mg capsule; Take 1 capsule (30 mg total) by mouth daily - vortioxetine (TRINTELLIX) 10 mg tablet; 10mg daily x 7 days, then 5mg daily x 7 days, then 5mg every other day x 7 days, then discontinue. Orders Placed This Encounter ??? loratadine (CLARITIN) 10 mg tablet Sig: Take 1 tablet (10 mg total) by mouth daily Dispense: 30 tablet Refill: 2 ??? DULoxetine DR (CYMBALTA) 30 mg capsule Sig: Take 1 capsule (30 mg total) by mouth daily Dispense: 30 capsule Refill: 11 ??? vortioxetine (TRINTELLIX) 10 mg tablet Simg daily x 7 days, then 5mg daily x 7 days, then 5mg every other day x 7 days, then discontinue. Dispense: 30 tablet Refill: 0 RADHA Dunbar documented in this encounter Miscellaneous Notes * Assessment & Plan Note - Guerda Iqbal PA - 06/23/2021 11:51 AM CDT Associated Problem(s): Seasonal allergic rhinitis due to pollen Add claritin every day. We discussed adding flonase pending response. * Assessment & Plan Note - Guerda Iqbal PA - 06/23/2021 11:50 AM CDT Associated Problem(s): Mild episode of recurrent major depressive disorder (HCC) Will taper trintellix over the coming weeks - 10mg every day x 7 days, then 5mg every day x 7 days,then 5mg every other day x 7 days, then discontinue. Will initiate cymbalta 30mg every day when taper is finished. Advised to let a family member know that she is adjusting/changing meds and to monitor for worsening depression. Encouraged her to continue with exercise. * Assessment & Plan Note - Guerda Iqbal PA - 06/23/2021 11:50 AM CDT Associated Problem(s): Essential hypertension Patient advised to continue medications the same at this time. They will monitor home bp with goal 120-130/80s. documented in this encounter Plan of Treatment Not on file documented as of this encounter Visit Diagnoses Diagnosis Essential hypertension- Primary Unspecified essential hypertension Mild episode of recurrent major depressive disorder (HCC) Seasonal allergic rhinitis due to pollen BMI 21.0-21.9, adult documented in this encounter Discontinued Medications Medication Sig Discontinue Reason Start Date End Da te calcium carbonate-vit D3-min 600 mg calcium- 400 unit tablet Take 1 tablet by mouth 3 (three) times a week 03/26/2021 06/23/2021 cholecalciferol (VITAMIN D-3) 2000 unit capsule 2,000 Units daily 022 biotin 10,000 mcg capsule Take by mouth daily 06/23/2021 vortioxetine (TRINTELLIX) 20 mg tabletIndications:major depressive disorder Take 1 tablet (20 mg total) by mouth daily 06/21/2021 06/23/2021 documented as of this encounter Care Teams Grease Cup Filler Relationship Specialty Start Date End Date Guerda Iqbal PA PCP - General Baster Hand 03/12/21 11/29/21 documented as of this encounter
--- OUTSIDE RECORDS SUMMARY | 2024-01-30 10:43 | XMS_ITS | Encounter Summary ---
Author Organization [facility] Address [address] [place] [address] Care Team Providers Care Private Investigator Name Role Phone Guerda Iqbal Primary Care Provider [phone] Reason for Visit * Reason Onset Date Comments med refill 08/18/2021 Encounter Details Date Type Department Care Team (Late st Contact Info) Description 08/18/[address] 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 Pt has refills on gabapentin. Pharmacy will contact patient and let her know. * Telephone Encounter - Elena Cherry PA - 08/19/2021 1:16 PM CDT Please call and check with pharmacy -- Guerda sent this Rx out on 08/03 and the chart shows pharm confirmed it was received. There should be a new Rx with refill available. documented in this encounter Plan of Treatment Not on file documented as of this encounter Visit Diagnoses Not on filedocumented in this encounter Care Teams Private Investigator Relationship Specialty Start Date End Date Guerda Iqbal PA PCP - General Department Of Mathematics Chair 03/12/21 11/29/21 documented as of this encounter
--- OUTSIDE RECORDS SUMMARY | 2024-01-30 10:43 | XMS_ITS | Encounter Summary ---
Author Organization [facility] Medical Group Address [address] [place] [address] Care Team Providers Care Director Of Automation Name Role Phone Claudia Haas NP Primary Care Provider [phone] Encounter Details Date Type Department Care Team (Late st Contact Info) Description 02/25/2022 Telephone [facility] Accountable Care Organization [address] [place] [id number] Melanie Damon, RN [address] [facility] [address] [address] Social History Tobacco Use Types Packs/Day Years [...] on file Legal Sex Female 10:40 AM APPLIANCE PARTS COUNTER CLERK Gender Identity Female 03/03/2021 12:47 PM APPLIANCE PARTS COUNTER CLERK Sexual Orientation Not on file 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, 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, 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, 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 file Not on file documented as of this encounter Miscellaneous Notes * Telephone Encounter - Melanie Damon RN - 02/25/2022 1:56 PM CST [facility]-pt called me- 02/12/22- dx w pna at [facility] and was treated w/zpack/prednisone- and then on 02/18/22 felt better- but that nite started feeling ill- R side hurting- on 02/20/22- went to ER at [place]- CT of chest w/ RLL pna- admitted - treated w/ IV atb-did not need O2- had nebulizer treatments- pt states has asthma- Discharge medication list from [facility] reviewed and reconciled with current outpatient medications.Cont to take montelukast, pravastatin- did quit smoking - finished levaquin- using her IS hourly while awake- no fever/chills/cp- some soboe - appetite good- taking pofluids well- slept well - up and about, no cane/walker- lives alone and is independent- has supportive family- will keep appt w/ pcp and return to ER for emergent needs- has my phone number Melanie Damon RN, BSN [facility] Aircraft Designer for High Risk [phone] IANCE PARTS COUNTER CLERK * Telephone Encounter - De Cardona MA - 02/25/2022 1:36 PM CST Patient scheduled. IANCE PARTS COUNTER CLERK * Telephone Encounter - Carolyn Hernandez LPN - 02/25/2022 1:35 PM APPLIANCE PARTS COUNTER CLERK Called patient to schedule for follow up from hospital visit. Pt stated that on 02/12/22 she went to [facility] and got diagnosed with pneumonia. Pt got treated with Zpak and medrol dose pack. On 02/18/22 pt got pain down the right side and down her back, by 02/19/22 the pain was unbearable by the night on early 02/20/22 she called her grandson to take her to the ER at [place]. Pt was admitted to [place] on 02/21/22 with dx of pneumonia in right lower lobe. Pt was given IV ABX inpatient. Pt stated on chest CAT scan it showed fluid in the intercostal space. She was discharged with order for Levaquin 750mg x 2 days which she took her last dose today. She has follow up labs to obtain at [place] tomorrow due to platelet level dropped while in hospital. She also has a follow up CXR that was ordered to be obtained on 03/02/22. She is using an incentive spirometer and her PRN Albuterol inhaler and is feeling much better. She still has a very small nagging pain on the right side when she takes a deep breath. Follow up appt in office scheduled for 03/04/22 so that both F/U blood work and F/U CXR results will be back to review IANCE PARTS COUNTER CLERK * Telephone Encounter - Claudia Haas NP - 02/25/2022 11:49 AM CST Patient needs hospital follow up and request records please IANCE PARTS COUNTER CLERK * Telephone Encounter - Melanie Damon RN - 02/25/2022 11:07 AM APPLIANCE PARTS COUNTER CLERK [facility] - [facility] notes: [facility] 02/21-02/23 [facility] Dx: Unknown Called and left VM for pt- Melanie Damon RN, BSN [facility] Aircraft Designer for High Risk [phone] IANCE PARTS COUNTER CLERK documented in this encounter Plan of Treatment Not on file documented as of this encounter Visit Diagnoses Not on filedocumented in this encounter Care Teams Director Of Automation Relationship Specialty Start Date End Date Claudia Haas NP PCP - General Internal Medicine 11/30/21 07/26/22 documented as of this encounter
--- OUTSIDE RECORDS SUMMARY | 2024-01-30 10:43 | XMS_ITS | Encounter Summary ---
Author Organization [facility] Address [address] [place] [address] Care Team Providers Care Environmental Analyst Name Role Phone Claudia Haas NP Primary Care Provider [phone] Reason for Visit * Reason Onset Date Comments ACO Quality Outreach 12/13/2021 Encounter Details Date Type Department Care Team (Late st Contact Info) Description 12/13/[address] 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 ACO Medication Adherence Outreach Terri Briseno was identified on [facility] medication adherence list for At risk of non-adherence to ACEi/ARB (med filled <80% of calendar year) (KAILA). Refill of Irbesartan was due 11/11. Patient last filled a 30 day supply. Current Prescription Fill Rate: 88 Called patient. Successful call. Pt is needing irbesartan sent to the pharmacy please MAHAD [place] Patient Outreach Buttonhole Maker [facility] Medical Group-ACO [phone] documented in this encounter Plan of Treatment Not on file documented as of this encounter Visit Diagnoses Not on filedocumented in this encounter Care Teams Environmental Analyst Relationship Specialty Start Date End Date Claudia Haas NP PCP - General Internal Medicine 11/30/21 07/26/22 documented as of this encounter
--- OUTSIDE RECORDS SUMMARY | 2024-01-30 10:43 | XMS_ITS | Encounter Summary ---
Author Organization [facility] Address [address] [place] [id number] Care Team Providers Care Sliver Chopper Name Role Phone Claudia Haas NP Primary Care Provider Reason for Referral * Diagnostic Imaging (Routine) - Closed Specialty Diagnoses / Procedures Referred By Contac t Referred To Contact Diagnoses Age-related osteoporosis without current pathological fracture Procedures Dexa Axial Skeleton Bone Density 1 or 2 Site Claudia Haas NP Phone: tel: fax: External Order Referral ID Status Reason Start Date Expiration Date Visits Re quested Visits Authorized [id number] Closed 11/30/2021 12/30/2022 1 1 Reason for Visit * Reason Comments New Patient Encounter Details Date Type Department Care Team (Late st Contact Info) Description 11/30/2021 1:30 PM CDT Office Visit [facility] Internal Medicine at [place] [address] [place] [phone] Claudia Haas NP [address] [place], [place] [id number] Essential hypertension (Primary Dx); BMI 22.0-22.9, adult; Spinal stenosis, unspecified spinal region; Mixed hyperlipidemia; Mild episode of recurrent major depressive disorder (HCC); Seasonal allergic rhinitis due to pollen; Encounter for smoking cessation counseling; Age-related osteoporosis without current pathological fracture Social History Tobacco Use Types Packs/Day Years [...] on file Legal Sex Female 10:40 AM 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 Gender Identity Female 03/03/2021 12:47 PM AMPLIFIER MECHANIC Sexual Orientation Not on file 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 End Date 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[employer], [employer], 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, 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 file Not on file documented as of this encounter Last Filed Vital Signs Vital Sign Reading Time Taken Comments Blood Pressure 150/80 11/30/2021 1:38 PM CDT Pulse 69 11/30/2021 1:38 PM CDT Temperature 36.6 ??C (97.9 ??F) 11/30/2021 1:38 PM CD T Respiratory Rate - - Oxygen Saturation 99% 11/30/2021 1:38 PM CDT Inhaled Oxygen Concentration - - Weight 53.3 kg (117 lb 8 oz) 11/30/2021 1:38 PM CDT Height 154.9 cm (5' 1 ) 11/30/2021 1:38 PM CDT Body Mass Index 22.2 11/30/2021 1:38 PM CDT documented in this encounter Patient Instructions * Patient Instructions* Claudia Haas NP - 11/30/2021 1:30 PM CDT Medications as directed. Follow-up in 6 months or sooner as needed. Schedule an complete DEXA screening as you are due. Contact the office with any questions or concerns documented in this encounter Ordered Prescriptions Prescription Sig Dispense Quantity Refills Last Filled Start Date End Date nicotine (NICODERM CQ) 7 mgIndications:Enco monica for smoking cessation counseling Place 1 patch on the skin daily 30 patch 1 11/30/2021 03/04/2022 ibuprofen (ADVIL,MOTRIN) 800 mg tabletIndications: Spinal stenosis, unspecified spinal region Take 1 tablet (800 mg total) by mouth 4 (four) times a day 90 tablet 1 11/30/2021 01/04/2022 irbesartan (AVAPRO) 300 mg tabletIndications: Essential hypertension Take 1 tablet (300 mg total) by mouth daily 90 tablet 11/30/2021 12/20/2021 documented in this encounter Progress Notes * Claudia Haas, SACK FILLER - 11/30/2021 1:30 PM CDT Subjective/Objective Patient ID: Terri Briseno is a 71 y.o. female. Visit Date: 11/30/2021 Chief Complaint New Patient HPI 71-year-old female in to establish care as a new patient. She states that her recently and she is mood for [facility] within the last year. She is tearful at times during assessment. She does need medication refills. She takes ibuprofen for spinal stenosis warts works fairly well for her. She would like to stop smoking in request nicotine patches. She is due for a DEXA screening. She had a Cologuard completed 12/27/2020 in a was negative. She did complain hepatitis C through insurance and that was as well negative Review of Systems Constitutional: Negative for activity [...] Negative for agitation, confusion and sleep disturbance. The patient is nervous/anxious. Depression without SI or HI Physical Exam Constitutional: Appearance: Normal appearance. She [...] Behavior normal. Thought Content: Thought content normal. Comments: Tearful at times Assessment/Plan Diagnoses and all orders for this visit: Essential hypertension (I10) (Primary) Comments: Continue blood pressure medication daily as directed. Have lab work completed prior to next visit Orders: - irbesartan (AVAPRO) 300 mg tablet; Take 1 tablet (300 mg total) by mouth daily - Comprehensive metabolic panel; Future BMI 22.0-22.9, adult (Z68.22) Comments: Maintain healthy and balanced diet Assessment & Plan: Obesity is unchanged. Discussed the patient's BMI. The BMI is above average. BMI management plan is completed. BMI Follow-up includes: nutrition counseling, exercise counseling and education provided. Spinal stenosis, unspecified spinal region (M48.00) Comments: Continue ibuprofen up to 4 times daily as needed Orders: - ibuprofen (ADVIL,MOTRIN) 800 mg tablet; Take 1 tablet (800 mg total) by mouth 4 (four) times a day Mixed hyperlipidemia (E78.2) Comments: Continue pravastatin 10 mg daily as directed Orders: - Lipid panel; Future Mild episode of recurrent major depressive disorder (HCC) (F33.0) Comments: Continue Wellbutrin 300 mg every morning as directed Seasonal allergic rhinitis due to pollen (J30.1) Comments: Continue Singulair daily as directed and needed Encounter for smoking cessation counseling (Z71.6) Comments: Start Nicoderm patches 7 mg daily as directed to help you stop smoking Orders: - nicotine (NICODERM CQ) 7 mg; Place 1 patch on the skin daily Age-related osteoporosis without current pathological fracture (M81.0) Comments: Complete DEXA scan as you are due Orders: - Dexa Axial Skeleton Bone Density 1 or 2 Site; Future Cosigned by Jose Corrales MD at 12/20/2021 8:10 AM AMPLIFIER MECHANIC IFIER MECHANIC documented in this encounter Miscellaneous Notes * Assessment & Plan Note - De Cardona MA - 11/30/2021 1:40 PM CDT Associated Problem(s): BMI 22.0-22.9, adult (Resolved 03/04/2022) Obesity is unchanged. Discussed the patient's BMI. The BMI is above average. BMI management plan is completed. BMI Follow-up includes: nutrition counseling, exercise counseling and education provided. documented in this encounter Plan of Treatment Not on file documented as of this encounter Procedures Procedure Name Priority Date/Time Associated Diagnosis Comments DEXA AXIAL SKELETON BONE DENSITY 1 OR MORE SITES Schedule Routine, Read Routine (OP Routine) 05/19/2022 Age-related osteoporosis without current pathological fracture LIPID PANEL Routine 12/09/2021 8:02 AM CDT Mixed hyperlipidemia COMPREHENSIVE METABOLIC PANEL Routine 12/09/2021 8:02 AM CDT Essential hypertension documented in this encounter Results * Dexa Axial Skeleton Bone Density 1 or 2 Site (05/19/2022) SCRIBED DXA T-SCORE 2.5 1.0 - 2.5 Anatomical Region Laterality Modality Body N/A Radiographic Susanna ging 05/19/2022 Claudia Haas NP IMG DXA PROCEDURES Edited Res ult - Final * Lipid panel (12/09/2021 8:02 AM CDT) Cholesterol 196 <200 mg/dL [facility] HDL 118 > OR = 50 mg/dL [facility] Triglycerides 35 <150 mg/dL [facility] LDL 68 mg/dL (calc) [facility] Comment: Reference range: <100 Desirable range <100 mg/dL for primary prevention; ?? <70 mg/dL for patients with CHD or diabetic patients with > or = 2 CHD risk factors. LDL-C is now calculated using the Leonel-Garcia calculation, which is a validated novel method providing better accuracy than the Friedewald equation in the estimation of LDL-C. Leonel SS et al. JUSTIN. 2013;310(27): 8438-0225 (http://education.[employer]/faq/UVJ598) Chol/HDL ratio 1.7 <5.0 (calc) [facility] Non-HDL, (LDL+VLDL) 78 <130 mg/dL (calc) [facility] Comment: For patients with diabetes plus 1 major ASCVD risk factor, treating to a non-HDL-C goal of <100 mg/dL (LDL-C of <70 mg/dL) is considered a therapeutic option. Blood 12/09/2021 8:02 AM CDT 12/09/2021 8:03 AM CDT Claudia Haas NP LAB BLOOD ORDERABLES Final Re sult [facility] [address] [place] [address] * Comprehensive metabolic panel (12/09/2021 8:02 AM CDT) Glucose 89 65 - 99 mg/dL [facility] Comment: ? Fasting reference interval BUN 10 7 - 25 mg/dL [facility] Creatinine 0.70 0.50 - 1.05 mg/dL [facility] eGFR 94 > OR = 60 mL/min/1. 73m2 [facility] Comment: The eGFR is based on the CKD-EPI 2020 equation. To calculate the new eGFR from a previous Creatinine or Cystatin C result, go to https://www.kidney.org/professionals/ kdoqi/gfr%5Fcalculator BUN/creat ratio NOT APPLICABLE 6 - 22 (calc) [facility] Sodium 137 135 - 146 mmol/L [facility] Potassium, pl 4.1 3.5 - 5.3 mmol/L [facility] Chloride 101 98 - 110 mmol/L [facility] CO2 28 20 - 32 mmol/L [facility] Calcium 9.2 8.6 - 10.4 mg/dL [facility] Protein, sr 6.4 6.1 - 8.1 g/dL [facility] Albumin 4.3 3.6 - 5.1 g/dL [facility] GLOBULIN 2.1 1.9 - 3.7 g/dL (calc) [facility] Alb/glob ratio 2.0 1.0 - 2.5 (calc) [facility] Bilirubin, total 0.4 0.2 - 1.2 mg/dL [facility] Alk phos 51 37 - 153 U/L [facility] AST 14 10 - 35 U/L [facility] ALT (SGPT) 11 6 - 29 U/L [facility] Blood 12/09/2021 8:02 AM CDT 12/09/2021 8:03 AM CDT us Claudia Haas NP LAB BLOOD ORDERABLES Final Re sult [facility] [address] [id number] documented in this encounter Visit Diagnoses Diagnosis Essential hypertension- Primary Unspecified essential hypertension BMI 22.0-22.9, adult Spinal stenosis, unspecified spinal region Mixed hyperlipidemia Mild episode of recurrent major depressive disorder (HCC) Seasonal allergic rhinitis due to pollen Encounter for smoking cessation counseling Age-related osteoporosis without current pathological fracture documented in this encounter Discontinued Medications Medication Sig Discontinue Reason Start Date End Da te ibuprofen (ADVIL,MOTRIN) 800 mg tablet Take 1 tablet (800 mg total) by mouth 3 (three) times a day Reorder 10/19/2021 11/30/2021 irbesartan (AVAPRO) 300 mg tablet TAKE 1 TABLET(300 MG) BY MOUTH DAILY Reorder 11/05/2021 11/30/2021 documented as of this encounter Historical Medications * This list may reflect changes made after this encounter. Medication Sig Dispense Quantity Refills Last Filled Start D ate End Date vit C,H-Qu-jxsyy-lutein-benjamin joshua (PreserVision AREDS-2) 250-90-40-1 mg capsule 01/14/2020 added in this encounter Care Teams Sliver Chopper Relationship Specialty Start Date End Date Claudia Haas NP PCP - General Internal Medicine 11/30/21 07/26/22 documented as of this encounter
--- OUTSIDE RECORDS SUMMARY | 2024-01-30 10:43 | XMS_ITS | Encounter Summary ---
Author Organization [facility] Address [address] [place] [address] Care Team Providers Care Proofer Name Role Phone Claudia Haas NP Primary Care Provider [phone] Reason for Referral * Diagnostic Imaging (Routine) - Closed Specialty Diagnoses / Procedures Referred By Contac t Referred To Contact Diagnoses Screening mammogram for high-risk patient Procedures Screening Mammogram Bilateral W Claduia Alas NP Phone: tel: fax: External Order Referral ID Status Reason Start Date Expiration Date Visits Re quested Visits Authorized [id number] Closed 02/10/2022 03/12/2023 1 1 COMPTROLLER Encounter Details Date Type Department Care Team (Late st Contact Info) Description 02/10/[address] [facility] Family Medicine [address] [place] [id number] Claudia Haas NP [address] [place] [address] Encounter for screening for malignant neoplasm of breast, unspecified screening modality (Primary Dx); Screening mammogram for high-risk patient Social History Tobacco Use Types Packs/Day Years [...] on file Legal Sex Female 10:40 AM CITY COMPTROLLER Gender Identity Female 03/03/2021 12:47 PM CITY COMPTROLLER Sexual Orientation Not on file 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, 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, 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, 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 file Not on file documented as of this encounter Progress Notes * Carolyn Hernandez LPN - 02/10/2022 12:47 PM CST Order for mammogram placed and faxed to Vijay as pt requested COMPTROLLER documented in this encounter Plan of Treatment Not on file documented as of this encounter Procedures Procedure Name Priority Date/Time Associated Diagnosis Comments SCREENING MAMMOGRAM BILATERAL W LIBAN Schedule Routine, Read Routine (OP Routine) 05/19/2022 Screening mammogram for high-risk patient documented in this encounter Results * Screening Mammogram Bilateral W Liban (05/19/2022) Anatomical Region Laterality Modality Breast Bilateral Mammography 05/19/2022 us Claudia Haas NP IMG MAMMO PROCEDURES Edited R esult - Final documented in this encounter Visit Diagnoses Diagnosis Encounter for screening for malignant neoplasm of breast, unspecified screening modality- Primary documented in this encounter Care Teams Proofer Relationship Specialty Start Date End Date Claudia Haas NP PCP - General Internal Medicine 11/30/21 07/26/22 documented as of this encounter
--- OUTSIDE RECORDS SUMMARY | 2024-01-30 10:43 | XMS_ITS | Encounter Summary ---
Author Organization [facility] Address [address] [place] [address] Care Team Providers Care Pulmonary Physician Name Role Phone Claudia Haas INFORMATION SYSTEMS AUDIT MANAGER Primary Care Provider [phone] Encounter Details Date Type Department Care Team (Late st Contact Info) Description 12/13/[address] 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
--- OUTSIDE RECORDS SUMMARY | 2024-01-30 10:43 | XMS_ITS | Encounter Summary ---
Author Organization [facility] Address [address] [place] [address] Care Team Providers Care Resolute Professional Name Role Phone Guerda Iqbal Primary Care Provider [phone] Encounter Details Date Type Department Care Team (Late st Contact Info) Description 06/30/2021 Orders Only [facility] Family Medicine [address] [place] [address] ProviderShivam MD [address] [place], [place] [id number] Social History Tobacco Use Types Packs/Day Years [...] on file Legal Sex Female 10:40 AM ORGAN PIPE MAKER METAL Gender Identity Female 03/03/2021 12:47 PM ORGAN PIPE MAKER METAL Sexual Orientation Not on file 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, 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, 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, 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 file Not on file documented as of this encounter Plan of Treatment Not on file documented as of this encounter Procedures Procedure Name Priority Date/Time Associated Diagnosis Comments MAMMOGRAPHY Routine 01/06/2021 documented in this encounter Results * HM MAMMOGRAPHY (01/06/2021) us Historical Provider HEALTH MAINTENANCE Final Result documented in this encounter Visit Diagnoses Not on filedocumented in this encounter Care Teams Resolute Professional Relationship Specialty Start Date End Date Guerda Iqbal PA PCP - General Computer Programmer Analyst 03/12/21 11/29/21 documented as of this encounter
--- OUTSIDE RECORDS SUMMARY | 2024-01-30 10:43 | XMS_ITS | Encounter Summary ---
Author Organization [facility] Address [address] [address] [place] [address] Care Team Providers Care Dispensary Clerk Name Role Phone Claudia Haas NP Primary Care Provider [phone] Reason for Visit * Reason Comments Medicare Wellness Follow-up MWE and 3 week follo w-up. After pneumonia Encounter Details Date Type Department Care Team (Late st Contact Info) Description 03/25/2022 11:00 AM SCRAP DROP ENGINEER Office Visit [facility] Internal Medicine at [place] [address] [place] [address] Claudia Haas NP [address] [place] [address] Encounter for Medicare annual wellness exam (Primary Dx); BMI 23.0-23.9, adult; Seasonal allergies; History of pneumonia Social History Tobacco Use Types Packs/Day Years Used Date Smoking Tobacco: Every Day Cigarettes Smokeless Tobacco: Never Tobacco Cessation:Ready to Q uit: Not Asked; Counseling Given: Not Answered AUDIT-C Answer Date Recorded [...] on file Legal Sex Female 10:40 AM SCRAP DROP ENGINEER Gender Identity Female 03/03/2021 12:47 PM SCRAP DROP ENGINEER Sexual Orientation Not on file 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 End Date 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[employer], 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, 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 file Not on file documented as of this encounter Last Filed Vital Signs Vital Sign Reading Time Taken Comments Blood Pressure 138/74 03/25/2022 11:08 AM SCRAP DROP ENGINEER Pulse 53 03/25/2022 11:08 AM SCRAP DROP ENGINEER Temperature 36.8 ??C (98.2 ??F) 03/25/2022 1 1:08 AM SCRAP DROP ENGINEER Respiratory Rate 20 03/25/2022 11:0 8 AM SCRAP DROP ENGINEER Oxygen Saturation 97% 03/25/2022 11: 08 AM SCRAP DROP ENGINEER Inhaled Oxygen Concentration - - Weight 55.7 kg (122 lb 11.2 oz) 023 11:08 AM SCRAP DROP ENGINEER Height 154.9 cm (5' 0.98 ) 03/25/2022 1 1:08 AM SCRAP DROP ENGINEER Body Mass Index 23.2 03/25/2022 11:08 AM SCRAP DROP ENGINEER documented in this encounter Patient Instructions * Patient Instructions* Claudia Haas NP - 03/25/2022 11:00 AM SCRAP DROP ENGINEER Medicare wellness exam completed today. Follow-up in 4 months or sooner as needed. Contact the office with any questions or concerns P DROP ENGINEER documented in this encounter Ordered Prescriptions Prescription Sig Dispense Quantity Refills Last Filled Start Date End Date cetirizine (ZyrTEC) 10 mg tabletIndications: Seasonal allergies Take 1 tablet (10 mg total) by mouth daily as needed for allergies 90 tablet 4 03/25/2022 3 documented in this encounter Progress Notes * Claudia Haas NP - 03/25/2022 11:00 AM CST Patient's Name: Terri Briseno is a 72 y.o. female. Visit Date: 03/25/2022 Medicare Health Risk Assessment Basic Information In general, would you say your health is: Fair Do you have an advance directive, such as a living will or durable power of privacy attorney?: Yes Have you experienced any of the following problems currently or recently? Eating: No Grooming: No Bathing: No Walking: No Using the toilet: No Memory problems: No Difficulty speaking: No Pain: No Sexual Health: No Fatigue: Yes Have you experienced any of the following problems currently or recently? Laundry and/or housekeeping: Yes Handling Money: No Shopping: No Food preparation: No Transportation: No Taking and/or getting your own medications: No Do you use prescription drugs that are not prescribed for you?: No HPI: 72-year-old female in for Medicare wellness exam. She recently has a history of pneumonia. Chest x-ray has improved. She still complains of fatigue and shortness of breath. She has been using her albuterol inhaler. We will refer her to pulmonology for further evaluation. She does complain of seasonal allergies and itchy watery eyes and sneezing. She was taking Singulair and Claritin. We will stopboth and start Zyrtec. She is to take Benadryl as needed at night. She is to follow-up as neededf ROS: Review of Systems Constitutional: Negative for activity change, chills and fatigue. HENT: Positive for sneezing. Negative for congestion, ear pain, nosebleeds, rhinorrhea and sinus pressure. Seasonal allergies Eyes: Positive for itching. Respiratory: Positive for shortness of breath. Negative for cough. Cardiovascular: Negative for chest pain and palpitations. Gastrointestinal: Negative for abdominal pain. Endocrine: Negative for cold intolerance. Genitourinary: Negative for difficulty urinating and hematuria. Musculoskeletal: Negative for back pain and myalgias. Neurological: Negative for dizziness, weakness and headaches. Psychiatric/Behavioral: Negative for agitation, confusion and sleep disturbance. Past Medical and Surgical History: Past Medical History: Diagnosis Date Asthma Atrophic vaginitis Depression GERD (gastroesophageal reflux disease) Hyperlipidemia Hypertension Osteoarthritis Osteopenia Pneumonia Rotator cuff tear 12/24/2019 Spinal stenosis Spondylolisthesis Spondylosis Past Surgical History: Procedure Laterality Date BILATERAL OOPHORECTOMY COMBINED AUGMENTATION MAMMAPLASTY AND ABDOMINOPLASTY saline Family History: Family History Problem Relation Age of Onset Breast cancer Mother Kidney cancer Mother Diabetes Mother Hypertension Mother Emphysema Father Hypertension Father Lymphoma Sister Alcohol abuse Brother Breast cancer Mother's Sister Social History: Social History Tobacco Use Smoking status: Every Day Packs/day: 0.50 Types: Cigarettes Smokeless tobacco: Never Substance and Sexual Activity Drug use: Never Sexual activity: Not Currently Alcohol Use: Not At Risk Frequency of Alcohol Consumption: Never Average Number of Drinks: Patient does not drink Frequency of Binge Drinking: Never Diet: Regular Physical Activities: Active Allergies: Allergies Allergen Reactions Tetracycline Rash, Photosensitivity and Swelling Current Medications: Outpatient Encounter Medications as of 03/25/2022 Medication Sig Dispense Refill albuterol HFA (PROVENTIL [...] by mouth every morning 90 tablet 4 fluconazole (DIFLUCAN) 150 mg tablet Take 1 tablet (150 mg total) by mouth as directed Take one tabnow. Repeat in 7 days if symptoms persist. 2 tablet 0 gabapentin (NEURONTIN) 300 mg capsule Take 1 capsule (300 mg total) by mouth 4 (four) times a day 120 capsule 3 vit C,K-Lv-ykhqz-lutein-zeaxan (PreserVision AREDS-2) 250-90-40-1 mg capsule [DISCONTINUED] cetirizine (ZyrTEC) 1 mg/mL syrup Take by mouth daily [DISCONTINUED] montelukast (SINGULAIR) 10 mg tablet Take 1 tablet (10 mg total) by mouth nightly 30tablet 3 cetirizine (ZyrTEC) 10 mg tablet Take 1 tablet (10 mg total) by mouth daily as needed for [id number] tablet 4 irbesartan (AVAPRO) 300 mg tablet Take 1 tablet (300 mg total) by mouth daily 90 tablet 0 pravastatin (PRAVACHOL) 10 mg tablet Take 1 tablet (10 mg total) by mouth daily 30 tablet 3 [DISCONTINUED] loratadine (CLARITIN) 10 mg tablet Take 1 tablet (10 mg total) by mouth daily 30 tablet 2 No facility-administered encounter medications on file as of 03/25/2022. Depression Screen: PHQ Screening Over the last 2 weeks, how often have you been bothered by any of the following problems? Little Interest or Pleasure in Doing Things: Not at all Feeling Down, Depressed, or Hopeless: Not at all PHQ-2 Total Score (If total score is 3 or more points, staff should administer the PHQ-9): 0 Over the past 2 weeks, how often have you been bothered by any of the following problems? Little Interest or Pleasure in Doing Things: Not at all Feeling Down, Depressed, or Hopeless: Not at all PHQ-2 Total Score (If total score is 3 or more points, staff should administer the PHQ-9): 0 Audio/Visual Screen: Not indicated Is the patient having any problems with hearing and/or vision? Wears glasses Vitals: Vitals: 03/25/22 1108 BP: 138/74 BP Location: Right arm Patient Position: Sitting Pulse: 53 Resp: 20 Temp: 36.8 ??C (98.2 ??F) TempSrc: Oral SpO2: 97% Weight: 55.7 kg (122 lb 11.2 oz) Height: 154.9 cm (5' 0.98 ) Exam: Physical Exam Constitutional: Appearance: Normal appearance. She is well-developed and normal weight. HENT: Head: Normocephalic and atraumatic. Eyes: Pupils: Pupils are equal, round, and reactive to light. Comments: Redness surrounding eyes mild from itching Cardiovascular: Rate and Rhythm: Normal rate and [...] Behavior normal. Thought Content: Thought content normal. STEADI Fall Risk Screening: In the past year, patient experienced: One or more falls in the last year: No Up and Go Test: Patient was unsteady or time test was longer than 30 seconds? Yes Care Team Providers: Patient Care Team: Claudia Haas NP as PCP - General (Internal Medicine) Primary Pharmacy/DME suppliers: [id number] - [place], [place] - [address] [facility] [address] [facility] [address] Detection of Cognitive Impairment: Detect cognitive impairment based on direct observation, discussion with patient or family, or review of medical records? No Counseling and Referral of Preventative Services: Other route measures as deemed appropriate: LIST OF RISK FACTORS AND CONDITIONS FOR WHICH PRIMARY, SECONDARY, TERTIARY INTERVENTIONS ARE RECOMMENDED OR ARE UNDERWAY WITH LIST OF TREATMENT OPTIONS AND THEIR RISKS AND BENEFITS. Please see patient instructions section for recommendations for appropriate screening and monitoring guidelines. Assessment and Plan: Audio Screen ordered? No Diagnoses and all orders for this visit: Encounter for Medicare annual wellness exam (Primary) Comments: Medicare wellness exam completed today. Follow-up in 4 months or sooner as needed. Contact the office with any questions or concerns BMI 23.0-23.9, adult Comments: Maintain healthy and balanced diet Assessment & Plan: Weight/BMI is in healthy range. Continue healthy lifestyle. Seasonal allergies Comments: Stop Claritin and Singulair. Start Zyrtec daily. Take Benadryl as needed at night. Follow-up as needed Assessment & Plan: This is a significant, separately identifiable problem that was evaluated and managed on the same day as the wellness exam Orders: - cetirizine (ZyrTEC) 10 mg tablet; Take 1 tablet (10 mg total) by mouth daily as needed for allergies History of pneumonia Comments: Use referral to follow-up with pulmonology. Continue inhaler as needed. Continue to not smoke Orders: - Ambulatory referral to Pulmonology; Future Claudia Haas NP P DROP ENGINEER documented in this encounter Miscellaneous Notes * Assessment & Plan Note - Claudia Haas NP - 03/25/2022 11:40 AM SCRAP DROP ENGINEER Associated Problem(s): Seasonal allergies This is a significant, separately identifiable problem that was evaluated and managed on the same day as the wellness exam P DROP ENGINEER * Assessment & Plan Note - Monica Jlues MA - 03/25/2022 11:23 AM SCRAP DROP ENGINEER Associated Problem(s): BMI 24.0-24.9, adult (Resolved 03/31/2023) Weight/BMI is in healthy range. Continue healthy lifestyle. P DROP ENGINEER documented in this encounter Plan of Treatment Not on file documented as of this encounter Visit Diagnoses Diagnosis Encounter for Medicare annual wellness exam- Primary BMI 23.0-23.9, adult Seasonal allergies Allergic rhinitis, cause unspecified History of pneumonia Personal history of pneumonia (recurrent) documented in this encounter Discontinued Medications Medication Sig Discontinue Reason Start Date End Da te loratadine (CLARITIN) 10 mg tablet Take 1 tablet (10 mg total) by mouth daily 10/12/2021 03/25/2022 montelukast (SINGULAIR) 10 mg tablet Take 1 tablet (10 mg total) by mouth nightly Alternate therapy 03/21/2022 03/25/2022 cetirizine (ZyrTEC) 1 mg/mL syrup Take by mouth daily 03/25/2022 documented as of this encounter Historical Medications * This list may reflect changes made after this encounter. cetirizine (ZyrTEC) 1 mg/mL syrup Take by mouth daily 03/25/2022 added in this encounter Care Teams Dispensary Clerk Relationship Specialty Start Date End Date Claudia Haas NP PCP - General Internal Medicine 11/30/21 07/26/22 documented as of this encounter
--- OUTSIDE RECORDS SUMMARY | 2024-01-30 10:43 | XMS_ITS | Encounter Summary ---
Author Organization [facility] Address [address] [facility] [address] [place] [address] Care Team Providers Care Batch And Furnace Operator Name Role Phone Claudia Haas NP Primary Care Provider [phone] Reason for Referral * Consultation (Routine) - Closed Specialty Diagnoses / Procedures Referred By Contac t Referred To Contact Sleep Medicine Diagnoses History of recent pneumonia SOB (shortness of breath) Claudia Haas NP [address] [facility] [address] [place] [address] Phone: tel: fax: Karin Hernandez MD [address] [place] [id number] Phone: tel: fax: Referral ID Status Reason Start Date Expiration Date V isits Requested Visits Authorized [id number] Closed Specialty Services Required 03/28/2022 04/27/2023 1 1 Question Answer Please select the performing region: [facility] [[id number]] Please select the performing department: [facility] [[id number]] To provider: KARIN HERNANDEZ [[id number]] # of visits: 1 Comments Pt had recent pneumonia and is still having SOB and fatigue INERY MOVER Encounter Details Date Type Department Care Team (Late st Contact Info) Description 03/28/2022 Orders Only [facility] Medical [facility] Family Medicine [address] [place] [address] Claudia Haas NP [address] [place] [address] History of recent pneumonia (Primary Dx); SOB (shortness of breath) Social History Tobacco [...] on file Legal Sex Female 10:40 AM MACHINERY MOVER Gender Identity Female 03/03/2021 12:47 PM MACHINERY MOVER Sexual Orientation Not on file 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, 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, 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, [employer]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 file Not on file documented as of this encounter Progress Notes * Carolyn Hernandez LPN - 03/28/2022 7:42 AM CST Placed per provier request INERY MOVER documented in this encounter Plan of Treatment Scheduled Referrals Name Type Priority Associated Diagnoses Order Schedule Ambulatory referral to Sleep Medicine Outpatient Referral Routine History of recent pneumonia SOB (shortness of breath) Expected: 04/11/2022 (Approximate), Expires: 03/28/2023 documented as of this encounter Visit Diagnoses Diagnosis History of recent pneumonia- Primary SOB (shortness of breath) Shortness of breath documented in this encounter Care Teams Batch And Furnace Operator Relationship Specialty Start Date End Date Claudia Haas NP PCP - General Internal Medicine 11/30/21 07/26/22 documented as of this encounter
--- OUTSIDE RECORDS SUMMARY | 2024-01-30 10:43 | XMS_ITS | Encounter Summary ---
Author Organization [facility] Address [address] [place] [address] Care Team Providers Care Staff Training And Development Manager Name Role Phone Claudia Haas INTERACTIVE DIGITAL MEDIA SPECIALIST Primary Care Provider [phone] Claudia Haas INTERACTIVE DIGITAL MEDIA SPECIALIST Primary Care Provider [phone] Encounter Details Date Type Department Care Team (Late st Contact Info) Description 02/12/2022 Orders Only [facility] Health Information Management [address] [place] [address] Scanning, Provider Social History Tobacco Use Types Packs/Day Years [...] on file Legal Sex Female 10:40 AM TRANSACTION ADVISORY SERVICES MANAGER Gender Identity Female 03/03/2021 12:47 PM TRANSACTION ADVISORY SERVICES MANAGER Sexual Orientation Not on file 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, 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, 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, 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 file Not on file documented as of this encounter Plan of Treatment Not on file documented as of this encounter Procedures Procedure Name Priority Date/Time Associated Diagnosis Comments SCAN - RADIOLOGY/IMAGING 02/12/2022 documented in this encounter Results * SCAN - RADIOLOGY/IMAGING (02/12/2022) Anatomical Region Laterality Modality Other us Provider Scanning Edited Result - Final documented in this encounter Visit Diagnoses Not on filedocumented in this encounter Care Teams Staff Training And Development Manager Relationship Specialty Start Date End Date Claudia Haas NP PCP - General Internal Medicine 11/30/21 07/26/22 Claudia Haas NP [address] [address] PCP - General Internal Medicine 07/27/22 documented as of this encounter
--- OUTSIDE RECORDS SUMMARY | 2024-01-30 10:43 | XMS_ITS | Encounter Summary ---
Author Organization [facility] Address [address] [place] [address] Care Team Providers Care Immigration Manager Name Role Phone Guerda Iqbal Primary Care Provider [phone]- [phone] Encounter Details Date Type Department Care Team (Late st Contact Info) Description 03/31/2021 Orders Only [facility] Family Medicine [address] [place] [address] Guerda Iqbal PA [facility] [place] [address] Social History Tobacco Use Types [...] on file Legal Sex Female 10:40 AM REAM CUTTER Gender Identity Female 03/03/2021 12:47 PM REAM CUTTER Sexual Orientation Not on file 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, 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, 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, [employer]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 file Not on file documented as of this encounter Plan of Treatment Not on file documented as of this encounter Procedures Procedure Name Priority Date/Time Associated Diagnosis Comments CBC WITH AUTO DIFFERENTIAL Routine 03/31/2021 7:22 AM REAM CUTTER ALBUMIN CREATININE RATIO, URINE Routine 03/31/2021 7:22 AM REAM CUTTER VITAMIN D 25 HYDROXY Routine 03/31/2021 7:22 AM REAM CUTTER TSH Routine 03/31/2021 7:22 AM REAM CUTTER LIPID PANEL Routine 03/31/2021 7:22 AM REAM CUTTER COMPREHENSIVE METABOLIC PANEL Routine 03/31/2021 7:22 AM REAM CUTTER documented in this encounter Results * Vitamin D 25 hydroxy (03/31/2021 7:22 AM REAM CUTTER) Pathologist [facility] Vitamin D 25-OH 44 30 - 100 ng/mL [facility] Comment: Vitamin D Status ? 25-OH Vitamin D: Deficiency: ?<20 ng/mL Insufficiency: ? 20 - 29 ng/mL Optimal: ? > or = 30 ng/mL For 25-OH Vitamin D testing on patients on D2-supplementation and patients for whom quantitation of D2 and D3 fractions is required, the [facility]() 25-OH VIT D, (D2,D3), LC/MS/MS is recommended: order code 32764 (patients >2yrs). See Note 1 Note 1 For additional information, please refer to http://education.goBalto.Breath of Life/faq/JYB150 (This link is being provided for informational/ educational purposes only.) 03/31/2021 7:22 AM REAM CUTTER 03/31/2021 7:25 AM REAM CUTTER Narrative [facility] - 04/01/2021 11:16 AM REAM CUTTER FASTING:YES FASTING: YES us Guerda GARCIA LAB BLOOD ORDERABLES Final Result [facility] [address] [place] [address] * TSH (03/31/2021 7:22 AM REAM CUTTER) Pathologist [facility] TSH 1.79 0.40 - 4.50 mIU/L [facility] 03/31/2021 7:22 AM REAM CUTTER 03/31/2021 7:25 AM REAM CUTTER Narrative [facility] - 04/01/2021 11:16 AM REAM CUTTER FASTING:YES FASTING: YES Guerda GARCIA LAB BLOOD ORDERABLES Final Result Performing Organization Address [facility] Co de Phone Number [facility] [address] [place] [address] * CBC with auto differential (03/31/2021 7:22 AM REAM CUTTER) [facility] WBC 5.4 3.8 - 10.8 Thousand/u L [facility] RBC, POC 4.03 3.80 - 5.10 Million/uL [facility] Hgb 12.2 11.7 - 15.5 g/dL [facility] Hct 35.5 35.0 - 45.0 % [facility] MCV 88.1 80.0 - 100.0 fL [facility] MCH 30.3 27.0 - 33.0 pg [facility] MCHC 34.4 32.0 - 36.0 g/dL [facility] Rdw 12.6 11.0 - 15.0 % [facility] Platelets 309 140 - 400 Thousand/u L [facility] MPV 10.5 7.5 - 12.5 fL [facility] Neutrophils, abs 2,398 1,500 - 7,800 cells/uL [facility] Lymphocytes, abs 2,219 850 - 3,900 cells/uL [facility] Monocyte abs 470 200 - 950 cells/uL [facility] Eosinophils, abs 232 15 - 500 cells/uL [facility] Basophils, abs 81 0 - 200 cells/uL [facility] Neutrophils 44.4 % [facility] Lymphocyte pct 41.1 % [facility] Monocytes 8.7 % [facility] Eosinophils 4.3 % [facility] Basophils 1.5 % [facility] 03/31/2021 7:22 AM REAM CUTTER 03/31/2021 7:25 AM REAM CUTTER Narrative [facility] - 04/01/2021 11:16 AM REAM CUTTER FASTING:YES FASTING: YES Guerda GARCIA LAB BLOOD ORDERABLES Final Result Performing Organization Address [facility] Co de Phone Number [facility] [address] [place] [address] * Albumin Creatinine Ratio, Urine (03/31/2021 7:22 AM REAM CUTTER) Creatinine, ur 35 20 - 275 mg/dL [facility] Microalbumin, ur 0.6 See Note: mg/dL [facility] Comment: Reference Range: Reference Range Not established Microalbumin/creat ratio 17 <30 mcg/mg creat [facility] Comment: The ADA defines abnormalities in albumin excretion as follows: Albuminuria Category ?Result (mcg/mg creatinine) Normal to Mildly increased ?? <30 Moderately increased ? 30-299 Severely increased ? > OR = 300 The ADA recommends that at least two of three specimens collected within a 3-6 month period be abnormal before considering a patient to be within a diagnostic category. 03/31/2021 7:22 AM REAM CUTTER 03/31/2021 7:25 AM REAM CUTTER Narrative [facility] - 04/01/2021 11:16 AM REAM CUTTER FASTING:YES FASTING: YES Guerda GARCIA LAB URINE ORDERABLES Final Result Performing Organization Address [facility] Co de Phone Number [facility] [address] [place] [address] * Comprehensive metabolic panel (03/31/2021 7:22 AM REAM CUTTER) Pathologist [facility] Glucose 87 65 - 99 mg/dL [facility] Comment: ? Fasting reference interval BUN 16 7 - 25 mg/dL [facility] Creatinine 0.63 0.50 - 0.99 mg/dL [facility] Comment: For patients >49 years of age, the reference limit for Creatinine is approximately 13% higher for people identified as -Yemeni. eGFR NON-AFR. TURKMEN 92 > OR = 60 mL/min/1 .73m2 [facility] EGFR 106 > OR = 60 mL/min/1 .73m2 [facility] BUN/creat ratio NOT APPLICABLE 6 - 22 (calc) [facility] Sodium 140 135 - 146 mmol/L [facility] Potassium, pl 3.9 3.5 - 5.3 mmol/L [facility] Chloride 103 98 - 110 mmol/L [facility] CO2 27 20 - 32 mmol/L [facility] Calcium 9.0 8.6 - 10.4 mg/dL [facility] Protein, sr 6.1 6.1 - 8.1 g/dL [facility] Albumin 4.2 3.6 - 5.1 g/dL [facility] GLOBULIN 1.9 1.9 - 3.7 g/dL (calc) [facility] Alb/glob ratio 2.2 1.0 - 2.5 (calc) [facility] Bilirubin, total 0.4 0.2 - 1.2 mg/dL [facility] Alk phos 42 37 - 153 U/L [facility] AST 13 10 - 35 U/L [facility] ALT (SGPT) 10 6 - 29 U/L [facility] 03/31/2021 7:22 AM REAM CUTTER 03/31/2021 7:25 AM REAM CUTTER Narrative [facility] - 04/01/2021 11:16 AM REAM CUTTER FASTING:YES FASTING: YES Guerda GARCIA LAB BLOOD ORDERABLES Final Result [email or web address] [address] [place] [address] * (ABNORMAL) Lipid panel (03/31/2021 7:22 AM REAM CUTTER) Cholesterol 211(H) <200 mg/dL [facility] HDL 104 > OR = 50 mg/dL [facility] Triglycerides 65 <150 mg/dL [facility] LDL 92 mg/dL (calc) [facility] Comment: Reference [...] LDL-C. Leonel SS et al. JUSTIN. 2013;310(19): 0101-8583 (http://education.Messagemind/faq/UQW939) Chol/HDL ratio 2.0 <5.0 (calc) [facility] Non-HDL, (LDL+VLDL) 107 <130 mg/dL (calc) [facility] Comment: For patients with diabetes plus 1 major ASCVD risk factor, treating to a non-HDL-C goal of <100 mg/dL (LDL-C of <70 mg/dL) is considered a therapeutic option. 03/31/2021 7:22 AM REAM CUTTER 03/31/2021 7:25 AM REAM CUTTER Narrative [facility] - 04/01/2021 11:16 AM REAM CUTTER FASTING:YES FASTING: YES Guerda GARCIA LAB BLOOD ORDERABLES Final Result Performing Organization Address [facility] Co de Phone Number [email or web address] [address] [place] [address] documented in this encounter Visit Diagnoses Not on filedocumented in this encounter Care Teams Immigration Manager Relationship Specialty Start Date End Date Guerda Iqbal PA PCP - General Welding Foreman 03/12/21 11/29/21 documented as of this encounter
--- OUTSIDE RECORDS SUMMARY | 2024-01-30 10:43 | XMS_ITS | Encounter Summary ---
Author Organization [facility] Address [address] [place] [address] Care Team Providers Care Vulcanizer Name Role Phone Guerda Iqbal Primary Care Provider +1- [phone] Encounter Details Date Type Department Care Team (Late st Contact Info) Description 03/24/2021 Orders Only [facility] Family Medicine [address] [place] [address] ProviderShivam MD [address] [place], [place] [id number] Social History Tobacco Use Types Packs/Day Years [...] on file Legal Sex Female 10:40 AM 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 COLOGUARD Routine 01/07/2021 documented in this encounter Results * HM DNA STOOL (01/07/2021) us Historical Provider HEALTH MAINTENANCE Final Result * Stool DNA - Cologuard (01/07/2021) Stool us Historical Provider LAB BODY FLUIDS AND STOOL S ORDERABLES Final Result documented in this encounter Visit Diagnoses Not on filedocumented in this encounter Care Teams Vulcanizer Relationship Specialty Start Date End Date Guerda Iqbal PA PCP - General Shoe Salesman 03/12/21 11/29/21 documented as of this encounter
--- OUTSIDE RECORDS SUMMARY | 2024-01-30 10:43 | XMS_ITS | Encounter Summary ---
Author Organization [facility] Address [address] [place] [address] Care Team Providers Care Weaving Supervisor Name Role Phone Guerda Iqbal Primary Care Provider [phone]- [phone] Reason for Visit * Reason Comments Follow-up Encounter Details Date Type Department Care Team (Late st Contact Info) Description 09/22/2021 9:30 AM CDT Office Visit [facility] Family Medicine [address] [place] [address] Guerda Iqbal PA [address] [place] [address] Mild episode of recurrent major depressive disorder (HCC) (Primary Dx); BMI 21.0-21.9, adult; Essential hypertension Social History Tobacco Use Types Packs/Day Years [...] file Legal Sex Female 10:40 AM 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 Gender Identity Female 03/03/2021 12:47 PM DIGITAL ASSET SPECIALIST Sexual Orientation Not on file 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, 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, 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, [employer]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 file Not on file documented as of this encounter Last Filed Vital Signs Vital Sign Reading Time Taken Comments Blood Pressure 162/94 09/22/2021 9:28 AM CDT Pulse 58 09/22/2021 9:28 AM CDT Temperature 36.7 ??C (98 ??F) 09/22/2021 9:28 AM CDT Respiratory Rate - - Oxygen Saturation 97% 09/22/2021 9:28 AM CDT Inhaled Oxygen Concentration - - Weight 52.2 kg (115 lb) 09/22/2021 9:28 AM CDT Height 156.2 cm (5' 1.5 ) 09/22/2021 9:28 AM CDT Body Mass Index 21.38 09/22/2021 9:28 AM CDT documented in this encounter Ordered Prescriptions Prescription Sig Dispense Quantity Refills Last Filled Start Date End Date buPROPion XL (WELLBUTRIN XL) 300 mg 24 hr tablet Take 1 tablet (300 mg total) by mouth every morning 90 tablet 4 09/22/2021 2 documented in this encounter Progress Notes * Guerda Iqbal PA - 09/22/2021 9:30 AM CDT Images from the original note were not included. Chief Complaint Follow-up HPI Here for f/u on depression and htn. On wellbutrin now, has only had 3-4 sad moments over the last few months. [place] where she lived for over 20 years. Working on getting out more and trying new things. Not monitoring home bp, notes nervousness about coming in for appts. Allergies as of 09/22/2021 - Reviewed 09/22/2021 Allergen Reaction Noted ??? Tetracycline Rash 03/24/2021 Outpatient Encounter Medications as of 09/22/2021 Medication Sig Dispense Refill ??? amLODIPine (NORVASC) [...] by mouth daily 30 tablet 3 ??? loratadine (CLARITIN) 10 mg tablet Take 1 tablet (10 mg total) by mouth daily 30 tablet 2 ??? montelukast (SINGULAIR) 10 mg tablet Take 1 tablet (10 mg total) by mouth nightly 30 tablet 3 ??? pravastatin (PRAVACHOL) 10 mg tablet Take 1 tablet (10 mg total) by mouth daily 30 tablet 3 ??? [DISCONTINUED] buPROPion XL (WELLBUTRIN XL) 150 mg 24 hr tablet Take 1 tablet (150 mg total) bymouth every morning 90 tablet 4 ??? [DISCONTINUED] vortioxetine (TRINTELLIX) 10 mg tablet 10mg daily x 7 days, then 5mg daily x 7 days, then 5mg every other day x 7 days, then discontinue. 30 tablet 0 ??? buPROPion XL (WELLBUTRIN XL) 300 mg 24 hr tablet Take 1 tablet (300 mg total) by mouth every morning 90 tablet 4 No facility-administered encounter medications on file as of 09/22/2021. Review of Systems Constitutional: Negative for fatigue, [...] dizziness. Hematological: Does not bruise/bleed easily. Psychiatric/Behavioral: Negative for confusion. The patient is not nervous/anxious. Vitals: 09/22/21 0928 BP: 162/94 BP Location: Left arm Patient Position: Sitting Pulse: 58 Temp: 36.7 ??C (98 ??F) TempSrc: Oral SpO2: 97% Weight: 52.2 kg (115 lb) Height: 156.2 cm (5' 1.5 ) Physical Exam Vitals and nursing note reviewed. Constitutional: General: She is not in acute distress. Appearance: Normal appearance. She is normal weight. She is not ill-appearing or toxic-appearing. HENT: Head: Normocephalic and atraumatic. Eyes: Extraocular Movements: Extraocular movements intact. Pulmonary: Effort: Pulmonary effort is normal. Breath sounds: Normal breath sounds. Musculoskeletal: General: Normal range of motion. Cervical back: Normal range of motion. Skin: General: Skin is warm and dry. Neurological: Mental Status: She is alert and oriented to person, place, and time. Psychiatric: Mood and Affect: Mood normal. Behavior: Behavior normal. Thought Content: Thought content normal. Assessment/Plan Diagnoses and all orders for this visit: Mild episode of recurrent major depressive disorder (HCC) (F33.0) (Primary) Assessment & Plan: Will increase wellbutrin to 300mg xl qd BMI 21.0-21.9, adult (Z68.21) Essential hypertension (I10) Assessment & Plan: Patient advised to continue medications the same at this time. They will monitor home bp with goal 120-130/80s. Other orders - buPROPion XL (WELLBUTRIN XL) 300 mg 24 hr tablet; Take 1 tablet (300 mg total) by mouth every morning Orders Placed This Encounter ??? buPROPion XL (WELLBUTRIN XL) 300 mg 24 hr tablet Sig: Take 1 tablet (300 mg total) by mouth every morning Dispense: 90 tablet Refill: 4 RADHA Dahl documented in this encounter Miscellaneous Notes * Assessment & Plan Note - Guerda Iqbal PA - 09/22/2021 10:43 AM CDT Associated Problem(s): Mild episode of recurrent major depressive disorder (HCC) Will increase wellbutrin to 300mg xl qd * Assessment & Plan Note - Guerda Iqbal PA - 09/22/2021 10:43 AM CDT Associated Problem(s): Essential hypertension Patient advised to continue medications the same at this time. They will monitor home bp with goal 120-130/80s. documented in this encounter Plan of Treatment Not on file documented as of this encounter Visit Diagnoses Diagnosis Mild episode of recurrent major depressive disorder (HCC)- Primary BMI 21.0-21.9, adult Essential hypertension Unspecified essential hypertension documented in this encounter Discontinued Medications Medication Sig Discontinue Reason Start Date End Da te vortioxetine (TRINTELLIX) 10 mg tabletIndications:major depressive disorder 10mg daily x 7 days, then 5mg daily x 7 days, then 5mg every other day x 7 days, then discontinue. 06/23/2021 09/22/2021 buPROPion XL (WELLBUTRIN XL) 150 mg 24 hr tablet Take 1 tablet (150 mg total) by mouth every morning 07/22/2021 09/22/2021 documented as of this encounter Care Teams Weaving Supervisor Relationship Specialty Start Date End Date Guerda Iqbal PA PCP - General Armament Repairer 03/12/21 11/29/21 documented as of this encounter
--- OUTSIDE RECORDS SUMMARY | 2024-01-30 10:43 | XMS_ITS | Encounter Summary ---
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 APPRENTICE Gender Identity Female 03/03/2021 12:47 PM LINOTYPE MACHINIST APPRENTICE Sexual Orientation Not on file 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, 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, 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, 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 file Not on file documented as of this encounter Ordered Prescriptions Prescription Sig Dispense Quantity Refills Last Filled Start Date End Date benzonatate (TESSALON) 200 mg capsule Take 1 capsule (200 mg total) by mouth 3 (three) times a day as needed for cough 60 capsule 12/20/2021 3 predniSONE (DELTASONE) 10 mg tablet Take 4 tabs PO x 3 days, then 3 tabs po x 3 days, then 2 tabs po x 3 days then 1 tab po x 3 days then stop 30 tablet 12/20/2021 2 amoxicillin-clavul anate (AUGMENTIN) 875-125 mg per tablet Take 1 tablet by mouth 2 (two) times a day for 10 days 20 tablet 12/20/2021 2 documented in this encounter Miscellaneous Notes * Addendum Note - Elba Zepeda NP - 12/20/2021 8:51 AM CSTAddended by: ELBA ZEPEDA on: 12/20/2021 08:51 AM Modules accepted: Orders, Level of Service, SmartSet TYPE MACHINIST APPRENTICE * E-Visit Note - Elba Zepeda NP - 12/20/2021 8:45 AM CST Terri Bey Finn 12/20/2021 E-Visit Submission Subjective/Objective: Terri Briseno contacted the office today via e-visit for Cough. The patient-submitted questionnaire was assessed for pertinent information and the patient's problem list, medication list, and allergies were reviewed as part of the e-visit. The chart was updated to identify any changes in these areas. Assessment: Diagnosis Plan 1. Intermittent asthma without complication, unspecified asthma severity 2. Upper respiratory tract infection, unspecified type Plan: The patient was given information regarding any new medication(s) prescribed, if applicable, as well as any oalb-zcd-bnnldna remedies. She was given instructions regarding follow up and timeframe if symptoms worsen or don???t improve. These instructions were included in the [employer] message reply tothe patient. Patient Instructions were included in the message reply to patient. My total encounter time on 12/20/2021 was 5 minutes which was spent in the activities documented inthe note. New Medications Ordered This Visit amoxicillin-clavulanate (AUGMENTIN) 875-125 mg per tablet Sig: Take 1 tablet by mouth 2 (two) times a day for 10 days Dispense: 20 tablet Refill: 0 predniSONE (DELTASONE) 10 mg tablet Sig: Take 4 tabs PO x 3 days, then 3 tabs po x 3 days, then 2 tabs po x 3 days then 1 tab po x 3 days then stop Dispense: 30 tablet Refill: 0 benzonatate (TESSALON) 200 mg capsule Sig: Take 1 capsule (200 mg total) by mouth 3 (three) times a day as needed for cough Dispense: 60 capsule Refill: 0 Elba Zepeda NP TYPE MACHINIST APPRENTICE documented in this encounter Plan of Treatment Not on file documented as of this encounter Visit Diagnoses Diagnosis Intermittent asthma without complication, unspecified asthma severity- Primary Upper respiratory tract infection, unspecified type documented in this encounter Care Teams Soil Fertility Extension Specialist Relationship Specialty Start Date End Date Claudia Haas NP PCP - General Internal Medicine 11/30/21 07/26/22 documented as of this encounter
--- OUTSIDE RECORDS SUMMARY | 2024-01-30 10:43 | XMS_ITS | Encounter Summary ---
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
--- OUTSIDE RECORDS SUMMARY | 2024-01-30 10:43 | XMS_ITS | Encounter Summary ---
Author Organization [facility] Address [address] [place] [address] Care Team Providers Care Geology Technician Name Role Phone Guerda Iqbal Primary Care Provider [phone] Reason for Visit * Reason Onset Date Comments med refill 09/13/2021 Encounter Details Date Type Department Care Team (Late st Contact Info) Description 09/13/2021 Telephone [facility] Family Medicine [address] [place] [address] Guerda Iqbal PA [address] [place] [address] med refill Social History Tobacco [...] on file Legal Sex Female 10:40 AM FELTMAKER Gender Identity Female 03/03/2021 12:47 PM FELTMAKER Sexual Orientation Not on file 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, 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, 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, [employer]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 file Not on file documented as of this encounter Ordered Prescriptions Prescription Sig Dispense Quantity Refills Last Filled Start Date End Date ibuprofen (ADVIL,MOTRIN) 800 mg tablet Take 1 tablet (800 mg total) by mouth 3 (three) times a day 90 tablet 2 09/13/2021 10/19/2021 loratadine (CLARITIN) 10 mg tablet Take 1 tablet (10 mg total) by mouth daily 30 tablet 2 09/13/2021 10/12/2021 amLODIPine (NORVASC) 10 mg tablet Take 1 tablet (10 mg total) by mouth daily 90 tablet 1 09/13/2021 01/04/2022 documented in this encounter Miscellaneous Notes * Telephone Encounter - Guerda Iqbal PA - 09/13/2021 9:49 AM CDT Last appt 07/22/21. Prescriptions transmitted to [facility]. documented in this encounter Plan of Treatment Not on file documented as of this encounter Visit Diagnoses Not on filedocumented in this encounter Discontinued Medications Medication Sig Discontinue Reason Start Date End Da te amLODIPine (NORVASC) 10 mg tablet Take 1 tablet (10 mg total) by mouth daily Reorder 06/09/2021 09/13/2021 loratadine (CLARITIN) 10 mg tablet Take 1 tablet (10 mg total) by mouth daily Reorder 07/22/2021 09/13/2021 ibuprofen (ADVIL,MOTRIN) 800 mg tablet Take 1 tablet (800 mg total) by mouth 3 (three) times a day Reorder 08/13/2021 09/13/2021 documented as of this encounter Care Teams Geology Technician Relationship Specialty Start Date End Date Guerda Iqbal PA PCP - General Artificial Limb Fitter 03/12/21 11/29/21 documented as of this encounter
--- OUTSIDE RECORDS SUMMARY | 2024-01-30 10:43 | XMS_ITS | Encounter Summary ---
Author Organization [facility] Address [address] [place] [address] Care Team Providers Care Freight Shipping Agent Name Role Phone Claudia Haas NP Primary Care Provider [phone] Encounter Details Date Type Department Care Team (Late st Contact Info) Description 05/23/2022 Orders Only [facility] Family Medicine [address] [place] [address] Karina Shukla MA Social History [...] on file Legal Sex Female 10:40 AM URGENT CARE TECHNICIAN Gender Identity Female 03/03/2021 12:47 PM URGENT CARE TECHNICIAN Sexual Orientation Not on file 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
--- OUTSIDE RECORDS SUMMARY | 2024-01-30 10:44 | XMS_ITS | Encounter Summary ---
Author Organization [facility] Address [address] [place] [address] Care Team Providers Care Tile Conduit Layer Name Role Phone Guerda Iqbal Primary Care Provider [phone] Reason for Visit * Reason Comments Establish Care Encounter Details Date Type Department Care Team (Late st Contact Info) Description 03/24/2021 9:00 AM PRESSROOM FOREMAN Office Visit [facility] Family Medicine [address] [place] [address] Guerda Iqbal PA [address] [place] [address] Encounter to establish care (Primary Dx); Hyperlipidemia, unspecified hyperlipidemia type; Essential hypertension; Spinal stenosis, unspecified spinal region; Intermittent asthma without complication, unspecified asthma severity; Mild episode of recurrent major depressive disorder (HCC); Osteopenia, unspecified location ; BMI 21.0-21.9, adult Social History Tobacco Use [...] on file Legal Sex Female 10:40 AM PRESSROOM FOREMAN Gender Identity Female 03/03/2021 12:47 PM PRESSROOM FOREMAN Sexual Orientation Not on file 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, 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, 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, 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 file Not on file documented as of this encounter Last Filed Vital Signs Vital Sign Reading Time Taken Comments Blood Pressure 142/82 03/24/2021 9:18 AM PRESSROOM FOREMAN Pulse 71 03/24/2021 9:18 AM PRESSROOM FOREMAN Temperature - - Respiratory Rate 17 03/24/2021 9:18 AM PRESSROOM FOREMAN Oxygen Saturation 98% 03/24/2021 9:18 AM PRESSROOM FOREMAN Inhaled Oxygen Concentration - - Weight 51.3 kg (113 lb) 03/24/2021 9:18 AM PRESSROOM FOREMAN Height 156.2 cm (5' 1.5 ) 03/24/2021 9:18 AM PRESSROOM FOREMAN Body Mass Index 21.01 03/24/2021 9:18 AM PRESSROOM FOREMAN documented in this encounter Ordered Prescriptions Prescription Sig Dispense Quantity Refills Last Filled Start Date End Date azelastine (OPTIVAR) 0.05 % ophthalmic solutionIndications :Allergic Conjunctivitis Administer 1 drop into both eyes 2 (two) times a day 6 mL 3 03/24/2021 2 montelukast (SINGULAIR) 10 mg tablet Take 1 tablet (10 mg total) by mouth nightly 30 tablet 3 03/24/2021 2 calcium carbonate-vit D3-min 600 mg calcium- 400 unit tablet Take 1 tablet by mouth 3 (three) times a week 90 tablet 3 03/24/2021 2 gabapentin (NEURONTIN) 300 mg capsule Take 1 capsule (300 mg total) by mouth 4 (four) times a day 120 capsule 3 03/24/2021 2 documented in this encounter Progress Notes * Guerda Iqbal PA - 03/24/2021 9:00 AM CST Images from the original note were not included. Chief Complaint Establish Care HPI Here for director public service est. Recently moved here [place], to be here with family. She and husb were living in [place], he had Alzheimer's disease and in the last year. She was his primary caregiver. Needing refill on gabapentin. Has been painting and up and down stairs in [facility]. Usually taking qid but some days uses tid. She notes history of spinal stenosis and spondylolisthesis. She notes that she was supposed to have a spinal fusion, [facility] and was a smoker at the time. Procedure was never completed due to those reasons. Has a right shoulder rotator cuff tear, put off surgery due to lifting and movement of husb. Walking daily for exercise Cutting back on cigs - down to 10/d Due for routine labs dexa about 7y ago indicated border of osteoporosis. Was started on calcium/vit d combo three times/week. She notes mild depression, she thinks from losing husb and sister in the last year. Notes that it is stable at this time and wanting to continue with trintellix. Allergies as of 03/24/2021 - Reviewed 03/24/2021 Allergen Reaction Noted ??? Tetracycline Rash 03/24/2021 Outpatient Encounter Medications as of 03/24/2021 Medication Sig Dispense Refill ??? amLODIPine (NORVASC) 10 mg tablet Take 10 mg by mouth daily ??? biotin 10,000 mcg capsule Take by mouth daily ??? cholecalciferol (VITAMIN D-3) 2000 unit capsule 2,000 Units daily ??? ibuprofen (ADVIL,MOTRIN) 800 mg tablet Take 800 mg by mouth 3 (three) times a day ??? irbesartan (AVAPRO) 300 mg tablet Take 300 mg by mouth daily ??? potassium chloride ER (KLOR-CON) 10 mEq CR tablet Take 10 mEq by mouth daily ??? pravastatin (PRAVACHOL) 10 mg tablet Take 10 mg by mouth daily ??? vortioxetine (TRINTELLIX) 20 mg tablet Take 20 mg by mouth daily ??? [DISCONTINUED] azelastine (OPTIVAR) 0.05 % ophthalmic solution Administer 1 drop into both eyes2 (two) times a day ??? [DISCONTINUED] calcium carbonate-vit D3-min 600 mg calcium- 400 unit tablet Take by mouth 3 (three) times a week ??? [DISCONTINUED] gabapentin (NEURONTIN) 300 mg capsule Take 300 mg by mouth 4 (four) times a day ??? [DISCONTINUED] montelukast (SINGULAIR) 10 mg tablet Take 10 mg by mouth nightly ??? azelastine (OPTIVAR) 0.05 % ophthalmic solution Administer 1 drop into both eyes 2 (two) times a day 6 mL 3 ??? calcium carbonate-vit D3-min 600 mg calcium- 400 unit tablet Take 1 tablet by mouth 3 (three) times a week 90 tablet 3 ??? gabapentin (NEURONTIN) 300 mg capsule Take 1 capsule (300 mg total) by mouth 4 (four) times a day 120 capsule 3 ??? montelukast (SINGULAIR) 10 mg tablet Take 1 tablet (10 mg total) by mouth nightly 30 tablet 3 No facility-administered encounter medications on file as of 03/24/2021. Past Medical History: Diagnosis Date ??? Asthma ??? Depression ??? Hyperlipidemia ??? Hypertension ??? Spinal stenosis ??? Spondylosis Past Surgical History: Procedure Laterality Date ??? BILATERAL OOPHORECTOMY ??? COMBINED AUGMENTATION MAMMAPLASTY AND ABDOMINOPLASTY saline Family History Problem Relation Age of Onset ??? Breast cancer Mother ??? Kidney cancer Mother ??? Diabetes Mother ??? Hypertension Mother ??? Emphysema Father ??? Hypertension Father ??? Lymphoma Sister ??? Alcohol abuse Brother ??? Breast cancer Mother's Sister Social History Socioeconomic History ??? Marital status: Occupational History ??? 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 Smoking status: Current Every Day Smoker Packs/day: 0.50 ??? Smokeless tobacco: Never Used Social History Narrative Feels safe at home Review of Systems Constitutional: Negative for fatigue, fever and unexpected weight change. HENT: Negative for congestion. Respiratory: Negative for cough, chest tightness and shortness of breath. Cardiovascular: Negative for chest pain and palpitations. Gastrointestinal: Negative for abdominal pain. Genitourinary: Negative for difficulty urinating and dysuria. Musculoskeletal: Positive for back pain. Negative for arthralgias. Skin: Negative for color change. Neurological: Negative for dizziness. Hematological: Does not bruise/bleed easily. Psychiatric/Behavioral: Positive for dysphoric mood. Negative for confusion. The patient is not nervous/anxious. Vitals: 03/24/21 0918 BP: 142/82 Pulse: 71 Resp: 17 SpO2: 98% Weight: 51.3 kg (113 lb) Height: 156.2 cm (5' 1.5 ) Physical Exam Vitals and nursing note reviewed. Constitutional: General: She is not in acute distress. Appearance: Normal appearance. She is normal weight. She is not ill-appearing, toxic-appearing or diaphoretic. HENT: Head: Normocephalic and atraumatic. Nose: Nose normal. Eyes: Extraocular Movements: Extraocular movements intact. Cardiovascular: Rate and Rhythm: Normal rate and regular rhythm. Heart sounds: Normal heart sounds. No murmur heard. No friction rub. No gallop. Pulmonary: Effort: Pulmonary effort is normal. No respiratory distress. Breath sounds: Normal breath sounds. No stridor. No wheezing, rhonchi or rales. Chest: Chest wall: No tenderness. Musculoskeletal: General: Normal range of motion. Cervical back: Normal range of motion. Skin: General: Skin is warm and dry. Neurological: Mental Status: She is alert and oriented to person, place, and time. Psychiatric: Mood and Affect: Mood normal. Behavior: Behavior normal. Thought Content: Thought content normal. Assessment/Plan Diagnoses and all orders for this visit: Encounter to establish care (Z76.89) (Primary) Assessment & Plan: Retrieve records from previous pcp Hyperlipidemia, unspecified hyperlipidemia type (E78.5) Assessment & Plan: Retrieve records from previous pcp Continue with medication the same at this time Orders: - CBC with auto differential; Future - Comprehensive metabolic panel; Future - Lipid panel; Future - Microalbumin, urine, random; Future - TSH; Future - Vitamin D 25 hydroxy; Future Essential hypertension (I10) Assessment & Plan: Retrieve records from previous pcp Continue with medication the same at this time Orders: - CBC with auto differential; Future - Comprehensive metabolic panel; Future - Lipid panel; Future - Microalbumin, urine, random; Future - TSH; Future - Vitamin D 25 hydroxy; Future Spinal stenosis, unspecified spinal region (M48.00) Assessment & Plan: Continue with neurontin same dosing at this time Encouraged continued attempts at smoking cessation Intermittent asthma without complication, unspecified asthma severity (J45.20) Assessment & Plan: Retrieve records from previous pcp Continue with medications the same at this time Mild episode of recurrent major depressive disorder (HCC) (F33.0) Assessment & Plan: Retrieve records from previous pcp Continue with trintellix same dosing at this time. She was reminded to not stop it abruptly. We discussed weaning her off in the coming year if settling into new community is going well and she is ready. Osteopenia, unspecified location (M85.80) Assessment & Plan: Retrieve records from previous pcp Continue with calcium/vit d combo three times/weekly Orders: - Vitamin D 25 hydroxy; Future BMI 21.0-21.9, adult (Z68.21) Other orders - gabapentin (NEURONTIN) 300 mg capsule; Take 1 capsule (300 mg total) by mouth 4 (four) times a day - calcium carbonate-vit D3-min 600 mg calcium- 400 unit tablet; Take 1 tablet by mouth 3 (three) times a week - montelukast (SINGULAIR) 10 mg tablet; Take 1 tablet (10 mg total) by mouth nightly - azelastine (OPTIVAR) 0.05 % ophthalmic solution; Administer 1 drop into both eyes 2 (two) times aday Orders Placed This Encounter ??? CBC with auto differential Standing Status: Future Number of Occurrences: 1 Standing Expiration Date: 03/24/2022 ??? Comprehensive metabolic panel Standing Status: Future Number of Occurrences: 1 Standing Expiration Date: 03/24/2022 ??? Lipid panel Standing Status: Future Number of Occurrences: 1 Standing Expiration Date: 03/24/2022 ??? Microalbumin, urine, random Standing Status: Future Number of Occurrences: 1 Standing Expiration Date: 03/24/2022 ??? TSH Standing Status: Future Number of Occurrences: 1 Standing Expiration Date: 03/24/2022 ??? Vitamin D 25 hydroxy Standing Status: Future Number of Occurrences: 1 Standing Expiration Date: 03/24/2022 ??? gabapentin (NEURONTIN) 300 mg capsule Sig: Take 1 capsule (300 mg total) by mouth 4 (four) times a day Dispense: 120 capsule Refill: 3 ??? calcium carbonate-vit D3-min 600 mg calcium- 400 unit tablet Sig: Take 1 tablet by mouth 3 (three) times a week Dispense: 90 tablet Refill: 3 ??? montelukast (SINGULAIR) 10 mg tablet Sig: Take 1 tablet (10 mg total) by mouth nightly Dispense: 30 tablet Refill: 3 ??? azelastine (OPTIVAR) 0.05 % ophthalmic solution Sig: Administer 1 drop into both eyes 2 (two) times a day Dispense: 6 mL Refill: 3 Guerda A. Juarez, PA SROOM FOREMAN documented in this encounter Miscellaneous Notes * Assessment & Plan Note - Guerda Iqbal PA - 03/24/2021 12:15 PM PRESSROOM FOREMAN Associated Problem(s): Encounter for Medicare annual wellness exam Retrieve records from previous pcp SROOM FOREMAN * Assessment & Plan Note - Guerda Iqbal PA - 03/24/2021 12:15 PM PRESSROOM FOREMAN Associated Problem(s): Essential hypertension Retrieve records from previous pcp Continue with medication the same at this time SROOM FOREMAN * Assessment & Plan Note - Guerda Iqbal PA - 03/24/2021 12:14 PM PRESSROOM FOREMAN Associated Problem(s): Hyperlipidemia Retrieve records from previous pcp Continue with medication the same at this time SROOM FOREMAN * Assessment & Plan Note - Guerda Iqbal PA - 03/24/2021 12:14 PM PRESSROOM FOREMAN Associated Problem(s): Intermittent asthma without complication Retrieve records from previous pcp Continue with medications the same at this time SROOM FOREMAN * Assessment & Plan Note - Guerda Iqbal PA - 03/24/2021 12:14 PM PRESSROOM FOREMAN Associated Problem(s): Mild episode of recurrent major depressive disorder (HCC) Retrieve records from previous pcp Continue with trintellix same dosing at this time. She was reminded to not stop it abruptly. We discussed weaning her off in the coming year if settling into new community is going well and she is ready. SROOM FOREMAN * Assessment & Plan Note - Guerda Iqbal PA - 03/24/2021 12:13 PM PRESSROOM FOREMAN Associated Problem(s): Osteopenia Retrieve records from previous pcp Continue with calcium/vit d combo three times/weekly SROOM FOREMAN * Assessment & Plan Note - Guerda qIbal PA - 03/24/2021 12:13 PM PRESSROOM FOREMAN Associated Problem(s): Spinal stenosis Continue with neurontin same dosing at this time Encouraged continued attempts at smoking cessation SROOM FOREMAN documented in this encounter Plan of Treatment Scheduled Orders Name Type Priority Associated Diagnoses Orde r Schedule CBC with auto differential Lab Routine Hyperlipidemia, unspecified hyperlipidemia type Essential hypertension Expected: 03/24/2021, Expires: 03/24/2022 Comprehensive metabolic panel Lab Routine Hyperlipidemia, unspecified hyperlipidemia type Essential hypertension Expected: 03/24/2021, Expires: 03/24/2022 Lipid panel Lab Routine Hyperlipidemia, unspecified hyperlipidemia type Essential hypertension Expected: 03/24/2021, Expires: 03/24/2022 Microalbumin, urine, random Lab Routine Hyperlipidemia, unspecified hyperlipidemia type Essential hypertension Expected: 03/24/2021, Expires: 03/24/2022 TSH Lab Routine Hyperlipidemia, unspecified hyperlipidemia type Essential hypertension Expected: 03/24/2021, Expires: 03/24/2022 Vitamin D 25 hydroxy Lab Routine Hyperlipidemia, unspecified hyperlipidemia type Essential hypertension Osteopenia, unspecified location Expected: 03/24/2021, Expires: 03/24/2022 documented as of this encounter Visit Diagnoses Diagnosis Encounter to establish care- Primary Hyperlipidemia, unspecified hyperlipidemia type Essential hypertension Unspecified essential hypertension Spinal stenosis, unspecified spinal region Intermittent asthma without complication, unspecified asthma severity Mild episode of recurrent major depressive disorder (HCC) Osteopenia, unspecified location BMI 21.0-21.9, adult documented in this encounter Discontinued Medications Medication Sig Discontinue Reason Start Date End Da te gabapentin (NEURONTIN) 300 mg capsule Take 300 mg by mouth 4 (four) times a day Reorder 03/24/2021 azelastine (OPTIVAR) 0.05 % ophthalmic solutionIndications:Octavio rgic Conjunctivitis Administer 1 drop into both eyes 2 (two) times a day Reorder 03/24/2021 calcium carbonate-vit D3-min 600 mg calcium- 400 unit tablet Take by mouth 3 (three) times a week Reorder 03/24/2021 montelukast (SINGULAIR) 10 mg tablet Take 10 mg by mouth nightly Reorder 03/24/2021 documented as of this encounter Historical Medications * This list may reflect changes made after this encounter. pravastatin (PRAVACHOL) 10 mg tablet Take 10 mg by mouth daily 2 montelukast (SINGULAIR) 10 mg tablet Take 10 mg by mouth nightly 2 cholecalciferol (VITAMIN D-3) 2000 unit capsule 2,000 Units daily 2 amLODIPine (NORVASC) 10 mg tablet Take 10 mg by mouth daily 2 irbesartan (AVAPRO) 300 mg tablet Take 300 mg by mouth daily 2 biotin 10,000 mcg capsule Take by mouth daily 2 potassium chloride ER (KLOR-CON) 10 mEq CR tablet Take 10 mEq by mouth daily 2 calcium carbonate-vit D3-min 600 mg calcium- 400 unit tablet Take by mouth 3 (three) times a week 2 vortioxetine (TRINTELLIX) 20 mg tabletIndications:m lexa depressive disorder Take 20 mg by mouth daily 2 azelastine (OPTIVAR) 0.05 % ophthalmic solutionIndications :Allergic Conjunctivitis Administer 1 drop into both eyes 2 (two) times a day 2 ibuprofen (ADVIL,MOTRIN) 800 mg tablet Take 800 mg by mouth 3 (three) times a day 2 gabapentin (NEURONTIN) 300 mg capsule Take 300 mg by mouth 4 (four) times a day 2 added in this encounter Care Teams Tile Conduit Layer Relationship Specialty Start Date End Date Guerda Iqbal PA PCP - General Consumer Affairs Director 03/12/21 11/29/21 documented as of this encounter
--- OUTSIDE RECORDS SUMMARY | 2024-01-30 12:07 | XMS_ITS | Encounter Summary ---
Author Organization [facility] Healthcare Address [address] [place] [address] Care Team Providers Care Travel Registered Nurse Icu Name Role Phone Claudia Haas NP Primary Care Provider [phone] Reason for Referral * Sleep Medicine (Routine) - Closed Specialty Diagnoses / Procedures Referred By Jakob lau Referred To Contact Diagnoses Hypersomnia Procedures Portable/Home Sleep Study Luis Hernandez MD [address] [place] [address] [address] [place] [address] Phone: tel: fax: [facility] [address] [place] [address] Phone: tel: fax: Referral ID Status Reason Start Date Expiration Date Visits Re quested Visits Authorized [id number] Closed 09/27/2023 10/26/2024 1 1 * MRI/CAT/PET Scan (Routine) - Pending Review Specialty Diagnoses / Procedures Referred By Jakob lau Referred To Contact Radiology Diagnoses Lung nodules Procedures CT Chest WO Contrast Luis Hernandez MD [address] [place] [address] [address] TEJ[address] [place] [address] Phone: tel: fax: [facility] [address] [place] [phone] Referral ID Status Reason Start Date Expiration Date V isits Requested Visits Authorized [id number] Pending Review 09/27/2023 10/26/2024 1 1 Reason for Visit * Reason Comments Follow-up 9 months Encounter Details Date Type Department Care Team (Late st Contact Info) Description 09/27/2023 10:45 AM CDT Office Visit [facility] Group Pulmonology [address] [place] [phone] Luis Hernandez MD [address] [place] [address] Centrilobular emphysema (HCC) (Primary Dx); Personal history [...] on file Legal Sex Female 10:40 AM [employer] Gender Identity Female 03/03/2021 12:47 PM [employer] Sexual Orientation Not on file 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, 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, 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, 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 file [...] total) by mouth daily as needed for [id number] tablet 0 cetirizine (ZyrTEC) 10 mg tablet Take 1 tablet (10 mg total) by mouth daily 90 tablet 1 EPINEPHrine 0.3 mg/0.3 mL auto-injection syringe INJECT 1 PEN IN THE MUSCLE ONE TIME DIRECTED lnrivqjlexl-myobyptfo-byvohtlk (TRELEGY ELLIPTA) 100-62.5-25 mcg inhaler Inhale 1 puff daily hahtyutnzlr-cglqhaqfe-hegoywzl (Trelegy Ellipta) 100-62.5-25 mcg inhaler INHALE 1 [...] by mouth daily 90 tablet 0 vit C,O-Yl-ecjws-lutein-zeaxan (PreserVision AREDS-2) 250-90-40-1 mg capsule dicyclomine (BENTYL) [...] MD SLEEP CENTER ORDERABLES F inal Result [facility] [address] [place] [address] documented in this encounter Visit Diagnoses Diagnosis Centrilobular emphysema (HCC)- Primary Personal history of tobacco use Personal history of tobacco use, presenting hazards to health Hypersomnia Hypersomnia, unspecified Lung nodules Other diseases of lung, not elsewhere classified documented in this encounter Care Teams Travel Registered Nurse Icu Relationship Specialty Start Date End Date Claudia Haas NP [address] [facility] [address] [place] [address] PCP - General Internal Medicine 07/27/22 documented as of this encounter
--- OUTSIDE RECORDS SUMMARY | 2024-01-30 12:07 | XMS_ITS | Encounter Summary ---
Author Organization [facility] Healthcare Address [address] [place] [address] Care Team Providers Care Estimator And Drafter Supervisor Name Role Phone Claudia Haas DATABASE MARKETING SPECIALIST Primary Care Provider [phone] Encounter Details Date Type Department Care Team (Late st Contact Info) Description 09/29/2023 8:30 AM CDT Office Visit [facility] Medical [facility] Internal Medicine at [place] [address] [place] [address] Claudia Haas NP [address] [place] [address] Encounter for Medicare annual wellness [...] on file Legal Sex Female 10:40 AM SHOE CLERK Gender Identity Female 03/03/2021 12:47 PM SHOE CLERK Sexual Orientation Not on file 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 End Date 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[employer], [employer], 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, 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 file [...] - General (Internal Medicine) Primary Pharmacy/DME suppliers: [id number] [place], [place] - [address] [facility] [address] [facility] [address] Problem List, Past Medical and Surgical History: [...] MUSCLE ONE TIME DIRECTED, Disp: , Rfl: rqjvhyuscis-aanvewgoh-knsbwvbn (TRELEGY ELLIPTA) 100-62.5-25 mcg inhaler, Inhale 1 [...] mouth daily, Disp: 90 tablet, Rfl:0 vit C,N-Ho-qmhib-lutein-zeaxan (PreserVision AREDS-2) 250-90-40-1 mg capsule, , Disp: [...] Improve Diet Advanced Directive Durable Power of Channel Marketing Coordinator: Discussed Today Living Will: Discussed Today Medicare [...] office visit. *This note is dictated using [employer] voice recognition software, variances in spelling [...] by mouth daily Duplicate order 09/19/2023 09/29/2023 yairwptcwdv-dagohmgck-zn lanter (Trelegy Ellipta) 100-62.5-25 mcg inhaler INHALE [...] documented as of this encounter Care Teams Estimator And Drafter Supervisor Relationship Specialty Start Date End Date Claudia Haas NP [facility] [place] [address] PCP - General Internal Medicine 07/27/22 documented as of this encounter
--- OUTSIDE RECORDS SUMMARY | 2024-01-30 12:07 | XMS_ITS | Referral Summary ---
Author Organization [facility] [address] Address [address] [place] [address] Care Team Providers Care Chicken Dresser Name Role Phone Claudia Haas INDUSTRIAL EDITOR Primary Care Provider [phone] Encounters Date Type Department Care Team Description 01/24/2024 10:30 AM MACHINE OPERATOR HOP WORKER Office Visit [facility] Pulmonology [address] [place] [address] [address] [place] [address] Gena Lee NP Centrilobular emphysema (HCC) (Primary Dx); Personal history of tobacco use; Obstructive sleep apnea 11/06/2023 Telephone [facility] Sleep Lab [address] [place] [address] Geneva Quinonez, [facility] Sleep Study Results from Last 3 Months Allergies Active Allergy Reactions Criticality Noted Date Comments Tetracycline Rash,Photosensitivity,Swelling Medium 10/2021 Medications biotin 10,000 mcg capsule Take 1 tablet by mouth daily Active vit C,V-Kq-ckluu-lutei n-zeaxan (PreserVision AREDS-2) 250-90-40-1 mg capsule 01/14/20 [...] 01/24/2024 Assessment & Plan (01/24/2024 11:07 AM MACHINE OPERATOR HOP WORKER): The patient was unable to tolerate CPAP. [...] 08/03/2022 Assessment & Plan (01/24/2024 11:01 AM MACHINE OPERATOR HOP WORKER): The patient continues to use her Trelegy [...] frequently. Assessment & Plan (12/21/2022 12:02 PM MACHINE OPERATOR HOP WORKER): The patient has stage I COPD and will continue with Trelegy 1 puff daily. Assessment & Plan (08/03/2022 11:16 AM CDT): The patient has stage I COPD and is using Trelegy 1 puff daily and her breathing is doing well. Personal history of tobacco use 08/03/2022 Assessment & Plan (01/24/2024 11:01 AM MACHINE OPERATOR HOP WORKER): The patient continues not smoke. She does have a CT scan ordered for February of 2024. Assessment & Plan (09/27/2023 11:10 AM CDT): The screening chest CT from late August as listed above. I will repeat another chest CT in 6 months to follow up a new cluster of nodules in the right upper lobe. Assessment & Plan (12/21/2022 12:02 PM MACHINE OPERATOR HOP WORKER): I will order another screening chest CT [...] months. Assessment & Plan (12/21/2022 12:01 PM MACHINE OPERATOR HOP WORKER): The patient states that the hypersomnia has [...] 03/25/2022 Assessment & Plan (03/25/2022 11:40 AM MACHINE OPERATOR HOP WORKER): This is a significant, separately identifiable problem [...] 10/2021 Assessment & Plan (03/24/2021 12:15 PM MACHINE OPERATOR HOP WORKER): Retrieve records from previous pcp Hyperlipidemia 03/24/2021 Assessment & Plan (03/24/2021 12:15 PM MACHINE OPERATOR HOP WORKER): Retrieve records from previous pcp Continue with [...] 120-130/80s. Assessment & Plan (03/24/2021 12:15 PM MACHINE OPERATOR HOP WORKER): Retrieve records from previous pcp Continue with medication the same at this time Spinal stenosis 03/24/2021 Assessment & Plan (03/24/2021 12:13 PM MACHINE OPERATOR HOP WORKER): Continue with neurontin same dosing at this time Encouraged continued attempts at smoking cessation Intermittent asthma without complication 022 Assessment & Plan (03/24/2021 12:14 PM MACHINE OPERATOR HOP WORKER): Retrieve records from previous pcp Continue with [...] exercise. Assessment & Plan (03/24/2021 12:14 PM MACHINE OPERATOR HOP WORKER): Retrieve records from previous pcp Continue with trintellix same dosing at this time. She was reminded to not stop it abruptly. We discussed weaning her off in the coming year if settling into new community is going well and she is ready. Osteopenia 03/24/2021 Assessment & Plan (03/24/2021 12:14 PM MACHINE OPERATOR HOP WORKER): Retrieve records from previous pcp Continue with calcium/vit d combo three times/weekly Resolved Problems Problem Noted Date Diagnosed Date Resolved Date Obesity (BMI 30-39.9) 03/31/20232023 BMI 24.0-24.9, adult 03/25/2022 024 Assessment & Plan (12/27/2022 8:14 AM MACHINE OPERATOR HOP WORKER): Weight/BMI is in healthy range. Continue healthy lifestyle to maintain. Assessment & Plan (03/25/2022 11:23 AM MACHINE OPERATOR HOP WORKER): Weight/BMI is in healthy range. Continue healthy lifestyle. BMI 22.0-22.9, adult 03/04/2022 023 Assessment & Plan (03/04/2022 8:40 AM MACHINE OPERATOR HOP WORKER): Weight/BMI is in healthy range. 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 file Not on file Last Filed Vital Signs Vital Sign Reading Time Taken Comments Blood Pressure 154/88 01/24/2024 10:33 AM MACHINE OPERATOR HOP WORKER Pulse 68 01/24/2024 10:33 AM MACHINE OPERATOR HOP WORKER Temperature 36.9 ??C (98.4 ??F) 01/24/2024 10:[address] Respiratory Rate 18 01/24/2024 10:33 AM MACHINE OPERATOR HOP WORKER Oxygen Saturation 98% 01/24/2024 10:33 AM MACHINE OPERATOR HOP WORKER Inhaled Oxygen Concentration - - Weight 65.3 kg (144 lb) 01/24/2024 10:33 AM MACHINE OPERATOR HOP WORKER Height 154.9 cm (5' 0.98 ) 01/24/2024 10:[address] Body Mass Index 27.22 01/24/2024 10:33 AM MACHINE OPERATOR HOP WORKER Plan of Treatment Not on file Procedures [...] age 42, based on guidelines of the [employer] (ACR Practice Parameter for the Performance of Screening and Diagnostic Mammography) and [employer]. For women [...] either breast on mammogram. Claudia Haas NP [facility] MAMMO PROCEDURES Edited R esult - Final * Dexa Axial Skeleton Bone Density 1 or 2 Site (05/19/2022) SCRIBED DXA T-SCORE 2.5 1.0 - 2.5 Anatomical Region Laterality Modality Body N/A Radiographic Susanna ging 05/19/2022 Claudia Haas INDUSTRIAL EDITOR [facility] DXA PROCEDURES Edited Res ult - Final * Stool DNA - Cologuard (01/07/2021) Stool Historical Provider LAB BODY FLUIDS AND STOOL S ORDERABLES Final Result from Last 3 Months or Most Recently Relevant to Health Maintenance Insurance MEDICARE SOLUTIONS [facility] Address: [place] [id number] [facility] Address: [place] [id number] Advance Directives For more information, please contact: [phone] Documents on File Type Date Recorded Patient Research Quality Assurance Analyst Expl anation ADVANCE DIRECTIVE 03/04/2022 3:17 PM Care Teams Chicken Dresser Relationship Specialty Start Date End Date Claudia Haas NP [address] [address] PCP - General Internal Medicine 07/27/22
--- OUTSIDE RECORDS SUMMARY | 2024-01-30 12:07 | XMS_ITS | Encounter Summary ---
Author Organization [facility] Healthcare Address [address] [place] [address] Care Team Providers Care Oxygen Plant Operator Name Role Phone Claudia Haas NP Primary Care Provider [phone] Reason for Visit * Reason Onset Date Comments Sleep Study Results 11/06/2023 Encounter Details Date Type Department Care Team (Late st Contact Info) Description 11/06/2023 Telephone [facility] Sleep Lab [address] [place] [address] Geneva Quinonez, 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 AHI- 17.9, Lowest O2 sat- 87%, .06 min overall with O2 sat less than 90%. Auto CPAP [id number] was sent to [facility]. documented in this encounter Plan of Treatment Not on file documented as of this encounter Visit Diagnoses Not on filedocumented in this encounter Care Teams Oxygen Plant Operator Relationship Specialty Start Date End Date Claudia Haas NP [address] [facility] [address] [place] [address] PCP - General Internal Medicine 07/27/22 documented as of this encounter
--- OUTSIDE RECORDS SUMMARY | 2024-01-30 12:07 | XMS_ITS | Encounter Summary ---
Author Organization [facility] Healthcare Address [address] [place] [address] Care Team Providers Care Plastics Spreading Machine Operator Name Role Phone Claudia Haas NP Primary Care Provider [phone] Reason for Referral * Consultation (Routine) - Pending Review Specialty Diagnoses / Procedures Referred By Contac t Referred To Contact Otolaryngology Diagnoses Obstructive sleep apnea Gena Lee NP [address] [place] [address] [address] [place] [address] Phone: tel: fax: Larry Parrish MD [facility] [address] [address] Phone: tel: fax: Referral ID Status Reason Start Date Expiration Date Visits Requested Visits Authorized [id number] Pending Review Specialty Services Required 4 02/22/2025 1 1 Question Answer Please select the performing region: [facility] (All Locations) [167] To provider: LARRY PARRISH [[id number]] # of visits: 1 ZINE KEEPER Reason for Visit * Reason Comments Follow-up Encounter Details Date Type Department Care Team (Late st Contact Info) Description 01/24/2024 10:30 AM MAGAZINE KEEPER Office Visit [facility] Medical Group Pulmonology [address] [facility] [address] [place] [address] Gena Lee NP [address] [place] [address] [address] [place] [address] Centrilobular emphysema (HCC) (Primary Dx); Personal history [...] on file Legal Sex Female 10:40 AM MAGAZINE KEEPER Gender Identity Female 03/03/2021 12:47 PM MAGAZINE KEEPER Sexual Orientation Not on file 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, 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, 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, 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 file Not on file documented as of this encounter Last Filed Vital Signs Vital Sign Reading Time Taken Comments Blood Pressure 154/88 01/24/2024 10:33 AM MAGAZINE KEEPER Pulse 68 01/24/2024 10:33 AM MAGAZINE KEEPER Temperature 36.9 ??C (98.4 ??F) 01/24/2024 10:[address] Respiratory Rate 18 01/24/2024 10:33 AM MAGAZINE KEEPER Oxygen Saturation 98% 01/24/2024 10:33 AM MAGAZINE KEEPER Inhaled Oxygen Concentration - - Weight 65.3 kg (144 lb) 01/24/2024 10:33 AM MAGAZINE KEEPER Height 154.9 cm (5' 0.98 ) 01/24/2024 10:[address] Body Mass Index 27.22 01/24/2024 10:33 AM MAGAZINE KEEPER documented in this encounter Progress Notes * [...] one inhalation once a day. The patient's laborer prestressed concrete did increase the Trelegy to 200 mcg [...] total) by mouth daily as needed for [id number] tablet 0 EPINEPHrine 0.3 mg/0.3 mL auto-injection [...] 200-62.5-25 mcg inhaler 1 puff daily vit C,A-Kv-vyklc-lutein-zeaxan (PreserVision AREDS-2) 250-90-40-1 mg capsule [DISCONTINUED] afwcqapwjlt-ssmdxhorr-ttaxnkva (TRELEGY ELLIPTA) 100-62.5-25 mcg inhaler Inhale 1 [...] Return in about 6 months (around 07/24/2024). eGna Lee NP Cosigned by Luis Hernandez MD at 01/24/2024 11:12 AM MAGAZINE KEEPER ZINE KEEPER ZINE KEEPER documented in this encounter Miscellaneous Notes * Assessment & Plan Note - Gena Lee NP - 01/24/2024 11:07 AM MAGAZINE KEEPER Associated Problem(s): Obstructive sleep apnea The patient was unable to tolerate CPAP. The patient is interested in the inspire device. I have referred the patient over to Dr. Parrish. ZINE KEEPER * Assessment & Plan Note - Gena Lee NP - 01/24/2024 11:01 AM MAGAZINE KEEPER Associated Problem(s): Personal history of tobacco use The patient continues not smoke. She does have a CT scan ordered for February of 2024. ZINE KEEPER * Assessment & Plan Note - Gena Lee NP - 01/24/2024 11:01 AM MAGAZINE KEEPER Associated Problem(s): Centrilobular emphysema (HCC) The patient continues to use her Trelegy one inhalation once a day. The patient will continue with albuterol as needed up to 4 times a day for shortness of breath. The patient states she has receivedher RSV, COVID, and flu shot. ZINE KEEPER documented in this encounter Plan of Treatment [...] Discontinue Reason Start Date End Da te qxsptishpro-mnfyjewps-js lanter (TRELEGY ELLIPTA) 100-62.5-25 mcg inhaler Inhale 1 puff daily Therapy completed 10/10/2023 01/24/2024 documented as of this encounter Historical Medications * This list may reflect changes made after this encounter. Trelegy Ellipta 200-62.5-25 mcg inhaler 1 puff daily 12/22/2023 added in this encounter Care Teams Plastics Spreading Machine Operator Relationship Specialty Start Date End Date Claudia Haas NP [address] [facility] [address] [place] [address] PCP - General Internal Medicine 07/27/22 documented as of this encounter
--- OUTSIDE RECORDS SUMMARY | 2024-01-30 12:07 | XMS_ITS | Encounter Summary ---
Author Organization [facility] Healthcare Address [address] [place] [address] Care Team Providers Care Medical Charge Entry Specialist Name Role Phone Claudia Haas MEXICAN FOOD MACHINE TENDER Primary Care Provider Reason for Referral * Consultation (Routine) - Closed Specialty Diagnoses / Procedures Referred By Contac t Referred To Contact Physical Therapy Diagnoses Falls frequently Weakness Claudia Haas NP [address] [facility] [address] [place] [address] Phone: tel: fax: [facility] [place] [address] [place] [address] Phone: tel: fax: Referral ID Status Reason Start Date Expiration Date V isits Requested Visits Authorized [id number] Closed Specialty Services Required 10/20/2023 11/18/2024 24 24 Question Answer PTRFR PT Evaluate and Treat Therapy options discussed with patient? Yes Location provided for therapy services is: Patient requested/Patient preferred Please select the performing region: External Order [171] To loc/pos [facility] [place] [[id number]] # of visits: 24 Comments PT Eval and Treat 2-3 times/week for 4-6 weeks Dx: Falls, weakness Encounter Details Date Type Department Care Team (Late st Contact Info) Description 10/20/2023 Orders Only [facility] Medical Group Family Medicine [address] [facility] [address] [place] [address] Claudia Haas NP [address] [place], [place] [id number] Falls frequently (Primary Dx); Weakness Social History [...] on file Legal Sex Female 10:40 AM END LATHE OPERATOR Gender Identity Female 03/03/2021 12:47 PM END LATHE OPERATOR Sexual Orientation Not on file 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
--- OUTSIDE RECORDS SUMMARY | 2024-01-30 12:07 | XMS_ITS | Encounter Summary ---
Author Organization [facility] Healthcare Address [address] [place] [address] Care Team Providers Care Maxillofacial Surgeon Name Role Phone Claudia Haas NP Primary Care Provider [phone] Reason for Referral * MRI/CAT/PET Scan (Routine) - Pending Review Specialty Diagnoses / Procedures Referred By Contac t Referred To Contact Radiology Diagnoses Nicotine dependence, cigarettes, in remission Procedures CT Lung Cancer Screening Claudia Haas NP [address] [facility] [address] [place] [address] Phone: tel: fax: [address] [address] Referral ID Status Reason Start Date Expiration Date V isits Requested Visits Authorized [id number] Pending Review 09/05/2023 10/04/2024 1 1 Encounter Details Date Type Department Care Team (Late st Contact Info) Description 09/05/2023 Telephone [facility] Medical Group Family Medicine [address] [place] [address] Claudia Haas NP [address] [facility] [address] [place] [address] Social History Tobacco Use Types [...] on file Legal Sex Female 10:40 AM HANDBAG DESIGNER Gender Identity Female 03/03/2021 12:47 PM HANDBAG DESIGNER Sexual Orientation Not on file 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 End Date 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
--- OUTSIDE RECORDS SUMMARY | 2024-01-30 12:07 | XMS_ITS | Clinical Summary ---
Author Organization [facility] 10[address] [facility] Address [address] [place] [address] Care Team Providers Care Siderographist Name Role Phone Claudia Haas NP Primary Care Provider [phone] Allergies Active Allergy Reactions Criticality Noted Date Comments Tetracycline Rash,Photosensitivity,Swelling Medium 10/2021 Medications biotin 10,000 mcg capsule Take 1 tablet by mouth daily Active vit C,T-Qz-afrqk-lutei n-zeaxan (PreserVision AREDS-2) 250-90-40-1 mg capsule 01/14/20 [...] 01/24/2024 Assessment & Plan (01/24/2024 11:07 AM GRADUATE FELLOW): The patient was unable to tolerate CPAP. [...] 08/03/2022 Assessment & Plan (01/24/2024 11:01 AM GRADUATE FELLOW): The patient continues to use her Trelegy [...] frequently. Assessment & Plan (12/21/2022 12:02 PM GRADUATE FELLOW): The patient has stage I COPD and will continue with Trelegy 1 puff daily. Assessment & Plan (08/03/2022 11:16 AM CDT): The patient has stage I COPD and is using Trelegy 1 puff daily and her breathing is doing well. Personal history of tobacco use 08/03/2022 Assessment & Plan (01/24/2024 11:01 AM GRADUATE FELLOW): The patient continues not smoke. She does have a CT scan ordered for February of 2024. Assessment & Plan (09/27/2023 11:10 AM CDT): The screening chest CT from late August as listed above. I will repeat another chest CT in 6 months to follow up a new cluster of nodules in the right upper lobe. Assessment & Plan (12/21/2022 12:02 PM GRADUATE FELLOW): I will order another screening chest CT [...] months. Assessment & Plan (12/21/2022 12:01 PM GRADUATE FELLOW): The patient states that the hypersomnia has [...] 03/25/2022 Assessment & Plan (03/25/2022 11:40 AM GRADUATE FELLOW): This is a significant, separately identifiable problem [...] 10/2021 Assessment & Plan (03/24/2021 12:15 PM GRADUATE FELLOW): Retrieve records from previous pcp Hyperlipidemia 03/24/2021 Assessment & Plan (03/24/2021 12:15 PM GRADUATE FELLOW): Retrieve records from previous pcp Continue with [...] 120-130/80s. Assessment & Plan (03/24/2021 12:15 PM GRADUATE FELLOW): Retrieve records from previous pcp Continue with medication the same at this time Spinal stenosis 03/24/2021 Assessment & Plan (03/24/2021 12:13 PM GRADUATE FELLOW): Continue with neurontin same dosing at this time Encouraged continued attempts at smoking cessation Intermittent asthma without complication 022 Assessment & Plan (03/24/2021 12:14 PM GRADUATE FELLOW): Retrieve records from previous pcp Continue with [...] exercise. Assessment & Plan (03/24/2021 12:14 PM GRADUATE FELLOW): Retrieve records from previous pcp Continue with trintellix same dosing at this time. She was reminded to not stop it abruptly. We discussed weaning her off in the coming year if settling into new community is going well and she is ready. Osteopenia 03/24/2021 Assessment & Plan (03/24/2021 12:14 PM GRADUATE FELLOW): Retrieve records from previous pcp Continue with calcium/vit d combo three times/weekly Resolved Problems Problem Noted Date Diagnosed Date Resolved Date Obesity (BMI 30-39.9) 03/31/20232023 BMI 24.0-24.9, adult 03/25/2022 024 Assessment & Plan (12/27/2022 8:14 AM GRADUATE FELLOW): Weight/BMI is in healthy range. Continue healthy lifestyle to maintain. Assessment & Plan (03/25/2022 11:23 AM GRADUATE FELLOW): Weight/BMI is in healthy range. Continue healthy lifestyle. BMI 22.0-22.9, adult 03/04/2022 023 Assessment & Plan (03/04/2022 8:40 AM GRADUATE FELLOW): Weight/BMI is in healthy range. Continue healthy [...] Department Care Team Description 01/24/2024 10:30 AM GRADUATE FELLOW Office Visit [facility] Medical [facility] Pulmonology [address] [place] [phone] Gena Lee NP Centrilobular emphysema (HCC) (Primary Dx); Personal history of tobacco use; Obstructive sleep apnea 11/06/2023 Telephone [facility] Sleep Lab [address] [place] [address] Geneva Quinonez, [facility] Sleep Study Results from Last 3 Months Immunizations Name Administration Dates Next Due COVID-19 mRNA ([place]) 0.3 m L (30 mcg) vaccine (12 [...] on file Legal Sex Female 10:40 AM GRADUATE FELLOW Gender Identity Female 03/03/2021 12:47 PM GRADUATE FELLOW Sexual Orientation Not on file 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, 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, 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, 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 file Not on file Obstetrics History Para Term AB IAB SAB Ectopic Multiple Livin g Live Births 1 0 0 Date Outcome GA Total Labor Labor/2nd/3rd Weight Sex Type Anes PTL Celeste A1 A5 Name Clin Last Filed Vital Signs Vital Sign Reading Time Taken Comments Blood Pressure 154/88 01/24/2024 10:33 AM GRADUATE FELLOW Pulse 68 01/24/2024 10:33 AM GRADUATE FELLOW Temperature 36.9 ??C (98.4 ??F) 01/24/2024 10:[address] Respiratory Rate 18 01/24/2024 10:33 AM GRADUATE FELLOW Oxygen Saturation 98% 01/24/2024 10:33 AM GRADUATE FELLOW Inhaled Oxygen Concentration - - Weight 65.3 kg (144 lb) 01/24/2024 10:33 AM GRADUATE FELLOW Height 154.9 cm (5' 0.98 ) 01/24/2024 10:[address] Body Mass Index 27.22 01/24/2024 10:33 AM GRADUATE FELLOW Plan of Treatment Health Maintenance Due Date [...] age 42, based on guidelines of the [place] [employer] (ACR Practice Parameter for the Performance of Screening and Diagnostic Mammography) and [place]. For women [...] either breast on mammogram. Claudia Haas NP [facility] [place]AMMO PROCEDURES Edited R esult - Final * Dexa Axial Skeleton Bone Density 1 or 2 Site (05/19/2022) SCRIBED DXA T-SCORE 2.5 1.0 - 2.5 Anatomical Region Laterality Modality Body N/A Radiographic Susanna ging 05/19/2022 lCaudia Haas NP [facility] DXA PROCEDURES Edited Res ult - Final * Stool DNA - Cologuard (01/07/2021) Stool us Historical Provider MD LAB BODY FLUIDS AND STOOL S ORDERABLES Final Result from Last 3 Months or Most Recently Relevant to Health [place] [address] MEDICARE SOLUTIONS Member Subscriber Plan / Payer (Ef fective 2022-Present) Name:Terri Briseno Relation to Subscriber:Self Name:Terri Briseno Payer ID:[id number] (NAIC) Type:[facility] MEDICARE Address: [place] [id number] [place] [address] MEDICARE SOLUTIONS Member Subscriber Plan / Payer (Ef fective 2022-Present) Name:Terri Briseno Relation to Subscriber:Self Name:Terri Briseno Payer ID:[id number] (NAIC) Type:[facility] MEDICARE Address: [place] [id number] MEDICARE SOLUTIONS Advance Directives For more information, please contact: [phone] Documents on File Type Date Recorded Patient Teacher Of Gifted Students Expl anation ADVANCE DIRECTIVE 03/04/2022 3:17 PM Care Teams Siderographist Relationship Specialty Start Date End Date Claudia Haas NP [address] [facility] [address] [place] [address] PCP - General Internal Medicine 07/27/22
--- OUTSIDE RECORDS SUMMARY | 2024-01-30 12:07 | XMS_ITS | Encounter Summary ---
Author Organization [facility] Healthcare Address [address] [place] [address] Care Team Providers Care Manager Of Warehouse Name Role Phone Claudia Haas NP Primary Care Provider [phone] Reason for Referral * Sleep Medicine (Routine) - Closed Specialty Diagnoses / Procedures Referred By Christyac t Referred To Contact Diagnoses Hypersomnia Procedures Portable/Home Sleep Study Luis Hernandez MD [address] [place] [address] [address] TEJADA [address] [place] [address] Phone: tel: fax: [facility] [address] [place] [address] Phone: tel: fax: Referral ID Status Reason Start Date Expiration Date Visits Re quested Visits Authorized [id number] Closed 09/27/2023 10/26/2024 1 1 Reason for Visit * Sleep Medicine (Routine) - Closed Specialty Diagnoses / Procedures Referred By Contac t Referred To Contact Diagnoses Hypersomnia Procedures Portable/Home Sleep Study Luis Hernandez MD [address] [facility] [address] [place] [address] Phone: tel: fax: [facility] [address] [place] [address] Phone: tel: fax: Referral ID Status Reason Start Date Expiration Date Visits Re quested Visits Authorized [id number] Closed 09/27/2023 10/26/2024 1 1 Encounter Details Date Type Department Care Team (Latest Contact Info) Description 10/30/2023 9:57 AM CDT - 10/30/2023 11:59 PM CDT Hospital Encounter [facility] Sleep Lab [address] [place] [address] Hypersomnia Discharge Disposition: Discharge to home or [...] on file Legal Sex Female 10:40 AM COUNTY CORONER Gender Identity Female 03/03/2021 12:47 PM COUNTY CORONER Sexual Orientation Not on file 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, 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, 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, 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 [...] mouth daily 90 capsule 1 09/29/2023 vit C,V-Ul-jtwzy-lutein -zeaxan (PreserVision AREDS-2) 250-90-40-1 mg capsule 01/14/2020 [...] MD SLEEP CENTER ORDERABLES F inal Result [facility] SLEEP MEDICINE [address] [place] [address] documented in this encounter Visit Diagnoses Diagnosis Hypersomnia Hypersomnia, unspecified documented in this encounter Care Teams Manager Of Warehouse Relationship Specialty Start Date End Date Claudia Haas NP [address] [facility] [address] [place] [address] PCP - General Internal Medicine 07/27/22 documented as of this encounter
--- OUTSIDE RECORDS SUMMARY | 2024-01-30 12:08 | XMS_ITS | Encounter Summary ---
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 [address] [place] [address] PCP - General Internal Medicine 07/27/22 documented as of this encounter
--- OUTSIDE RECORDS SUMMARY | 2024-01-30 12:08 | XMS_ITS | Encounter Summary ---
Author Organization [facility] Healthcare Address [address] [place] [address] Care Team Providers Care Railroad Inspector Name Role Phone Claudia Haas NP Primary Care Provider [phone] Reason for Visit * Reason Onset Date Comments Chart Review 12/23/2022 Med adherence Encounter Details Date Type Department Care Team (Late st Contact Info) Description 12/23/2022 Telephone [facility] Accountable Care Organization [address] [place] [address] Lalita Dumont MA [address] [email or web address] [address] [place], [place] [id number] Chart Review (Med adherence) Social History Tobacco [...] on file Legal Sex Female 10:40 AM DUST COLLECTOR TREATER Gender Identity Female 03/03/2021 12:47 PM DUST COLLECTOR TREATER Sexual Orientation Not on file 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 COLLECTOR TREATER documented in this encounter Plan of Treatment Not on file documented as of this encounter Visit Diagnoses Not on filedocumented in this encounter Care Teams Railroad Inspector Relationship Specialty Start Date End Date Clauida Haas NP [address] [place] [address] PCP - General Internal Medicine 07/27/22 documented as of this encounter
--- OUTSIDE RECORDS SUMMARY | 2024-01-30 12:08 | XMS_ITS | Encounter Summary ---
Author Organization [facility] Healthcare Address [address] [place] [address] Care Team Providers Care Pony Rougher Name Role Phone Claudia Haas MANAGER EMPLOYEE BENEFITS Primary Care Provider [phone] Reason for Visit * Reason Comments Fatigue Having problems with fatigue and cries Encounter Details Date Type Department Care Team (Late st Contact Info) Description 11/29/2022 8:00 AM CDT Office Visit 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 She states that she [...] documented as of this encounter Care Teams Pony Rougher Relationship Specialty Start Date End Date Claudia Haas NP [address] [facility] [address] [place] [address] PCP - General Internal Medicine 07/27/22 documented as of this encounter
--- OUTSIDE RECORDS SUMMARY | 2024-01-30 12:08 | XMS_ITS | Encounter Summary ---
Author Organization [facility] Healthcare Address [address] [place] [address] Care Team Providers Care Museum Curator Name Role Phone Claudia Haas FREEZING ROOM WORKER Primary Care Provider [phone] Reason for Visit * Reason Onset Date Comments Forms Request 04/27/2023 Encounter Details Date Type Department Care Team (Late st Contact Info) Description 04/27/2023 Telephone [facility] Medical Group Internal Medicine at [place] [address] [place] [address] Claudia Haas NP [address] [place] [address] Forms Request Social History Tobacco [...] on file Legal Sex Female 10:40 AM CNC ROUTER OPERATOR Gender Identity Female 03/03/2021 12:47 PM CNC ROUTER OPERATOR Sexual Orientation Not on file 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, 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, 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, 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 Yes-Action [...] Who is form being returned to? Third Green Party Name of Third Green Party: [facility] How to return form to third alliance party? Fax Fax Number to use for return of forms: [phone] Additional Comments: Ton advised patient has upcoming [...] on filedocumented in this encounter Care Teams Museum Curator Relationship Specialty Start Date End Date Claudia Haas NP [address] [address] [place] [address] PCP - General Internal Medicine 07/27/22 documented as of this encounter
--- OUTSIDE RECORDS SUMMARY | 2024-01-30 12:08 | XMS_ITS | Encounter Summary ---
Author Organization [facility] Healthcare Address [address] [place] [address] Care Team Providers Care Professor Of Early Childhood Education Name Role Phone Claudia Haas HELICOPTER REPAIRER Primary Care Provider Reason for Visit * Reason Onset Date Comments Test Results 05/31/2023 Encounter Details Date Type Department Care Team (Late st Contact Info) Description 05/31/2023 Telephone [facility] Medical Group Internal Medicine at [place] [address] [place] [address] Claudia Haas NP [address] [place] [address] Test Results Social History Tobacco [...] on file Legal Sex Female 10:40 AM ORTHOTIC AND PROSTHETIC TECHNICIAN Gender Identity Female 03/03/2021 12:47 PM ORTHOTIC AND PROSTHETIC TECHNICIAN Sexual Orientation Not on file 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
--- OUTSIDE RECORDS SUMMARY | 2024-01-30 12:08 | XMS_ITS | Encounter Summary ---
Author Organization [facility] Address [address] [place] [address] [address] [place] [address] Care Team Providers Care Forensic Social Worker Name Role Phone Claudia Haas NP Primary Care Provider Reason for Visit * Reason Onset Date Comments Chart Review 08/18/2022 Med adherence Encounter Details Date Type Department Care Team (Late st Contact Info) Description 08/18/2022 Telephone [facility] Accountable Care Organization [address] [place] [address] Lalita Dumont MA [address] [place] [address] Chart Review (Med adherence) Social History Tobacco [...] on file Legal Sex Female 10:40 AM DISTRIBUTION COORDINATOR Gender Identity Female 03/03/2021 12:47 PM DISTRIBUTION COORDINATOR Sexual Orientation Not on file 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
--- OUTSIDE RECORDS SUMMARY | 2024-01-30 12:08 | XMS_ITS | Encounter Summary ---
Author Organization [facility] Medical Group Address [address] [facility] [address] [place] [address] Care Team Providers Care Ham Passer Name Role Phone Claudia Haas NP Primary Care Provider [phone] Encounter Details Date Type Department Care Team (Late st Contact Info) Description 09/19/2022 Orders Only [facility] Health Information Management [address] [place] [address] Denny Lopez MD [address] [facility] [address] [address] Social History Tobacco Use Types Packs/Day Years [...] on file Legal Sex Female 10:40 AM CLAIMS VICE PRESIDENT Gender Identity Female 03/03/2021 12:47 PM CLAIMS VICE PRESIDENT Sexual Orientation Not on file 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
--- OUTSIDE RECORDS SUMMARY | 2024-01-30 12:08 | XMS_ITS | Encounter Summary ---
Author Organization [facility] Medical Group Address [address] [facility] [address] [place] [address] Care Team Providers Care Truck Body Builder Name Role Phone Claudia Haas DRY CLEANING MACHINE OPERATOR HELPER Primary Care Provider [phone] Reason for Visit * Reason Comments Wellness Visit Here for wellness vi sitGo over blood work Encounter Details Date Type Department Care Team (Late st Contact Info) Description 07/28/2022 9:15 AM CDT Office Visit [facility] Medical Group Internal Medicine at [place] [address] [place] [address] Claudia Haas, DRY CLEANING MACHINE OPERATOR HELPER [address] [place] [address] Physical exam, annual (Primary Dx); [...] on file Legal Sex Female 10:40 AM OLAP DEVELOPER Gender Identity Female 03/03/2021 12:47 PM OLAP DEVELOPER Sexual Orientation Not on file 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 Follow-up in 6 months or sooner as needed. Contact the office with any questions or concerns documented in this encounter Progress Notes * Claudia Haas NP - 07/28/2022 9:15 AM CDT Subjective/Objective Patient ID: Terri Briseno is a 72 y.o. female. Visit Date: 07/28/2022 Chief Complaint Wellness Visit (Here for wellness visit/Go over blood work) HPI 72-year-old female in for [facility] wellness exam. Lab work discussed in the [...] exam, annual (Z00.00) (Primary) Comments: routine annual [facility] physical completed today. Follow-up in 6 months [...] Plan Note - Claudia Haas NP - 07/28/2022 9:54 AM CDT Associated [...] Vitamin B12 299 200 - 1,100 pg/mL [facility] Comment: Please Note: Although the [...] CDT FASTING:NO FASTING: NO us Claudia Haas DRY CLEANING MACHINE OPERATOR HELPER LAB BLOOD ORDERABLES Final Re sult [facility] [address] [address] [address] documented in this encounter Visit Diagnoses Diagnosis [...] 07/28/2022 documented in this encounter Care Teams Truck Body Builder Relationship Specialty Start Date End Date Claudia Haas NP [address] [place] [address] PCP - General Internal Medicine 07/27/22 documented as of this encounter
--- OUTSIDE RECORDS SUMMARY | 2024-01-30 12:08 | XMS_ITS | Encounter Summary ---
Author Organization [facility] Healthcare Address [address] [place] [address] Care Team Providers Care Liturgical Music Director Name Role Phone Claudia Haas PURCHASING INTERNSHIP Primary Care Provider [phone] Encounter Details Date Type Department Care Team (Late st Contact Info) Description 05/08/2023 Orders Only [facility] Medical Group Family Medicine [address] [place] [address] Claudia Haas, PURCHASING INTERNSHIP [address] [place] [address] Seasonal allergies Social History Tobacco [...] on file Legal Sex Female 10:40 AM EMBEDDED SYSTEMS ENGINEER Gender Identity Female 03/03/2021 12:47 PM EMBEDDED SYSTEMS ENGINEER Sexual Orientation Not on file 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
--- OUTSIDE RECORDS SUMMARY | 2024-01-30 12:08 | XMS_ITS | Encounter Summary ---
Author Organization [facility] Healthcare Address [address] [place] [address] Care Team Providers Care Lead Operator Name Role Phone Claudia Haas NP Primary Care Provider [phone] Reason for Referral * MRI/CAT/PET Scan (Routine) - Closed Specialty Diagnoses / Procedures Referred By Contac t Referred To Contact Radiology Diagnoses Personal history of tobacco use Procedures CT Lung Cancer Screening Luis Hernandez MD [address] [place] [address] DR TEJADA [address] [place] [address] Phone: tel: fax: [address] [address] Referral ID Status Reason Start Date Expiration Date Visits Re quested Visits Authorized [id number] Closed 08/03/2022 09/02/2023 1 1 Reason for Visit * MRI/CAT/PET Scan (Routine) - Closed Specialty Diagnoses / Procedures Referred By Contkecia t Referred To Contact Radiology Diagnoses Personal history of tobacco use Procedures CT Lung Cancer Screening Luis Hernandez MD [address] [place] [address] DR TEJADA [address] [place] [address] Phone: tel: fax: [address] [phone] Referral ID Status Reason Start Date Expiration Date Visits Re quested Visits Authorized [id number] Closed 08/03/2022 09/02/2023 1 1 Encounter Details Date Type Department Care Team (Latest Contact Info) Description 09/01/2022 1:31 PM CDT - 09/01/2022 11:59 PM CDT Hospital Encounter [facility] [address] [place] [address] Personal history of tobacco use Discharge Disposition: [...] on file Legal Sex Female 10:40 AM INTAKE MANAGER Gender Identity Female 03/03/2021 12:47 PM INTAKE MANAGER Sexual Orientation Not on file 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 RL T: Report ID: [id number] Reading Location: [id number] Luis Hernandez MD IMG CT PROCEDURES Final R esult documented in this encounter Visit Diagnoses Diagnosis Personal history of tobacco use Personal history of tobacco use, presenting hazards to health documented in this encounter Care Teams Lead Operator Relationship Specialty Start Date End Date Claudia Haas NP [address] [address] PCP - General Internal Medicine 07/27/22 documented as of this encounter
--- OUTSIDE RECORDS SUMMARY | 2024-01-30 12:08 | XMS_ITS | Encounter Summary ---
Author Organization [facility] Healthcare Address [address] [place] [address] Care Team Providers Care Crystal Grower Name Role Phone Claudia Haas RIGGING MAN Primary Care Provider [phone] Reason for Visit * Reason Comments Surgical Clearance Encounter Details Date Type Department Care Team (Late st Contact Info) Description 05/08/2023 8:00 AM CDT Office Visit [facility] Medical Group Internal Medicine at [place] [address] [place] [address] Claudia Hasa RIGGING MAN [address] [place] [address] Pre-op examination (Primary Dx); BMI [...] on file Legal Sex Female 10:40 AM REMEDIAL READING TEACHER Gender Identity Female 03/03/2021 12:47 PM REMEDIAL READING TEACHER Sexual Orientation Not on file 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
--- OUTSIDE RECORDS SUMMARY | 2024-01-30 12:08 | XMS_ITS | Encounter Summary ---
Author Organization [facility] Healthcare Address [address] [place] [address] Care Team Providers Care Metal Reed Tuner Name Role Phone Claudia Haas NP Primary Care Provider [phone] Reason for Referral * MRI/CAT/PET Scan (Routine) - Closed Specialty Diagnoses / Procedures Referred By Contac t Referred To Contact Radiology Diagnoses Abnormal mammogram of both breasts Procedures MRI Breast Bilateral WO Contrast Claudia Haas NP [address] [address] Phone: tel: fax: [address] [address] Referral ID Status Reason Start Date Expiration Date Visits Re quested Visits Authorized [id number] Closed 06/01/2023 06/30/2024 1 1 Encounter Details Date Type Department Care Team (Late st Contact Info) Description 06/01/2023 Orders Only [facility] Medical Group Family Medicine [address] [place] [address] Claudia Haas NP [address] [facility] [address] [place] [address] Abnormal mammogram of both breasts [...] on file Legal Sex Female 10:40 AM MOCCASIN SEWER Gender Identity Female 03/03/2021 12:47 PM MOCCASIN SEWER Sexual Orientation Not on file 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 End Date 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 MD: Report ID: [id number] Reading Location: [facility] Claudia Haas APPRENTICE LINEMAN THIRD STEP IMG MRI PROCEDURES Final Resu lt documented in this encounter Visit Diagnoses Diagnosis Abnormal mammogram of both breasts- Primary Abnormal mammogram of both breasts documented in this encounter Care Teams Metal Reed Tuner Relationship Specialty Start Date End Date Claudia Haas, APPRENTICE LINEMAN THIRD STEP [address] [facility] [address] [place] [address] PCP - General Internal Medicine 07/27/22 documented as of this encounter
--- OUTSIDE RECORDS SUMMARY | 2024-01-30 12:08 | XMS_ITS | Encounter Summary ---
Author Organization [facility] Healthcare Address [address] [place] [address] Care Team Providers Care Glass Forming Engineer Name Role Phone Claudia Haas BUSINESS OPERATIONS COORDINATOR Primary Care Provider [phone] Reason for Visit * Reason Onset Date Comments Additional Services Or Orders 06/05/2023 Encounter Details Date Type Department Care Team (Late st Contact Info) Description 06/05/2023 Telephone [facility] Medical Group Internal Medicine at [place] [address] [place] [address] Claudia Haas NP [address] [place] [address] Additional Services Or Orders Social [...] on file Legal Sex Female 10:40 AM LOPPER Gender Identity Female 03/03/2021 12:47 PM LOPPER Sexual Orientation Not on file 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
--- OUTSIDE RECORDS SUMMARY | 2024-01-30 12:08 | XMS_ITS | Encounter Summary ---
Author Organization [facility] Medical Group Address [address] [place] [address] Care Team Providers Care Dolphin Researcher Name Role Phone Claudia Haas PHYSICIST NUCLEAR Primary Care Provider [phone] Encounter Details Date Type Department Care Team (Late st Contact Info) Description 08/17/2022 Orders Only [facility] Medical Group Family Medicine [address] [place] [address] Claudia Haas, PHYSICIST NUCLEAR [address] [place] [address] Diarrhea, unspecified type (Primary Dx) [...] on file Legal Sex Female 10:40 AM OIL TESTER Gender Identity Female 03/03/2021 12:47 PM OIL TESTER Sexual Orientation Not on file 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, 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, 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
--- OUTSIDE RECORDS SUMMARY | 2024-01-30 12:08 | XMS_ITS | Encounter Summary ---
Author Organization [facility] Healthcare Address [address] [place] [address] Care Team Providers Care Machine Bander And Cellophaner Name Role Phone Claudia Haas DISPATCHER ELECTRIC POWER Primary Care Provider [phone] Reason for Visit * Reason Comments Follow-up 3mo follow up on med ication Encounter Details Date Type Department Care Team (Late st Contact Info) Description 03/31/2023 8:30 AM COMBINER OPERATOR Office Visit [facility] Medical Group Internal Medicine at [place] [address] [place] [address] Claudia Haas NP [address] [address] [place] [address] Annual physical exam (Primary Dx); [...] on file Legal Sex Female 10:40 AM COMBINER OPERATOR Gender Identity Female 03/03/2021 12:47 PM COMBINER OPERATOR Sexual Orientation Not on file 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 End Date 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[employer], [employer], 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, 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 file Not on file documented as of this encounter Last Filed Vital Signs Vital Sign Reading Time Taken Comments Blood Pressure 122/80 03/31/2023 8:40 AM COMBINER OPERATOR Pulse 70 03/31/2023 8:40 AM COMBINER OPERATOR Temperature 36.4 ??C (97.6 ??F) 03/31/2023 8:40 AM CS T Respiratory Rate - - Oxygen Saturation 97% 03/31/2023 8:40 AM COMBINER OPERATOR Inhaled Oxygen Concentration - - Weight 61.2 kg (135 lb) 03/31/2023 8:40 AM COMBINER OPERATOR Height 154.9 cm (5' 1 ) 03/31/2023 8:40 AM COMBINER OPERATOR Body Mass Index 25.51 03/31/2023 8:40 AM COMBINER OPERATOR documented in this encounter Patient Instructions * Patient Instructions* Claudia Haas NP - 03/31/2023 8:30 AM COMBINER OPERATOR [employer] annual Medicare physical completed today. Have lab work completed prior to next visit. Follow-up in 6 months or sooner as needed. Contact the office with any questions or concerns INER OPERATOR documented in this encounter Progress Notes * Claudia Haas NP - 03/31/2023 8:30 AM CST Images from the original note were not included. Subjective/Objective Patient ID: Terri Briseno is a 73 y.o. female. Visit Date: 03/31/2023 Chief Complaint Follow-up (3mo follow up on medication) HPI 73-year-old female in for [employer] annual physical. She states she is feeling [...] visit: Annual physical exam (Z00.00) (Primary) Comments: [facility] annual physical completed today. Follow-up in 6 [...] to next visit Orders: - TSH; Future INER OPERATOR documented in this encounter Plan of Treatment [...] * TSH (04/28/2023 9:37 AM CDT) Pathologist [facility] TSH 1.65 0.40 - 4.50 mIU/L [facility] Blood 04/28/2023 9:37 AM CDT 04/28/2023 9:37 AM CDT Narrative [facility] - 04/28/2023 8:43 PM CDT FASTING:YES FASTING: YES us Claudia Haas NP LAB BLOOD ORDERABLES Final Re sult [facility] [address] [place] [address] * (ABNORMAL) Lipid panel (04/28/2023 9:37 AM CDT) Pathologist [facility] Cholesterol 231(H) <200 mg/dL [facility] HDL 107 > OR = 50 mg/dL [facility] Triglycerides 42 <150 mg/dL [facility] LDL 112(H) mg/dL (calc) [facility] Comment: Reference range: <100 Desirable range <100 mg/dL for primary prevention; ?? <70 mg/dL for patients with CHD or diabetic patients with > or = 2 CHD risk factors. LDL-C is now calculated using the Dario calculation, which is a validated novel method providing better accuracy than the Friedewald equation in the estimation of LDL-C. Leonel SS et al. JUSTIN. 2013;310(19): 8975-0830 (http://education.Kingsoft/faq/SPK448) Chol/HDL ratio 2.2 <5.0 (calc) [facility] Non-HDL, (LDL+VLDL) 124 <130 mg/dL (calc) [facility] Comment: For patients with diabetes plus 1 major ASCVD risk factor, treating to a non-HDL-C goal of <100 mg/dL (LDL-C of <70 mg/dL) is considered a therapeutic option. Blood 04/28/2023 9:37 AM CDT 04/28/2023 9:37 AM CDT Narrative [facility] - 04/28/2023 8:43 PM CDT FASTING:YES FASTING: YES us Claudia Haas DISPATCHER ELECTRIC POWER LAB BLOOD ORDERABLES Final Re sult [facility] [address] [place] [address] * (ABNORMAL) Comprehensive metabolic panel (04/28/2023 9:37 AM CDT) Pathologist [facility] Glucose 97 65 - 99 mg/dL [facility] Comment: ? Fasting reference interval BUN 19 7 - 25 mg/dL [facility] Creatinine 0.96 0.60 - 1.00 mg/dL [facility] eGFR 63 > OR = 60 mL/min/1.7 3m2 [facility] BUN/creat ratio SEE NOTE: 6 - 22 (calc) [facility] Comment: ?? Not Reported: BUN and Creatinine are within ?? reference range. ? Sodium 136 135 - 146 mmol/L [facility] Potassium, pl 4.1 3.5 - 5.3 mmol/L [facility] Chloride 102 98 - 110 mmol/L [facility] CO2 27 20 - 32 mmol/L [facility] Calcium 8.9 8.6 - 10.4 mg/dL [facility] Protein, sr 6.5 6.1 - 8.1 g/dL [facility] Albumin 4.3 3.6 - 5.1 g/dL [facility] GLOBULIN 2.2 1.9 - 3.7 g/dL (calc) [facility] Alb/glob ratio 2.0 1.0 - 2.5 (calc) [facility] Bilirubin, total 0.5 0.2 - 1.2 mg/dL [facility] Alk phos 31(L) 37 - 153 U/L [facility] AST 17 10 - 35 U/L [facility] ALT (SGPT) 12 6 - 29 U/L [facility] Blood 04/28/2023 9:37 AM CDT 04/28/2023 9:37 AM CDT Narrative [facility] - 04/28/2023 8:43 PM CDT FASTING:YES FASTING: YES Claudia Haas NP LAB BLOOD ORDERABLES Final Re sult [facility] [address] [place] [address] documented in this encounter Visit Diagnoses Diagnosis [...] documented as of this encounter Care Teams Machine Bander And Cellophaner Relationship Specialty Start Date End Date Claudia Haas NP [address] [facility] [address] [facility] [address] [place] [address] PCP - General Internal Medicine 07/27/22 documented as of this encounter
--- OUTSIDE RECORDS SUMMARY | 2024-01-30 12:08 | XMS_ITS | Encounter Summary ---
Author Organization [facility] Healthcare Address [address] [place] [address] Care Team Providers Care Cable Braider Name Role Phone Claudia Haas NP Primary Care Provider [phone] Encounter Details Date Type Department Care Team (Late st Contact Info) Description 08/04/2022 Patient Self-Triage [facility] HealthCare/[facility] [address] [place] [address] Mychart, Generic Provider [address] [place], [place] [id number] Social History Tobacco Use Types Packs/Day Years [...] on file Legal Sex Female 10:40 AM SHELL PRESS OPERATOR Gender Identity Female 03/03/2021 12:47 PM SHELL PRESS OPERATOR Sexual Orientation Not on file 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
--- OUTSIDE RECORDS SUMMARY | 2024-01-30 12:08 | XMS_ITS | Encounter Summary ---
Author Organization [facility] Medical Group Address [address] [facility] [address] [place] [address] Care Team Providers Care Hedge Trimmer Name Role Phone Claudia Haas NP Primary Care Provider [phone] Encounter Details Date Type Department Care Team (Late st Contact Info) Description 08/25/2022 Orders Only [facility] Health Information Management [address] [place] [address] Claudia Haas NP [address] [place], [place] [id number] Social History Tobacco Use Types Packs/Day Years [...] on file Legal Sex Female 10:40 AM CATERING COOK Gender Identity Female 03/03/2021 12:47 PM CATERING COOK Sexual Orientation Not on file 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
--- OUTSIDE RECORDS SUMMARY | 2024-01-30 12:08 | XMS_ITS | Encounter Summary ---
Author Organization [facility] Healthcare Address [address] [place] [address] Care Team Providers Care Paperhanger And Painter Name Role Phone Claudia Haas NP Primary Care Provider [phone] Reason for Visit * Diagnostic Imaging (Routine) - Pending Review Specialty Diagnoses / Procedures Referred By Jakob lau Referred To Contact Diagnoses Screening mammogram, encounter for Procedures Screening Mammogram Bilateral W Liban W Implants Screening Mammogram Bilateral W Liban W Implants Claudia Haas SLIDE FASTENERS INSPECTOR [address] [address] [place] [address] Phone: tel: fax: [address] [address] Referral ID Status Reason Start Date Expiration Date V isits Requested Visits Authorized [id number] Pending Review 05/03/2023 06/01/2024 1 1 Encounter Details Date Type Department Care Team (Latest Contact Info) Description 05/18/2023 12:22 PM CDT - 05/18/2023 11:59 PM CDT Hospital Encounter [facility] Breast Imaging [address] [place] [address] Screening mammogram, encounter for Discharge Disposition: [...] on file Legal Sex Female 10:40 AM LASER PRINTING OPERATOR Gender Identity Female 03/03/2021 12:47 PM LASER PRINTING OPERATOR Sexual Orientation Not on file 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 For women [...] for documented in this encounter Care Teams Paperhanger And Painter Relationship Specialty Start Date End Date Claudia Haas, BERT [address] [facility] [address] [place] [address] PCP - General Internal Medicine 07/27/22 documented as of this encounter
--- OUTSIDE RECORDS SUMMARY | 2024-01-30 12:08 | XMS_ITS | Encounter Summary ---
Author Organization [facility] Medical Group Address [address] [facility] [address] [place] [address] Care Team Providers Care Cut Roll Machine Offbearer Name Role Phone Claudia Haas NP Primary Care Provider [phone] Encounter Details Date Type Department Care Team (Late st Contact Info) Description 08/04/2022 E-Visit [facility] Medical Group Virtual Care [address] [place] [address] Emy Tyler MD [address] [place] [address] [address] [place], [place] [id number] E-Visit for Diarrhea Social History Tobacco Use [...] file Legal Sex Female 10:40 AM SENIOR PRODUCT MARKETING MANAGER Gender Identity Female 03/03/2021 12:47 PM SENIOR PRODUCT MARKETING MANAGER Sexual Orientation Not on file 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 She was given instructions regarding follow up and timeframe if symptoms worsen or don???t improve. These instructions were included in the ReTargeter message reply tothe patient. Patient Instructions were [...] NEC documented in this encounter Care Teams Cut Roll Machine Offbearer Relationship Specialty Start Date End Date Claudia Haas NP [address] [facility] [address] [place] [address] PCP - General Internal Medicine 07/27/22 documented as of this encounter
--- OUTSIDE RECORDS SUMMARY | 2024-01-30 12:08 | XMS_ITS | Encounter Summary ---
Author Organization [facility] Medical Group Address [address] [facility] [address] [place] [address] Care Team Providers Care Cloth Shrinker Name Role Phone Claudia Haas NP Primary Care Provider [phone] Encounter Details Date Type Department Care Team (Late st Contact Info) Description 08/15/2022 Telephone [facility] Medical Group Internal Medicine at [place] [address] [facility] [address] [place] [address] Karina Shukla MA Social History [...] on file Legal Sex Female 10:40 AM TROMMEL TENDER Gender Identity Female 03/03/2021 12:47 PM TROMMEL TENDER Sexual Orientation Not on file 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
--- OUTSIDE RECORDS SUMMARY | 2024-01-30 12:08 | XMS_ITS | Encounter Summary ---
Author Organization [facility] Healthcare Address [address] [place] [address] Care Team Providers Care Digital Communications Manager Name Role Phone Claudia Haas NP Primary Care Provider [phone] Reason for Referral * Consultation (Routine) - Closed Specialty Diagnoses / Procedures Referred By Contac t Referred To Contact Surgery / Breast Surgery Diagnoses Ruptured silicone breast implant, initial encounter Claudia Haas NP [address] [facility] [address] [place] [address] Phone: tel: fax: [facility] [address] [address] Phone: tel: fax: Referral ID Status Reason Start Date Expiration Date V isits Requested Visits Authorized [id number] Closed Specialty Services Required 08/16/2023 09/14/2024 1 1 Question Answer Is this referral for [facility]? No Does the patient have a diagnosis of a Head and Neck cancer? No Please select the performing region: [facility] [[id number]] Please select the performing department: [facility] [[id number]] # of visits: 1 Comments [facility] ruptured breast implants. Reason for Visit * Reason Onset Date Comments Referral Request 08/16/2023 Encounter Details Date Type Department Care Team (Late st Contact Info) Description 08/16/2023 Telephone [facility] Family Medicine 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
--- OUTSIDE RECORDS SUMMARY | 2024-01-30 12:08 | XMS_ITS | Encounter Summary ---
Author Organization [facility] Healthcare Address [address] [place] [address] Care Team Providers Care Staff Development Coordinator Rn Name Role Phone Claudia Haas NP Primary Care Provider [phone] Reason for Visit * Reason Onset Date Comments Unsuccessful Phone Call 1 12/15/2022 Med ad herence (past due) Encounter Details Date Type Department Care Team (Late st Contact Info) Description 12/15/2022 Telephone [facility] Accountable Care Organization [address] [place] [address] Lalita Dumont MA [address] [place] [address] [address] Unsuccessful Phone Call 1 (Med adherence (past [...] on file Legal Sex Female 10:40 AM FRENCH COMBER Gender Identity Female 03/03/2021 12:47 PM FRENCH COMBER Sexual Orientation Not on file 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 CH COMBER * Telephone Encounter - Lalita Dumont MA - 12/20/2022 4:29 PM CST Pt is concerned about the Pravastatin. She has read that pravastatin has been linked to Ahlzeimers/dementia . Is this tue? CH COMBER * Telephone Encounter - Lalita Dumont MA - 12/15/2022 2:56 PM CDT ACO Medication Refill Note Terri Briseno was identified on [facility] [place] [facility] refill report for a past due/due [...] to reach patient by phone. and Sent [employer] message documented in this encounter Plan of Treatment Not on file documented as of this encounter Visit Diagnoses Not on filedocumented in this encounter Care Teams Staff Development Coordinator Rn Relationship Specialty Start Date End Date Claudia Haas, PRODUCT MARKETING COORDINATOR [address] [address] PCP - General Internal Medicine 07/27/22 documented as of this encounter
--- OUTSIDE RECORDS SUMMARY | 2024-01-30 12:08 | XMS_ITS | Encounter Summary ---
Author Organization [facility] Healthcare Address [address] [place] [address] Care Team Providers Care Black Powder Glazing Operator Name Role Phone Claudia Haas CARBON CAPTURE POWER PLANT MANAGER Primary Care Provider [phone] Encounter Details Date Type Department Care Team (Late st Contact Info) Description 06/01/2023 Telephone [facility] Family Medicine [address] [place] [address] Claudia Haas NP [address] [place] [address] Social History Tobacco Use Types [...] on file Legal Sex Female 10:40 AM CONSTRUCTION LINEMAN Gender Identity Female 03/03/2021 12:47 PM CONSTRUCTION LINEMAN Sexual Orientation Not on file 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
--- OUTSIDE RECORDS SUMMARY | 2024-01-30 12:08 | XMS_ITS | Encounter Summary ---
Author Organization [facility] Healthcare Address [address] [place] [address] Care Team Providers Care Wire Coater Name Role Phone Claudia Haas FAMILY SUPPORT COORDINATOR Primary Care Provider [phone] Reason for Referral * MRI/CAT/PET Scan (Routine) - Closed Specialty Diagnoses / Procedures Referred By Jakob lau Referred To Contact Radiology Diagnoses Abnormal mammogram of both breasts Procedures MRI Breast Bilateral WO Contrast Claudia Haas NP [address] [address] Phone: tel: fax: [address] [address] Referral ID Status Reason Start Date Expiration Date Visits Re quested Visits Authorized [id number] Closed 06/01/2023 06/30/2024 1 1 Reason for Visit * MRI/CAT/PET Scan (Routine) - Closed Specialty Diagnoses / Procedures Referred By Jakob lau Referred To Contact Radiology Diagnoses Abnormal mammogram of both breasts Procedures MRI Breast Bilateral WO Contrast Claudia Haas NP [address] [place] [address] Phone: tel: fax: [address] [address] Referral ID Status Reason Start Date Expiration Date Visits Re quested Visits Authorized [id number] Closed 06/01/2023 06/30/2024 1 1 Encounter Details Date Type Department Care Team (Latest Contact Info) Description 08/14/2023 4:10 PM CDT - 08/14/2023 11:59 PM CDT Hospital Encounter [address] [address] Abnormal mammogram of both breasts Discharge Disposition: [...] on file Legal Sex Female 10:40 AM LOFT WORKER APPRENTICE Gender Identity Female 03/03/2021 12:47 PM LOFT WORKER APPRENTICE Sexual Orientation Not on file 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 End Date 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 MD: Report ID: [id number] Reading Location: [facility]ME us Claudia Haas FAMILY SUPPORT COORDINATOR IMG MRI PROCEDURES Final Resu lt documented in this encounter Visit Diagnoses Diagnosis Abnormal mammogram of both breasts documented in this encounter Care Teams Wire Coater Relationship Specialty Start Date End Date Claudia Haas NP [address] [facility] [address] [place] [address] PCP - General Internal Medicine 07/27/22 documented as of this encounter
--- OUTSIDE RECORDS SUMMARY | 2024-01-30 12:08 | XMS_ITS | Encounter Summary ---
Author Organization [facility] Address [address] [facility] [address] [place] [address] Care Team Providers Care Federal Mediator Name Role Phone Claudia Haas NP Primary Care Provider [phone] Reason for Visit * Reason Onset Date Comments Test Results 09/06/2022 Encounter Details Date Type Department Care Team (Late st Contact Info) Description 09/06/2022 Telephone [facility] Internal Medicine at [place] [address] [place] [address] Claudia Haas NP [address] [place] [address] Test Results Social History Tobacco [...] on file Legal Sex Female 10:40 AM HEALTH INFORMATICS ADVISOR Gender Identity Female 03/03/2021 12:47 PM HEALTH INFORMATICS ADVISOR Sexual Orientation Not on file 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 Yes Where were results relayed from in the chart? [facility] Caller's Callback #: [phone] Additional Questions/Comments: Patient has additional questions Does message need to be routed?Yes-Action Needed documented in this encounter Plan of Treatment Not on file documented as of this encounter Visit Diagnoses Not on filedocumented in this encounter Care Teams Federal Mediator Relationship Specialty Start Date End Date Claudia Haas NP [address] [place] [address] PCP - General Internal Medicine 07/27/22 documented as of this encounter
--- OUTSIDE RECORDS SUMMARY | 2024-01-30 12:08 | XMS_ITS | Encounter Summary ---
Author Organization [facility] Healthcare Address [address] [place] [address] Care Team Providers Care Ship'S Officer Name Role Phone Claudia Haas NP Primary Care Provider [phone] Reason for Referral * MRI/CAT/PET Scan (Routine) - Closed Specialty Diagnoses / Procedures Referred By Contac t Referred To Contact Radiology Diagnoses Personal history of tobacco use Procedures CT Lung Cancer Screening Luis Hernandez MD [address] [place] [address] [address] TEJ[address] [place] [address] Phone: tel: fax: [address] [address] Referral ID Status Reason Start Date Expiration Date Visits Re quested Visits Authorized [id number] Closed 12/21/2022 01/20/2024 1 1 R AND SEWER SYSTEMS SUPERVISOR Reason for Visit * Reason Comments Follow-up Encounter Details Date Type Department Care Team (Late st Contact Info) Description 12/21/2022 11:30 AM WATER AND SEWER SYSTEMS SUPERVISOR Office Visit [facility] Pulmonology [address] [place] [address] Luis Hernandez MD [address] [place] [address] [address] TEJADA [address] [place] [address] Centrilobular emphysema (HCC) (Primary Dx); Personal history [...] on file Legal Sex Female 10:40 AM WATER AND SEWER SYSTEMS SUPERVISOR Gender Identity Female 03/03/2021 12:47 PM WATER AND SEWER SYSTEMS SUPERVISOR Sexual Orientation Not on file 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 End Date 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[employer], [employer], 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, 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 file Not on file documented as of this encounter Last Filed Vital Signs Vital Sign Reading Time Taken Comments Blood Pressure 142/82 12/21/2022 11:36 AM WATER AND SEWER SYSTEMS SUPERVISOR Pulse 69 12/21/2022 11:36 AM WATER AND SEWER SYSTEMS SUPERVISOR Temperature 36.6 ??C (97.8 ??F) 12/21/2022 11:[address] Respiratory Rate 18 12/21/2022 11:36 AM WATER AND SEWER SYSTEMS SUPERVISOR Oxygen Saturation 99% 12/21/2022 11:36 AM WATER AND SEWER SYSTEMS SUPERVISOR Inhaled Oxygen Concentration - - Weight 59.9 kg (132 lb) 12/21/2022 11:36 AM WATER AND SEWER SYSTEMS SUPERVISOR Height 154.9 cm (5' 1 ) 12/21/2022 11:36 AM WATER AND SEWER SYSTEMS SUPERVISOR Body Mass Index 24.94 12/21/2022 11:36 AM WATER AND SEWER SYSTEMS SUPERVISOR documented in this encounter Progress Notes * [...] total) by mouth daily as needed for smovpqzys12 tablet 0 dicyclomine (BENTYL) 20 mg tablet Take 1 tablet (20 mg total) by mouth 4 (four) times a day as needed (loose stools) 120 tablet 0 EPINEPHrine 0.3 mg/0.3 mL auto-injection syringe INJECT 1 PEN IN THE MUSCLE ONE TIME DIRECTED vvifunwkara-dhsbcsnol-cwiqrydw (TRELEGY ELLIPTA) 100-62.5-25 mcg inhaler Inhale 1 puff daily eathcyyajuw-ofhvrnsfo-mbjeqwlc (Trelegy Ellipta) 100-62.5-25 mcg inhaler Inhale 1 [...] by mouth daily 30 tablet 1 vit C,I-Qb-mlntu-lutein-zeaxan (PreserVision AREDS-2) 250-90-40-1 mg capsule No current [...] Rendering Provider & Department: Luis Hernandez MD R AND SEWER SYSTEMS SUPERVISOR documented in this encounter Miscellaneous Notes * Assessment & Plan Note - Luis Hernandez MD - 12/21/2022 12:02 PM WATER AND SEWER SYSTEMS SUPERVISOR Associated Problem(s): Personal history of tobacco use I will order another screening chest CT to be performed in late August 2023 and she will follow-up with me after that has been performed. R AND SEWER SYSTEMS SUPERVISOR * Assessment & Plan Note - Luis Hernandez MD - 12/21/2022 12:02 PM WATER AND SEWER SYSTEMS SUPERVISOR Associated Problem(s): Centrilobular emphysema (HCC) The patient has stage I COPD and will continue with Trelegy 1 puff daily. R AND SEWER SYSTEMS SUPERVISOR * Assessment & Plan Note - Luis Hernandez MD - 12/21/2022 12:01 PM WATER AND SEWER SYSTEMS SUPERVISOR Associated Problem(s): Hypersomnia The patient states that the hypersomnia has improved with changing her antidepressant and she decided not to proceed with a sleep study. R AND SEWER SYSTEMS SUPERVISOR documented in this encounter Plan of Treatment [...] D: ??09/05/2023 8:28 AM T: Report ID: [id number] Reading Location: ??[id number] Procedure Note Ramon Machado MD - 09/05/2023 [...] Ramon Machado M.D. KR T: Report ID: [id number] Reading Location: [place] [address] Luis Hernandez MD IMG CT PROCEDURES Final R esult documented in this encounter Visit Diagnoses Diagnosis Centrilobular emphysema (HCC)- Primary Personal history of tobacco use Personal history of tobacco use, presenting hazards to health Hypersomnia Hypersomnia, unspecified Personal history of tobacco use Personal history of tobacco use, presenting hazards to health documented in this encounter Care Teams Ship'S Officer Relationship Specialty Start Date End Date Claudia Haas NP [address] [facility] [address] [place] [address] PCP - General Internal Medicine 07/27/22 documented as of this encounter
--- OUTSIDE RECORDS SUMMARY | 2024-01-30 12:08 | XMS_ITS | Encounter Summary ---
Author Organization [facility] Healthcare Address [address] [place] [address] Care Team Providers Care Analytical Clerk Name Role Phone Claudia Haas HOSPICE NURSE Primary Care Provider [phone] Reason for Visit * Reason Comments Follow-up Here for follow up o n medications Encounter Details Date Type Department Care Team (Late st Contact Info) Description 12/27/2022 8:00 AM PRE BILLING CLINICIAN Office Visit [facility] Internal Medicine at [place] 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 file Not on file documented as of this encounter Last Filed Vital Signs Vital Sign Reading Time Taken Comments Blood Pressure 122/80 12/27/2022 8:06 AM PRE BILLING CLINICIAN Pulse 78 12/27/2022 8:06 AM PRE BILLING CLINICIAN Temperature 36.7 ??C (98.1 ??F) 12/27/2022 8:06 AM CS T Respiratory Rate - - Oxygen Saturation 97% 12/27/2022 8:06 AM PRE BILLING CLINICIAN Inhaled Oxygen Concentration - - Weight 58.1 kg (128 lb) 12/27/2022 8:06 AM PRE BILLING CLINICIAN Height 154.9 cm (5' 1 ) 12/27/2022 8:06 AM PRE BILLING CLINICIAN Body Mass Index 24.19 12/27/2022 8:06 AM PRE BILLING CLINICIAN documented in this encounter Patient Instructions * Patient Instructions* Claudia Haas NP - 12/27/2022 8:00 AM PRE BILLING CLINICIAN Medications as directed. Follow-up in 3 months or sooner as needed. Contact the office with any questions or concerns BILLING CLINICIAN documented in this encounter Ordered Prescriptions Prescription [...] Jose Corrales MD at 01/15/2023 4:56 PM PRE BILLING CLINICIAN BILLING CLINICIAN BILLING CLINICIAN documented in this encounter Miscellaneous Notes * Assessment & Plan Note - Karina Shukla MA - 12/27/2022 8:14 AM PRE BILLING CLINICIAN Associated Problem(s): BMI 24.0-24.9, adult (Resolved 03/31/2023) Weight/BMI is in healthy range. Continue healthy lifestyle to maintain. BILLING CLINICIAN documented in this encounter Plan of Treatment [...] documented as of this encounter Care Teams Analytical Clerk Relationship Specialty Start Date End Date Claudia Haas NP [address] [facility] [address] [place] [address] PCP - General Internal Medicine 07/27/22 documented as of this encounter
--- OUTSIDE RECORDS SUMMARY | 2024-01-30 12:08 | XMS_ITS | Encounter Summary ---
Author Organization [facility] Address [address] [address] Care Team Providers Care Plan Examiner Name Role Phone Claudia Haas NP Primary Care Provider [phone] Reason for Referral * MRI/CAT/PET Scan (Routine) - Closed Specialty Diagnoses / Procedures Referred By Contac t Referred To Contact Radiology Diagnoses Personal history of tobacco use Procedures CT Lung Cancer Screening Luis Hernandez MD [address] [place] [address] DR TEJ[address] [place] [address] Phone: tel: fax: [address] [address] Referral ID Status Reason Start Date Expiration Date Visits Re quested Visits Authorized [id number] Closed 08/03/2022 09/02/2023 1 1 Reason for Visit * Reason Comments Follow-up Encounter Details Date Type Department Care Team (Late st Contact Info) Description 08/03/2022 10:15 AM CDT Office Visit [facility] Pulmonology [address] [place] [phone] Luis Hernandez MD [address] [place] [address] DR TEJ[address] [place] [address] Hypersomnia (Primary Dx); Centrilobular emphysema (HCC); Personal [...] on file Legal Sex Female 10:40 AM HAIRPIECE STYLIST Gender Identity Female 03/03/2021 12:47 PM HAIRPIECE STYLIST Sexual Orientation Not on file 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 End Date retired - [employer], [employer]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 file [...] total) by mouth daily as needed for xyteglrrq88 tablet 0 EPINEPHrine 0.3 mg/0.3 mL auto-injection syringe INJECT 1 PEN IN THE MUSCLE ONE TIME DIRECTED qcwwivqlatx-wxptijkpz-sqtsflim (Trelegy Ellipta) 100-62.5-25 mcg inhaler ssrpmsljrpa-uvxxmnqrs-sxbsykgb (TRELEGY ELLIPTA) 100-62.5-25 mcg inhaler Inhale 1 [...] by mouth daily 30 tablet 3 vit C,D-Wr-yuudu-lutein-zeaxan (PreserVision AREDS-2) 250-90-40-1 mg capsule No current [...] D: ??09/05/2022 7:52 AM T: Report ID: [id number] Reading Location: ??[id number] Procedure Note Declan Fuentes MD - 09/05/2022 [...] by Declan Mckeon M.D. T: Report ID: [id number] Reading Location: [place] [address] Luis Hernandez MD IMG CT PROCEDURES Final R esult documented in this encounter Visit Diagnoses Diagnosis Hypersomnia- Primary Hypersomnia, unspecified Centrilobular emphysema (HCC) Personal history of tobacco use Personal history of tobacco use, presenting hazards to health Personal history of tobacco use Personal history of tobacco use, presenting hazards to health documented in this encounter Care Teams Plan Examiner Relationship Specialty Start Date End Date Claudia Haas NP [address] [facility] [facility] [address] [facility] [address] [place] [address] PCP - General Internal Medicine 07/27/22 documented as of this encounter
--- OUTSIDE RECORDS SUMMARY | 2024-01-30 12:08 | XMS_ITS | Encounter Summary ---
Author Organization [facility] Address [address] [facility] [address] [place] [address] Care Team Providers Care Nuclear Medicine Physician Name Role Phone Claudia Haas NP Primary Care Provider [phone] Encounter Details Date Type Department Care Team (Late st Contact Info) Description 08/31/2022 Orders Only [facility] Internal Medicine at [place] [address] [facility] [address] [place] [address] Provider, MD Shivam [address] [place], [place] [id number] Social History Tobacco Use Types Packs/Day Years [...] on file Legal Sex Female 10:40 AM WEB MANAGER Gender Identity Female 03/03/2021 12:47 PM WEB MANAGER Sexual Orientation Not on file 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
--- OUTSIDE RECORDS SUMMARY | 2024-01-30 12:08 | XMS_ITS | Encounter Summary ---
Author Organization [facility] Healthcare Address [address] [place] [address] Care Team Providers Care Tree Specialist Name Role Phone Claudia Haas SPEECH LANGUAGE ASSISTANT Primary Care Provider [phone] Encounter Details Date Type Department Care Team (Late st Contact Info) Description 06/26/2023 Telephone [facility] Family Medicine [address] [place] [address] Claudia Haas NP [address] [facility] [address] [facility] [address] [place] [address] Social History Tobacco Use Types [...] on file Legal Sex Female 10:40 AM SHORE MAN Gender Identity Female 03/03/2021 12:47 PM SHORE MAN Sexual Orientation Not on file 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
--- OUTSIDE RECORDS SUMMARY | 2024-01-30 12:08 | XMS_ITS | Encounter Summary ---
Author Organization [facility] Healthcare Address [address] [place] [address] Care Team Providers Care Laser Beam Machine Operator Name Role Phone Claudia Haas NP Primary Care Provider [phone] Reason for Referral * MRI/CAT/PET Scan (Routine) - Closed Specialty Diagnoses / Procedures Referred By Contac t Referred To Contact Radiology Diagnoses Personal history of tobacco use Procedures CT Lung Cancer Screening Luis Hernandez MD [address] [place] [address] DR TEJADA [address] [place] [address] Phone: tel: fax: [address] [phone] Referral ID Status Reason Start Date Expiration Date Visits Re quested Visits Authorized [id number] Closed 12/21/2022 01/20/2024 1 1 Reason for Visit * MRI/CAT/PET Scan (Routine) - Closed Specialty Diagnoses / Procedures Referred By Contkecia t Referred To Contact Radiology Diagnoses Personal history of tobacco use Procedures CT Lung Cancer Screening Luis Hernandez MD [address] [place] [address] DR TEJADA [address] [place] [address] Phone: tel: fax: [address] [phone] Referral ID Status Reason Start Date Expiration Date Visits Re quested Visits Authorized [id number] Closed 12/21/2022 01/20/2024 1 1 Encounter Details Date Type Department Care Team (Latest Contact Info) Description 09/04/2023 7:53 AM CDT - 09/04/2023 11:59 PM CDT Hospital Encounter [facility] [address] [place] [address] Personal history of tobacco use Discharge Disposition: [...] on file Legal Sex Female 10:40 AM TREATMENT SUPERVISOR Gender Identity Female 03/03/2021 12:47 PM TREATMENT SUPERVISOR Sexual Orientation Not on file 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 End Date retired - [employer], [employer], [employer], [employer]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 file [...] ophthalmic solution every 12 hours 05/26/2022 vit C,D-Gh-pegqk-lutein -zeaxan (PreserVision AREDS-2) 250-90-40-1 mg capsule 01/14/2020 [...] D: ??09/05/2023 8:28 AM T: Report ID: [id number] Reading Location: ??[id number] Procedure Note Ramon Machado MD - 09/05/2023 [...] Ramon Machado M.D. KR T: Report ID: [id number] Reading Location: [place] [address] Luis Hernandez MD IMG CT PROCEDURES Final R esult documented in this encounter Visit Diagnoses Diagnosis Personal history of tobacco use Personal history of tobacco use, presenting hazards to health documented in this encounter Care Teams Laser Beam Machine Operator Relationship Specialty Start Date End Date Claudia Haas NP [address] [place] [address] [address] [place] [address] PCP - General Internal Medicine 07/27/22 documented as of this encounter
--- OUTSIDE RECORDS SUMMARY | 2024-01-30 12:08 | XMS_ITS | Encounter Summary ---
Author Organization [facility] Medical Group Address [address] [place] [address] Care Team Providers Care Plate Preparer Name Role Phone Annalee Haas NP Primary Care Provider [phone] Reason for Visit * Reason Comments stool specimen Encounter Details Date Type Department Care Team (Latest Contact Info) Description 08/09/2022 2:30 PM CDT Clinical Support [facility] Family Medicine [address] [place] [address] Loose stools (Primary Dx) Social [...] on file Legal Sex Female 10:40 AM CATALOGUE LIBRARIAN Gender Identity Female 03/03/2021 12:47 PM CATALOGUE LIBRARIAN Sexual Orientation Not on file 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 Comment: ??CLOSTRIDIUM DIFFICILE TOXIN/GDH W/REFL TO PCR ?Micro Number: ?[id number] ??Test Status: ? Final ??Specimen Source: ?? Stool ??Specimen Quality: ??Adequate ??GDH Antigen: ? Not Detected ??Toxin A and B: ? Not Detected ??COMMENT: ? No toxigenic C. difficile detected ? For additional information, please refer to ? [email or web address] Excels[employer].LibraryThing/faq/[email or web address] ? (This link is being provided for ? informational/educational purposes only.) Stool 08/09/2022 2:24 PM CDT 08/09/2022 11:38 PM CDT us Annalee Haas NP LAB MICROBIOLOGY - GENERAL OR DERABLES Final Result Performing Organization Address [facility] Co de Phone Number [facility] [address] [place] [address] * Stool culture Stool Rectum (08/09/2022 2:24 PM CDT) [employer]IA [employer]es Comment: ??CAMP[employer],EIA ?Micro Number: ?[id number] ??Test Status: ? Final ??Specimen Source: ?? Stool ??Specimen Quality: ??Adequate ??Campy Ag Result: ?? Not Detected ??Reference Range: ?? Not Detected ?? Ryder/Shig/Campy, culture and ShIg A toxin, eia w/rfl toE.coli, culture [employer] Call[employer] Comment: ??SHIGA TOXINS, EIA W/RFL TO E.COLI O157 CULTURE ?Micro Number: ?[id number] ??Test Status: ? Final ??Specimen Source: ?? Stool ??Specimen Quality: ??Adequate ??Shiga Toxin: ? Not Detected ??Reference Range: ?? Not Detected ?? CULTURE, SALMONELLA AND SHIGELLA [employer] Calles Comment: ??SALMONELLA AND SHIGELLA, CULTURE ?Micro Number: ?[id number] ??Test Status: ? Final ??Specimen Source: ?? Stool ??Specimen Quality: ??Adequate ??Result: ?No Salmonella or Shigella isolated Stool (Rectum) 08/09/2022 2: 24 PM CDT 08/09/2022 11:38 PM CDT Annalee Haas STUDIO CAMERA OPERATOR LAB MICROBIOLOGY - GENERAL OR DERABLES Final Result Performing Organization Address [facility] Co de Phone Number [facility] [address] [place] [address] documented in this encounter Visit Diagnoses Diagnosis Loose stools- Primary Abnormal feces documented in this encounter Care Teams Plate Preparer Relationship Specialty Start Date End Date Annalee Haas, BERT [address] [facility] [address] [place] [address] PCP - General Internal Medicine 07/27/22 documented as of this encounter
--- OUTSIDE RECORDS SUMMARY | 2024-01-30 12:09 | XMS_ITS | Encounter Summary ---
Author Organization [facility] Address [address] [place] [address] Care Team Providers Care Bead Wrapper Name Role Phone Guerda Iqbal Primary Care Provider [phone] Reason for Visit * Reason Onset Date Comments med refill 08/18/2021 Encounter Details Date Type Department Care Team (Late st Contact Info) Description 08/18/2021 Telephone [facility] Family Medicine [address] [place] [address] Guerda Iqbal PA [address] [place] [address] med refill Social History Tobacco [...] on file Legal Sex Female 10:40 AM MINUTE CLERK Gender Identity Female 03/03/2021 12:47 PM MINUTE CLERK Sexual Orientation Not on file 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
--- OUTSIDE RECORDS SUMMARY | 2024-01-30 12:09 | XMS_ITS | Encounter Summary ---
Author Organization [facility] Medical Group Address [address] [place] [address] Care Team Providers Care School Supervisor Name Role Phone Claudia Haas TITLE CAMERA OPERATOR Primary Care Provider [phone] Encounter Details Date Type Department Care Team (Late st Contact Info) Description 07/08/2022 Orders Only [facility] Medical Group Family Medicine [address] [place] [address] Claudia Haas, TITLE CAMERA OPERATOR [address] [place] [address] Social History Tobacco Use Types [...] on file Legal Sex Female 10:40 AM FARM EQUIPMENT MECHANIC Gender Identity Female 03/03/2021 12:47 PM FARM EQUIPMENT MECHANIC Sexual Orientation Not on file 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
--- OUTSIDE RECORDS SUMMARY | 2024-01-30 12:09 | XMS_ITS | Encounter Summary ---
Author Organization [facility] Medical [facility] Address [address] [place] [address] Care Team Providers Care Data Entry Coordinator Name Role Phone Guerda Iqbal Primary Care Provider [phone] Reason for Visit * Reason Onset Date Comments med refill 08/13/2021 Encounter Details Date Type Department Care Team (Late st Contact Info) Description 08/13/2021 Telephone [facility] Family Medicine [address] [place] [address] Guerda Iqbal PA [address] [place] [address] med refill Social History Tobacco [...] on file Legal Sex Female 10:40 AM MUSIC THEORY TEACHER Gender Identity Female 03/03/2021 12:47 PM MUSIC THEORY TEACHER Sexual Orientation Not on file 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
--- OUTSIDE RECORDS SUMMARY | 2024-01-30 12:09 | XMS_ITS | Encounter Summary ---
Author Organization [facility] Medical Group Address [address] [place] [address] Care Team Providers Care Lead Generator Name Role Phone Guerda Iqbal Primary Care Provider [phone] Encounter Details Date Type Department Care Team (Late st Contact Info) Description 06/30/2021 Orders Only [facility] Medical Group Family Medicine [address] [place] [address] ProviderShivam MD [address] [place], [place] [id number] Social History Tobacco Use Types Packs/Day Years [...] on file Legal Sex Female 10:40 AM PLANISHER Gender Identity Female 03/03/2021 12:47 PM PLANISHER Sexual Orientation Not on file 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
--- OUTSIDE RECORDS SUMMARY | 2024-01-30 12:09 | XMS_ITS | Encounter Summary ---
Author Organization [facility] Address [address] [place] [address] Care Team Providers Care District Plant Supervisor Name Role Phone Claudia Haas NP Primary Care Provider [phone] Reason for Referral * Procedure (Routine) - Closed Specialty Diagnoses / Procedures Referred By Contac t Referred To Contact Diagnoses SOB (shortness of breath) Procedures Pulmonary Function Test -[facility]; Full PFT in PFT Lab w/Stress Ox/6 Min Walk Test Luis Hernandez MD [facility] [facility] [address] [place] [address] Phone: tel: fax: Referral ID Status Reason Start Date Expiration Date Visits Re quested Visits Authorized [id number] Closed 05/18/2022 06/17/2023 1 1 * Diagnostic Imaging (Routine) - Closed Specialty Diagnoses / Procedures Referred By Contac t Referred To Contact Diagnoses History of recent pneumonia Procedures XR Chest Pa Lateral 2 Views Luis Hernandez MD [address] [facility] [address] [place] [address] Phone: tel: fax: [facility] [address] [place] [address] Referral ID Status Reason Start Date Expiration Date Visits Re quested Visits Authorized [id number] Closed 05/18/2022 06/17/2023 1 1 Reason for Visit * Reason Comments New Patient Recent PNA * Consultation (Routine) - Closed Specialty Diagnoses / Procedures Referred By Contkecia t Referred To Contact Sleep Medicine Diagnoses History of recent pneumonia SOB (shortness of breath) Claudia Haas, FISH STRINGER ASSEMBLER [address] [place] [address] Phone: tel: fax: Luis Hernandez MD [facility] [facility] [address] [place] [address] Phone: tel: fax: Referral ID Status Reason Start Date Expiration Date V isits Requested Visits Authorized [id number] Closed Specialty Services Required 03/28/2022 04/27/2023 1 1 Encounter Details Date Type Department Care Team (Late st Contact Info) Description 05/18/2022 10:15 AM CDT Office Visit [facility] Pulmonology [address] [place] [address] Luis Hernandez MD [address] [place] [address] [address] [place] [address] Hypersomnia (Primary Dx); History of recent [...] file Legal Sex Female 10:40 AM COUNTER STITCHER Gender Identity Female 03/03/2021 12:47 PM COUNTER STITCHER Sexual Orientation Not on file 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 She did have another chest x- ray [...] 15 years. She recently moved here from [place]. Her did smoke. She has been using [...] total) by mouth daily as needed for [id number] tablet 4 fluconazole (DIFLUCAN) 150 mg tablet [...] by mouth daily 30 tablet 3 vit C,O-Wv-ixfgc-lutein-zeaxan (PreserVision AREDS-2) 250-90-40-1 mg capsule No current [...] to Sleep Medicine - Pulmonary Function Test -[facility]; Full PFT in PFT Lab w/Stress Ox/6 [...] Results * (ABNORMAL) Pulmonary Function Test -[facility]; Full PFT in PFT Lab w/Stress Ox/6Min Walk Test (07/25/2022 2:30 PM CDT) FVC POST 3.33 2.08 - 3.63 L 07/25/2022 2:25 PM CDT [facility] FVC PRE 3.38 2.08 - 3.63 L 07/25/2022 2:25 PM CDT [facility] FEV1 POST 1.85 1.61 - 2.82 L 07/25/2022 2:25 PM CDT [facility] FEV1 PRE 1.84 1.61 - 2.82 L 07/25/2022 2:25 PM CDT [facility] [id number] 55.63(L) 64.77 - 91.38 % 07/25/2022 2:25 PM CDT [facility] [id number] 54.35(L) 64.77 - 91.38 % 07/25/2022 2:25 PM CDT [facility] HDN70-38% POST 0.57(L) 0.86 - 2.87 L/s 07/25/2022 2:25 PM CDT [facility] ASV06-50% PRE 0.56(L) 0.86 - 2.87 L/s 07/25/2022 2:25 PM CDT [facility] PEF POST 5.97 4.27 - 7.24 L/s 07/25/2022 2:25 PM CDT [facility] PEF PRE 6.50 4.27 - 7.24 L/s 07/25/2022 2:25 PM CDT [facility] FET 100% POST 12.70 sec 07/25/2022 2:25 PM CDT [facility] FET 100% PRE 10.37 sec 07/25/2022 2:25 PM CDT [facility] FIVC POST 2.95 1.94 - 3.33 L 07/25/2022 2:25 PM CDT [facility] FIVC PRE 3.08 1.94 - 3.33 L 07/25/2022 2:25 PM CDT [facility] FIF50% POST 5.05 L/s 07/25/2022 2:25 PM CDT [facility] FIF50% PRE 5.16 L/s 07/25/2022 2:25 PM CDT [facility] VC PRE 3.38(H) 1.94 - 3.33 L 07/25/2022 2:25 PM CDT [facility] TLC PRE 6.88(H) 3.98 - 5.96 L 07/25/2022 2:25 PM CDT [facility] RV PRE 3.49(H) 1.49 - 2.65 L 07/25/2022 2:25 PM CDT [facility] FRC PL PRE 4.38 L 07/25/2022 2:25 PM CDT [facility] ERV PRE 0.89(H) 0.65 - 0.65 L 07/25/2022 2:25 PM CDT [facility] IC PRE 2.21(H) 1.98 - 1.98 L 07/25/2022 2:25 PM CDT [facility] RAW PRE 3.33(H) 3.06 - 3.06 cmH2O*s/L 07/25/2022 2:25 PM CDT [facility] BF RES 25.06 BPM 07/25/2022 2:25 PM CDT [facility] VTG RAW 4.67 L 07/25/2022 2:25 PM CDT [facility] VTG 4.67 L 07/25/2022 2:25 PM CDT [facility] DLCOc SB 14.04(L) 15.66 - 27.12 ml/(min*mm Hg) 07/25/2022 2:25 PM CDT [facility] DLCOc SB 14.04(L) 15.66 - 27.12 ml/(min*mm Hg) 07/25/2022 2:25 PM CDT [facility] VA 4.66(L) 4.82 - 4.82 L 07/25/2022 2:25 PM CDT [facility] DLCO/VA PRE 3.02 2.87 - 5.74 ml/(min*mm Hg*L) 07/25/2022 2:25 PM CDT [facility] DLCOc SB 3.02 2.87 - 5.74 ml/(min*mm Hg*L) 07/25/2022 2:25 PM CDT [facility] Anatomical Region Laterality Modality PFT [...] 11:46 PM - Electronically signed by ??Danyel Grcae M.D. RW D: ??05/30/2022 11:46 PM T: Report ID: [id number] Reading Location: ??[id number] Procedure Note Danyel Grace MD - 05/30/2022 [...] Danyel Grace M.D. RW T: Report ID: [id number] Reading Location: [id number] Luis Hernandez MD IMG XR PROCEDURES Final R esult documented in this encounter Visit Diagnoses Diagnosis Hypersomnia- Primary Hypersomnia, unspecified History of recent pneumonia SOB (shortness of breath) Shortness of breath History of recent pneumonia documented in this encounter Orders Outpatient Referral Count Last Ordered Date Fir st Ordered Date AMB REFERRAL TO SLEEP MEDICINE 1 05/18/2022 documented in this encounter Care Teams District Plant Supervisor Relationship Specialty Start Date End Date Claudia Haas NP PCP - General Internal Medicine 11/30/21 07/26/22 documented as of this encounter
--- OUTSIDE RECORDS SUMMARY | 2024-01-30 12:09 | XMS_ITS | Encounter Summary ---
Author Organization [facility] Address [address] [place] [address] Care Team Providers Care Reservation Manager Name Role Phone Claudia Haas NP Primary Care Provider [phone] Encounter Details Date Type Department Care Team (Late st Contact Info) Description 02/25/2022 Telephone [facility] Accountable Care Organization [address] [place] [address] Melanie Damon, RN [address] [facility] [address] [address] Social History Tobacco Use Types Packs/Day Years [...] on file Legal Sex Female 10:40 AM RESEARCH ANALYST Gender Identity Female 03/03/2021 12:47 PM RESEARCH ANALYST Sexual Orientation Not on file 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, 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, 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, 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 file Not on file documented as of this encounter Miscellaneous Notes * Telephone Encounter - Melanie Damon RN - 02/25/2022 1:56 PM CST [facility]-pt called me- 02/12/22- dx w pna at [facility] and was treated w/zpack/prednisone- and then on 02/18/22 felt better- but that nite started feeling ill- R side hurting- on 02/20/22- went to ER at [place]- CT of chest w/ RLL pna- admitted - treated w/ IV atb-did not need O2- had nebulizer treatments- pt states has asthma- Discharge medication list from [facility] reviewed and reconciled with current outpatient medications.Cont [...] my phone number Melanie Damon RN, BSN [facility] Floor Layer Helper for High Risk [phone] ARCH ANALYST * Telephone Encounter - De Cardona MA - 02/25/2022 1:36 PM CST Patient scheduled. ARCH ANALYST * Telephone Encounter - Carolyn Hernandez LPN - 02/25/2022 1:35 PM RESEARCH ANALYST Called patient to schedule for follow up from hospital visit. Pt stated that on 02/12/22 she went to [facility] and got diagnosed with pneumonia. Pt got treated with Zpak and medrol dose pack. On 02/18/22 pt got pain down the right side and down her back, by 02/19/22 the pain was unbearable by the night on early 02/20/22 she called her grandson to take her to the ER at [place]. Pt was admitted to [facility] on 02/21/22 with dx of pneumonia in right lower lobe. Pt was given IV ABX inpatient. Pt stated on chest CAT scan it showed fluid in the intercostal space. She was discharged with order for Levaquin 750mg x 2 days which she took her last dose today. She has follow up labs to obtain at [place] tomorrow due to platelet level dropped while [...] CXR results will be back to review ARCH ANALYST * Telephone Encounter - Claudia Haas NP - 02/25/2022 11:49 AM CST Patient needs hospital follow up and request records please ARCH ANALYST * Telephone Encounter - Melanie Damon RN - 02/25/2022 11:07 AM RESEARCH ANALYST [facility] - [facility] notes: [facility] 02/21-02/23 [facility] Dx: Unknown Called and left VM for pt- Melanie Damon RN, BSN [facility] Floor Layer Helper for High Risk [phone] ARCH ANALYST documented in this encounter Plan of Treatment Not on file documented as of this encounter Visit Diagnoses Not on filedocumented in this encounter Care Teams Reservation Manager Relationship Specialty Start Date End Date Claudia Haas NP PCP - General Internal Medicine 11/30/21 07/26/22 documented as of this encounter
--- OUTSIDE RECORDS SUMMARY | 2024-01-30 12:09 | XMS_ITS | Encounter Summary ---
Author Organization [facility] Address [address] [place] [address] Care Team Providers Care Line Fixer Name Role Phone Claudia Haas NP Primary Care Provider [phone] Reason for Referral * Diagnostic Imaging (Routine) - Closed Specialty Diagnoses / Procedures Referred By Contac t Referred To Contact Diagnoses Pneumonia of right lower lobe due to infectious organism Procedures XR Chest Pa Lateral 2 Vw Claudia Haas NP Phone: tel: fax: External Order Referral ID Status Reason Start Date Expiration Date Visits Re quested Visits Authorized [id number] Closed 03/04/2022 04/03/2023 1 1 TH OCCUPATIONS INSTRUCTOR Reason for Visit * Reason Comments Hospital Follow Up Pneumonia Encounter Details Date Type Department Care Team (Late st Contact Info) Description 03/04/2022 8:45 AM HEALTH OCCUPATIONS INSTRUCTOR Office Visit [facility] Internal Medicine at [place] [address] [place] [phone] Claudia Haas NP [address] [place] [address] Pneumonia of right lower lobe [...] file Legal Sex Female 10:40 AM HEALTH OCCUPATIONS INSTRUCTOR Gender Identity Female 03/03/2021 12:47 PM HEALTH OCCUPATIONS INSTRUCTOR Sexual Orientation Not on file 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 End Date 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[employer], [employer], 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, [employer]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 file Not on file documented as of this encounter Last Filed Vital Signs Vital Sign Reading Time Taken Comments Blood Pressure 140/80 03/04/2022 8:39 AM HEALTH OCCUPATIONS INSTRUCTOR Pulse 65 03/04/2022 8:39 AM HEALTH OCCUPATIONS INSTRUCTOR Temperature 36.7 ??C (98 ??F) 03/04/2022 8:39 AM HEALTH OCCUPATIONS INSTRUCTOR Respiratory Rate - - Oxygen Saturation 99% 03/04/2022 8:39 AM HEALTH OCCUPATIONS INSTRUCTOR Inhaled Oxygen Concentration - - Weight 54.3 kg (119 lb 12.8 oz) 03/04/2022 8:39 AM HEALTH OCCUPATIONS INSTRUCTOR Height 154.9 cm (5' 1 ) 03/04/2022 8:39 AM HEALTH OCCUPATIONS INSTRUCTOR Body Mass Index 22.64 03/04/2022 8:39 AM HEALTH OCCUPATIONS INSTRUCTOR documented in this encounter Patient Instructions * Patient Instructions* Claudia Haas NP - 03/04/2022 8:45 AM HEALTH OCCUPATIONS INSTRUCTOR Take antibiotics as directed. Have chest x-ray repeated in 2 weeks. Follow-up in 3 weeks. Continue incentive spirometer TH OCCUPATIONS INSTRUCTOR documented in this encounter Ordered Prescriptions Prescription [...] this encounter Progress Notes * Claudia Haas, DIRECTOR WOMEN - 03/04/2022 8:45 AM CST Subjective/Objective Patient ID: Terri Briseno is a 71 y.o. female. Visit Date: 03/04/2022 Chief Complaint Hospital Follow Up (Pneumonia/) HPI 71-year-old female in for hospital follow-up from 02/20 through at [facility]. Patient was admitted for right lower lobe [...] Repeat in 7 days if symptoms persist. TH OCCUPATIONS INSTRUCTOR documented in this encounter Miscellaneous Notes * Assessment & Plan Note - De Cardona MA - 03/04/2022 8:40 AM HEALTH OCCUPATIONS INSTRUCTOR Associated Problem(s): BMI 22.0-22.9, adult (Resolved 03/25/2022) Weight/BMI is in healthy range. Continue healthy lifestyle to maintain. TH OCCUPATIONS INSTRUCTOR documented in this encounter Plan of Treatment Not on file documented as of this encounter Results * XR Chest Pa Lateral 2 Vw (03/19/2022) Anatomical Region Laterality Modality Body, Chest N/A Radiographic Susanna ging us Claudia Haas DIRECTOR WOMEN IMG XR PROCEDURES Final Resul t documented [...] documented as of this encounter Care Teams Line Fixer Relationship Specialty Start Date End Date Claudia Haas, BERT PCP - General Internal Medicine 11/30/21 07/26/22 documented as of this encounter
--- OUTSIDE RECORDS SUMMARY | 2024-01-30 12:09 | XMS_ITS | Encounter Summary ---
Author Organization [facility] Address [address] [place] [address] Care Team Providers Care Metal Roofer Name Role Phone Claudia Haas CRANE ASSEMBLER Primary Care Provider [phone] Encounter Details Date Type Department Care Team (Late st Contact Info) Description 03/23/2022 Orders Only [facility] Family Medicine [address] [place] [address] Claudia Haas, CRANE ASSEMBLER [address] [place] [address] Pneumonia of right lower lobe [...] on file Legal Sex Female 10:40 AM LEGAL INSTRUCTOR Gender Identity Female 03/03/2021 12:47 PM LEGAL INSTRUCTOR Sexual Orientation Not on file 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
--- OUTSIDE RECORDS SUMMARY | 2024-01-30 12:09 | XMS_ITS | Encounter Summary ---
Author Organization [facility] Address [address] [facility] [address] [place] [address] Care Team Providers Care Fixture Designer Name Role Phone Claudia Haas NP [...] Expiration Date Visits Re quested Visits Authorized [id number] Closed 11/30/2021 12/30/2022 1 1 Reason for Visit * Reason Comments New Patient Encounter Details Date Type Department Care Team (Late st Contact Info) Description 11/30/2021 1:30 PM CDT Office Visit [facility] Internal Medicine at [place] 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 female. Visit Date: 11/30/2021 Chief Complaint New Patient HPI 71-year-old female in to establish care as a new patient. She states that her recently and she is mood for [facility] within the last year. She is [...] Jose Corrales MD at 12/20/2021 8:10 AM ECOMMERCE ANALYST MERCE ANALYST documented in this encounter Miscellaneous Notes * [...] of LDL-C. Leonel SS et al. JUSTIN. 2013;310(43): 5225-5018 (http://education.[employer]/faq/SRE890) Chol/HDL ratio 1.7 <5.0 (calc) [facility] [...] BLOOD ORDERABLES Final Re sult [facility] [address] [place] [address] * Comprehensive metabolic panel (12/09/2021 8:02 AM CDT) Glucose 89 65 - 99 mg/dL [facility] Comment: ? Fasting reference interval BUN 10 7 - 25 mg/dL [facility] Creatinine 0.70 0.50 - 1.05 mg/dL [facility] eGFR 94 > OR = 60 mL/min/1. 73m2 [facility] Comment: The eGFR is based on the CKD-EPI 2020 equation. To calculate the new eGFR from a previous Creatinine or Cystatin C result, go to https://www.kidney.org/professionals/ kdoqi/gfr%5Fcalculator BUN/creat ratio NOT APPLICABLE 6 - 22 (calc) [facility] Sodium 137 135 - 146 mmol/L [facility] Potassium, pl 4.1 3.5 - 5.3 mmol/L [facility] Chloride 101 98 - 110 mmol/L [facility] CO2 28 20 - 32 mmol/L [facility] Calcium 9.2 8.6 - 10.4 mg/dL [facility] Protein, sr 6.4 6.1 - 8.1 g/dL [facility] Albumin 4.3 3.6 - 5.1 g/dL [facility] GLOBULIN 2.1 1.9 - 3.7 g/dL (calc) [facility] Alb/glob ratio 2.0 1.0 - 2.5 (calc) [facility] Bilirubin, total 0.4 0.2 - 1.2 mg/dL [facility] Alk phos 51 37 - 153 U/L [facility] AST 14 10 - 35 U/L [facility] ALT (SGPT) 11 6 - 29 U/L [facility] Blood 12/09/2021 8:02 AM CDT 12/09/2021 8:03 AM CDT us Claudia Haas NP LAB BLOOD ORDERABLES Final Re sult [facility] [address] [phone] documented in this encounter Visit Diagnoses Diagnosis [...] Filled Start D ate End Date vit C,K-Yj-rluqj-lutein-benjamin joshua (PreserVision AREDS-2) 250-90-40-1 mg capsule 01/14/2020 added in this encounter Care Teams Fixture Designer Relationship Specialty Start Date End Date Claudia Haas NP PCP - General Internal Medicine 11/30/21 07/26/22 documented as of this encounter
--- OUTSIDE RECORDS SUMMARY | 2024-01-30 12:09 | XMS_ITS | Encounter Summary ---
Author Organization [facility] Address [address] [place] [address] Care Team Providers Care Cream Dumper Name Role Phone Claudia Haas NP Primary Care Provider [phone] Encounter Details Date Type Department Care Team (Late st Contact Info) Description 05/23/2022 Orders Only [facility] Family Medicine [address] [place] [address] Karina Shukla MA Social History [...] on file Legal Sex Female 10:40 AM ACID STRENGTH INSPECTOR Gender Identity Female 03/03/2021 12:47 PM ACID STRENGTH INSPECTOR Sexual Orientation Not on file 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
--- OUTSIDE RECORDS SUMMARY | 2024-01-30 12:09 | XMS_ITS | Encounter Summary ---
Author Organization [facility] Healthcare Address [address] [place] [address] Care Team Providers Care Coater Carbon Paper Name Role Phone Claudia Haas NP Primary Care Provider [phone] Reason for Visit * Procedure (Routine) - Closed Specialty Diagnoses / Procedures Referred By Contac t Referred To Contact Diagnoses SOB (shortness of breath) Procedures Pulmonary Function Test -[facility]; Full PFT in PFT Lab w/Stress Ox/6 Min Walk Test Luis Hernandez MD [address] [facility] [address] [address] Phone: tel: fax: Referral ID Status Reason Start Date Expiration Date Visits Re quested Visits Authorized [id number] Closed 05/18/2022 06/17/2023 1 1 Encounter Details Date Type Department Care Team (Latest Contact Info) Description 07/25/2022 12:46 PM CDT - 07/25/2022 11:59 PM CDT Hospital Encounter [facility] Respiratory [address] [place] [address] Discharge Disposition: Discharge to home or self [...] on file Legal Sex Female 10:40 AM GLASS MOLD REPAIRER Gender Identity Female 03/03/2021 12:47 PM GLASS MOLD REPAIRER Sexual Orientation Not on file 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 End Date retired - [employer], [employer], [employer]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 file [...] ophthalmic solution every 12 hours 05/26/2022 vit C,Y-Zs-wsatz-lutein -zeaxan (PreserVision AREDS-2) 250-90-40-1 mg capsule 01/14/2020 [...] Results * (ABNORMAL) Pulmonary Function Test -[facility]; Full PFT in PFT Lab w/Stress Ox/6Min Walk Test (07/25/2022 2:30 PM CDT) FVC POST 3.33 2.08 - 3.63 L 07/25/2022 2:25 PM CDT [facility] FVC PRE 3.38 2.08 - 3.63 L 07/25/2022 2:25 PM CDT [facility] FEV1 POST 1.85 1.61 - 2.82 L 07/25/2022 2:25 PM CDT [facility] FEV1 PRE 1.84 1.61 - 2.82 L 07/25/2022 2:25 PM CDT [facility] SCN7MIN-YRBU 55.63(L) 64.77 - 91.38 % 07/25/2022 2:25 PM CDT [facility] [id number] 54.35(L) 64.77 - 91.38 % 07/25/2022 2:25 PM CDT [facility] WAT20-21% POST 0.57(L) 0.86 - 2.87 L/s 07/25/2022 2:25 PM CDT [facility] LAH91-38% PRE 0.56(L) 0.86 - 2.87 L/s 07/25/2022 2:25 PM CDT [facility] PEF POST 5.97 4.27 - 7.24 L/s 07/25/2022 2:25 PM CDT [facility] PEF PRE 6.50 4.27 - 7.24 L/s 07/25/2022 2:25 PM CDT [facility] FET 100% POST 12.70 sec 07/25/2022 2:25 PM CDT [facility] FET 100% PRE 10.37 sec 07/25/2022 2:25 PM CDT [facility] FIVC POST 2.95 1.94 - 3.33 L 07/25/2022 2:25 PM CDT [facility] FIVC PRE 3.08 1.94 - 3.33 L 07/25/2022 2:25 PM CDT [facility] FIF50% POST 5.05 L/s 07/25/2022 2:25 PM CDT [facility] FIF50% PRE 5.16 L/s 07/25/2022 2:25 PM CDT [facility] VC PRE 3.38(H) 1.94 - 3.33 L 07/25/2022 2:25 PM CDT [facility] TLC PRE 6.88(H) 3.98 - 5.96 L 07/25/2022 2:25 PM CDT [facility] RV PRE 3.49(H) 1.49 - 2.65 L 07/25/2022 2:25 PM CDT [facility] FRC PL PRE 4.38 L 07/25/2022 2:25 PM CDT [facility] ERV PRE 0.89(H) 0.65 - 0.65 L 07/25/2022 2:25 PM CDT [facility] IC PRE 2.21(H) 1.98 - 1.98 L 07/25/2022 2:25 PM CDT [facility] RAW PRE 3.33(H) 3.06 - 3.06 cmH2O*s/L 07/25/2022 2:25 PM CDT [facility] BF RES 25.06 BPM 07/25/2022 2:25 PM CDT [facility] VTG RAW 4.67 L 07/25/2022 2:25 PM CDT [facility] VTG 4.67 L 07/25/2022 2:25 PM CDT [facility] DLCOc SB 14.04(L) 15.66 - 27.12 ml/(min*mm Hg) 07/25/2022 2:25 PM CDT [facility] DLCOc SB 14.04(L) 15.66 - 27.12 ml/(min*mm Hg) 07/25/2022 2:25 PM CDT [facility] VA 4.66(L) 4.82 - 4.82 L 07/25/2022 2:25 PM CDT [facility] DLCO/VA PRE 3.02 2.87 - 5.74 ml/(min*mm Hg*L) 07/25/2022 2:25 PM CDT [facility] DLCOc SB 3.02 2.87 - 5.74 ml/(min*mm Hg*L) 07/25/2022 2:25 PM CDT [facility] Anatomical Region Laterality Modality PFT 07/25/2022 12:5 8 PM CDT us Luis Hernandez MD PFT ORDERABLES Edited Re sult - Final documented in this encounter Visit Diagnoses Not on filedocumented in this encounter Care Teams Coater Carbon Paper Relationship Specialty Start Date End Date Claudia Haas NP PCP - General Internal Medicine 11/30/21 07/26/22 documented as of this encounter
--- OUTSIDE RECORDS SUMMARY | 2024-01-30 12:09 | XMS_ITS | Encounter Summary ---
Author Organization [facility] Address [address] [place] [address] Care Team Providers Care Safety Analyst Name Role Phone Guerda Iqbal Primary Care Provider [phone] Reason for Visit * Reason Onset Date Comments med refill 09/13/2021 Encounter Details Date Type Department Care Team (Late st Contact Info) Description 09/13/2021 Telephone [facility] Family Medicine [address] [place] [address] Guerda Iqbal PA [address] [place] [address] med refill Social History Tobacco [...] on file Legal Sex Female 10:40 AM FOREIGN EXCHANGE SERVICES MANAGER Gender Identity Female 03/03/2021 12:47 PM FOREIGN EXCHANGE SERVICES MANAGER Sexual Orientation Not on file 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 Prescriptions transmitted to [facility]. documented in this encounter Plan of Treatment [...] documented as of this encounter Care Teams Safety Analyst Relationship Specialty Start Date End Date Guerda Iqbal PA PCP - General Beverage Inspection Machine Tender 03/12/21 11/29/21 documented as of this encounter
--- OUTSIDE RECORDS SUMMARY | 2024-01-30 12:09 | XMS_ITS | Encounter Summary ---
Author Organization [facility] Address [address] [facility] [address] [place] [address] Care Team Providers Care Hardboard Panel Printer Name Role Phone Claudia Haas NP Primary Care Provider [phone] Reason for Visit * Reason Onset Date Comments ACO Quality Outreach 12/13/2021 Encounter Details Date Type Department Care Team (Late st Contact Info) Description 12/13/2021 Telephone [facility] Accountable Care Organization [address] [place] [address] Lalita Dumont MA [address] [place] [address] ACO Quality Outreach Social History Tobacco Use [...] on file Legal Sex 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 Gender Identity Female 03/03/2021 12:47 PM BUSINESS OWNER/ENGINEER Sexual Orientation Not on file 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 Refill of Irbesartan was due 11/11. Patient last filled a 30 day supply. Current Prescription Fill Rate: 88 Called patient. Successful call. Pt is needing irbesartan sent to the pharmacy please MAHAD [place] Patient Outreach Auto Transport Driver [facility]-ACO [phone] documented in this encounter Plan of Treatment Not on file documented as of this encounter Visit Diagnoses Not on filedocumented in this encounter Care Teams Hardboard Panel Printer Relationship Specialty Start Date End Date Claudia Haas NP PCP - General Internal Medicine 11/30/21 07/26/22 documented as of this encounter
--- OUTSIDE RECORDS SUMMARY | 2024-01-30 12:09 | XMS_ITS | Encounter Summary ---
Author Organization [facility] Medical Group Address [address] [place] [address] Care Team Providers Care Manager Talent Name Role Phone Guerda Iqbal Primary Care Provider [phone] Encounter Details Date Type Department Care Team (Late st Contact Info) Description 11/19/2021 Telephone [facility] Internal Medicine at [place] [address] [place] [address] Guerda Iqbal PA [facility] [place] [address] Social History Tobacco Use Types [...] on file Legal Sex Female 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 documented in this encounter Plan of Treatment Not on file documented as of this encounter Visit Diagnoses Not on filedocumented in this encounter Care Teams Manager Talent Relationship Specialty Start Date End Date Guerda Iqbal PA PCP - General Furnace Packer 03/12/21 11/29/21 documented as of this encounter
--- OUTSIDE RECORDS SUMMARY | 2024-01-30 12:09 | XMS_ITS | Encounter Summary ---
Author Organization [facility] Medical Group Address [address] [place] [address] Care Team Providers Care Gas Operations Superintendent Name Role Phone Guerda Iqbal Primary Care Provider [phone] Reason for Visit * Reason Comments Follow-up Encounter Details Date Type Department Care Team (Late st Contact Info) Description 07/22/2021 9:30 AM CDT Office Visit [facility] Family Medicine [address] [place] [address] Guerda Iqbal PA [address] [place] [address] Mild episode of recurrent major [...] on file Legal Sex Female 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
--- OUTSIDE RECORDS SUMMARY | 2024-01-30 12:09 | XMS_ITS | Encounter Summary ---
Author Organization [facility] Medical [facility] Address [address] [place] [address] Care Team Providers Care District Administrative Assistant Name Role Phone Claudia Haas NP Primary Care Provider [phone] Encounter Details Date Type Department Care Team (Late st Contact Info) Description 12/20/2021 E-Visit [facility] Virtual Care [address] [place] [address] Elba Zepeda NP [address] [place], [place] [id number] Your Medications Social History Tobacco Use Types [...] on file Legal Sex Female 10:40 AM MERRY GO ROUND OPERATOR Gender Identity Female 03/03/2021 12:47 PM MERRY GO ROUND OPERATOR Sexual Orientation Not on file 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 She was given instructions regarding follow up and timeframe if symptoms worsen or don???t improve. These instructions were included in the [employer] message reply tothe patient. Patient Instructions were [...] 60 capsule Refill: 0 Elba Zepeda NP Y GO ROUND OPERATOR documented in this encounter Plan of Treatment Not on file documented as of this encounter Visit Diagnoses Diagnosis Intermittent asthma without complication, unspecified asthma severity- Primary Upper respiratory tract infection, unspecified type documented in this encounter Care Teams District Administrative Assistant Relationship Specialty Start Date End Date Claudia Haas NP PCP - General Internal Medicine 11/30/21 07/26/22 documented as of this encounter
--- OUTSIDE RECORDS SUMMARY | 2024-01-30 12:09 | XMS_ITS | Encounter Summary ---
Author Organization [facility] Healthcare Address [address] [place] [address] Care Team Providers Care Senior Director Of Global [employer] Technology Solutions Name Role Phone Claudia Haas NP Primary Care Provider [phone] Reason for Visit * Diagnostic Imaging (Routine) - Pending Review Specialty Diagnoses / Procedures Referred By Contac t Referred To Contact Procedures Breast Imaging Screening Outside Reference Transcribed Order, Provider Referral ID Status Reason Start Date Expiration Date V isits Requested Visits Authorized [id number] Pending Review 05/31/2023 06/29/2024 1 1 Encounter Details Date Type Department Care Team (Latest Contact Info) Description 05/19/2022 - 05/19/2022 11:59 PM CDT Hospital Encounter [facility] Outside Images [address] [place] [address] Discharge Disposition: Discharge to home or self [...] on file Legal Sex Female 10:40 AM BATH STEWARD Gender Identity Female 03/03/2021 12:47 PM BATH STEWARD Sexual Orientation Not on file 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
--- OUTSIDE RECORDS SUMMARY | 2024-01-30 12:09 | XMS_ITS | Encounter Summary ---
Author Organization [facility] Healthcare Address [address] [place] [address] Care Team Providers Care Staging Technician Name Role Phone Claudia Haas NP Primary Care Provider [phone] Reason for Referral * Diagnostic Imaging (Routine) - Closed Specialty Diagnoses / Procedures Referred By Jakob t Referred To Contact Diagnoses History of recent pneumonia Procedures XR Chest Pa Lateral 2 Views Luis Hernandez MD [address] [place] [address] DR TEAJDA [address] [place] [address] Phone: tel: fax: [address] [address] Referral ID Status Reason Start Date Expiration Date Visits Re quested Visits Authorized [id number] Closed 05/18/2022 06/17/2023 1 1 Reason for Visit * Diagnostic Imaging (Routine) - Closed Specialty Diagnoses / Procedures Referred By Contkecia lau Referred To Contact Diagnoses History of recent pneumonia Procedures XR Chest Pa Lateral 2 Views Luis Hernandez MD [address] [place] [address] DR TEJADA [address] [place] [address] Phone: tel: fax: [address] [address] Referral ID Status Reason Start Date Expiration Date Visits Re quested Visits Authorized [id number] Closed 05/18/2022 06/17/2023 1 1 Encounter Details Date Type Department Care Team (Latest Contact Info) Description 05/30/2022 10:38 AM CDT - 05/30/2022 11:59 PM CDT Hospital Encounter [facility] Di[facility] Imaging [address] [place] [address] History of recent pneumonia Discharge [...] on file Legal Sex Female 10:40 AM CHILD MONITOR Gender Identity Female 03/03/2021 12:47 PM CHILD MONITOR Sexual Orientation Not on file 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 End Date 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 RW T: Report ID: [id number] Reading Location: [id number] us Luis Hernandez MD IMG XR PROCEDURES Final R esult documented in this encounter Visit Diagnoses Diagnosis History of recent pneumonia documented in this encounter Care Teams Staging Technician Relationship Specialty Start Date End Date Claudia Haas NP PCP - General Internal Medicine 11/30/21 07/26/22 documented as of this encounter
--- OUTSIDE RECORDS SUMMARY | 2024-01-30 12:09 | XMS_ITS | Encounter Summary ---
Author Organization [facility] Address [address] [place] [address] Care Team Providers Care Natural Foods Clerk Name Role Phone Claudia Haas NP Primary Care Provider [phone] Reason for Referral * Diagnostic Imaging (Routine) - Closed Specialty Diagnoses / Procedures Referred By Contac t Referred To Contact Diagnoses Screening mammogram for high-risk patient Procedures Screening Mammogram Bilateral W Claudia Alas NP Phone: tel: fax: External Order Referral ID Status Reason Start Date Expiration Date Visits Re quested Visits Authorized [id number] Closed 02/10/2022 03/12/2023 1 1 WARE MAINTENANCE ENGINEER Encounter Details Date Type Department Care Team (Late st Contact Info) Description 02/10/2022 Orders Only [facility] Family Medicine [address] [place] [phone] Claudia Haas NP [address] [place] [address] Encounter for screening for malignant [...] file Legal Sex Female 10:40 AM SOFTWARE MAINTENANCE ENGINEER Gender Identity Female 03/03/2021 12:47 PM SOFTWARE MAINTENANCE ENGINEER Sexual Orientation Not on file 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
--- OUTSIDE RECORDS SUMMARY | 2024-01-30 12:09 | XMS_ITS | Encounter Summary ---
Author Organization [facility] Address [address] [place] [address] Care Team Providers Care Trial Paralegal Name Role Phone Claudia Haas NP Primary Care Provider Reason for Visit * Reason Onset Date Comments Call Back 05/04/2022 Encounter Details Date Type Department Care Team (Late st Contact Info) Description 05/04/2022 Telephone [facility] Internal Medicine [address] [place] [address] Claudia Haas WATER PUMP SERVICER [address] [facility] [address] [place] [address] Call Back Social History Tobacco [...] on file Legal Sex Female 10:40 AM SPECIAL EDUCATION ITINERANT TEACHER Gender Identity Female 03/03/2021 12:47 PM SPECIAL EDUCATION ITINERANT TEACHER Sexual Orientation Not on file 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 Patient called to relay. Cynthia Hernández Phone #: [phone] Fax #: [phone] Address: [address] [place] [address] Caller???s Call back #: [phone] Does message need to be routed? Yes-Action Needed documented in this encounter Plan of Treatment Not on file documented as of this encounter Visit Diagnoses Not on filedocumented in this encounter Care Teams Trial Paralegal Relationship Specialty Start Date End Date Claudia Haas NP PCP - General Internal Medicine 11/30/21 07/26/22 documented as of this encounter
--- OUTSIDE RECORDS SUMMARY | 2024-01-30 12:09 | XMS_ITS | Encounter Summary ---
Author Organization [facility] Medical Group Address [address] [place] [address] Care Team Providers Care Is Consultant Name Role Phone Claudia Haas INTEGRATION SOLUTION ARCHITECT Primary Care Provider [phone] Claudia Haas INTEGRATION SOLUTION ARCHITECT Primary Care Provider [phone] Encounter Details Date Type Department Care Team (Late st Contact Info) Description 02/12/2022 Orders Only [facility] [address] [place] [address] Scanning, Provider Social History Tobacco Use Types [...] on file Legal Sex Female 10:40 AM LOCKSTITCH SHOULDER JOINER Gender Identity Female 03/03/2021 12:47 PM LOCKSTITCH SHOULDER JOINER Sexual Orientation Not on file 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
--- OUTSIDE RECORDS SUMMARY | 2024-01-30 12:09 | XMS_ITS | Encounter Summary ---
Author Organization [facility] Healthcare Address [address] [place] [address] Care Team Providers Care Health Physics Technician Name Role Phone Claudia Haas NP Primary Care Provider [phone] Reason for Visit * Reason Onset Date Comments Cancelled sleep study 07/08/2022 Encounter Details Date Type Department Care Team (Late st Contact Info) Description 07/08/2022 Telephone [facility] [address] [place] [address] Luis Hernandez MD [address] [facility] [address] [id number] Cancelled sleep study Social History Tobacco Use [...] on file Legal Sex Female 10:40 AM FINANCIAL OFFICER Gender Identity Female 03/03/2021 12:47 PM FINANCIAL OFFICER Sexual Orientation Not on file 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
--- OUTSIDE RECORDS SUMMARY | 2024-01-30 12:09 | XMS_ITS | Encounter Summary ---
Author Organization [facility] Address [address] [facility] [address] [place] [address] Care Team Providers Care Sign Language Teacher Name Role Phone Claudai Haas NP Primary Care Provider [phone] Encounter Details Date Type Department Care Team (Late st Contact Info) Description 05/23/2022 Orders Only [facility] Family Medicine [address] [place] [address] Luis Hernandez MD [address] [facility] [address] [address] SOB (shortness of breath) Social History Tobacco [...] on file Legal Sex Female 10:40 AM TERRAPIN FISHER Gender Identity Female 03/03/2021 12:47 PM TERRAPIN FISHER Sexual Orientation Not on file 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, [employer], 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63 L 07/25/2022 2:25 PM CDT [facility] FEV1 POST 1.85 1.61 - 2.82 L 07/25/2022 2:25 PM CDT [facility] FEV1 PRE 1.84 1.61 - 2.82 L 07/25/2022 2:25 PM CDT [facility] [id number] 55.63(L) 64.77 - 91.38 % 07/25/2022 2:25 PM CDT [facility] [id number] 54.35(L) 64.77 - 91.38 % 07/25/2022 2:25 PM CDT [facility] RBS34-77% POST 0.57(L) 0.86 - 2.87 L/s 07/25/2022 2:25 PM CDT [facility] TUY66-66% PRE 0.56(L) 0.86 - 2.87 L/s 07/25/2022 2:25 PM CDT [facility] PEF POST 5.97 4.27 - 7.24 L/s 07/25/2022 2:25 PM CDT [facility] PEF PRE 6.50 4.27 - 7.24 L/s 07/25/2022 2:25 PM CDT [facility] FET 100% POST 12.70 sec 07/25/2022 2:25 PM CDT [facility] FET 100% PRE 10.37 sec 07/25/2022 2:25 PM CDT [facility] FIVC POST 2.95 1.94 - 3.33 L 07/25/2022 2:25 PM CDT [facility] FIVC PRE 3.08 1.94 - 3.33 L 07/25/2022 2:25 PM CDT [facility] FIF50% POST 5.05 L/s 07/25/2022 2:25 PM CDT [facility] FIF50% PRE 5.16 L/s 07/25/2022 2:25 PM CDT [facility] VC PRE 3.38(H) 1.94 - 3.33 L 07/25/2022 2:25 PM CDT [facility] TLC PRE 6.88(H) 3.98 - 5.96 L 07/25/2022 2:25 PM CDT [facility] RV PRE 3.49(H) 1.49 - 2.65 L 07/25/2022 2:25 PM CDT [facility] FRC PL PRE 4.38 L 07/25/2022 2:25 PM CDT [facility] ERV PRE 0.89(H) 0.65 - 0.65 L 07/25/2022 2:25 PM CDT [facility] IC PRE 2.21(H) 1.98 - 1.98 L 07/25/2022 2:25 PM CDT [facility] RAW PRE 3.33(H) 3.06 - 3.06 cmH2O*s/L 07/25/2022 2:25 PM CDT [facility] BF RES 25.06 BPM 07/25/2022 2:25 PM CDT [facility] VTG RAW 4.67 L 07/25/2022 2:25 PM CDT [facility] VTG 4.67 L 07/25/2022 2:25 PM CDT [facility] DLCOc SB 14.04(L) 15.66 - 27.12 ml/(min*mm Hg) 07/25/2022 2:25 PM CDT [facility] DLCOc SB 14.04(L) 15.66 - 27.12 ml/(min*mm Hg) 07/25/2022 2:25 PM CDT [facility] VA 4.66(L) 4.82 - 4.82 L 07/25/2022 2:25 PM CDT [facility] DLCO/VA PRE 3.02 2.87 - 5.74 ml/(min*mm Hg*L) 07/25/2022 2:25 PM CDT [facility] DLCOc SB 3.02 2.87 - 5.74 ml/(min*mm Hg*L) 07/25/2022 2:25 PM CDT [facility] Anatomical Region Laterality Modality PFT 07/25/2022 12:5 8 PM CDT us Luis Hernandez MD PFT ORDERABLES Edited Re sult - Final documented in this encounter Visit Diagnoses Diagnosis SOB (shortness of breath) Shortness of breath documented in this encounter Care Teams Sign Language Teacher Relationship Specialty Start Date End Date Claudia Haas NP PCP - General Internal Medicine 11/30/21 07/26/22 documented as of this encounter
--- OUTSIDE RECORDS SUMMARY | 2024-01-30 12:09 | XMS_ITS | Encounter Summary ---
Author Organization [facility] Healthcare Address [address] [place] [address] Care Team Providers Care Tutorial Laboratory Supervisor Name Role Phone Claudia Haas NP Primary Care Provider [phone] Encounter Details Date Type Department Care Team (Late st Contact Info) Description 12/20/2021 Patient Self-Triage [facility] HealthCare/ Physicians [address] [place] [address] Mychart, Generic Provider [address] [place], [place] [id number] Social History Tobacco Use Types Packs/Day Years [...] file Legal Sex Female 10:40 AM MACHINE TOOL BUILDER Gender Identity Female 03/03/2021 12:47 PM MACHINE TOOL BUILDER Sexual Orientation Not on file 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
--- OUTSIDE RECORDS SUMMARY | 2024-01-30 12:09 | XMS_ITS | Encounter Summary ---
Author Organization [facility] Address [address] [facility] [address] [place] [address] Care Team Providers Care Oracle Webcenter Consultant Name Role Phone Claudia Haas MANAGER ENVIRONMENTAL Primary Care Provider [phone] Encounter Details Date Type Department Care Team (Late st Contact Info) Description 05/03/2022 Orders Only [facility] Family Medicine [address] [place] [address] Claudia Haas, MANAGER ENVIRONMENTAL [address] [place] [address] Seasonal allergic rhinitis due to [...] on file Legal Sex Female 10:40 AM COMMERCIAL CREDIT OFFICER Gender Identity Female 03/03/2021 12:47 PM COMMERCIAL CREDIT OFFICER Sexual Orientation Not on file 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
--- OUTSIDE RECORDS SUMMARY | 2024-01-30 12:09 | XMS_ITS | Encounter Summary ---
Author Organization [facility] Address [address] [place] [address] Care Team Providers Care Carton Liner Name Role Phone Claudia Haas NP Primary Care Provider [phone] Reason for Visit * Reason Comments Medicare Wellness Follow-up MWE and 3 week follo w-up. 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 End Date 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[employer], [employer], 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, [employer]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 file Not on file documented as of this encounter Last Filed Vital Signs Vital Sign Reading Time Taken Comments Blood Pressure 138/74 03/25/2022 11:08 AM STATION MANAGER Pulse 53 03/25/2022 11:08 AM STATION MANAGER Temperature 36.8 ??C (98.2 ??F) 03/25/2022 1 1:08 AM STATION MANAGER Respiratory Rate 20 03/25/2022 11:0 8 AM STATION MANAGER Oxygen Saturation 97% 03/25/2022 11: 08 AM STATION MANAGER Inhaled Oxygen Concentration - - Weight 55.7 kg (122 lb 11.2 oz) 023 11:08 AM STATION MANAGER Height 154.9 cm (5' 0.98 ) 03/25/2022 1 1:08 AM STATION MANAGER Body Mass Index 23.2 03/25/2022 11:08 AM STATION MANAGER documented in this encounter Patient Instructions * Patient Instructions* Claudia Haas NP - 03/25/2022 11:00 AM STATION MANAGER Medicare wellness exam completed today. Follow-up in 4 months or sooner as needed. Contact the office with any questions or concerns ION MANAGER documented in this encounter Ordered Prescriptions Prescription [...] a living will or durable power of civil attorney?: Yes Have you experienced any of [...] times a day 120 capsule 3 vit C,Y-Rv-lbusd-lutein-zeaxan (PreserVision AREDS-2) 250-90-40-1 mg capsule [DISCONTINUED] cetirizine (ZyrTEC) 1 mg/mL syrup Take by mouth daily [DISCONTINUED] montelukast (SINGULAIR) 10 mg tablet Take 1 tablet (10 mg total) by mouth nightly 30tablet 3 cetirizine (ZyrTEC) 10 mg tablet Take 1 tablet (10 mg total) by mouth daily as needed for [id number] tablet 4 irbesartan (AVAPRO) 300 mg tablet [...] - General (Internal Medicine) Primary Pharmacy/DME suppliers: [id number] - [place], [place] - [address] [facility] [address] [facility] [id number] Detection of Cognitive Impairment: Detect cognitive impairment [...] referral to Pulmonology; Future Claudia Haas NP ION MANAGER documented in this encounter Miscellaneous Notes * Assessment & Plan Note - Claudia Haas NP - 03/25/2022 11:40 AM STATION MANAGER Associated Problem(s): Seasonal allergies This is a significant, separately identifiable problem that was evaluated and managed on the same day as the wellness exam ION MANAGER * Assessment & Plan Note - Monica Jules MA - 03/25/2022 11:23 AM STATION MANAGER Associated Problem(s): BMI 24.0-24.9, adult (Resolved 03/31/2023) Weight/BMI is in healthy range. Continue healthy lifestyle. ION MANAGER documented in this encounter Plan of [...] 03/25/2022 added in this encounter Care Teams Carton Liner Relationship Specialty Start Date End Date Claudia Haas NP PCP - General Internal Medicine 11/30/21 07/26/22 documented as of this encounter
--- OUTSIDE RECORDS SUMMARY | 2024-01-30 12:09 | XMS_ITS | Encounter Summary ---
Author Organization [facility] Address [address] [place] [address] Care Team Providers Care Soil Checker Name Role Phone Claudia Haas FORMING FIXER Primary Care Provider [phone] Encounter Details Date Type Department Care Team (Late st Contact Info) Description 12/13/2021 Telephone [facility] Internal Medicine at [place] [address] [place] [address] Claudia Haas FORMING FIXER [address] [place] [address] Social History Tobacco Use Types [...] file Legal Sex Female 10:40 AM WATER CHEMIST Gender Identity Female 03/03/2021 12:47 PM WATER CHEMIST Sexual Orientation Not on file 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
--- OUTSIDE RECORDS SUMMARY | 2024-01-30 12:09 | XMS_ITS | Encounter Summary ---
Author Organization [facility] Address [address] [facility] [address] [place] [address] Care Team Providers Care Nurse'S Aides Teacher Name Role Phone Claudia Haas NP Primary Care Provider [phone] Reason for Referral * Consultation (Routine) - Closed Specialty Diagnoses / Procedures Referred By Contac t Referred To Contact Sleep Medicine Diagnoses History of recent pneumonia SOB (shortness of breath) Claudia Haas NP [address] [facility] [address] [place] [address] Phone: tel: fax: Karin Hernandez MD [address] [place] [address] Phone: tel: fax: Referral ID Status Reason Start Date Expiration Date V isits Requested Visits Authorized [id number] Closed Specialty Services Required 03/28/2022 04/27/2023 1 1 Question Answer Please select the performing region: [facility] [[id number]] Please select the performing department: [facility] [[id number]] To provider: KARIN HERNANDEZ [[id number]] # of visits: 1 Comments Pt had recent pneumonia and is still having SOB and fatigue RINATOR OPERATOR Encounter Details Date Type Department Care Team (Late st Contact Info) Description 03/28/2022 Orders Only [facility] Family Medicine [address] [facility] [address] [place] [address] Claudia Haas NP [address] [place] [address] History of recent pneumonia (Primary Dx); SOB [...] on file Legal Sex Female 10:40 AM CHLORINATOR OPERATOR Gender Identity Female 03/03/2021 12:47 PM CHLORINATOR OPERATOR Sexual Orientation Not on file 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
--- OUTSIDE RECORDS SUMMARY | 2024-01-30 12:09 | XMS_ITS | Encounter Summary ---
Author Organization [facility] Address [address] [facility] [address] [place] [address] Care Team Providers Care Drawing Hand Name Role Phone Guerda Iqbal Primary Care Provider [phone] Reason for Visit * Reason Comments Follow-up Encounter Details Date Type Department Care Team (Late st Contact Info) Description 09/22/2021 9:30 AM CDT Office Visit [facility] Family Medicine [address] [facility] [address] [place] [address] Guerda Iqbal PA [address] [place] [address] Mild episode of recurrent major [...] on file Legal Sex Female 10:40 AM CONTOUR STITCHER Gender Identity Female 03/03/2021 12:47 PM CONTOUR STITCHER Sexual Orientation Not on file 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
--- OUTSIDE RECORDS SUMMARY | 2024-01-30 12:09 | XMS_ITS | Encounter Summary ---
Author Organization [facility] Address [address] [facility] [address] [place] [address] Care Team Providers Care Maintenance Construction Helper Name Role Phone Claudia Haas NP Primary Care Provider [phone] Reason for Visit * Reason Comments Follow-up Encounter Details Date Type Department Care Team (Late st Contact Info) Description 06/29/2022 10:30 AM CDT Office Visit [facility] Pulmonology [address] [facility] [address] [place] [address] Gena Lee NP [address] [facility] [address] [place] [address] Pneumonia of right lower lobe due to [...] on file Legal Sex Female 10:40 AM DECISION SUPPORT MANAGER Gender Identity Female 03/03/2021 12:47 PM DECISION SUPPORT MANAGER Sexual Orientation Not on file 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 Thepatient states that her ranch supervisor to give her Trelegy two. The patient [...] total) by mouth daily as needed for [id number] tablet 0 fluconazole (DIFLUCAN) 150 mg tablet Take 1 tablet (150 mg total) by mouth as directed Take one tabnow. Repeat in 7 days if symptoms persist. 2 tablet 0 wnqzcyyssiv-pzeqtxpjb-vjjgobtw (Trelegy Ellipta) 100-62.5-25 mcg inhaler gabapentin (NEURONTIN) [...] % ophthalmic solution every 12 hours vit C,A-Wn-yrfdq-lutein-zeaxan (PreserVision AREDS-2) 250-90-40-1 mg capsule pravastatin (PRAVACHOL) [...] 09/19/2022 added in this encounter Care Teams Maintenance Construction Helper Relationship Specialty Start Date End Date Claudia Haas NP PCP - General Internal Medicine 11/30/21 07/26/22 documented as of this encounter
--- OUTSIDE RECORDS SUMMARY | 2024-01-30 12:09 | XMS_ITS | Encounter Summary ---
Author Organization [facility] Address [address] [facility] [address] [place] [address] Care Team Providers Care Software Engineering Manager Name Role Phone Guerda Iqbal Primary Care Provider [phone]- [phone] Reason for Visit * Reason Onset Date Comments Med Refill 09/20/2021 Encounter Details Date Type Department Care Team (Late st Contact Info) Description 09/20/2021 Telephone [facility] Family Medicine [address] [facility] [address] [place] [address] Guerda Iqbal PA [address] [place] [address] Med Refill Social History Tobacco [...] on file Legal Sex Female 10:40 AM PROGRAM ANALYST Gender Identity Female 03/03/2021 12:47 PM PROGRAM ANALYST Sexual Orientation Not on file 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
--- OUTSIDE RECORDS SUMMARY | 2024-01-30 12:10 | XMS_ITS | Encounter Summary ---
Author Organization [facility] Address [address] [facility] [address] [place] [address] Care Team Providers Care Real Estate Associate Name Role Phone Guerda Iqbal Primary Care Provider [phone]- [phone] Encounter Details Date Type Department Care Team (Late st Contact Info) Description 04/05/2021 Orders Only [facility] Family Medicine [address] [facility] [address] [place] [address] ProviderShivam MD [address] [place], [place] [id number] Social History Tobacco Use Types Packs/Day Years [...] on file Legal Sex Female 10:40 AM BEATING MACHINE OPERATOR Gender Identity Female 03/03/2021 12:47 PM BEATING MACHINE OPERATOR Sexual Orientation Not on file 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
--- OUTSIDE RECORDS SUMMARY | 2024-01-30 12:10 | XMS_ITS | Encounter Summary ---
Author Organization [facility] Address [address] [facility] [address] [place] [address] Care Team Providers Care Architectural Sales Consultant Name Role Phone Guerda Iqbal Primary Care Provider [phone]- [phone] Reason for Visit * Reason Onset Date Comments Med Refill 03/26/2021 Encounter Details Date Type Department Care Team (Late st Contact Info) Description 03/26/2021 Telephone [facility] Family Medicine [address] [facility] [address] [place] [address] Guerda Iqbal PA [address] [place] [address] Med Refill Social History Tobacco [...] on file Legal Sex Female 10:40 AM ENGINE MECHANIC Gender Identity Female 03/03/2021 12:47 PM ENGINE MECHANIC Sexual Orientation Not on file 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 NE MECHANIC * Telephone Encounter - Lyric Jauregui - 03/26/2021 9:56 AM CST azelastine (OPTIVAR) 0.05 % ophthalmic solution calcium carbonate-vit D3-min 600 mg calcium- 400 unit tablet gabapentin (NEURONTIN) 300 mg capsule NE MECHANIC documented in this encounter Plan of Treatment [...] documented as of this encounter Care Teams Architectural Sales Consultant Relationship Specialty Start Date End Date Guerda Iqbal PA PCP - General Competitive Shopper 03/12/21 11/29/21 documented as of this encounter
--- OUTSIDE RECORDS SUMMARY | 2024-01-30 12:10 | XMS_ITS | Encounter Summary ---
Author Organization [facility] Address [address] [facility] [address] [place] [address] Care Team Providers Care Car Rider Name Role Phone Guerda Iqbal Primary Care Provider [phone]- [phone] Reason for Visit * Reason Comments Follow-up Thinks she needs to increase allergy meds. Depression isn't getting better. 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
--- OUTSIDE RECORDS SUMMARY | 2024-01-30 12:10 | XMS_ITS | Encounter Summary ---
Author Organization [facility] Address [address] [facility] [address] [place] [address] Care Team Providers Care National Park Tour Guide Name Role Phone Guerda Iqbal Primary Care Provider [phone]- [phone] Reason for Visit * Reason Comments Establish Care Encounter Details Date Type Department Care Team (Late st Contact Info) Description 03/24/2021 9:00 AM CHILD STUDY TEAM DIRECTOR Office Visit [facility] Family Medicine [address] [facility] [address] [place] [address] Guerda Iqbal PA [address] [place] [address] Encounter to establish care (Primary [...] file Legal Sex Female 10:40 AM CHILD STUDY TEAM DIRECTOR Gender Identity Female 03/03/2021 12:47 PM CHILD STUDY TEAM DIRECTOR Sexual Orientation Not on file 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, 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, 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, 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 file Not on file documented as of this encounter Last Filed Vital Signs Vital Sign Reading Time Taken Comments Blood Pressure 142/82 03/24/2021 9:18 AM CHILD STUDY TEAM DIRECTOR Pulse 71 03/24/2021 9:18 AM CHILD STUDY TEAM DIRECTOR Temperature - - Respiratory Rate 17 03/24/2021 9:18 AM CHILD STUDY TEAM DIRECTOR Oxygen Saturation 98% 03/24/2021 9:18 AM CHILD STUDY TEAM DIRECTOR Inhaled Oxygen Concentration - - Weight 51.3 kg (113 lb) 03/24/2021 9:18 AM CHILD STUDY TEAM DIRECTOR Height 156.2 cm (5' 1.5 ) 03/24/2021 9:18 AM CHILD STUDY TEAM DIRECTOR Body Mass Index 21.01 03/24/2021 9:18 AM CHILD STUDY TEAM DIRECTOR documented in this encounter Ordered Prescriptions Prescription [...] Chief Complaint Establish Care HPI Here for inpatient nursing aide est. [place], [place] here with family. She and husb were living [place], he had Alzheimer's disease and in the last year. She was his primary caregiver. Needing refill on gabapentin. Has been painting and up and down stairs in [facility]. Usually taking qid but some days uses tid. She notes history of spinal stenosis and spondylolisthesis. She notes that she was supposed to have a spinal fusion, [facility] and was a [...] Occupational History ??? 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 Smoking status: Current Every [...] mL Refill: 3 Guerda A. Juarez, PA D STUDY TEAM DIRECTOR documented in this encounter Miscellaneous Notes * Assessment & Plan Note - Guerda Iqbal PA - 03/24/2021 12:15 PM CHILD STUDY TEAM DIRECTOR Associated Problem(s): Encounter for Medicare annual wellness exam Retrieve records from previous pcp D STUDY TEAM DIRECTOR * Assessment & Plan Note - Guerda Iqbal PA - 03/24/2021 12:15 PM CHILD STUDY TEAM DIRECTOR Associated Problem(s): Essential hypertension Retrieve records from previous pcp Continue with medication the same at this time D STUDY TEAM DIRECTOR * Assessment & Plan Note - Guerda Iqbal PA - 03/24/2021 12:14 PM CHILD STUDY TEAM DIRECTOR Associated Problem(s): Hyperlipidemia Retrieve records from previous pcp Continue with medication the same at this time D STUDY TEAM DIRECTOR * Assessment & Plan Note - Guerda Iqbal PA - 03/24/2021 12:14 PM CHILD STUDY TEAM DIRECTOR Associated Problem(s): Intermittent asthma without complication Retrieve records from previous pcp Continue with medications the same at this time D STUDY TEAM DIRECTOR * Assessment & Plan Note - Guerda Iqbal PA - 03/24/2021 12:14 PM CHILD STUDY TEAM DIRECTOR Associated Problem(s): Mild episode of recurrent major depressive disorder (HCC) Retrieve records from previous pcp Continue with trintellix same dosing at this time. She was reminded to not stop it abruptly. We discussed weaning her off in the coming year if settling into new community is going well and she is ready. D STUDY TEAM DIRECTOR * Assessment & Plan Note - Guerda Iqbal PA - 03/24/2021 12:13 PM CHILD STUDY TEAM DIRECTOR Associated Problem(s): Osteopenia Retrieve records from previous pcp Continue with calcium/vit d combo three times/weekly D STUDY TEAM DIRECTOR * Assessment & Plan Note - Guerda Iqbal PA - 03/24/2021 12:13 PM CHILD STUDY TEAM DIRECTOR Associated Problem(s): Spinal stenosis Continue with neurontin same dosing at this time Encouraged continued attempts at smoking cessation D STUDY TEAM DIRECTOR documented in this encounter Plan of Treatment [...] 2 added in this encounter Care Teams National Park Tour Guide Relationship Specialty Start Date End Date Guerda Iqbal PA PCP - General Air Pollution Auditor 03/12/21 11/29/21 documented as of this encounter
--- OUTSIDE RECORDS SUMMARY | 2024-01-30 12:10 | XMS_ITS | Encounter Summary ---
Author Organization [facility] Address [address] [place] [address] Care Team Providers Care Disc Ruler Operator Name Role Phone Guerda Iqbal Primary Care Provider +1- [phone] Encounter Details Date Type Department Care Team (Late st Contact Info) Description 03/31/2021 Orders Only [facility] Family Medicine [address] [facility] [address] [place] [address] 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 file Not on file documented as of this encounter Plan of Treatment Not on file documented as of this encounter Procedures Procedure Name Priority Date/Time Associated Diagnosis Comments CBC WITH AUTO DIFFERENTIAL Routine 03/31/2021 7:22 AM E COMMERCE MANAGER ALBUMIN CREATININE RATIO, URINE Routine 03/31/2021 7:22 AM E COMMERCE MANAGER VITAMIN D 25 HYDROXY Routine 03/31/2021 7:22 AM E COMMERCE MANAGER TSH Routine 03/31/2021 7:22 AM E COMMERCE MANAGER LIPID PANEL Routine 03/31/2021 7:22 AM E COMMERCE MANAGER COMPREHENSIVE METABOLIC PANEL Routine 03/31/2021 7:22 AM E COMMERCE MANAGER documented in this encounter Results * Vitamin D 25 hydroxy (03/31/2021 7:22 AM E COMMERCE MANAGER) Pathologist [facility] Vitamin D 25-OH 44 30 - 100 ng/mL [facility] Comment: Vitamin D Status ? 25-OH Vitamin D: Deficiency: ?<20 ng/mL Insufficiency: ? 20 - 29 ng/mL Optimal: ? > or = 30 ng/mL For 25-OH Vitamin D testing on patients on D2-supplementation and patients for whom quantitation of D2 and D3 fractions is required, the [facility]() 25-OH VIT D, (D2,D3), LC/MS/MS is recommended: order code 11402 (patients >2yrs). See Note 1 Note 1 For additional information, please refer to http://education.eSellerPro.Briteseed/faq/AKX055 (This link is being provided for informational/ educational purposes only.) 03/31/2021 7:22 AM E COMMERCE MANAGER 03/31/2021 7:25 AM E COMMERCE MANAGER Narrative [facility] - 04/01/2021 11:16 AM E COMMERCE MANAGER FASTING:YES FASTING: YES us Guerda GARCIA LAB BLOOD ORDERABLES Final Result [facility] [address] [place] [address] * TSH (03/31/2021 7:22 AM E COMMERCE MANAGER) Pathologist [facility] TSH 1.79 0.40 - 4.50 mIU/L [facility] 03/31/2021 7:22 AM E COMMERCE MANAGER 03/31/2021 7:25 AM E COMMERCE MANAGER Narrative [facility] - 04/01/2021 11:16 AM E COMMERCE MANAGER FASTING:YES FASTING: YES Guerda GARCIA LAB BLOOD ORDERABLES Final Result Performing Organization Address City[facility] Co de Phone Number [facility] [address] [place] [address] * CBC with auto differential (03/31/2021 7:22 AM E COMMERCE MANAGER) [facility] WBC 5.4 3.8 - 10.8 Thousand/u L [...] % [facility] 03/31/2021 7:22 AM E COMMERCE MANAGER 03/31/2021 7:25 AM E COMMERCE MANAGER Narrative [facility] - 04/01/2021 11:16 AM E COMMERCE MANAGER FASTING:YES FASTING: YES Guerda GARCIA LAB BLOOD ORDERABLES Final Result Performing Organization Address [facility] Co de Phone Number [facility] [address] [place] [address] * Albumin Creatinine Ratio, Urine (03/31/2021 7:22 AM E COMMERCE MANAGER) Creatinine, ur 35 20 - 275 mg/dL [...] within a diagnostic category. 03/31/2021 7:22 AM E COMMERCE MANAGER 03/31/2021 7:25 AM E COMMERCE MANAGER Narrative [facility] - 04/01/2021 11:16 AM E COMMERCE MANAGER FASTING:YES FASTING: YES Guerda GARCIA LAB URINE ORDERABLES Final Result Performing Organization Address [facility] Co de Phone Number [facility] [address] [place] [address] * Comprehensive metabolic panel (03/31/2021 7:22 AM E COMMERCE MANAGER) Pathologist [facility] Glucose 87 65 - 99 mg/dL [facility] Comment: ? Fasting reference interval BUN 16 7 - 25 mg/dL [facility] Creatinine 0.63 0.50 - 0.99 mg/dL [facility] Comment: For patients >49 years of age, the reference limit for Creatinine is approximately 13% higher for people identified as -Australian. eGFR NON-AFR. LUXEMBOURGER 92 > OR = 60 mL/min/1 .73m2 [facility] EGFR 106 > OR = 60 mL/min/1 .73m2 [facility] BUN/creat ratio NOT APPLICABLE 6 - 22 (calc) [facility] Sodium 140 135 - 146 mmol/L [facility] Potassium, pl 3.9 3.5 - 5.3 mmol/L [facility] Chloride 103 98 - 110 mmol/L [facility] CO2 27 20 - 32 mmol/L [facility] Calcium 9.0 8.6 - 10.4 mg/dL [facility] Protein, sr 6.1 6.1 - 8.1 g/dL [facility] Albumin 4.2 3.6 - 5.1 g/dL [facility] GLOBULIN 1.9 1.9 - 3.7 g/dL (calc) [facility] Alb/glob ratio 2.2 1.0 - 2.5 (calc) [facility] Bilirubin, total 0.4 0.2 - 1.2 mg/dL [facility] Alk phos 42 37 - 153 U/L [facility] AST 13 10 - 35 U/L [facility] ALT (SGPT) 10 6 - 29 U/L [facility] 03/31/2021 7:22 AM E COMMERCE MANAGER 03/31/2021 7:25 AM E COMMERCE MANAGER Narrative [facility] - 04/01/2021 11:16 AM E COMMERCE MANAGER FASTING:YES FASTING: YES Guerda GARCIA LAB BLOOD ORDERABLES Final Result [facility] [address] [place] [address] * (ABNORMAL) Lipid panel (03/31/2021 7:22 AM E COMMERCE MANAGER) Cholesterol 211(H) <200 mg/dL [facility] [...] LDL-C. Leonel SS et al. JUSTIN. 2013;310(19): 6316-6172 (http://education.ThoughtBuzz/faq/AEV180) Chol/HDL ratio 2.0 <5.0 (calc) [facility] Non-HDL, (LDL+VLDL) 107 <130 mg/dL (calc) [facility] Comment: For patients with diabetes plus 1 major ASCVD risk factor, treating to a non-HDL-C goal of <100 mg/dL (LDL-C of <70 mg/dL) is considered a therapeutic option. 03/31/2021 7:22 AM E COMMERCE MANAGER 03/31/2021 7:25 AM E COMMERCE MANAGER Narrative [facility] - 04/01/2021 11:16 AM E COMMERCE MANAGER FASTING:YES FASTING: YES Guerda GARCIA LAB BLOOD ORDERABLES Final Result Performing Organization Address [facility] Co de Phone Number [facility]EMU[facility] [address] [place] [address] documented in this encounter Visit Diagnoses Not on filedocumented in this encounter Care Teams Disc Ruler Operator Relationship Specialty Start Date End Date Guerda Iqbal PA PCP - General Flight Nurse 03/12/21 11/29/21 documented as of this encounter
--- OUTSIDE RECORDS SUMMARY | 2024-01-30 12:10 | XMS_ITS | Encounter Summary ---
Author Organization [facility] Address [address] [place] [address] Care Team Providers Care Computer Forensic Specialist Name Role Phone Guerda Iqbal Primary Care Provider +1- [phone] Encounter Details Date Type Department Care Team (Late st Contact Info) Description 03/24/2021 Orders Only [facility] Family Medicine [address] [facility] [address] [place] [address] ProviderShivam MD [address] [place], [place] [id number] Social History Tobacco Use Types Packs/Day Years [...] on file Legal Sex Female 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
== END 2024-01-26 19:07 | disposition home or self-care (01) ==
PROVIDERS: Emergency Provider Registered Nurse; PCP Family Medicine
DX: S16.1XXA Strain of muscle, fascia and tendon at neck level, initial encounter (principal); S13.4XXA Sprain of ligaments of cervical spine, initial encounter; I10 Essential (primary) hypertension; J45.909 Unspecified asthma, uncomplicated; E53.8 Deficiency of other specified B group vitamins; E78.5 Hyperlipidemia, unspecified; K21.9 Gastro-esophageal reflux disease without esophagitis; Z87.891 Personal history of nicotine dependence; M47.812 Spondylosis without myelopathy or radiculopathy, cervical region; V44.5XXA Car driver injured in collision with heavy transport vehicle or bus in traffic accident, initial encounter
CPT/HCPCS: 70450; 72125; 96372; 99284; J1885